=== PATIENT | male | born 1940 | race Caucasian/White ===

== ENCOUNTER → 2017-12-01 12:57 | Outpatient (CLI) | payer MEDICARE, SELFPAY ==
[2017-12-01 14:55] VITALS: PULSE 90; PULSE 95
== END ==
PROVIDERS: Family Provider Family Medicine; PCP Family Medicine; Visit Provider Internal Medicine Critical Care Medicine
DX: J44.9 Chronic obstructive pulmonary disease, unspecified (principal)
CPT/HCPCS: 94640; 94726

== ENCOUNTER 2017-12-10 09:24 | Outpatient (RCR) | payer MEDICARE, SELFPAY | END 2017-12-10 09:25 | disposition home or self-care (01) | LOC: PT 09:24 | PROVIDERS: Family Provider Family Medicine; PCP Family Medicine; Visit Provider Internal Medicine Critical Care Medicine | DX: J44.9 Chronic obstructive pulmonary disease, unspecified (principal) ==

== ENCOUNTER → 2017-12-17 14:43 | Outpatient (POV) | payer MEDICARE, SELFPAY | PROVIDERS: Visit Provider Dermatology | DX: Z00.00 Encounter for general adult medical examination without abnormal findings (principal) ==

== ENCOUNTER → 2018-01-18 06:38 | Outpatient (CLI) | payer MEDICARE, SELFPAY ==
--- NOTE | 2018-01-18 06:41 | NM_ITS ---
History and Indications: Hypertension, hyperlipidemia, family history, chest pain, shortness of breath and palpitations Procedure: Patient received a 0.4 with Lexiscan, resting heart rate was 90 bpm resting blood pressure 134/72, with Lexiscan maximum heart rate achieved was 102 bpm which is less than 85% of the maximum predicted heart rate and a blood pressure was 122/72. With Lexiscan patient complained of stomach discomfort Electrocardiogram: Resting echocardiogram showed sinus rhythm, with Lexiscan thickening premature ventricular complexes seen, less than 1.[address] segment depression noted from the baseline EKG. The EKG portion of the Lexiscan Myoview is nondiagnostic. Cardiac stress and resting SPECT images: Cardiac stress and rest SPECT images were obtained using technetium 99 Myoview 10.2 mCi at rest and 32.2 mCi at stress, gated SPECT further analysis of segmental wall motion and calculation of the ejection fraction also done. Cardiac stress and rest images show a fixed defect involving the inferior wall with reduced contractility in the gated SPECT is likely secondary to prior nontransmural myocardial scarring, computer derived ejection fraction is 43% with inferior and posterobasal wall hypokinesis, right ventricle is normal size and contractility. Conclusion: 1. The EKG portion of the Lexiscan Myoview is nondiagnostic. 2. 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 Right ventricle is normal size and contractility. 3. Abnormal Lexiscan Myoview study
--- NOTE | 2018-01-18 07:49 | HMH.ITSHM ---
LYRICA ZOLPIDEM AMLODIPINE LISINOPRIL PRAVASTATIN CHLORTHALIDONE TAMSULOSIN VENTOLIN ADVAIR SPIRIVA CENTRUM SILVER
== END ==
PROVIDERS: Family Provider Family Medicine; PCP Family Medicine; Visit Provider Internal Medicine
DX: R00.0 Tachycardia, unspecified (principal); I49.3 Ventricular premature depolarization; I27.20 Pulmonary hypertension, unspecified; E78.5 Hyperlipidemia, unspecified; I10 Essential (primary) hypertension; R07.89 Other chest pain
CPT/HCPCS: 78452; 93017; A9502; J2785

== ENCOUNTER → 2018-01-20 09:11 | Outpatient (CLI) | payer MEDICARE, SELFPAY ==
--- NOTE | 2018-01-20 09:13 | CA_ITS ---
PROCEDURE: 2-D M-mode and color Doppler study INDICATIONS FOR THE TEST: Chest pain+ COPD Heart Murmur Tobacco Smoking+ Palpitations Fatigue Syncope Edema+ Hypertension+Diabetes Mellitus Rheumatic Fever SOB+RINALDI Obesity Hyperlipidemia+ Family History HD Additional History SVT, PVC, PAC PATIENT INFORMATION HEIGHT: 71 WEIGHT:245 GENDER: Male B/P:135/84 2-D/M-MODE INTERPRETATION: 2-D MEASUREMENTS OBSERVED VALUES IN CMS Right Ventricular Dimension (RVDd) 2.9 Interventricular Septum (Thickness)(IVsd) 1.7 Left Ventricular Internal Dimensions(LVIDd) 5.5 Left Ventricular Posterior Wall (Thickness)(LVPWd) 1.0 Aortic Root 3.9 Aortic Cusp Separation 1.9 Left Atrial Dimensions (LAD) 3.2 2D 1. Left atrium is mildly enlarged, left ventricle is normal size, there is mild concentric left ventricular hypertrophy, visually estimated ejection fraction of 45%, there is marked hypokinesis involving the inferobasal and posterobasal wall. Endocardial surfaces are poorly visualized. 2. The right atrium and right ventricle are mildly enlarged with normal contractility. 3. The aortic valve is minimally thickened and fibrosed. 4. The mitral and tricuspid valve leaflets are minimally thickened. 5. The pulmonic valve is poorly visualized. 6. No significant pericardial effusion noted. DOPPLER INTERROGATION: Doppler interrogation of the aortic, mitral and tricuspid valvular presence of mild mitral and tricuspid regurgitation, tricuspid and enteric velocity insufficient for calculation of the right ventricular systolic pressure, diastolic parameters are inconclusive. CONCLUSION: 1. Mildly enlarged left atrium, normal left ventricular size, mild concentric left ventricular hypertrophy, visually estimated ejection fraction 45% with segmental wall motion abnormality described above, diastolic parameters are inconclusive. 2. Mild mitral and tricuspid regurgitation 3. No significant pericardial effusion noted.
== END ==
PROVIDERS: Family Provider Family Medicine; PCP Family Medicine; Visit Provider Internal Medicine
DX: R00.0 Tachycardia, unspecified (principal); I49.3 Ventricular premature depolarization; I27.20 Pulmonary hypertension, unspecified; E78.5 Hyperlipidemia, unspecified; I10 Essential (primary) hypertension
CPT/HCPCS: 93306

== ENCOUNTER → 2018-01-25 12:01 | Outpatient (CLI) | payer MEDICARE, SELFPAY ==
[2018-01-25 12:32] LABS: Activated Partial Thrombo Time 24.8 seconds (23.6-34.0); INR 0.98 (0.9-1.1); Prothrombin Time 10.6 seconds (9.4-11.8)
[2018-01-25 12:34] LABS: Alanine Aminotransferase 34 U/L (12-78); Albumin Level 3.9 gm/dL (3.4-5.0); Alkaline Phosphatase 90 U/L (46-116); Aspartate Amino Transferase 29 U/L (15-37); Bilirubin,Direct 0.1 mg/dL (0.0-0.2); Bilirubin,Total 0.3 mg/dL (0.2-1.0); Blood Urea Nitrogen 22 mg/dL (7-18); Carbon Dioxide 32 mmol/L (21.0-32.0); Chloride 104 mmol/L (98-107); Chol/HDL Ratio 3.1 (1-3.5); Cholesterol 189 mg/dL (140-200); Creatinine,Serum 1.34 mg/dL (0.70-1.30); Estimated Glomerular Filt Rate 52 ml/min (>60); GFR (African American) 63 ML/MIN (>60); Glucose 107 mg/dL (74-106); HDL Cholesterol 61 mg/dL (27-67); LDL Cholesterol 104 mg/dL (0-130); Sodium 142 mmol/L (136-145); Total Protein,Serum 7.2 gm/dL (6.4-8.2); Triglycerides 121 mg/dL (30-200); VLDL Cholesterol 24 mg/dL (0-40)
[2018-01-25 12:55] LABS: Basophils # 0.1 K/mm3 (0-0.2); Basophils % 0.6 % (0.1-2.0); Eosinophils # 0.1 K/mm3 (0.0-0.4); Eosinophils % 1.5 % (0.1-12.0); Hematocrit 48.6 % (42.0-52.0); Hemoglobin 15.8 g/dL (14.1-18.0); Lymphocytes # 1.5 K/mm3 (0.7-4.5); Lymphocytes % 20.9 K/mm3 (10-50); Mean Corpuscular HGB Conc 32.4 g/dL (31.8-35.4); Mean Corpuscular Hemoglobin 31.6 pg (27.0-31.2); Mean Corpuscular Volume 97.6 fl (80-94); Mean Platelet Volume 9.3 fl (7.4-10.4); Monocytes # 0.4 K/mm3 (0.1-1.0); Monocytes % 5.8 % (1.7-9.3); Neutrophils # 5.2 K/mm3 (1.8-7.8); Neutrophils % 71.2 % (37.0-80.0); Platelet Count 268 K/mm3 (142-424); Red Blood Count 4.98 M/mm3 (4.60-6.20); Red Cell Distribution Width 13.3 % (11.5-17.5); White Blood Count 7.3 K/mm3 (4.8-10.8)
== END ==
PROVIDERS: Visit Provider Internal Medicine
DX: R94.39 Abnormal result of other cardiovascular function study (principal); R00.2 Palpitations; I27.20 Pulmonary hypertension, unspecified; E78.5 Hyperlipidemia, unspecified; I10 Essential (primary) hypertension; I20.9 Angina pectoris, unspecified; R06.02 Shortness of breath
CPT/HCPCS: 36415; 80048; 80061; 80076; 85025; 85610; 85730

== ENCOUNTER → 2018-02-01 13:20 | Outpatient (POV) | payer MEDICARE, SELFPAY | PROVIDERS: Family Provider Family Medicine; PCP Family Medicine; Visit Provider Physician Assistant | DX: Z00.00 Encounter for general adult medical examination without abnormal findings (principal) ==

== ENCOUNTER → 2018-02-02 10:03 | Outpatient (POV) | payer MEDICARE, SELFPAY | PROVIDERS: Family Provider Family Medicine; PCP Family Medicine; Visit Provider Internal Medicine | DX: Z00.00 Encounter for general adult medical examination without abnormal findings (principal) ==

== ENCOUNTER → 2018-02-17 12:33 | Outpatient (CLI) | payer MEDICARE, SELFPAY ==
[2018-02-17 01:45] VITALS: PULSE 51; PULSE 58
[2018-02-17 15:16] VITALS: BP 125/82; BP 140/90; PULSE 51; PULSE 86; RESP 16; RESP 24; O2SAT 91; O2SAT 93
== END ==
PROVIDERS: Family Provider Family Medicine; PCP Family Medicine; Visit Provider Internal Medicine
DX: R06.02 Shortness of breath (principal); R09.02 Hypoxemia; J44.9 Chronic obstructive pulmonary disease, unspecified
CPT/HCPCS: 94060; 94618; 94640; 94726; 94729

== ENCOUNTER → 2018-03-02 15:47 | Outpatient (CLI) | payer MEDICARE, SELFPAY ==
[2018-03-02 16:34] LABS: Anion Gap 10.2 mEq/L (5-15); Blood Urea Nitrogen 20 mg/dL (7-18); Carbon Dioxide 31 mmol/L (21.0-32.0); Chloride 108 mmol/L (98-107); Estimated Glomerular Filt Rate 54 ml/min (>60); GFR (African American) 65 ML/MIN (>60); Glucose 102 mg/dL (74-106); Potassium 4.2 mmoL/L (3.5-5.1); Sodium 145 mmol/L (136-145)
[2018-03-02 17:12] LABS: Free Thyroxine Index 2.7 ug/dL (5.93-13.13); T4 (Thyroxine) 7.8 ug/dl (4.7-13.3); Thyroid Stimulating Hormone 2.41 uIU/ml (0.358-3.740); Triiodothryronine (T3) Uptake 34 % (31-39)
== END ==
PROVIDERS: Visit Provider Urology
DX: I25.10 Atherosclerotic heart disease of native coronary artery without angina pectoris (principal); I10 Essential (primary) hypertension; R53.83 Other fatigue
CPT/HCPCS: 36415; 80048; 84436; 84443; 84479

== ENCOUNTER → 2018-03-18 15:01 | Outpatient (CLI) | payer MEDICARE, SELFPAY | PROVIDERS: PCP Family Medicine; Visit Provider Physician Assistant | DX: R00.2 Palpitations (principal); R42 Dizziness and giddiness; I27.20 Pulmonary hypertension, unspecified; R06.09 Other forms of dyspnea; I10 Essential (primary) hypertension; I25.10 Atherosclerotic heart disease of native coronary artery without angina pectoris; R53.83 Other fatigue; E66.9 Obesity, unspecified; E78.4 Other hyperlipidemia | CPT/HCPCS: 93225 ==

== ENCOUNTER → 2018-03-26 13:10 | Outpatient (CLI) | payer MEDICARE, SELFPAY ==
[2018-03-26 14:49] LABS: Blood Urea Nitrogen 23 mg/dL (7-18); Calcium 9.2 mg/dL (8.5-10.1); Carbon Dioxide 27 mmol/L (21.0-32.0); Chloride 107 mmol/L (98-107); Creatinine,Serum 1.21 mg/dL (0.70-1.30); Estimated Glomerular Filt Rate 58 ml/min (>60); GFR (African American) 71 ML/MIN (>60); Glucose 115 mg/dL (74-106); Sodium 144 mmol/L (136-145)
== END ==
PROVIDERS: Visit Provider Internal Medicine Cardiovascular Disease
DX: E78.5 Hyperlipidemia, unspecified (principal); I10 Essential (primary) hypertension; I27.20 Pulmonary hypertension, unspecified
CPT/HCPCS: 36415; 80048

== ENCOUNTER → 2018-04-08 13:17 | Outpatient (CLI) | payer MEDICARE, SELFPAY ==
[2018-04-08 13:49] LABS: Anion Gap 11.2 mEq/L (5-15); Blood Urea Nitrogen 20 mg/dL (7-18); Calcium 8.8 mg/dL (8.5-10.1); Carbon Dioxide 27 mmol/L (21.0-32.0); Chloride 105 mmol/L (98-107); Creatinine,Serum 1.15 mg/dL (0.70-1.30); Estimated Glomerular Filt Rate 62 ml/min (>60); GFR (African American) 75 ML/MIN (>60); Glucose 99 mg/dL (74-106); Potassium 4.2 mmoL/L (3.5-5.1); Sodium 139 mmol/L (136-145)
== END ==
PROVIDERS: Urology; Family Provider Family Medicine; PCP Family Medicine; Visit Provider Internal Medicine Cardiovascular Disease
DX: I27.20 Pulmonary hypertension, unspecified (principal); R06.00 Dyspnea, unspecified; I25.10 Atherosclerotic heart disease of native coronary artery without angina pectoris; I10 Essential (primary) hypertension; R00.2 Palpitations; I70.1 Atherosclerosis of renal artery
CPT/HCPCS: 36415; 80048

== ENCOUNTER → 2018-04-22 09:46 | Outpatient (CLI) | payer MEDICARE, SELFPAY ==
[2018-04-22 10:32] LABS: Blood Urea Nitrogen 25 mg/dL (7-18); Creatinine,Serum 1.33 mg/dL (0.70-1.30); Estimated Glomerular Filt Rate 52 ml/min (>60); GFR (African American) 63 ML/MIN (>60)
== END ==
PROVIDERS: Family Provider Family Medicine; PCP Family Medicine; Visit Provider Internal Medicine Cardiovascular Disease
DX: I10 Essential (primary) hypertension (principal); R42 Dizziness and giddiness; I27.20 Pulmonary hypertension, unspecified; R00.2 Palpitations; R06.00 Dyspnea, unspecified; E78.5 Hyperlipidemia, unspecified; I25.10 Atherosclerotic heart disease of native coronary artery without angina pectoris
CPT/HCPCS: 36415; 82565; 84520

== ENCOUNTER → 2018-04-26 14:19 | Outpatient (CLI) | payer MEDICARE, SELFPAY | PROVIDERS: PCP Family Medicine; Visit Provider Internal Medicine | DX: G47.33 Obstructive sleep apnea (adult) (pediatric) (principal) | CPT/HCPCS: 95806 ==

== ENCOUNTER → 2018-05-12 12:38 | Outpatient (CLI) | payer MEDICARE, SELFPAY ==
[2018-05-12 13:40] LABS: Blood Urea Nitrogen 16 mg/dL (7-18); Calcium 8.5 mg/dL (8.5-10.1); Carbon Dioxide 27 mmol/L (21.0-32.0); Chloride 110 mmol/L (98-107); Creatinine,Serum 1.14 mg/dL (0.70-1.30); Estimated Glomerular Filt Rate 62 ml/min (>60); GFR (African American) 75 ML/MIN (>60); Glucose 84 mg/dL (74-106); Sodium 146 mmol/L (136-145)
== END ==
PROVIDERS: Visit Provider Internal Medicine Cardiovascular Disease
DX: I25.10 Atherosclerotic heart disease of native coronary artery without angina pectoris (principal); R06.00 Dyspnea, unspecified; R60.9 Edema, unspecified; I10 Essential (primary) hypertension; I42.9 Cardiomyopathy, unspecified
CPT/HCPCS: 36415; 80048

== ENCOUNTER → 2018-05-27 12:12 | Outpatient (CLI) | payer MEDICARE, SELFPAY ==
[2018-05-27 14:19] LABS: Anion Gap 7.5 mEq/L (5-15); Blood Urea Nitrogen 18 mg/dL (7-18); Calcium 9.2 mg/dL (8.5-10.1); Carbon Dioxide 32 mmol/L (21.0-32.0); Chloride 103 mmol/L (98-107); Creatinine,Serum 1.18 mg/dL (0.70-1.30); Estimated Glomerular Filt Rate 60 ml/min (>60); GFR (African American) 72 ML/MIN (>60); Glucose 104 mg/dL (74-106); Potassium 4.5 mmoL/L (3.5-5.1); Sodium 138 mmol/L (136-145)
== END ==
PROVIDERS: Visit Provider Physician Assistant
DX: R60.0 Localized edema (principal)
CPT/HCPCS: 36415; 80048

== ENCOUNTER → 2018-06-07 14:10 | Outpatient (POV) | payer MEDICARE, SELFPAY | PROVIDERS: Family Provider Family Medicine; PCP Family Medicine; Visit Provider Physician Assistant | DX: Z00.00 Encounter for general adult medical examination without abnormal findings (principal) ==

== ENCOUNTER → 2018-07-22 14:41 | Outpatient (CLI) | payer MEDICARE, SELFPAY ==
--- NOTE | 2018-07-22 14:42 | CA_ITS ---
PROCEDURE: 2-D M-mode and color Doppler study INDICATIONS FOR THE TEST: Chest pain COPDX Heart Murmur Tobacco Smoking Palpitations FatigueX Syncope Edema HypertensionXDiabetes Mellitus Rheumatic Fever SOB RINALDI ObesityXHyperlipidemiaX Family History HD Additional History CAD,CMP,HTN PATIENT INFORMATION HEIGHT: 71 WEIGHT:245 GENDER: Male B/P:167/85 2-D/M-MODE INTERPRETATION: 2-D MEASUREMENTS OBSERVED VALUES IN CMS Right Ventricular Dimension (RVDd) 2.7 Interventricular Septum (Thickness)(IVsd) 1.2 Left Ventricular Internal Dimensions(LVIDd) 5.2 Left Ventricular Posterior Wall (Thickness)(LVPWd) 1.1 Aortic Root 3.8 Aortic Cusp Separation 2.2 Left Atrial Dimensions (LAD) 2.3 2D 1. Left atrium is mildly enlarged, left ventricle is normal size, mild concentric left estimated ejection fraction approximately 50%, there is moderate hypokinesis involving the inferobasal wall. 2. The right atrium and right ventricle are normal size and contractility. 3. The aortic valve is thickened and calcified leaflet continue to display mobility. 4. The mitral and tricuspid valve is minimally thickened 5. The pulmonic valve is poorly visualized. 6. No significant pericardial effusion noted. DOPPLER INTERROGATION: Doppler interrogation of the aortic, mitral and tricuspid valvular presence of mild mitral and tricuspid regurgitation, calculated right ventricular systolic pressure is 45 mmHg consistent with moderate pulmonary hypertension, grade 1 diastolic dysfunction seen with tissue Doppler evidence of raised left atrial pressure. CONCLUSION: 1. Mildly enlarged left atrium, normal left ventricular size, mild concentric left ventricular hypertrophy, visually estimated ejection fraction 50% with segmental wall motion abnormality described above, grade 1 diastolic dysfunction seen with tissue Doppler evidence of raised left atrial pressure. 2. Mild mitral and tricuspid regurgitation, calculated right ventricular systolic pressure is 45 mmHg consistent with moderate pulmonary hypertension. 3. No significant pericardial effusion noted.
== END ==
PROVIDERS: Family Provider Family Medicine; PCP Family Medicine; Visit Provider Internal Medicine Cardiovascular Disease
DX: E66.9 Obesity, unspecified (principal); E78.4 Other hyperlipidemia; I10 Essential (primary) hypertension; I25.10 Atherosclerotic heart disease of native coronary artery without angina pectoris; I27.20 Pulmonary hypertension, unspecified; I42.8 Other cardiomyopathies; R06.09 Other forms of dyspnea; R42 Dizziness and giddiness; R53.83 Other fatigue; R60.0 Localized edema; Z87.891 Personal history of nicotine dependence
CPT/HCPCS: 93306

== ENCOUNTER → 2018-08-13 07:52 | Outpatient (CLI) | payer MEDICARE, SELFPAY ==
--- NOTE | 2018-08-13 07:54 | AS_ITS ---
Renal Arterial Duplex Indications: 782.3 Edema. 405.91 Unspecified renovascular hypertension. IMPRESSIONS 1. The right renal artery appears normal. 2. The left renal artery appears normal. Complete renal arterial duplex. Duplex scan and Doppler flow study including spectral analysis, color and garcia scale imaging. Height: Height: 180.3cm. Height: 71in. Weight: Weight: 108kg. Weight: 237.5lb. Body mass index: BMI: 33.2kg/m^2. Body surface area: BSA: 2.36m^2. Location: Vascular laboratory. Patient status: Outpatient. Tables: Arterial flow: + +--------+--------+ Location V sys V ed + +--------+--------+ Right renal - proximal 80.1cm/s 21.1cm/s + +--------+--------+ Right renal - mid 98.4cm/s 34cm/s + +--------+--------+ Right renal - distal 58.8cm/s 20.8cm/s + +--------+--------+ Left renal - proximal 120cm/s 41.2cm/s + +--------+--------+ Left renal - mid 79.4cm/s 30.6cm/s + +--------+--------+ Left renal - distal 75.4cm/s 28.6cm/s + +--------+--------+ Right renal-origin 91.7cm/s 31.9cm/s + +--------+--------+ Left renal-origin 111cm/s 32.8cm/s + +--------+--------+ Renal anatomy: + +------+------+ Left Right + +------+------+ Long axis 10.8cm 10.4cm + +------+------+ Short axis 5.7cm 6.8cm + +------+------+ Velocity ratios: + +-----+ V sys + +-----+ Right renal/aortic 1.4 + +-----+ Left renal/aortic 1.6 + +-----+ (Report amended ) Electronically signed by: Rohit Pillai [id number]
== END ==
PROVIDERS: PCP Family Medicine; Visit Provider Internal Medicine
DX: E66.9 Obesity, unspecified (principal); I10 Essential (primary) hypertension; I25.10 Atherosclerotic heart disease of native coronary artery without angina pectoris; I27.20 Pulmonary hypertension, unspecified; R00.2 Palpitations; R06.09 Other forms of dyspnea; R42 Dizziness and giddiness; R53.83 Other fatigue; Z87.891 Personal history of nicotine dependence; E78.49 Other hyperlipidemia
CPT/HCPCS: 93976

== ENCOUNTER → 2018-08-18 11:39 | Outpatient (CLI) | payer MEDICARE, SELFPAY ==
[2018-08-18 13:41] LABS: Anion Gap 11.3 mEq/L (5-15); Blood Urea Nitrogen 20 mg/dL (7-18); Calcium 8.8 mg/dL (8.5-10.1); Carbon Dioxide 31 mmol/L (21.0-32.0); Chloride 107 mmol/L (98-107); Creatinine,Serum 1.22 mg/dL (0.70-1.30); Estimated Glomerular Filt Rate 58 ml/min (>60); GFR (African American) 70 ML/MIN (>60); Glucose 94 mg/dL (74-106); Potassium 4.3 mmoL/L (3.5-5.1); Sodium 145 mmol/L (136-145)
== END ==
PROVIDERS: Visit Provider Physician Assistant
DX: I25.10 Atherosclerotic heart disease of native coronary artery without angina pectoris (principal); I27.20 Pulmonary hypertension, unspecified; R00.2 Palpitations; R42 Dizziness and giddiness; Z87.891 Personal history of nicotine dependence; R06.09 Other forms of dyspnea
CPT/HCPCS: 36415; 80048; 83880

== ENCOUNTER → 2018-08-24 07:02 | Outpatient (CLI) | payer MEDICARE, SELFPAY ==
--- NOTE | 2018-08-24 07:04 | NM_ITS ---
History and Indications: Coronary artery disease, hypertension, hyperlipidemia, tobacco use, family history, chest pain, shortness of breath and fatigue Procedure: Patient received a 0.4 mg of intravenous Lexiscan, resting heart rate was 50 beats per resting blood pressure 176/84, with Lexiscan maximum heart rate achieved was 88 bpm which is less than 85% of the maximum predicted heart rate and a blood pressure was 172/94. With Lexiscan patient complained of mild shortness of breath and stomach discomfort. Electrocardiogram: Resting electrocardiogram showed sinus bradycardia, with Lexiscan occasional premature ventricular complex seen, with Lexiscan less than 1.[address] segment depression noted from the baseline EKG. The EKG portion of the Lexiscan Myoview is nondiagnostic. Cardiac stress and resting SPECT images: Cardiac stress and rest SPECT images were obtained using technetium 99 Myoview 32.3 mCi stress and 10.0 mCi rest gated SPECT further analysis of segmental wall motion and calculation of the ejection fraction also done. Cardiac stress and resting SPECT images show decreased tracer activity in the inferior wall which improves on the resting images suggestive of reversible ischemia, computer derived ejection fraction is 46% with moderate inferior and posterobasal wall hypokinesis. Right ventricle is normal size and contractility. Conclusion: 1. The EKG portion of the Lexiscan Myoview is nondiagnostic. 2. Scintigraphic evidence of reversible ischemia involving the inferior and posterobasal wall, computer derived ejection fraction is 46% segmental wall motion abnormality described above, right ventricle is normal size and contractility. 3. Abnormal Lexiscan Myoview study.
--- NOTE | 2018-08-24 07:36 | HMH.ITSHM ---
Current Home Medications as stated by this patient Puma Weber or enrollment eligibility representative. []PRAVASTATIN AMLODIPINE CLOPIDGREL DIAZEPAM FLUTICASONE FUROSEMIDE LOSARTAN METOPROLOL MULTIVITAMIN LYRICA FLOMAX AMBIEN
== END ==
PROVIDERS: PCP Family Medicine; Visit Provider Internal Medicine
DX: I20.9 Angina pectoris, unspecified; I27.20 Pulmonary hypertension, unspecified; R06.00 Dyspnea, unspecified; E78.5 Hyperlipidemia, unspecified; E66.9 Obesity, unspecified; I42.9 Cardiomyopathy, unspecified; R42 Dizziness and giddiness; R53.83 Other fatigue; R60.9 Edema, unspecified; Z87.891 Personal history of nicotine dependence; I11.9 Hypertensive heart disease without heart failure
CPT/HCPCS: 78452; 93017; A9502; J2785

== ENCOUNTER → 2018-09-17 10:32 | Outpatient (CLI) | payer MEDICARE, SELFPAY ==
[2018-09-17 10:57] LABS: Basophils # 0.1 K/mm3 (0-0.2); Basophils % 0.8 % (0.1-2.0); Eosinophils # 0.1 K/mm3 (0.0-0.4); Eosinophils % 1.6 % (0.1-12.0); Hematocrit 45.8 % (42.0-52.0); Hemoglobin 14.9 g/dL (14.1-18.0); Lymphocytes # 1.4 K/mm3 (0.7-4.5); Lymphocytes % 22.9 % (10-50); Mean Corpuscular HGB Conc 32.5 g/dL (31.8-35.4); Mean Corpuscular Hemoglobin 31.3 pg (27.0-31.2); Mean Corpuscular Volume 96.3 fl (80-94); Mean Platelet Volume 9.1 fl (7.4-10.4); Monocytes # 0.4 K/mm3 (0.1-1.0); Monocytes % 6.4 % (1.7-9.3); Neutrophils # 4.2 K/mm3 (1.8-7.8); Neutrophils % 68.3 % (37.0-80.0); Platelet Count 281 K/mm3 (142-424); Red Blood Count 4.75 M/mm3 (4.60-6.20); Red Cell Distribution Width 14.6 % (11.5-17.5); White Blood Count 6.1 K/mm3 (4.8-10.8)
[2018-09-17 12:40] LABS: Blood Urea Nitrogen 23 mg/dL (7-18); Creatinine,Serum 1.51 mg/dL (0.70-1.30); Estimated Glomerular Filt Rate 45 ml/min (>60); GFR (African American) 54 ML/MIN (>60)
== END ==
PROVIDERS: Visit Provider Otolaryngology
DX: R22.0 Localized swelling, mass and lump, head (principal); R22.1 Localized swelling, mass and lump, neck
CPT/HCPCS: 36415; 82565; 84520; 85025

== ENCOUNTER → 2018-10-15 07:33 | Outpatient (CLI) | payer MEDICARE, SELFPAY ==
--- NOTE | 2018-10-15 07:35 | CT_ITS ---
CT soft tissue neck wo con Ordering Physician: Jawsant Carbone MD Patient Age: 78 years: Male HISTORY: ITS.REASON: swelling left neckmarked with BB TECHNIQUE: Helical CT scanning performed neck with no IV contrast utilized. Due to allergy to contrast. Axial sagittal and coronal reconstructions performed on CT workstation. All CT scans at this facility used one or more dose reduction techniques , viz: automatic exposure control, ma/Kv adjustment per patient's size, (including targeted exam where dose matched to the indication; i.e. head); or iterative reconstruction technique COMPARISON : No previous neck studies CT chest 09/29/2017 which included base of neck FINDINGS . The skin marker is placed over the left neck below the left mandible. No mass is seen here. Only generous adipose tissue within redundant lax soft tissues are seen in this region.. Fairly symmetric in appearance by CT no focal mass or asymmetry evident. The submandibular glands appear normal and symmetrical CT neck without contrast., Well superior to this region marked on scan. If concern and submandibular gland should progress consider follow-up ultrasound here but they appear normal by this CT . Floor the mouth unremarkable by CT but warrants clinical correlation as well. Only a few small scattered nodes are seen throughout the neck, for example overlying the superior submandibular glands more superiorly towards the angle of the mandible. These scattered small nodes unimpressive appear benign symmetrical.- Not of concern., Within spectrum of normal. In fact actually branches from the Slightly generous internal jugular vein contribute to some but the round densities bilaterally overlying the submandibular glands and angle of mandible.. No suspicious adenopathy or mass at the neck. Base of tongue appears satisfactory... Parapharyngeal regions satisfactory. Epiglottis vallecula and piriform sinuses regions unremarkable. [place] of the lung. Prominent linear areas of scarring and atelectasis have been seen on previous CT chest and account for the notable bilateral apical pleural density, right more evident than left... C-spine. Mild degenerative changes. Degenerative facet changes. Right facet degeneration arthropathy hypertrophy most prominent C7/T1. On the Left the C4/5 facet hypertrophy is most notable. C1-C2 relationships appear normal. Mild spondylosis. The base of skull intact. Paranasal sinuses are fairly clear with no significant air-fluid levels. Only scant mucosal thickening at junction of frontal and ethmoid air cells. Mastoid air cells well-developed and clear. Middle ear clear. IACs unremarkable. IMPRESSION 1. No significant mass nor adenopathy identified at neck. 2. Only Generous generous adipose within the redundant lax soft tissue beneath the jaw is seen at area concern with overlying skin marker.. No significant mass or adenopathy here. Submandibular glands superior to this area appears symmetrical on this CT neck without contrast as well 3.. Remainder the neck shows only some scattered benign nodes. No areas of concern ... Mild degenerative changes spine. . The Generous pleural-parenchymal scarring at lung apices, right more than left apex, again noted as previously seen on prior CT chest studies.,..
[2018-10-15 08:24] LABS: Blood Urea Nitrogen 25 mg/dL (7-18); Creatinine,Serum 1.37 mg/dL (0.70-1.30); Estimated Glomerular Filt Rate 50 ml/min (>60); GFR (African American) 61 ML/MIN (>60)
== END ==
PROVIDERS: PCP Family Medicine; Visit Provider Otolaryngology
DX: R22.0 Localized swelling, mass and lump, head (principal); R22.1 Localized swelling, mass and lump, neck
CPT/HCPCS: 36415; 70490; 82565; 84520

== ENCOUNTER → 2018-11-02 10:44 | Outpatient (POV) | payer MEDICARE, SELFPAY | PROVIDERS: Visit Provider Internal Medicine | DX: Z00.00 Encounter for general adult medical examination without abnormal findings (principal) ==

== ENCOUNTER → 2019-02-01 14:34 | Outpatient (POV) | payer MEDICARE, SELFPAY | PROVIDERS: Visit Provider Dermatology | DX: Z00.00 Encounter for general adult medical examination without abnormal findings (principal) ==

== ENCOUNTER → 2019-03-15 12:54 | Outpatient (CLI) | payer MEDICARE, SELFPAY ==
--- NOTE | 2019-03-15 12:59 | CT_ITS ---
CT lung screening EXAM: CT LUNG LOW DOSE WO CONTRAST HISTORY: 100 pack-year smoking history: Asymptomatic for lung cancer ITS.REASON: HX TOBACCO USE ORDERING PHYSICIAN: Paco Vilchis MD PATIENT AGE: 78 years COMPARISON: None TECHNIQUE: The exam was performed on a GE Light Speed [address] scanner using 2.90 mGy CTDI. A low dose helical CT CHEST was performed on a multi-detector scanner. All CT scans at the facility use one or more dose reduction, viz: automated exposure control, ma/kV adjustment per patient size (including targeted exams where dose is matched to indication, i.e. head), or iterative reconstruction technique. The LDCT was performed in a facility that meets the criteria for the screening program. Data regarding this exam was submitted to ACR which is an approved registry. The order for this exam indicates that it came as a result of a lung cancer screening counseling shard decision-making visit that included all the elements required of such a visit including smoking cessation. The radiologist interpreting this exam meets the [facility] criteria for the LDCT lung cancer screening program. The exam is reported using the Lung-RADS classification scale and reported to the ACR registry. NOTE: This study was performed for the specific purposes of lung cancer screening and is not an alternative to diagnostic chest CT. RADIATION DOSE: CTDI vol(CT dose Index-volume) = 2.90mG DLP (Dose Length Product) = 102.12 mGcm FINDINGS: Centrilobular emphysema with scarring. Biapical pleural thickening right greater than left. Old granulomatous disease. No suspicious pulmonary nodules have developed in the interval. There is extensive coronary artery calcification and coronary artery stents noted. Incidental note made of gallstones. IMPRESSION: 1. Lung RADS Category: 2, benign 2. Other findings: Centrilobular emphysema, COPD, bilateral scarring Coronary artery disease Cholelithiasis RECOMMENDATIONS: 12 month LDCT follow-up
== END ==
PROVIDERS: PCP Family Medicine; Visit Provider Internal Medicine
DX: Z12.2 Encounter for screening for malignant neoplasm of respiratory organs (principal); Z87.891 Personal history of nicotine dependence

== ENCOUNTER → 2019-05-03 13:32 | Outpatient (CLI) | payer MEDICARE, SELFPAY ==
[2019-05-03 15:22] LABS: Alanine Aminotransferase 47 U/L (12-78); Albumin Level 3.4 gm/dL (3.4-5.0); Alkaline Phosphatase 90 U/L (46-116); Aspartate Amino Transferase 47 U/L (15-37); Bilirubin,Direct 0.2 mg/dL (0.0-0.2); Bilirubin,Indirect 0.4 mg/dL (0.0-0.9); Bilirubin,Total 0.6 mg/dL (0.2-1.0); Total Protein,Serum 6.3 gm/dL (6.4-8.2)
== END ==
PROVIDERS: Internal Medicine Cardiovascular Disease; Visit Provider Internal Medicine
DX: R74.8 Abnormal levels of other serum enzymes (principal)
CPT/HCPCS: 36415; 80076

== ENCOUNTER → 2019-08-02 14:40 | Outpatient (POV) | payer MEDICARE, SELFPAY | PROVIDERS: Visit Provider Dermatology | DX: Z00.00 Encounter for general adult medical examination without abnormal findings (principal) ==

== ENCOUNTER → 2019-08-17 10:34 | Outpatient (CLI) | payer MEDICARE, SELFPAY ==
--- NOTE | 2019-08-17 10:42 | XR_ITS ---
PROCEDURE: XR CHEST 2V CLINICAL HISTORY: SOB Shortness of breath, cough, smoker COMPARISON: CXR CHEST(2 VIEWS-NOT PORTABLE) from 12/27/2015 CXR CHEST(2 VIEWS-NOT PORTABLE) from 09/07/2017 CXR CHEST(2 VIEWS-NOT PORTABLE) from 09/19/[address] [facility] [address] CHEST W/O CONTRAST from 09/29/2017 FINDINGS: The cardiomediastinal silhouette and pulmonary vascularity are within normal limits. COPD/emphysema with old granulomatous disease. Chronic right apical pleural thickening with fibrotic changes in both upper lobes similar to the previous exam. No lobar consolidation or collapse. No acute bony findings. IMPRESSION: Chronic changes with COPD and fibrotic change. No change with no acute finding Dictated by: Ellis Lazo MD 08/17/2019 13:13 Electronically signed by Ellis Lazo MD in [place] 08/17/2019 13:13
== END ==
PROVIDERS: PCP Family Medicine; Visit Provider Family Medicine
DX: R06.02 Shortness of breath (principal)
CPT/HCPCS: 71046

== ENCOUNTER → 2019-09-22 12:28 | Outpatient (CLI) | payer MEDICARE, SELFPAY | PROVIDERS: Visit Provider Family Medicine | DX: R93.89 Abnormal findings on diagnostic imaging of other specified body structures (principal) | CPT/HCPCS: 87070; 87205 ==

== ENCOUNTER → 2020-01-18 10:33 | Outpatient (RCR) | payer MEDICARE, SELFPAY | END | disposition home or self-care (01) | LOC: PT 02-19 12:56 | PROVIDERS: Family Provider Family Medicine; PCP Family Medicine; Visit Provider Internal Medicine | DX: Z95.5 Presence of coronary angioplasty implant and graft (principal) | CPT/HCPCS: 93798 ==

== ENCOUNTER → 2020-03-06 12:53 | Outpatient (POV) | payer MEDICARE, SELFPAY | PROVIDERS: PCP Physician Assistant; Visit Provider Physician Assistant | DX: Z00.00 Encounter for general adult medical examination without abnormal findings (principal) ==

== ENCOUNTER → 2020-03-15 11:58 | Outpatient (CLI) | payer MEDICARE, SELFPAY ==
--- NOTE | 2020-03-15 12:44 | XR_ITS ---
PROCEDURE: XR SHOULDER LT MIN 2V CLINICAL INDICATION: LEFT SHOULDER PAIN, UNSPECIFIED COMPARISON: XR CHEST 2V from 08/29/2019 FINDINGS: There are mild osteoarthritic changes of the acromioclavicular joint and glenohumeral joint. No fracture or dislocation. No lytic or blastic change. IMPRESSION: Mild osteoarthritic change Dictated by: Ellis Lazo MD 03/15/2020 12:57 Electronically signed by Ellis Lazo MD in [place] 03/15/2020 12:57
== END ==
PROVIDERS: PCP Nurse Practitioner Family; Visit Provider Nurse Practitioner Family
DX: M25.512 Pain in left shoulder (principal)
CPT/HCPCS: 73030

== ENCOUNTER → 2020-03-20 14:46 | Outpatient (CLI) | payer MEDICARE, SELFPAY ==
--- NOTE | 2020-03-20 14:50 | US_ITS ---
PROCEDURE: US BREAST RT COMPLETE CLINICAL INDICATION: NIPPLE PAIN palpable area near nipple COMPARISON: US BREAST LT COMPLETE from 03/20/2020 FINDINGS: There is an oval mass with homogeneous echogenicity measuring 4.1 by 4.3 x 1.2 cm with fairly well-defined interface between the lesion and the surrounding breast parenchyma in this likely represents a lipoma. There is no abnormal mass deep to the nipple. And the remainder of the targeted exam is unremarkable. 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 Satnam Hope MD 03/23/2020 09:[address] Satnam Hope MD in [place] 03/23/2020 09:51
--- NOTE | 2020-03-20 14:50 | US_ITS ---
PROCEDURE: US BREAST LT COMPLETE CLINICAL INDICATION: NIPPLE PAIN COMPARISON: Ultrasound right breast same date FINDINGS: Normal mildly heterogenic echogenicity is seen in the subareolar region. There is no abnormal cystic or solid lesions seen. There are no findings to suggest architectural distortion. IMPRESSION: Unremarkable targeted ultrasound left breast Dictated by: Dr. Satnam Hope MD 03/23/2020 09:[address] Satnam Hope MD in [place] 03/23/2020 09:44
== END ==
PROVIDERS: PCP Nurse Practitioner Family; Visit Provider Nurse Practitioner Family
DX: N64.4 Mastodynia (principal)
CPT/HCPCS: 76641

== ENCOUNTER → 2020-04-19 14:22 | Outpatient (CLI) | payer MEDICARE, SELFPAY ==
[2020-04-19 19:25] LABS: Coronavirus 19 IgG Antibody Negative (Negative); Coronavirus 19 IgM Antibody Negative (Negative)
== END ==
PROVIDERS: PCP Family Medicine; Visit Provider Nurse Practitioner Family
DX: Z03.818 Encounter for observation for suspected exposure to other biological agents ruled out (principal)
CPT/HCPCS: 86328

== ENCOUNTER → 2020-06-27 13:05 | Outpatient (CLI) | payer MEDICARE, SELFPAY | PROVIDERS: Visit Provider Family Medicine | DX: J44.9 Chronic obstructive pulmonary disease, unspecified (principal); R05 Cough | CPT/HCPCS: 87070; 87077; 87102; 87205; 87206 ==

== ENCOUNTER → 2020-07-13 10:12 | Outpatient (CLI) | payer MEDICARE, SELFPAY ==
--- NOTE | 2020-07-13 10:18 | XR_ITS ---
PROCEDURE: XR CHEST 2V CLINICAL HISTORY: SOB COMPARISON: CR CXR CHEST(2 VIEWS-NOT PORTABLE) from 09/19/[address] [facility] [address] CHEST W/O CONTRAST from 09/29/2017 CR XR CHEST 2V from 08/17/2019 CR XR CHEST 2V from 08/29/2019 FINDINGS: The cardiomediastinal silhouette and pulmonary vascularity are within normal limits. COPD. There is right apical pleural thickening with scarring in the right upper lobe. There is evidence of old granulomatous disease. There is some pleural thickening in the right upper chest laterally. No lobar consolidation or collapse. No acute bony abnormalities. IMPRESSION: COPD with chronic changes with chronic right apical pleural thickening. No change with no acute finding Dictated by: Ellis Lazo MD 07/13/2020 16:20 Ellis Lazo MD in [place] 07/13/2020 16:20
== END ==
PROVIDERS: PCP Nurse Practitioner Family; Visit Provider Nurse Practitioner Family
DX: R06.02 Shortness of breath (principal)
CPT/HCPCS: 71046

== ENCOUNTER → 2020-07-19 13:04 | Outpatient (CLI) | payer MEDICARE, SELFPAY | PROVIDERS: Visit Provider Family Medicine | DX: R06.02 Shortness of breath (principal); J44.9 Chronic obstructive pulmonary disease, unspecified | CPT/HCPCS: 87070; 87077; 87205 ==

== ENCOUNTER → 2020-08-17 12:29 | Outpatient (CLI) | payer MEDICARE, SELFPAY | PROVIDERS: Visit Provider Nurse Practitioner Family | DX: Z03.818 Encounter for observation for suspected exposure to other biological agents ruled out (principal) | CPT/HCPCS: U0003 ==

== ENCOUNTER → 2020-09-05 11:27 | Outpatient (CLI) | payer MEDICARE, SELFPAY ==
[2020-09-05 15:37] LABS: Coronavirus 19 IgG Antibody Negative (Negative); Coronavirus 19 IgM Antibody Negative (Negative)
== END ==
LOC: LAB 11:30 → COVID.OUT 11:39
PROVIDERS: PCP Family Medicine; Visit Provider Family Medicine
DX: Z03.818 Encounter for observation for suspected exposure to other biological agents ruled out (principal)
CPT/HCPCS: 36415; 86328; U0003

== ENCOUNTER 2020-10-15 11:42 | Observation (INO) | payer MEDICARE, SELFPAY ==
--- NOTE | 2020-10-15 12:13 | XR_ITS ---
PROCEDURE: XR CHEST 2V CLINICAL HISTORY: dyspnea COMPARISON: CT [facility] CT CHEST W/O CONTRAST from 09/29/2017 CR XR CHEST 2V from 08/17/2019 CR XR CHEST 2V from 08/29/2019 CR XR CHEST 2V from 07/13/2020 FINDINGS: Emphysematous changes are again noted with hyperexpansion of the lung hartmann and flattening of the hemidiaphragms. There is chronic pleural parenchymal scarring right upper lobe and right apex unchanged from the most recent chest film 07/13/2020. There is no acute infiltrate is seen. Cardiac size is normal, there is no pulmonary congestion and no pleural fluid. IMPRESSION: Stable COPD and chronic pleural parenchymal scarring right upper lobe, no definite acute chest pathology noted Dictated by: Dr. Satnam Hope MD 10/15/2020 20:57 Dr. Satnam Hope MD in [place] 10/15/2020 20:57
--- NOTE | 2020-10-15 12:15 | CA_ITS ---
APPROVED REPORT EXAM: Comprehensive 2D, Doppler, and color-flow Echocardiogram Conveyor Operator: Kya Esqueda CRT Ht: 5 ft 11 in Wt: 243lbs BSA: 2.29 BP: 151/73 mmHg Indications: COPD, Shortness of Breath, Obesity, Palpitations, Dyspnea, Fatigue, Peripheral Edema, CAD, Hyperlipidemia, Cardiomyopathy, Hypertension/HDD, stents, PHTN 2D Dimensions LVOT 2.05 cm (M/F) 1.5-2.5 M-Mode Dimensions RVDd 2.86 cm (0.9-2.6) LA Diam 3.90 cm (1.9-4.0) LVDd 7.10 cm (3.5-5.7) Ao Diam 3.99 cm (2.0-3.7) LVDs 5.09 cm (3.5-5.7) IVSd 1.21 cm (0.6-1.1) PWd 0.94 cm (0.6-1.1) EF (Teich) 53.30% FS 28.30% EDV (Teich) 263.70 mL ESV (Teich) 123.20 mL LV Diastology E Decel Time 150.00 (160-240 msec) E/A Ratio 2.58 Aortic Valve AO Peak GR. 10.70 mmHg Mitral Valve MV E Max Daryn. 104.00 (40-130 cm/s) MV A Velocity 40.00 (40-130 cm/s) E/A Ratio 2.58 MV Decel. Time 150.00 (160-240 ms) MV PHT 44.00 ms Pulmonary Valve PV Peak Velocity 84.00 (50-150 cm/s) Tricuspid Valve TR P. Velocity 224.00 cm/s RAP Estimate 10.00 mmHg RVSP 30.10 mmHg Left Ventricle Technically difficult study because of the patient fact in poor acoustic windows. Left atrium is mildly enlarged, left ventricle is normal size, mild concentric left ventricular hypertrophy, visually estimated ejection fraction 50% with no regional wall motion abnormality, diastolic parameters are inconclusive. Right Ventricle Right atrium and right ventricle are mildly enlarged with normal contractility. Aortic Valve Aortic valve is minimally thickened and fibrosed, there is no aortic stenosis or aortic insufficiency. Mitral Valve Mitral valve leaflets are minimally thickened, there is no mitral stenosis, there is mild mitral regurgitation. Tricuspid Valve Tricuspid valve grossly normal, there is mild tricuspid regurgitation tricuspid regurgitation jet velocity is inadequate for calculation of the right ventricular systolic pressure. Pulmonic Valve Pulmonic valve is poorly visualized. Great Vessels Aortic root is normal size. Pericardium Small pericardial effusion noted. Conclusion 1. Technically difficult study because of the patient factors and poor acoustic windows. 2. Mild biatrial enlargement, normal left ventricular size, mild concentric left ventricular hypertrophy, visually estimated ejection fraction 50% with no regional wall motion abnormality, diastolic parameters are inconclusive. 3. Mildly enlarged right ventricle with normal contractility. 4. Mild mitral and tricuspid regurgitation. 5. Small pericardial effusion noted. Electronically signed by : Winston Marroquin, 10/15/2020 18:09:21
[2020-10-15 12:24] VITALS: BP 151/73; PULSE 106; RESP 20; TEMP 36.8; O2SAT 92; BMI 34.0
[2020-10-15 12:30] VITALS: PULSE 106; RESP 20; O2SAT 92
[2020-10-15 12:36] LABS: Basophils % 0.6 % (0.1-2.0); Eosinophils # 0.1 K/mm3 (0.0-0.4); Eosinophils % 1.4 % (0.1-12.0); Hematocrit 41.5 % (42.0-52.0); Hemoglobin 13.5 g/dL (14.1-18.0); Lymphocytes # 0.7 K/mm3 (0.7-4.5); Mean Corpuscular HGB Conc 32.5 g/dL (31.8-35.4); Mean Corpuscular Hemoglobin 31.3 pg (27.0-31.2); Mean Corpuscular Volume 96.4 fl (80-94); Monocytes # 0.4 K/mm3 (0.1-1.0); Monocytes % 7.4 % (1.7-9.3); Neutrophils # 4.6 K/mm3 (1.8-7.8); Neutrophils % 78.6 % (37.0-80.0); Platelet Count 249 K/mm3 (142-424); Red Cell Distribution Width 15.1 % (11.5-17.5); White Blood Count 5.8 K/mm3 (4.8-10.8)
[2020-10-15 12:40] LABS: Chloride 107 mmol/L (98-107); Potassium 3.8 mmoL/L (3.5-5.1); Sodium 141 mmol/L (136-145)
[2020-10-15 12:43] LABS: Anion Gap 8.8 mEq/L (5-15); Blood Urea Nitrogen 23 mg/dl (9-20); Calcium 9.2 mg/dl (8.4-10.2); Carbon Dioxide 29 mmol/L (22.0-30.0); Creatinine Clearance Estimated 72 mL/min (50-200); Estimated Glomerular Filt Rate 53 ml/min (>60); GFR (African American) 64 ML/MIN (>60); Glucose 119 mg/dl (74-100)
--- NOTE | 2020-10-15 13:02 | ECG_ITS ---
APPROVED REPORT Exam: Resting ECG HR:91 bpm ECG Measurements Heart Rate 91 AXES AZ 168 P 53 QRSd 130 QRS 10 QT 398 T 14 QTc 489 Conclusion Sinus rhythm with sinus arrhythmia with occasional premature ventricular complexes Right bundle branch block Abnormal ECG Electronically signed by : Joel Polanco, 10/16/2020 19:57:06
[2020-10-15 13:04] LABS: NT Pro Brain Natriuretic Pep. 936 pg/mL (0-450)
[2020-10-15 13:10] LABS: Coronavirus 19 IgG Antibody Negative (Negative); Coronavirus 19 IgM Antibody Negative (Negative)
--- NOTE | 2020-10-15 13:32 | HMH.PHAVTE ---
[facility] Pharmacy VTE Monitoring - Patient Demographics Admission date: 10/15/20 Report Date: 10/15/20 Time: 13:32 Allergies/Adverse Reactions: Patient Allergies No Known Drug Allergies Allergy (Verified 10/15/20 13:02) Height: 1.8 m Weight: 110.45 kg - VTE Risk Labs: VTE Related Lab Results Hgb 13.5 g/dL (14.1-18.0) L 10/15/20 12:26 Hct 41.5 % (42.0-52.0) L 10/15/20 12:26 Plt Count 249 K/mm3 (142-424) 10/15/20 12:26 BUN 23 mg/dl (9-20) H 10/15/20 12:26 Creatinine 1.30 mg/dl (0.66-1.25) H 10/15/20 12:26 Estimated Creat Clear 72 mL/min (50-200) 10/15/20 12:26 Was VTE Risk Assessment Performed: Yes VTE Score: 4 VTE Risk Level: Low Risk - Prophylaxis VTE Prophylaxis Ordered?: Yes Types of VTE Prophylaxis: TEDS Knee High Location of Applied Device: Bilateral Lower Extremeties
--- NOTE | 2020-10-15 14:38 | HMH.PHAINT ---
MEDICATION RECONCILIATION COMPLETED ON PATIENT USING LIST FROM MD OFFICE. -LINCOLN WASHINGTON, DERICKD
[2020-10-15 15:46] VITALS: BP 136/66; PULSE 62; RESP 18; TEMP 36.6; O2SAT 95
--- NOTE | 2020-10-15 16:50 | HMH.HP ---
*Admission Date: 10/15/20 *Chief complaint: Shortness of breath *History of present illness: 80-year-old male with coronary artery disease and moderate COPD diagnosed on pulmonary function test at outside facility in July or August 2019 presented to the office with worsening shortness of breath. Patient has been seen in my office multiple times in the month of September and treated for a COPD exacerbation. Patient was treated with a prolonged course of steroids (2 weeks). He had last been seen in the office on October 05 and at that time had 4-5 more days of steroids left and had noted improvement in his dyspnea although would readily admit he was not back to what he perceives as his baseline. Review of additional records at that time showed evidence of pulmonary hypertension on prior cardiac testing. Plan at that time was to finish his steroid taper and patient was going to establish care with local pulmonology in early October. Patient returned to the office today with a rapid decline in activity tolerance and dyspnea both at rest and with exertion. He uses supplemental oxygen on an as-needed basis at home and was able to maintain O2 sats at rest in the mid 90s. Patient reported orthopnea and a cough that was productive of clear sputum. He was very forward that he thought he needed some antibiotics . He did not have any infectious symptoms. Review of office visit that time also showed a 10 pound weight gain during the month of September and a 20 pound weight gain since the beginning of June. Patient was felt to have some element of congestive heart failure, likely diastolic, and was admitted for further evaluation and treatment of his dyspnea due to presumed congestive heart failure. Pulmonology consult was also part of the treatment plan. Since admission patient has had a single dose of Lasix and reports frequent trips to the urinal with excellent urine output. His notes that he has not coughed since arrival to the hospital. Patient is sitting in the hospital bed with his nasal cannula in his mouth [facility] History I have reviewed the patient's past medical history: Yes Medical History: Reports:: Asthma, Congestive Heart Failure, Chronic Obstructive Pulmonary Disease (COPD), Coronary Artery Disease, Hyperlipidemia, Hypertension, Myocardial Infarction, Palpitations Denies:: Cancer, Diabetes Mellitus Type 1, Diabetes Mellitus Type 2, Internal Pacemaker, MRSA, Seizures *Have you ever received a pneumonia vaccine?: Yes *Have you received a flu vaccine this season?: Yes Other Medical History: Reports: Arthritis, Cataracts Other Surgeries: Yes: No Previous Surgery, Cardiac Catheterization, Colonoscopy, Coronary Stent, Other (Cataracts X2). No: Pacemaker Amputation: No Fractures: No - *Social History Last grade of school completed: High school graduate Smoking Status: Former smoker Tobacco Type: e-cigarettes #Yrs smoked (if former smoker): 45 Smoking End Date: 2009 Alcohol Intake: never Alcohol Intake Frequency:: other Substance Use Type: denies use *Occupational Status:: retired Housing: house Household Members: spouse *Travel in the last 8 weeks: None Family Hx:: Hypertension Review of Systems - Constitutional Reports lack of energy, Reports weight gain, Denies anorexia, Denies body ache(s), Denies chills, Denies fever(s), Denies night sweats - *Cardiovascular Reports shortness of breath, Reports shortness of breath with activity, Reports shortness of breath when lying down, Reports fast heart rate, Denies chest pain, Denies chest pain at rest, Denies chest pain with activity, Denies generalized swelling, Denies irregular heart rhythm, Denies leg swelling, Denies lightheadedness, Denies rapid, pounding, or irregular heartbeat, Denies foot swelling - *Respiratory Reports chest congestion, Reports cough, Reports shortness of breath, Reports shortness of breath with activity, Denies change in phlegm color, Denies excessive phlegm produ
[2020-10-15 20:25] VITALS: BP 150/71; PULSE 69; RESP 23; TEMP 36.9; O2SAT 92
[2020-10-16 04:00] VITALS: BP 153/86; PULSE 81; RESP 24; TEMP 36.8; O2SAT 95
--- NOTE | 2020-10-16 04:28 | PC.NURSE ---
A&OX4. PT. C/O SOA WITH MOVEMENT. INTERMITTENT NONPRODUCTIVE COUGH NOTED WITH EXPIRATORY FINE CRACKLES. HAS NOT C/O PAIN, N/V/D, OR DIZZINESS THIS SHIFT.
[2020-10-16 06:43] VITALS: BMI 33.4
--- NOTE | 2020-10-16 06:52 | HMH.ACPN2 ---
Internal Medicine - PN: Subj *Date: 10/16/20 *Time: 06:54 Interval history: Patient has no new complaints this morning. He complained of shortness of breath overnight with ambulating to the bathroom. When I entered the room he is not wearing oxygen and his O2 sat is 88 to 89% with a pulse rate in the 50s. Patient awakened easily this morning. He tells me he forgot to put his oxygen back on after going to the bathroom. He has not noticed any change overall in his dyspnea Exam Vital signs and Labs for Last 24 Hours: Temp Pulse Resp BP Pulse Ox 98.3 F 81 24 153/86 H 95 10/16/20 04:00 10/16/20 04:00 10/16/20 04:00 10/16/20 04:00 10/16/20 04:00 Laboratory Results - last 24 hr 10/15/20 12:26: SARS-CoV-2 IgG Ab (Rapid) Negative, SARS-CoV-2 IgM Ab (Rapid) Negative 10/15/20 12:26: WBC 5.8, RBC 4.30 L, Hgb 13.5 L, Hct 41.5 L, MCV 96.4 H, MCH 31.3 H, MCHC 32.5, RDW 15.1, Plt Count 249, MPV 9.0, Neut % (Auto) 78.6, Lymph % (Auto) 12.0, Sutton % (Auto) 7.4, Eos % (Auto) 1.4, Baso % (Auto) 0.6, Neut # (Auto) 4.6, Lymph # (Auto) 0.7, Sutton # (Auto) 0.4, Eos # (Auto) 0.1, Baso # (Auto) 0.0 10/15/20 12:26: Sodium 141, Potassium 3.8, Chloride 107, Carbon Dioxide 29, Anion Gap 8.8, BUN 23 H, Creatinine 1.30 H, Estimated Creat Clear 72, Estimated GFR 53 L, Est GFR ( Amer) 64, Glucose 119 H, Calcium 9.2, Magnesium 2.0 10/15/20 12:26: NT-Pro-B Natriuret Pep 936 H I & O for Last 24 hours: Intake & Output 12/26/20 12/27/20 12/28/20 12/29/20 11:59 11:59 11:59 11:59 Intake Total 240 / 240 Output Total 1300 / 1300 Balance -1060 / -1060 Weight 239 lb Radiology Reports for the Last 24 Hours: Chest x-ray did not show any acute findings. Echocardiogram showed EF of 50% with inconclusive diastolic parameters as well as inability to accurately assess right ventricular pressures - Constitutional no acute distress - *Routine Respiratory Exam Present: CTA bilaterally. Absent: rhonchi, wheezes, crackles - *Routine Cardiovascular Exam Present: RRR - *Routine Abdominal Exam Present: soft, normoactive bowel sounds. Absent: tenderness Assessment and Plan (1) Acute on chronic diastolic heart failure due to coronary artery disease Status: Suspected Category: Medical Code(s): I50.33 - Acute on chronic diastolic (congestive) heart failure; I25.10 - Atherosclerotic heart disease of [place] coronary artery without angina pectoris (2) COPD (chronic obstructive pulmonary disease) Status: Chronic Category: Medical Code(s): J44.9 - Chronic obstructive pulmonary disease, unspecified (3) Dyspnea on minimal exertion Status: Acute Category: Medical Code(s): R06.09 - Other forms of dyspnea (4) CAD (coronary artery disease) Status: Chronic Qualifiers: Coronary Disease-Associated Artery/Lesion type: [place] artery [place] vs. transplanted heart: [place] heart Associated angina: without angina Qualified Code(s): I25.10 - Atherosclerotic heart disease of [place] coronary artery without angina pectoris Category: Medical Code(s): I25.10 - Atherosclerotic heart disease of [place] coronary artery without angina pectoris (5) Obesity Status: Chronic Qualifiers: Obesity type: unspecified obesity type Obesity classification: unspecified obesity classification Serious obesity comorbidity presence: unspecified whether serious comorbidity present Qualified Code(s): E66.9 - Obesity, unspecified Category: Medical Code(s): E66.9 - Obesity, unspecified (6) Pulmonary HTN Status: Chronic Category: Medical Code(s): I27.20 - Pulmonary hypertension, unspecified - Assessment and plan all Dx Assessment and Plan for all problems:: 1. Patient will be diuresed with IV Lasix twice daily 2. Await pulmonology recommendations
[2020-10-16 06:55] LABS: Chloride 103 mmol/L (98-107); Potassium 4.1 mmoL/L (3.5-5.1); Sodium 142 mmol/L (136-145)
[2020-10-16 06:58] LABS: Anion Gap 8.1 mEq/L (5-15); Blood Urea Nitrogen 29 mg/dl (9-20); Carbon Dioxide 35 mmol/L (22.0-30.0); Creatinine Clearance Estimated 57 mL/min (50-200); Estimated Glomerular Filt Rate 42 ml/min (>60); GFR (African American) 51 ML/MIN (>60)
[2020-10-16 06:59] LABS: Glucose 104 mg/dl (74-100)
[2020-10-16 07:37] VITALS: BP 161/94; PULSE 58; RESP 18; TEMP 36.5; O2SAT 95
--- NOTE | 2020-10-16 13:48 | HMH.PULMCON ---
*Admission Date: 10/15/20 *History of present illness: 80-year-old male with past medical history of advanced COPD, hypertension, coronary artery disease, dyslipidemia recent episodes of recurrent bronchitis admitted to the hospital with worsening respiratory failure and pulmonary was called for further management. On further questioning patient stated he was diagnosed with with pneumonia in August 2020 symptoms symptoms are not getting any better. Patient using Trelegy inhaler with albuterol as needed, admits compliance with his inhalers. Denies any prior history of blood clots. [facility] History Medical History: Reports:: Asthma, Cardiomyopathy, Congestive Heart Failure, Chronic Obstructive Pulmonary Disease (COPD), Coronary Artery Disease, Hyperlipidemia, Hypertension, Myocardial Infarction, Palpitations Denies:: Cancer, Diabetes Mellitus Type 1, Diabetes Mellitus Type 2, Internal Pacemaker, MRSA, Seizures *Have you ever received a pneumonia vaccine?: Yes *Have you received a flu vaccine this season?: Yes Other Medical History: Reports: Arthritis, Cataracts Other Surgeries: Yes: No Previous Surgery, Cardiac Catheterization, Colonoscopy, Coronary Stent, Other (Cataracts X2). No: Pacemaker Amputation: No Fractures: No - *Social History Last grade of school completed: High school graduate Smoking Status: Former smoker Tobacco Type: e-cigarettes #Yrs smoked (if former smoker): 45 Smoking End Date: 2009 Alcohol Intake: never Alcohol Intake Frequency:: other Substance Use Type: denies use *Occupational Status:: retired Housing: house Household Members: spouse *Travel in the last 8 weeks: None Family Hx:: Hypertension ROS - Review of Systems Review of systems:: pertinent systems reviewed and negative unless documented below - Cons Denies chills, Denies fatigue, Denies fever(s), Denies poor appetite, Denies weight loss - Eyes Denies dry eyes, Denies sensitivity to light - ENT Denies dizziness, Denies facial pain, Denies pain with swallowing, Denies tongue swelling - Card Reports shortness of breath with activity, Denies leg swelling - Resp Respiratory: Yes shortness of breath, Yes chest congestion, Yes cough, Yes dyspnea, Yes dyspnea on exertion, No coughing up blood, Yes cough with sputum production, No pain with breathing, No stridor - GI Gastrointestingal: Denies: abdominal pain, dysphagia, nausea, reflux, vomiting - [place] Musculoskeletal: Denies neck pain, Denies small joint pain in the hands - Psych Denies confusion, Denies depression Meds Home Medications Medication Instructions Recorded Confirmed Type stpguvvl-wub-invjw acid 300 1 tab PO DAILY 01/12/18 10/15/20 History mcg-lycopene 600 mcg-lutein 300 mcg tablet fluticasone fur. 100 mcg-umeclid 1 puff IH DAILY each 03/02/18 10/15/20 History 62.5 mcg-vilant 25 mcg inhalat.powder pregabalin 25 mg capsule 25 mg PO QID cap 03/18/18 10/15/20 History Terazosin HCl 2 mg PO DAILY 08/29/19 10/15/20 History Albuterol Sulfate [Albuterol 2 puffs IH Q6HP PRN 10/15/20 10/15/20 History Sulfate Hfa] Clopidogrel Bisulfate [Plavix] 75 mg PO DAILY 10/15/20 10/15/20 History Furosemide [Furosemide 40MG tAB*] 40 mg PO DAILY 10/15/20 10/15/20 History Spironolactone [Spironolactone 25 mg PO DAILY 10/15/20 10/15/20 History 25mg Tablet] Tamsulosin HCl [Flomax 0.4mg 0.4 mg PO HS 10/15/20 10/15/20 History capsule] Zolpidem Tartrate [Ambien 10mg 10 mg PO HS 10/15/20 10/15/20 History tablet] diazePAM [diazePAM 5mg Tablet] 5 mg PO Q6HP PRN 10/15/20 10/15/20 History Atorvastatin Calcium [Lipitor 40mg 40 mg PO HS 10/16/20 10/16/20 History Tablet*] Roflumilast [Daliresp] 500 mcg PO HS 10/16/20 10/16/20 History Allergies Allergy/AdvReac Type Severity Reaction Status Date / Time No Known Drug Allergies Allergy Verified 10/15/20 13:02 Exam Radiology reports for Last 24 Hours: Chest x-ray did not show any acute pulmonary findings
[2020-10-16 15:30] LABS: D-Dimer 0.94 ug/mL (0.15-8.0)
[2020-10-16 15:53] VITALS: BP 147/72; PULSE 60; RESP 20; TEMP 36.8; O2SAT 92
[2020-10-16 17:51] VITALS: PULSE 65; PULSE 79
--- NOTE | 2020-10-16 19:52 | PC.NURSE ---
HE IS AOX4,ABLE TO MAKE NEEDS KNOWN TO STAFF, HAS REQUIRED 2-3 LNC T/O SHIFT, HAS AMBULATED TO RESTROOM INDEPENDENTLY, WAS UP TO CHAIR T/O SHIFT, TOLERATING DIET WELL NO N/V/D NOTED, VSS T/O SHIFT, WHEEZES NOTED BILATERALLY, ABD SOFT AND NON TENDER, NO NEEDS AT THIS TIME
[2020-10-16 20:00] VITALS: BP 124/73; PULSE 94; RESP 20; TEMP 36.5; O2SAT 95
[2020-10-17 04:00] VITALS: BP 129/69; PULSE 89; RESP 18; TEMP 36.5; O2SAT 95
--- NOTE | 2020-10-17 04:36 | PC.NURSE ---
Pt A&OX4 wheezes noted t/o lungs. pt remains on 3L NC. pt denies pain. pt has ambulated to BR independently. pt has slept in recliner for majority of shift. pt has rested quietly
[2020-10-17 05:02] VITALS: BMI 33.6
[2020-10-17 05:52] VITALS: PULSE 47; PULSE 50; O2SAT 93
--- NOTE | 2020-10-17 06:44 | CT_ITS ---
PROCEDURE: CT CHEST WO CON CLINICAL INDICATION: dyspnea, COPD, COMPARISON: CT [facility] CT CHEST W/O CONTRAST from 09/29/2017 TECHNIQUE: Axial images obtained with sagittal and coronal reformats. All CT scans at the facility use one or more dose reduction, viz: automated exposure control, ma/kV adjustment per patient size (including targeted exams where dose is matched to indication, i.e. head), or iterative reconstruction technique. FINDINGS: HEART AND MEDIASTINAL STRUCTURES: Grossly normal, there is some prominent rounding of the left ventricular contour suggesting possible early left ventricular hypertrophy. There is mild aortic tortuosity with mild diffuse arthrosclerotic calcifications in the aortic arch. There is moderate coronary artery calcification. There is no pericardial effusion. LUNGS AND PLEURAL SPACES: Stable chronic collapse is seen apical segment right upper lobe with prominent adjacent pleural scarring. Similar partial collapse less pronounced is seen in the apical posterior segment left upper lobe and these findings were seen previously and are basically stable. Moderate underlying centrilobular emphysematous changes are seen in both lungs as noted previously. There is no acute infiltrate and there is no pleural fluid. There is no abnormal superior mediastinal or hilar or subcarinal lymphadenopathy. BONY STRUCTURES: No acute bony abnormalities apparent. UPPER ABDOMEN: Contracted gallbladder with calcified gallstone near the neck. ADDITIONAL FINDINGS: No other significant abnormalities. IMPRESSION: Stable centrilobular emphysematous changes with no acute chest pathology noted. Stable bilateral upper lobe chronic scarring and partial collapse of both upper lobes as described above. Cholelithiasis as noted Dictated by: Dr. Satnam Hope MD 10/17/2020 09:35 Dr. Satnam Hope MD in [place] 10/17/2020 09:35
--- NOTE | 2020-10-17 06:56 | HMH.ACPN2 ---
Internal Medicine - PN: Subj *Date: 10/17/20 *Time: 06:56 Interval history: Patient reports feeling better and he has been ambulating to the bathroom and back with less dyspnea. At this time he feels better than when he was admitted. Exam Vital signs and Labs for Last 24 Hours: Temp Pulse Resp BP Pulse Ox 97.7 F 50 L 18 129/69 93 L 10/17/20 04:00 10/17/20 05:52 10/17/20 04:00 10/17/20 04:00 10/17/20 05:52 Laboratory Results - last 24 hr 10/16/20 06:35: Sodium 142, Potassium 4.1, Chloride 103, Carbon Dioxide 35 H D, Anion Gap 8.1, BUN 29 H D, Creatinine 1.60 H D, Estimated Creat Clear 57, Estimated GFR 42 L, Est GFR ( Amer) 51 L D, Glucose 104 H, Calcium 9.0 10/16/20 15:05: D-Dimer 0.94 I & O for Last 24 hours: Intake & Output 10/14/20 10/15/20 10/16/20 10/17/20 11:59 11:59 11:59 11:59 Intake Total 480 / 480 720 / 720 Output Total 1800 / 1800 1100 / 1100 Balance -1320 / -1320 -380 / -380 Weight 239 lb 240 lb 1.334 oz Narrative: Patient is sitting in the recliner. The nasal cannula is positioned in his mouth. Patient shows no sign of respiratory distress. Lungs are clear. Heart has a regular rate and rhythm. Lower extremities have no edema. D-dimer was within normal limits BMP is pending Assessment and Plan (1) Acute on chronic diastolic heart failure due to coronary artery disease Status: Suspected Category: Medical Code(s): I50.33 - Acute on chronic diastolic (congestive) heart failure; I25.10 - Atherosclerotic heart disease of [place] coronary artery without angina pectoris (2) COPD (chronic obstructive pulmonary disease) Status: Chronic Category: Medical Code(s): J44.9 - Chronic obstructive pulmonary disease, unspecified (3) Dyspnea on minimal exertion Status: Acute Category: Medical Code(s): R06.09 - Other forms of dyspnea (4) CAD (coronary artery disease) Status: Chronic Qualifiers: Coronary Disease-Associated Artery/Lesion type: [place] artery [place] vs. transplanted heart: [place] heart Associated angina: without angina Qualified Code(s): I25.10 - Atherosclerotic heart disease of [place] coronary artery without angina pectoris Category: Medical Code(s): I25.10 - Atherosclerotic heart disease of [place] coronary artery without angina pectoris (5) Obesity Status: Chronic Qualifiers: Obesity type: unspecified obesity type Obesity classification: unspecified obesity classification Serious obesity comorbidity presence: unspecified whether serious comorbidity present Qualified Code(s): E66.9 - Obesity, unspecified Category: Medical Code(s): E66.9 - Obesity, unspecified (6) Pulmonary HTN Status: Chronic Category: Medical Code(s): I27.20 - Pulmonary hypertension, unspecified - Assessment and plan all Dx Assessment and Plan for all problems:: 1. Appreciate pulmonology consultation and will continue Levaquin and prednisone per Dr. Raymundo's recommendations. Per Dr. Raymundo's recommendations a CT scan of the chest without contrast will be ordered for today. Plan will be to discharge patient this afternoon with close follow-up with both myself and Dr. Raymundo 2. Await patient's BMP. Due to mild rising creatinine yesterday his second dose of Lasix was held yesterday evening.
--- NOTE | 2020-10-17 07:00 | HMH.DCSUM ---
General - General Admission date:: 10/15/20 Discharge date: 10/17/20 HPI HPI: 80-year-old male with coronary artery disease and moderate COPD diagnosed on pulmonary function test at outside facility in July or August 2019 presented to the office with worsening shortness of breath. Patient has been seen in my office multiple times in the month of September and treated for a COPD exacerbation. Patient was treated with a prolonged course of steroids (2 weeks). He had last been seen in the office on October 05 and at that time had 4-5 more days of steroids left and had noted improvement in his dyspnea although would readily admit he was not back to what he perceives as his baseline. Review of additional records at that time showed evidence of pulmonary hypertension on prior cardiac testing. Plan at that time was to finish his steroid taper and patient was going to establish care with local pulmonology in early October. Patient returned to the office today with a rapid decline in activity tolerance and dyspnea both at rest and with exertion. He uses supplemental oxygen on an as-needed basis at home and was able to maintain O2 sats at rest in the mid 90s. Patient reported orthopnea and a cough that was productive of clear sputum. He was very forward that he thought he needed some antibiotics . He did not have any infectious symptoms. Review of office visit that time also showed a 10 pound weight gain during the month of September and a 20 pound weight gain since the beginning of June. Patient was felt to have some element of congestive heart failure, likely diastolic, and was admitted for further evaluation and treatment of his dyspnea due to presumed congestive heart failure. Pulmonology consult was also part of the treatment plan. Since admission patient has had a single dose of Lasix and reports frequent trips to the urinal with excellent urine output. His notes that he has not coughed since arrival to the hospital. Patient is sitting in the hospital bed with his nasal cannula in his mouth Hospital Course Hospital Course: Patient was admitted with respiratory failure believed to be due to CHF. He was given IV Lasix with excellent response. With diuresis patient noted the beginnings of improvement in his dyspnea. Echocardiogram performed on the day of admission revealed a normal ejection fraction but diastolic parameters as well as right heart measurements and parameters were inconclusive due to the quality of the study. Pulmonology service was consulted. Recommendations were made to evaluate for less common causes of dyspnea in patients with COPD. Patient was empirically started on Levaquin due to a history of abnormal sputum's growing rare bacteria. This has been a phenomenon for the patient over the last year and a half. Patient was also started on prednisone 40 mg daily to cover the possibility of COPD exacerbation. D-dimer was used to rule out pulmonary embolism. CT scan of the chest without contrast was performed to assess patient's lungs and specifically the the upper lobes where patient has evidence of prior scarring. TB QuantiFERON was ordered as well. After 48 hours of hospitalization with diuresis patient's dyspnea had improved although had not returned to what the patient perceives as his baseline from 2 to 3 months ago. Patient was discharged home and will follow up with both pulmonology and myself as an outpatient on testing that has been done while an inpatient. Patient will continue Levaquin and prednisone at discharge. Objective Vital signs: Temp Pulse Resp BP Pulse Ox 97.7 F 50 L 18 129/69 93 L 10/17/20 04:00 10/17/20 05:52 10/17/20 04:00 10/17/20 04:00 10/17/20 05:52 Results Labs on day of discharge: Labs from last 24 hours 10/16/20 10/16/20 15:05 06:35 D-Dimer 0.94 Carbon Dioxide 35 H D Anion Gap 8.1 Glucose 104 H Calcium 9.0 DS: Diagnosis
[2020-10-17 07:39] LABS: Chloride 99 mmol/L (98-107); Potassium 3.7 mmoL/L (3.5-5.1); Sodium 137 mmol/L (136-145)
[2020-10-17 07:42] LABS: Anion Gap 9.7 mEq/L (5-15); Blood Urea Nitrogen 34 mg/dl (9-20); Calcium 9.1 mg/dl (8.4-10.2); Carbon Dioxide 32 mmol/L (22.0-30.0); Creatinine Clearance Estimated 62 mL/min (50-200); Estimated Glomerular Filt Rate 45 ml/min (>60); GFR (African American) 55 ML/MIN (>60); Glucose 115 mg/dl (74-100)
[2020-10-17 07:56] VITALS: BMI 33.6
[2020-10-17 08:00] VITALS: BP 142/72; PULSE 88; RESP 18; TEMP 36.6; O2SAT 97
--- NOTE | 2020-10-17 08:03 | DIET.NUTRFU ---
Nutritional assessment, IP/consult completed. Pt education on heart healthy/low sodium diet with fluid restriction for CHF. Pt's not present at time of education, will attempt to f/u with her prior to or post dc if necessary.
--- NOTE | 2020-10-17 08:55 | PC.NURSE ---
PT TRANSPORTED TO CT VIA WHEELCHAIR.
[2020-10-17 12:09] VITALS: PULSE 106; PULSE 99; O2SAT 96
[2020-10-17 12:10] VITALS: PULSE 99; RESP 20
--- NOTE | 2020-10-17 13:38 | HMH.PULMPN ---
Internal Medicine - PN: Subj *Date: 10/17/20 *Time: 13:38 Interval history: No acute respiratory events overnight. Patient respiratory status improved from admission Exam - Constitutional Constitutional:: no acute distress, comfortable - HENMT Exam HENMT: normocephalic, atraumatic - Eye Exam Eyes:: eyelids normal, normal conjunctiva - Neck Exam Neck:: thyroid normal, no lymphadenopathy - Respiratory Exam Respiratory:: able to speak in complete sentences, lungs clear, no respiratory distress, normal respiratory effort - Cardiovascular Exam Cardiac:: S1, S2 - GI Exam GI:: soft, no hepatosplenomegaly - Skin Exam Skin: warm, no rash - Neurological Exam Neurological: alert, awake, normal cognition - Extremities Exam Extremities: no cyanosis, no clubbing, no edema Assessment and Plan (1) Acute and chronic respiratory failure Status: Acute Category: Medical Code(s): J96.20 - Acute and chronic respiratory failure, unspecified whether with hypoxia or hypercapnia (2) Acute on chronic diastolic heart failure due to coronary artery disease Status: Suspected Category: Medical Code(s): I50.33 - Acute on chronic diastolic (congestive) heart failure; I25.10 - Atherosclerotic heart disease of [place] coronary artery without angina pectoris (3) COPD (chronic obstructive pulmonary disease) Status: Chronic Category: Medical Code(s): J44.9 - Chronic obstructive pulmonary disease, unspecified (4) Dyspnea on minimal exertion Status: Acute Category: Medical Code(s): R06.09 - Other forms of dyspnea (5) CAD (coronary artery disease) Status: Chronic Qualifiers: Coronary Disease-Associated Artery/Lesion type: [place] artery [place] vs. transplanted heart: [place] heart Associated angina: without angina Qualified Code(s): I25.10 - Atherosclerotic heart disease of [place] coronary artery without angina pectoris Category: Medical Code(s): I25.10 - Atherosclerotic heart disease of [place] coronary artery without angina pectoris (6) Obesity Status: Chronic Qualifiers: Obesity type: unspecified obesity type Obesity classification: unspecified obesity classification Serious obesity comorbidity presence: unspecified whether serious comorbidity present Qualified Code(s): E66.9 - Obesity, unspecified Category: Medical Code(s): E66.9 - Obesity, unspecified (7) Pulmonary HTN Status: Chronic Category: Medical Code(s): I27.20 - Pulmonary hypertension, unspecified - Assessment and plan all Dx Assessment and Plan for all problems:: #COPD: #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 Upon chart review and notes patient was found to be gaining more than 20 pound weight. Auscultation revealed normal breath sounds without any wheezing. PFTs from March 2018 showed V1 VC ratio of 39 with V1 at 58% predicted. No significant reversibility noted. TLC at 102% predicted. DLCO at 48% predicted. Low-dose CT chest from March 2019 showed bilateral upper lobe scarring and bronchiectasis that remained relatively stable from his prior CT scan from September 2017. Patient denies any prior history of TB. Sputum culture from Jun 2020 that was positive for Ami albicans, Aspergillus [facility], right heart catheter results from August 2019: mean PA of 28 with a mean wedge of 11 with a calculated PVR of 2 Duncan based on his cardiac output of 7.76 L/min. Elevated right-sided and left-sided pressures noted. No vasodilatory testing performed. Interval update: Auscultation lungs clear with no wheezing. Patient respiratory status improved post diuresis. Repeat CT chest without contrast remained stable with no acute findings. Bilateral upper lobe scarring and bronchiectasis remained stable from prior
--- NOTE | 2020-10-17 14:08 | HMH.PHAINT ---
DISCHARGE COUNSELING COMPLETED ON PATIENT. NEW PRESCRIPTIONS INCLUDE PREDNISONE AND LEVOFLOXACIN. NEW PRESCRIPTIONS WERE SENT TO [facility] IN [place]. PATIENT IS TO CONTINUE ALL OTHER HOME MEDICATIONS. PATIENT AND PATIENT'S VERBALIZED UNDERSTANDING AND HAD NO QUESTIONS AT THIS TIME. -LINCOLN WASHINGTON, DERICKD
[2020-10-20 00:19] LABS: QuantiFERON-TB Gold Plus Negative (Negative)
[2020-10-21 09:12] LABS: M003-IgE Aspergillus fumigatus <0.10 kU/L (Class 0)
== END 2020-10-17 14:34 | disposition home or self-care (01) ==
PROVIDERS: Internal Medicine Pulmonary Disease; Admitting Provider Family Medicine; PCP Family Medicine; Visit Provider Family Medicine
DX: I11.0 Hypertensive heart disease with heart failure (principal); I50.33 Acute on chronic diastolic (congestive) heart failure; I27.23 Pulmonary hypertension due to lung diseases and hypoxia; I25.10 Atherosclerotic heart disease of native coronary artery without angina pectoris; I25.2 Old myocardial infarction; E78.5 Hyperlipidemia, unspecified; Z95.5 Presence of coronary angioplasty implant and graft; Z79.02 Long term (current) use of antithrombotics/antiplatelets; Z79.52 Long term (current) use of systemic steroids; Z87.891 Personal history of nicotine dependence; J96.20 Acute and chronic respiratory failure, unspecified whether with hypoxia or hypercapnia; Z79.899 Other long term (current) drug therapy; J45.909 Unspecified asthma, uncomplicated
CPT/HCPCS: 36415; 71046; 71250; 80048; 83735; 83880; 85025; 85378; 86003; 86328; 86480; 87070; 87205; 93005; 93306; 94640; G0378; J1956

== ENCOUNTER 2020-10-29 15:25 | Emergency (ER) | payer MEDICARE, SELFPAY ==
--- NOTE | 2020-10-29 16:34 | HMH.EDUTC ---
[facility] Disposition Clinical Impression: Bronchitis, Dyspnea on minimal exertion Disposition: Home, Self-Care Condition on Discharge: Good Instructions: DI for Acute Bronchitis, Preventing the Spread of Coronavirus Discharge Instructions Additional Instructions: Drink plenty of fluids. Take tylenol for pain or fever. Take the medications as directed. Follow up with your regular doctor. GO TO THE ER FOR ANY WORSENING SYMPTOMS Prescriptions: predniSONE [Deltasone 10mg tablet] 10 mg PO BID 4 Days #8 tab Transmission Status: Received by [facility] levoFLOXacin [Levaquin 500mg tab] 500 mg PO DAILY #7 tab Transmission Status: Received by [facility] Referrals: Joel Vee MD [Primary Care Provider] - Time of Disposition: 17:19 Medical Decision Making - Medical Records Medical records reviewed: No: I reviewed the patient's medical records. - Silvestre Inquiry Pt receiving controlled substance: No Vital Signs: 10/29/20 16:35 10/29/20 17:23 Temperature 98.7 F 98.7 F Temperature Source Oral Pulse Rate 72 Pulse Rate [Right Brachial] 72 Respiratory Rate 14 14 Blood Pressure 149/95 H Blood Pressure [Right Arm] 149/95 H Blood Pressure Mean [Right Arm] 113 Blood Pressure Source [Right Arm] Automatic Cuff Blood Pressure Position [Right Arm] Sitting 02 Sat by Pulse Oximetry 98 Oxygen Delivery Method Nasal Cannula Orders (Tests/Meds): ORDERS Category Date Time Status Covid-19 Nasal PCR ([facility]) Routine Lab 10/29/20 16:14 Received [facility] HPI - General Stated complaint: covid test Time Seen by Provider: 10/29/20 16:34 - History of Present Illness Provider Complaint: He states that he has been having worsening shortness of breath over the past 2 weeks or so. He was hosptialized here last week for testing on his heart. He states that over the past 2 days he has had chest congestion and low grade fever. He states that he has 2 negtive covid test since last week. - Related Data Home Medications Medication Instructions Recorded Confirmed amxybbfx-tzn-[id number] acid 300 1 tab PO DAILY 01/12/18 10/15/20 mcg-lycopene 600 mcg-lutein 300 mcg tablet fluticasone fur. 100 mcg-umeclid 1 puff IH DAILY each 03/02/18 10/15/20 62.5 mcg-vilant 25 mcg inhalat.powder pregabalin 25 mg capsule 25 mg PO QID cap 03/18/18 10/15/20 Terazosin HCl 2 mg PO DAILY 08/29/19 10/15/20 Albuterol Sulfate [Albuterol 2 puffs IH Q6HP PRN 10/15/20 10/15/20 Sulfate Hfa] Clopidogrel Bisulfate [Plavix] 75 mg PO DAILY 10/15/20 10/15/20 Furosemide [Furosemide 40MG tAB*] 40 mg PO DAILY 10/15/20 10/15/20 Spironolactone [Spironolactone 25 mg PO DAILY 10/15/20 10/15/20 25mg Tablet] Tamsulosin HCl [Flomax 0.4mg 0.4 mg PO HS 10/15/20 10/15/20 capsule] Zolpidem Tartrate [Ambien 10mg 10 mg PO HS 10/15/20 10/15/20 tablet] diazePAM [diazePAM 5mg Tablet] 5 mg PO Q6HP PRN 10/15/20 10/15/20 Atorvastatin Calcium [Lipitor 40mg 40 mg PO HS 10/16/20 10/16/20 Tablet*] Roflumilast [Daliresp] 500 mcg PO HS 10/16/20 10/16/20 Previous Rx's Medication Instructions Recorded levoFLOXacin [Levofloxacin 750MG 750 mg PO Q48H #4 tab 10/17/20 Tablet*] predniSONE [Deltasone 20mg 40 mg PO DAILY #8 tab 10/17/20 tablet] levoFLOXacin [Levaquin 500mg 500 mg PO DAILY #7 tab 10/29/20 tab] predniSONE [Deltasone 10mg tablet] 10 mg PO BID 4 Days #8 tab 10/29/20 Allergies Allergy/AdvReac Type Severity Reaction Status Date / Time No Known Drug Allergies Allergy Verified 10/15/20 13:02 [facility] History - Hepatitis A Screen Attestation statement:: This patient has been screened for Hepatitis A risk factors. I have reviewed the patient's past medical history: Yes Medical History: Reports:: Asthma, Cardiomyopathy, Congestive Heart Failure, Chronic Obstructive Pulmonary Disease (COPD), Coronary Artery Disease, Hyperlipidemia, Hypertension, Myocardial Infar
[2020-10-29 16:35] VITALS: BP 149/95; PULSE 72; RESP 14; TEMP 37.1; O2SAT 98; BMI 32.8
--- NOTE | 2020-10-29 16:41 | XR_ITS ---
PROCEDURE: XR CHEST 2V CLINICAL HISTORY: COUGH COMPARISON: No exams were available for comparison FINDINGS: The cardiomediastinal silhouette and pulmonary vascularity are within normal limits. COPD with chronic changes. Scarring is present in the upper lobes No acute bony abnormalities. IMPRESSION: COPD. Chronic changes. No change with no acute finding Dictated by: Ellis Lazo MD 10/29/2020 17:20 Ellis Lazo MD in [place] 10/29/2020 17:20
[2020-10-29 17:23] VITALS: BP 149/95; PULSE 72; RESP 14; TEMP 37.1; O2SAT 98
--- NOTE | 2020-10-30 10:34 | PC.NURSE ---
notified of positive COVId result
== END 2020-10-29 17:32 | disposition home or self-care (01) ==
PROVIDERS: Emergency Provider Nurse Practitioner Family; PCP Family Medicine
DX: U07.1 COVID-19 (principal); I10 Essential (primary) hypertension; I25.2 Old myocardial infarction; I25.10 Atherosclerotic heart disease of native coronary artery without angina pectoris; E78.5 Hyperlipidemia, unspecified; Z79.899 Other long term (current) drug therapy
CPT/HCPCS: G0463; 71046; 99202; U0003

== ENCOUNTER → 2020-11-26 12:52 | Outpatient (CLI) | payer MEDICARE, SELFPAY ==
[2020-11-26 14:20] VITALS: PULSE 89; PULSE 94
== END ==
PROVIDERS: PCP Family Medicine; Visit Provider Internal Medicine Pulmonary Disease
DX: R06.09 Other forms of dyspnea (principal); J44.9 Chronic obstructive pulmonary disease, unspecified; R22.1 Localized swelling, mass and lump, neck; Z87.891 Personal history of nicotine dependence
CPT/HCPCS: 94060; 94618; 94640; 94727; 94729

== ENCOUNTER → 2021-01-07 11:10 | Outpatient (CLI) | payer MEDICARE, SELFPAY ==
--- NOTE | 2021-01-07 11:15 | CA_ITS ---
APPROVED REPORT EXAM: Comprehensive 2D, Doppler, and color-flow Echocardiogram Cook Cold Meat: Sonja Daniel, RCS, RVS Ht: 5 ft 11 in Wt: 237lbs BSA: 2.27 HR: 97 bpm BP: 134/66 mmHg Rhythm: frequnt ectopy Indications: SOA, Cardiac arrythmia, COPD, S/p COVID-19 Echo Enhancing Agent Comments: Technically difficult exam due to lung impedence 2D Dimensions IVSd 1.28 cm LVEF (Visual) 43.70 % PWd 1.23 cm LA Volume 37.60 mL LVDd 6.75 cm LA Volume Index 16.60 mL/m2 (M/F) 16-34 LVDs 5.25 cm LVOT 1.92 cm (M/F) 1.5-2.5 M-Mode Dimensions LA Diam 3.23 cm (1.9-4.0) LVDd 5.79 cm (3.5-5.7) Ao Diam 3.86 cm (2.0-3.7) LVDs 4.19 cm (3.5-5.7) EF (Teich) 52.90% EPSs 1.17 cm FS 27.60% EDV (Teich) 165.90 mL TAPSE 2.00 (<1.7) ESV (Teich) 78.10 mL LV Diastology E Decel Time 293.00 (160-240 msec) E/A Ratio 0.63 MED E' 4.90 (< 7 cm/sec) MED A' 11.10 cm/s E'/MED E' Ratio 12.94 (>14) LAT E' 6.70 (<10 cm/sec) LAT A' 11.30 cm/s E/LAT E' Ratio 9.46 (>14) Aortic Valve LVOT Max 86.00 (70-110 cm/s) LVOT VTI 13.74 cm AoV Peak Daryn. 183.00 (50-130 cm/s) AO Peak GR. 13.50 mmHg AO Mean GR. 6.50 (<5 mmHg) AO VTI 31.71 (18-25 cm) KORTNEY (VTI) 1.25 (2.5-4.5 cm2) Mitral Valve MV A Velocity 101.00 (40-130 cm/s) E/A Ratio 0.63 MV Decel. Time 293.00 (160-240 ms) Pulmonary Valve PV Peak Velocity 80.00 (50-150 cm/s) Tricuspid Valve TR P. Velocity 262.00 cm/s RAP Estimate 10.00 mmHg RVSP 37.60 mmHg Left Ventricle Technically difficult study because of the patient factors and poor acoustic windows. Left atrium is mildly enlarged, left ventricle is normal size, mild concentric left ventricular hypertrophy, visually estimated ejection fraction 40%, there is abnormal septal motion, there is no regional wall motion abnormality. Grade 1 diastolic dysfunction seen without tissue Doppler evidence of raise left atrial pressure. Right Ventricle Right atrium and right ventricle are mildly enlarged with normal contractility. Aortic Valve Aortic valve is minimally thickened and fibrosed, there is no aortic stenosis or aortic insufficiency. Mitral Valve Mitral valve is grossly normal, there is trace mitral regurgitation. Tricuspid Valve Tricuspid valve grossly normal, there is mild tricuspid regurgitation, calculated right ventricular systolic pressure is 36 mmHg. Pulmonic Valve Pulmonic valve is poorly visualized. Great Vessels Aortic root is normal size. Pericardium No significant pericardial effusion noted. Conclusion 1. Biatrial enlargement, normal left ventricular size, mild concentric left ventricular hypertrophy, visually estimated ejection fraction 40%, there is abnormal septal motion, grade 1 diastolic dysfunction seen without tissue Doppler evidence of raise left atrial pressure. 2. Mildly enlarged right ventricle with normal contractility. 3. Trace mitral and mild tricuspid regurgitation, calculated right ventricular systolic pressure 36 mmHg. 4. No significant pericardial effusion noted. Electronically signed by : Winston Marroquin, 01/07/2021 18:21:28
== END ==
PROVIDERS: PCP Family Medicine; Visit Provider Internal Medicine Pulmonary Disease
DX: R06.09 Other forms of dyspnea (principal)
CPT/HCPCS: 93306

== ENCOUNTER → 2021-02-05 15:07 | Outpatient (POV) | payer MEDICARE, SELFPAY | PROVIDERS: Visit Provider Dermatology | DX: Z00.00 Encounter for general adult medical examination without abnormal findings (principal) ==

== ENCOUNTER → 2021-04-26 16:30 | Outpatient (CLI) | payer MEDICARE, SELFPAY ==
[2021-04-26 18:24] LABS: Prostate Specific Ag Screen 4.6 ng/ml (0.0-4.0)
== END ==
PROVIDERS: Visit Provider Urology
DX: Z12.5 Encounter for screening for malignant neoplasm of prostate (principal)
CPT/HCPCS: 36415; G0103

== ENCOUNTER → 2021-06-17 11:30 | Outpatient (CLI) | payer MEDICARE, SELFPAY ==
[2021-06-17 12:15] LABS: Coronavirus 19 IgG Antibody Positive (Negative); Coronavirus 19 IgM Antibody Positive (Negative)
== END ==
PROVIDERS: Visit Provider Family Medicine
DX: R76.8 Other specified abnormal immunological findings in serum (principal)
CPT/HCPCS: 36415; 86328

== ENCOUNTER → 2021-07-22 12:44 | Outpatient (CLI) | payer MEDICARE, SELFPAY | PROVIDERS: PCP Family Medicine; Visit Provider Nurse Practitioner | DX: Z20.822 Contact with and (suspected) exposure to COVID-19 (principal) | CPT/HCPCS: C9803; U0003; U0005 ==

== ENCOUNTER → 2021-08-21 13:01 | Outpatient (CLI) | payer MEDICARE, SELFPAY ==
[2021-08-21 13:30] VITALS: PULSE 95; PULSE 99
== END ==
PROVIDERS: PCP Family Medicine; Visit Provider Internal Medicine Pulmonary Disease
DX: J44.9 Chronic obstructive pulmonary disease, unspecified (principal)
CPT/HCPCS: 94060; 94640

== ENCOUNTER → 2021-10-22 08:50 | Outpatient (CLI) | payer MEDICARE, SELFPAY ==
[2021-10-22 09:28] LABS: Basophils # 0.1 K/mm3 (0-0.2); Basophils % 1.8 % (0.1-2.0); Eosinophils # 0.5 K/mm3 (0.0-0.4); Eosinophils % 6.4 % (0.1-12.0); Hematocrit 47.1 % (42.0-52.0); Hemoglobin 14.7 g/dL (14.1-18.0); Lymphocytes # 2.2 K/mm3 (0.7-4.5); Lymphocytes % 29.4 % (10-50); Mean Corpuscular HGB Conc 31.2 g/dL (31.8-35.4); Mean Corpuscular Hemoglobin 30.2 pg (27.0-31.2); Mean Corpuscular Volume 96.7 fl (80-94); Mean Platelet Volume 9.7 fl (7.4-10.4); Monocytes # 0.5 K/mm3 (0.1-1.0); Monocytes % 6.4 % (1.7-9.3); Neutrophils # 4.3 K/mm3 (1.8-7.8); Platelet Count 278 K/mm3 (142-424); Red Blood Count 4.87 M/mm3 (4.60-6.20); Red Cell Distribution Width 15.2 % (11.5-17.5); White Blood Count 7.6 K/mm3 (4.8-10.8)
[2021-10-22 10:21] LABS: Alanine Aminotransferase 22 U/L (12-78); Albumin Level 4.3 g/dl (3.5-5.0); Albumin/Globulin Ratio 1.7 (1.1-1.8); Alkaline Phosphatase 96 U/L (38-126); Anion Gap 12.8 mEq/L (5-15); Aspartate Amino Transferase 33 U/L (17-59); Bilirubin,Total 0.7 mg/dl (0.2-1.3); Blood Urea Nitrogen 31 mg/dl (9-20); Calcium 9.3 mg/dl (8.4-10.2); Carbon Dioxide 30 mmol/L (22.0-30.0); Chloride 102 mmol/L (98-107); Estimated Glomerular Filt Rate 53 ml/min (>60); GFR (African American) 64 ML/MIN (>60); Globulin 2.6 g/dL (1.3-3.2); Glucose 116 mg/dl (74-100); Potassium 4.8 mmoL/L (3.5-5.1); Sodium 140 mmol/L (136-145); Total Protein,Serum 6.9 g/dl (6.3-8.2)
[2021-10-22 10:52] LABS: Thyroid Stimulating Hormone 3.11 uIU/mL (0.465-4.68)
[2021-10-22 11:27] LABS: Vitamin B12 553 pg/mL (239-931)
[2021-10-22 13:32] LABS: Coronavirus 19 IgG Antibody Positive (Negative); Coronavirus 19 IgM Antibody Positive (Negative)
[2021-10-23 15:09] LABS: Albumin 3.8 g/dL (2.9-4.4); Alpha-1-Globulin 0.2 g/dL (0.0-0.4); Alpha-2-Globulin 0.8 g/dL (0.4-1.0); Gamma Globulin 1.1 g/dL (0.4-1.8); Protein, Total 6.8 g/dL (6.0-8.5)
== END ==
PROVIDERS: Visit Provider Specialist
DX: R25.1 Tremor, unspecified (principal); G62.9 Polyneuropathy, unspecified; R26.81 Unsteadiness on feet; Z01.84 Encounter for antibody response examination
CPT/HCPCS: 36415; 80053; 82607; 82746; 84155; 84165; 84443; 85025; 86328

== ENCOUNTER → 2021-12-04 14:33 | Outpatient (CLI) | payer MEDICARE, SELFPAY ==
--- NOTE | 2021-12-04 14:33 | CT_ITS ---
FINAL REPORT CLINICAL HISTORY: Gait ataxia FINDINGS: Axial images of the head were obtained without contrast. Coronal reformatted images were also obtained. This study was performed with techniques to keep radiation doses as low as reasonably achievable (ALARA). Individualized dose reduction techniques using automated exposure control or adjustment of mA and/or kV according to the patient's size were employed. There is generalized age-appropriate atrophy. Periventricular low-attenuation areas are seen consistent with mild chronic ischemic changes. There is no evidence of intracranial hemorrhage or mass. There is no evidence of acute infarct. There is no evidence of shift of the midline structures. No skull abnormality is seen on the bone window images. IMPRESSION: Atrophy and mild periventricular chronic ischemic changes. No acute intracranial abnormality identified. Reviewed, Interpreted and Dictated by Bro Gaines III, MD Transcribed by Edis Solis Authenticated by Bro Gaines III, MD on 12/04/2021 03:40:[address] [facility]
== END ==
PROVIDERS: PCP Family Medicine; Visit Provider Specialist
DX: R26.89 Other abnormalities of gait and mobility (principal)
CPT/HCPCS: 70450

== ENCOUNTER 2022-01-24 15:00 | Outpatient (RCR) | payer MEDICARE, SELFPAY ==
--- NOTE | 2022-01-07 11:54 | HMH.PTOPEV ---
PT Outpatient Evaluation Rehab PT Outpatient Evaluation Start: 01/07/22 09:49 Freq: Status: Active Protocol: Document 01/07/22 11:25 SOHAMARTHA (Rec: 01/07/22 11:54 YUDI [id number]) Electronically Signed By Etienne Hodge, PT 01/07/22 11:25 Outpatient Therapy Subjective History Subjective History This is the initial Physical Therapy evaluation for Puma Weber. Pt is an 81 y/o male referred to PT for c/o falls and balance issues. Pt reprots problems surfaced beginning of last year after he had COVID and COVID vaccine w/in short time frame. Pt has PMH of COPD, DM, and neuropathy in B feet. Pt reports after having infxn and vaccine in Oct/Nov 2020 he began noticing his legs were weaker, he was SOA more and his balance had decreased leading to multiple falls over the year. Chief Complaint Other Symptom Type Burning,Numbness,Tingling Symptoms Relieved By Nothing Symptoms Aggravated By Bending/Stooping,Physical Activity,Walking Prior Functional Limitations None Current Functional Limitations Housework,Recreation Activity, Walking,Stairs,Balance,Bending /Stooping Symptom Description Intermittent Balance Eval Chief Complaint vertigo No Did you feel dizzy, unsteady or faint? Yes: unsteady Hx of Falls Hx Falls Yes Number in last 6 months 2 Gait/Posture Asssessment General Gait Observation Wide Based Gait,Ataxic Gait, Shuffling Step Assistive Devices None / NA Level of Transfer Assist Independent Hip Observation in Gait Swing Decreased Flexion,Externally Rotated Hip Observation in Gait Stance Excess Flexion,Externally Rotated,Abducted Ankle/Foot Observation in Gait Swing Decreased Foot Clearance Ankle/Foot Observation in Gait Stance Decreased Heel Strike Body Alignment Posture Rigid Nystagmus Nystagmus Presence None Timed Up and Go Test 1. Is the Timed Up and Go test result > yes or = to 12 seconds? Oculomotor Gaze Oculomotor Gaze Nml: Vergence Smooth Pursuit
== END 2022-01-24 15:05 | disposition home or self-care (01) ==
LOC: PT 15:00
PROVIDERS: PCP Family Medicine; Visit Provider Specialist
DX: R26.0 Ataxic gait (principal)
CPT/HCPCS: 97110; 97112; 97163

== ENCOUNTER → 2022-01-28 13:27 | Outpatient (POV) | payer MEDICARE, SELFPAY | PROVIDERS: Visit Provider Dermatology | DX: Z00.00 Encounter for general adult medical examination without abnormal findings (principal) ==

== ENCOUNTER → 2022-03-18 14:48 | Outpatient (CLI) | payer MEDICARE, SELFPAY ==
--- NOTE | 2022-03-18 14:55 | CA_ITS ---
FINAL REPORT TECHNIQUE: Color Doppler, duplex Doppler and compression sonography of the right lower extremity venous system was performed. CLINICAL HISTORY: Pt fell last week, twisted knee trying to get up. Pt on 2 blood thinners and an Aspirin. FINDINGS: There is no evidence of deep venous thrombosis from the level of the groin to the calf. The veins are patent and compressible. The right common femoral vein is not visualized. The right calf veins and peroneal veins are difficult to image due to edema. IMPRESSION: No evidence of deep venous thrombosis right lower extremity. Reviewed, Interpreted and Dictated by Bro Gaines III, MD Transcribed by Kathe Barragan Authenticated by Bro Gaines III, MD on 03/18/2022 04:23:04 PM [facility]
== END ==
PROVIDERS: PCP Family Medicine; Visit Provider Family Medicine
DX: M25.561 Pain in right knee (principal); M79.604 Pain in right leg
CPT/HCPCS: 93971

== ENCOUNTER → 2022-04-15 08:52 | Outpatient (CLI) | payer MEDICARE, SELFPAY ==
[2022-04-15 10:10] LABS: Chloride 104 mmol/L (98-107); Potassium 4.7 mmoL/L (3.5-5.1); Sodium 142 mmol/L (136-145)
[2022-04-15 10:13] LABS: Alanine Aminotransferase 19 U/L (12-78); Albumin Level 3.9 g/dl (3.5-5.0); Albumin/Globulin Ratio 1.4 (1.1-1.8); Alkaline Phosphatase 77 U/L (38-126); Anion Gap 7.7 mEq/L (5-15); Aspartate Amino Transferase 27 U/L (17-59); Bilirubin,Total 0.6 mg/dl (0.2-1.3); Blood Urea Nitrogen 26 mg/dl (9-20); Calcium 9.2 mg/dl (8.4-10.2); Carbon Dioxide 35 mmol/L (22.0-30.0); Cholesterol 128 mg/dl (140-200); Estimated Glomerular Filt Rate 53 ml/min (>60); GFR (African American) 64 ML/MIN (>60); Globulin 2.7 g/dL (1.3-3.2); Glucose 106 mg/dl (74-100); Total Protein,Serum 6.6 g/dl (6.3-8.2); Triglycerides 91 mg/dl (30-150); VLDL Cholesterol 18 mg/dL (0-40)
[2022-04-15 10:14] LABS: Chol/HDL Ratio 2.3 (1-3.5); HDL Cholesterol 55 mg/dl (40-60)
[2022-04-15 10:24] LABS: Direct LDL Cholesterol 50.24 mg/dL (100-129)
== END ==
PROVIDERS: PCP Family Medicine; Visit Provider Nurse Practitioner Acute Care
DX: E78.2 Mixed hyperlipidemia (principal)
CPT/HCPCS: 36415; 80053; 80061

== ENCOUNTER → 2022-09-04 10:43 | Outpatient (CLI) | payer MEDICARE, SELFPAY ==
--- NOTE | 2022-09-04 11:36 | XR_ITS ---
FINAL REPORT CLINICAL HISTORY: ACUTE PAIN OF R KNEE FINDINGS: 2 views of the right knee were obtained. There is no acute fracture or dislocation. There is moderate narrowing of the medial compartment joint space. There are osteophytes along the medial joint margin. There is sharpening of the tibial spines. A large joint effusion is present. IMPRESSION: Large joint effusion with no acute bony abnormality. Reviewed, Interpreted and Dictated by Jeferson Jimenes MD Transcribed by Edis Solis Authenticated and . [facility]
== END ==
PROVIDERS: PCP Family Medicine; Visit Provider Nurse Practitioner Family
DX: M25.561 Pain in right knee (principal)
CPT/HCPCS: 73560

== ENCOUNTER 2022-12-07 12:08 | Emergency (ER) | payer MEDICARE, SELFPAY ==
--- NOTE | 2022-12-07 12:22 | PC.NURSE ---
ER AT BEDSIDE
[2022-12-07 12:23] VITALS: BP 187/91; PULSE 60; RESP 20; TEMP 36.5; O2SAT 97; BMI 29.4
--- NOTE | 2022-12-07 12:29 | XR_ITS ---
PROCEDURE INFORMATION: Exam: XR Left Hand Exam date and time: 12/07/2022 1:07 PM Age: 82 years old Clinical indication: Injury or trauma; Fall; Laceration; Hand; Left; Additional info: Fall, hand pain TECHNIQUE: Imaging protocol: Radiologic exam of the Left hand. Views: 3 or more views. COMPARISON: No relevant prior studies available. FINDINGS: Bones/joints: No acute cortical disruption. Degenerative changes, most pronounced in 1st carpometacarpal joint. Soft tissues: Normal. IMPRESSION: No acute findings.
[2022-12-07 12:30] VITALS: BP 188/161; PULSE 79; O2SAT 98
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
[2022-12-07 13:01] VITALS: BP 149/98; PULSE 74; RESP 18; O2SAT 100
--- NOTE | 2022-12-07 13:16 | PC.NURSE ---
PT HAD NO COMPLAINTS,ASST PT TO THE RESTROOM
[2022-12-07 13:30] VITALS: PULSE 69; O2SAT 97
[2022-12-07 13:39] VITALS: BP 141/79; PULSE 60; O2SAT 99
[2022-12-07 13:52] VITALS: BP 141/79; PULSE 60; RESP 18; TEMP 36.5; O2SAT 99
== END 2022-12-07 13:57 | disposition home or self-care (01) ==
PROVIDERS: Emergency Provider Emergency Medicine; PCP Family Medicine
DX: S61.402A Unspecified open wound of left hand, initial encounter (principal); V00.811A Fall from moving wheelchair (powered), initial encounter; J44.9 Chronic obstructive pulmonary disease, unspecified; I27.20 Pulmonary hypertension, unspecified; J96.21 Acute and chronic respiratory failure with hypoxia; J96.22 Acute and chronic respiratory failure with hypercapnia; Z82.49 Family history of ischemic heart disease and other diseases of the circulatory system; Z87.891 Personal history of nicotine dependence; Z86.16 Personal history of COVID-19; Z23 Encounter for immunization
CPT/HCPCS: 73130; 90471; 90715; 99283; 99284

== ENCOUNTER → 2023-03-20 08:31 | Outpatient (CLI) | payer MEDICARE, SELFPAY ==
[2023-03-20 09:31] LABS: Alanine Aminotransferase 22 U/L (12-78); Albumin Level 4.1 g/dl (3.5-5.0); Albumin/Globulin Ratio 1.8 (1.1-1.8); Alkaline Phosphatase 130 U/L (38-126); Anion Gap 14.8 mEq/L (5-15); Aspartate Amino Transferase 32 U/L (17-59); Bilirubin,Total 0.7 mg/dl (0.2-1.3); Blood Urea Nitrogen 22 mg/dl (9-20); Calcium 8.6 mg/dl (8.4-10.2); Carbon Dioxide 31 mmol/L (22.0-30.0); Chloride 101 mmol/L (98-107); Chol/HDL Ratio 2.3 (1-3.5); Cholesterol 131 mg/dl (140-200); Estimated Glomerular Filt Rate 58 ml/min (>60); GFR (African American) 70 ML/MIN (>60); Globulin 2.3 g/dL (1.3-3.2); Glucose 105 mg/dl (74-100); HDL Cholesterol 57 mg/dl (40-60); Potassium 4.8 mmoL/L (3.5-5.1); Sodium 142 mmol/L (136-145); Total Protein,Serum 6.4 g/dl (6.3-8.2); Triglycerides 139 mg/dl (30-150); VLDL Cholesterol 28 mg/dL (0-40)
[2023-03-20 09:42] LABS: Direct LDL Cholesterol 56.38 mg/dL (100-129)
== END ==
PROVIDERS: PCP Family Medicine; Visit Provider Internal Medicine Cardiovascular Disease
DX: I25.10 Atherosclerotic heart disease of native coronary artery without angina pectoris (principal)
CPT/HCPCS: 36415; 80053; 80061

== ENCOUNTER → 2023-04-20 14:08 | Outpatient (CLI) | payer MEDICARE, SELFPAY ==
--- NOTE | 2023-04-20 14:12 | XR_ITS ---
FINAL REPORT CLINICAL HISTORY: Shortness of Breath COMPARISON: 10/29/2020 FINDINGS: TWO VIEW CHEST The heart size is normal. The mediastinum is normal. The lungs are hyperinflated consistent with COPD. There is bilateral apical pleural thickening. There is right apical scarring. There is no pneumothorax. IMPRESSION: Lungs are hyperinflated consistent with COPD. Bilateral apical pleural thickening. Right apical scarring. Reviewed, Interpreted and Dictated by Bro Gaines III, MD Transcribed by Gina Zambrano Authenticated and [facility]
== END ==
PROVIDERS: PCP Family Medicine; Visit Provider Internal Medicine Pulmonary Disease
DX: R06.02 Shortness of breath (principal)
CPT/HCPCS: 71046

== ENCOUNTER → 2023-06-24 09:55 | Outpatient (CLI) | payer MEDICARE, SELFPAY | PROVIDERS: PCP Family Medicine; Visit Provider Internal Medicine Pulmonary Disease | DX: R06.02 Shortness of breath (principal) | CPT/HCPCS: 94060 ==

== ENCOUNTER → 2023-07-27 10:22 | Outpatient (CLI) | payer MEDICARE, SELFPAY | PROVIDERS: PCP Family Medicine; Visit Provider Internal Medicine Pulmonary Disease | DX: R06.02 Shortness of breath (principal); J47.9 Bronchiectasis, uncomplicated; J42 Unspecified chronic bronchitis | CPT/HCPCS: 87070; 87205 ==

== ENCOUNTER 2023-11-19 11:03 | Outpatient (CLI) | payer MEDICARE, SELFPAY ==
--- NOTE | 2023-11-19 11:08 | CT_ITS ---
FINAL REPORT CLINICAL HISTORY: f/u nodule COMPARISON: 10/17/2020 FINDINGS: CT CHEST without contrast COMPARISON: 10/17/2020. TECHNIQUE: Axial CT without IV contrast administration. FINDINGS: There are fibrotic changes with funky ectasis in the right apex, worse than noted on the prior exam of 2019. There are coarse left upper lobe linear densities, also more prominent than on the prior exam, likely scar. Changes of emphysema are once again identified. There are subpleural densities in the right lower lobe, new since the prior exam, that may represent pneumonia, dependent atelectasis, or scar. There is no evidence of diffuse interstitial disease. No pleural or pericardial effusion is seen . No adenopathy or mass lesion is present . Gallstones are present. IMPRESSION: There is progressive scar and/or fibrosis in the upper lobes, with right upper lobe bronchiectasis present. This may be seen with tuberculosis or fungal infections. New right lower lobe density, that may represent pneumonia, atelectasis, or scar. This study was performed using automated techniques to achieve radiation exposure as low as reasonably achievable Reviewed, Interpreted and Dictated by Gladys Turner MD Transcribed by Claire Keane Authenticated and [facility]
== END 2023-11-19 23:59 ==
LOC: RAD 11:04
PROVIDERS: PCP Family Medicine; Visit Provider Internal Medicine Pulmonary Disease
DX: J47.9 Bronchiectasis, uncomplicated (principal); J84.9 Interstitial pulmonary disease, unspecified; Z87.891 Personal history of nicotine dependence
CPT/HCPCS: 71250

== ENCOUNTER 2023-11-30 09:36 | Day surgery (SDC) | payer MEDICARE, SELFPAY ==
[2023-11-26 10:50] VITALS: BMI 33.9
[2023-11-30] VITALS (10 sets, daily range): BP systolic 137–182; BP diastolic 76–102; PULSE 83–99; RESP 14–18; TEMP 36.2–36.8; O2SAT 91–97
[2023-11-30] MEDS: LACTATED RINGERS 1000ML 1,000 ML 25 ML IV (09:55)
[2023-11-30 10:27] LABS: Chloride 106 mmol/L (98-107); Sodium 141 mmol/L (136-145)
[2023-11-30 10:30] LABS: Blood Urea Nitrogen 20 mg/dl (9-20); Calcium 8.6 mg/dl (8.4-10.2); Carbon Dioxide 30 mmol/L (22.0-30.0); Creatinine Clearance Estimated 55 mL/min (50-200); Estimated Glomerular Filt Rate 42 ml/min (>60); GFR (African American) 50 ML/MIN (>60); Glucose 108 mg/dl (74-100)
--- NOTE | 2023-11-30 10:49 | EXP.ANES.CKL ---
[facility] Disclaimer: The information contained in this section may have been updated after the patient was seen, as this information can be updated by other users. Medical History Abnormal computerized axial tomography of chest Acute and chronic respiratory failure Bronchiectasis Bronchiectasis without complication Chronic bronchitis Chronic respiratory failure with hypoxia and hypercapnia COPD (chronic obstructive pulmonary disease) COPD (chronic obstructive pulmonary disease) COPD exacerbation Dyspnea on exertion Dyspnea on exertion History of 2019 novel coronavirus disease (COVID-19) Pulmonary HTN Shortness of breath Surgical History No significant past surgical history Family History Other Heart attack Hypertension Social History Smoking Status: Former smoker tobacco type: cigarettes and e-cigarettes second hand exposure: No alcohol intake: never counseling provided: none substance use type: denies use current occupational status: retired Travel in the last 8 weeks: None household members: spouse housing: house current occupational exposures/hazards: No caffeine: Yes [facility] Anesthesia Checklist Patient Identification Patient Identification: Arm Band and Verbal (Name & ) Structural Data Admitted From: Home Planned Operative Procedure/s: Bronch Consent for Planned Operative Procedure(s) Verified: Yes NPO Status Verified Time NPO: 00:00 Chart Verification Results Verified: CBC and BMP Additional verifications Anesthesia Reactions: No Hx Blood Transfusions: No Blood Transfusion Reaction: No Airway Assessment Mallampati Score:: Class I C-Spine Mobility Assessed: Yes TMJ Mobility Assessed: Yes Dentition: Dentures-good fit Neurological Assessment Level of Consciousness: Awake Hx Seizures: No Numbness or tingling in extremities: No Anesthesia Plan Anesthesia Risk discussed: Yes Anesthesia Plan: Verified ASA Class: III Anesthesia Type: General
[2023-11-30] MEDS: IPRATROPIUM/ALBUTEROL 3 ML NEB IH (11:01)
--- NOTE | 2023-11-30 12:01 | XR_ITS ---
FINAL REPORT TECHNIQUE: Single view chest CLINICAL HISTORY: BRONCH IN OR FINDINGS: A single view of the chest was obtained. The heart and mediastinum are within normal limits. There are worsening right lung opacities and right apical pleural thickening. There is no pneumothorax. Osseous structures are unremarkable. IMPRESSION: Worsening right lung opacities and right apical pleural thickening. No pneumothorax. Reviewed, Interpreted and Dictated by Bro Gaines III, MD Transcribed by Vanessa Bhakta Authenticated and [facility]
--- NOTE | 2023-11-30 12:12 | P.PNANES_ITS ---
[facility] Anesthesia Record Part I Anesthesia Record I Intake, IV Amount: 200 Hydration: Adequate Estimated blood loss (mL): 10 Urine output (mL): 0 Blood Pressure: 182/102 SaO2: 97 Pulse Rate: 93 Airway Patency: Patent Respiratory Rate: 14 Temperature: 97.1 F Patient is:: Drowsy Stable to PACU at:: 12:10
--- NOTE | 2023-11-30 12:26 | XR_ITS ---
FINAL REPORT TECHNIQUE: Single view chest CLINICAL HISTORY: post bronch FINDINGS: A single view of the chest was obtained. The heart and mediastinum are within normal limits. There are worsening of right lung opacities with right apical pleural thickening. There is no pneumothorax. Osseous structures are unremarkable. IMPRESSION: Worsening right lung opacities with right apical pleural thickening. Reviewed, Interpreted and Dictated by Bro Gaines III, MD Transcribed by Vanessa Bhakta Authenticated and [facility]
--- NOTE | 2023-11-30 13:23 | EXP.BRONCH.N ---
Procedure: Date: 11/30/23 Patient Date of :: 1940 Procedure Performed:: Bronchoscopy airway examination, bronchoalveolar lavage and transbronchial lung biopsy Indications:: Bronchiectasis Nonresolving pneumonia Performing Provider:: Sheryl Raymundo MD Referring Provider:: Dr. Velasquez Sedation:: General anesthesia Procedure:: Bronchoscopy airway examination, bronchoalveolar lavage and transbronchial lung biopsy: A clean DIAGNOSTIC bronchoscopy was advanced through the ET tube and airways were examined up to subsegmental bronchi. Airways appeared grossly normal, no evidence of mucoid secretions, mucous plugging active bleeding/old blood clots noted. Bronchoalveolar lavage was performed in the RIGHT UPPER LOBE with instillation of 60 cc normal saline with return of 30 cc back. BAL fluid was sent for cell count and differential along with bacterial fungal and AFB stain and cultures. Transbronchial biopsy was performed in the RIGHT UPPER LOBE with a total of 7 biopsies performed, 5 biopsy specimens were sent in formalin for cytopathologic examination. The other 2 biopsy samples, were sent one each in two separate normal saline specimen cups for bacterial fungal and AFB stain cultures. Special request was also made for the pathologist to evaluate for AFB and fungal organisms on the cytopathologic examination. Patient tolerated the procedure with no immediate acute complications. We will follow the patient in pulmonary clinic in 7 to 10 days. Findings:: Please see the procedure note Recommendations:: Postoperative bronchoscopy instructions Follow in pulmonary clinic in 5 to 7 days to follow on the results Complications:: No acute immediate complication Estimated blood obtained (mL): 2
--- NOTE | 2023-11-30 13:46 | EXP.ANES.II ---
[facility] Anesthesia Record Part II Anesthesia Record Part II Discharge Time: 12:30 Destination: Surgical Day Care (OP Surgery) PACU nurse assessment reviewed?: Yes Patient Condition:: Good Anesthesia Complications:: None Swallowing reflex intact?: Yes Airway Patency: Patent Cyanosis?: No Blood Pressure: 154/78 SaO2: 97 Respiratory Rate: 17 Pulse Rate: 92 Temperature: 98.2 F Mental Status: Alert & Oriented Pain level:: 0 Nausea and/or vomitting:: None Intake, IV Amount: 0 Hydration: Adequate
[2023-11-30 17:36] LABS: Basophils % 0.2 % (0.1-2.0); Eosinophils # 0.2 K/mm3 (0.0-0.4); Eosinophils % 2.1 % (0.1-12.0); Hematocrit 37.4 % (42.0-52.0); Hemoglobin 12.2 g/dL (14.1-18.0); Lymphocytes # 1.3 K/mm3 (0.7-4.5); Lymphocytes % 15.7 % (10-50); Mean Corpuscular HGB Conc 32.5 g/dL (31.8-35.4); Mean Corpuscular Hemoglobin 30.8 pg (27.0-31.2); Mean Corpuscular Volume 94.9 fl (80-94); Mean Platelet Volume 10.2 fl (7.4-10.4); Monocytes # 0.6 K/mm3 (0.1-1.0); Monocytes % 6.7 % (1.7-9.3); Neutrophils # 6.4 K/mm3 (1.8-7.8); Neutrophils % 75.3 % (37.0-80.0); Platelet Count 260 K/mm3 (142-424); Red Blood Count 3.95 M/mm3 (4.60-6.20); Red Cell Distribution Width 15.6 % (11.5-17.5); White Blood Count 8.5 K/mm3 (4.8-10.8)
== END 2023-11-30 13:30 | disposition home or self-care (01) ==
PROVIDERS: PCP Family Medicine; Visit Provider Internal Medicine Pulmonary Disease
DX: R06.09 Other forms of dyspnea (principal); J44.9 Chronic obstructive pulmonary disease, unspecified; I27.20 Pulmonary hypertension, unspecified; Z79.899 Other long term (current) drug therapy; Z87.891 Personal history of nicotine dependence; J47.9 Bronchiectasis, uncomplicated; J41.8 Mixed simple and mucopurulent chronic bronchitis; Z86.16 Personal history of COVID-19; J96.12 Chronic respiratory failure with hypercapnia
CPT/HCPCS: 31624; 31628; 71045; 76000; 80048; 85025; 87070; 87102; 87116; 87186; 87205; 87206; 88112; 88305; 88312; 89051; J3490

== ENCOUNTER 2024-05-20 09:53 | Outpatient (CLI) | payer MEDICARE, SELFPAY ==
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
== END 2024-05-20 23:59 | disposition home or self-care (01) ==
LOC: RT 09:54
PROVIDERS: PCP Nurse Practitioner; Visit Provider Nurse Practitioner
DX: M79.604 Pain in right leg (principal); R60.9 Edema, unspecified; Z79.01 Long term (current) use of anticoagulants
CPT/HCPCS: 87070; 87205; 93971

== ENCOUNTER 2024-10-06 09:47 | Outpatient (CLI) | payer MEDICARE, SELFPAY ==
[2024-10-06] MEDS: ALBUTEROL 0.083% 2.5 MG/3 ML NEB IH (10:54)
--- NOTE | 2024-10-06 10:54 | PC.NURSE ---
Pre and Post Spirometry completed without incident. Albuterol 0.083% given via HHN, per written protocol, Pt tolerated tx well. 6Minute Walk Test not completed. Pt states he is extremely short of breath just sitting and is unable to walk more than 40 feet. Pt states since his last breathing medication adjustment it is not working and he has been having a very rough time breathing.
== END 2024-10-06 23:59 | disposition home or self-care (01) ==
LOC: RT 09:48
PROVIDERS: PCP Nurse Practitioner; Visit Provider Internal Medicine Pulmonary Disease
DX: J44.9 Chronic obstructive pulmonary disease, unspecified (principal); R06.09 Other forms of dyspnea
CPT/HCPCS: 94060; J7613

== ENCOUNTER 2024-11-16 20:01 | Emergency (ER) | payer MEDICARE, SELFPAY ==
--- NOTE | 2024-11-16 20:20 | PC.NURSE ---
Pt awake alert and oriented x3 Skin pink warm and dry REsp full and easy Speech clear and appropriate. Pt has dressing to left lower leg. Report given to Maci FERRARI
[2024-11-16 20:34] VITALS: BP 200/97; PULSE 94; RESP 24; TEMP 36.4; O2SAT 92; BMI 33.9
--- NOTE | 2024-11-16 20:36 | ED_ITS ---
Discharge Plan Disposition Patient Disposition: Home, Self-Care Condition: Good Prescriptions Prescriptions: No Action levalbuterol tartrate [Xopenex HFA] 45 mcg/actuation HFA aerosol inhaler 2 inh INHALATION Q6H PRN (Reason: shortness of breath or wheezing) 90 Days Qty: 15 4RF Trelegy Ellipta 200-62.5-25 mcg blister with device 1 inh inhalation DAILY 90 Days Qty: 90 3RF spironolactone 50 mg tablet 50 mg PO DAILY Pro Fe 180 mg iron capsule 180 mg PO DAILY levalbuterol HCl 0.63 mg/3 mL solution for nebulization 0.63 mg inhalation TID PRN (Reason: shortness of breath or wheezing) Qty: 90 3RF [id number] [Centrum Silver Men] 300-600-300 mcg tablet 1 tab PO DAILY pregabalin [Lyrica] 25 mg capsule 25 mg PO QID PRN (Reason: NEUROPATHY) bumetanide 1 mg tablet 1 mg PO DAILY propafenone 150 mg tablet 150 mg PO BID Rx Instructions: space evenly during waking hours aspirin [Adult Low Dose Aspirin] 81 mg tablet,delayed release (DR/EC) 81 mg PO DAILY Hyper-Tan 3.5 % solution for nebulization 4 ml IH DAILY 90 Days Qty: 270 3RF Rx Instructions: 4 mL of 3% hypertonic saline nebulization every 12 hours every day to use with chest percussion therapy. This nebulization should be preceded by albuterol nebulization to avoid any bronchospasm. clopidogrel 75 mg tablet 75 mg PO DAILY Qty: 30 3RF levalbuterol HCl 0.63 mg/3 mL solution for nebulization 0.63 mg INHALATION Q6H PRN (Reason: shortness of breath or wheezing) Qty: 180 3RF terazosin 2 MG capsule 2 mg PO DAILY tamsulosin 0.4 MG capsule 0.4 mg PO HS zolpidem 10 MG tablet 10 mg PO HS atorvastatin 40 MG tablet 40 mg PO HS diazepam 5 mg tablet 2.5 mg PO HS Referrals Follow up/Referrals: Rhea Langston APRN [Primary Care Provider] - See instructions Activity Restrictions/Add. Instructions Additional Instructions/Restrictions: Please follow-up with your PCP within 48 hours to recheck your wound. Please continue doing what you have been doing which is to keep the wound covered with a nonocclusive dressing along with bacitracin. If you have increasing redness pain swelling or drainage return to the emergency department. Clinical Impressions Clinical Impression: Laceration Cellulitis Qualifiers: Site of cellulitis: extremity Site of cellulitis of extremity: lower extremity Laterality: left Qualified Code(s): L03.116 - Cellulitis of left lower limb Print Language Print Language: Salvadorean Discharge ED Provider: Mo Chang General Adult HPI <ROXANNA Mendoza - Last Filed: 11/16/24 20:59> General Chief complaint: Wound/Laceration Stated complaint: lac to lLT leg, red swollen Time Seen by Provider: 11/16/24 20:36 History of Present Illness HPI narrative: Patient presents for evaluation of a left lower extremity laceration. Patient states that he cut his lateral anterior left lower leg on a car door last week. He has been taking care of it with bacitracin soap and water and wound care. However he noticed it was turning more red and tender today so he came to the ER for evaluation. Patient denies fever chills hemoptysis hematochezia melena nausea vomiting diarrhea. He denies any painful calf tenderness. Denies loss of motor or sensory. Related Data Home Medications ?Medication ?Instructions ?Recorded ?Confirmed [id number] 300 mcg-K 60 1 tab PO DAILY Supplement 01/12/18 10/06/24 mcg-lycop 600 mcg-lutein 300 mcg tablet (Centrum Silver Men) terazosin 2 mg capsule 2 mg PO DAILY prostate 08/29/19 10/06/24 tamsulosin 0.4 mg capsule 0.4 mg PO HS PROSTATE 10/15/20 10/06/24 zolpidem 10 mg tablet 10 mg PO HS SLEEP 10/15/20 10/06/24 atorvastatin 40 mg tablet 40 mg PO HS Cholesterol 10/16/20 10/06/24 bumetanide 1 mg tablet 1 mg PO DAILY 10/21/21 10/06/24 diazepam 5 mg tablet 2.5 mg PO HS Anxiety 10/21/21 10/06/24 propafenone 150 mg tablet 150 mg PO BID 10/21/21 10/06/24 pregabalin 25 mg capsule (Lyrica) 25 mg PO QID PRN NEUROPATHY 12/30/21 10/06/24 aspirin 81 mg tablet,delayed 81 mg PO DAILY 09/04/22 10/06/24 release (Adult Low Dose Aspirin) polysaccharide iron complex 180 mg 180 mg PO DAILY 10/06/24 10/06/24 iron capsule (Pro Fe) spironolactone 50 mg tablet 50 mg PO DAILY 10/06/24 10/06/24 Previous Rx's ?Medication ?Instructions ?Recorded clopidogrel 75 mg tablet 75 mg PO DAILY PLATELET INHIBITOR 12/28/20 #30 tabs sodium chloride 3.5 % for 4 ml inhalation DAILY 90 days #270 09/04/22 nebulization (Hyper-Tan) mL levalbuterol HCl 0.63 mg/3 mL 0.63 mg (3 mL) inhalation Q6H PRN 11/04/23 solution for nebulization shortness of breath or wheezing #180 mL fluticasone fur. 200 mcg-umeclid 1 inh inhalation DAILY 90 days #90 12/08/23 62.5 mcg-vilant 25 mcg ea inhalat.powder (Trelegy Ellipta) levalbuterol tartrate 45 2 inh inhalation Q6H PRN shortness 12/08/23 mcg/actuation aerosol inhaler of breath or wheezing 90 days #15 (Xopenex HFA) grams levalbuterol HCl 0.63 mg/3 mL 0.63 mg (3 mL) inhalation TID PRN 10/06/24 solution for nebulization shortness of breath or wheezing #90 mL Allergies Allergy/AdvReac Type Severity Reaction Status Date / Time No Known Drug Allergies Allergy Verified 10/06/24 11:11 [facility] <ROXANNA Mendoza - Last Filed: 11/16/24 20:59> [facility] Disclaimer: The information contained in this section may have been updated after the patient was seen, as this information can be updated by other users. Medical History COPD exacerbation Bronchiectasis Dyspnea on exertion Chronic respiratory failure with hypoxia and hypercapnia COPD (chronic obstructive pulmonary disease) Bronchiectasis without complication Chronic bronchitis Abnormal computerized axial tomography of chest Dyspnea on exertion History of 2019 novel coronavirus disease (COVID-19) Shortness of breath Acute and chronic respiratory failure COPD (chronic obstructive pulmonary disease) Pulmonary HTN Surgical History No significant past surgical history Family History Other Heart attack Hypertension Social History Smoking Status: Former smoker tobacco type: cigarettes and e-cigarettes second hand exposure: No alcohol intake: never counseling provided: none substance use type: denies use current occupational status: retired Travel in the last 8 weeks: None household members: spouse housing: house current occupational exposures/hazards: No caffeine: Yes Have you lived/traveled outside [place] in past 30 days?: No Contact w/someone who lives/traveled outside [place] past 30 days?: No Exposure to someone with infectious disease in past 14 days?: No Do you have a fever (greater than 100.4 F or 38 C)?: No Have you tested positive for COVID-19: No Exposed to someone with COVID-19 in past 14 days?: No Do you have a sore throat?: No Do you have a cough?: No Do you have any weakness?: No Do you have any diarrhea?: No Are you experiencing any unusual bleeding?: No Do you have any muscle aches/pain?: No Do you have any abdominal pain?: No Are you experiencing loss of taste or smell?: No Other Medical History Have you received the Flu Vaccine for this season: No Have you received the Pneumonia Vaccine: Yes <ROXANNA Mendoza - Last Filed: 11/16/24 20:59> ROS Obtained: Yes Systems reviewed as appropriate & no additional complaints except as documented Physical Exam <ROXANNA Mendoza - Last Filed: 11/16/24 20:59> General General appearance: alert and in no apparent distress Respiratory Respiratory exam: Present normal lung sounds bilaterally Cardiovascular Cardiovascular exam: Present regular rate Neurological Exam Neurological exam: Present alert and oriented X3 <Mo Chang MD - Last Filed: 11/17/24 02:31> Expanded Lower Extremity Exam Left: Comment: Healing, crescent shaped laceration measuring approximately 5cm over the lateral left abernathy with some mild swelling and erythema noted surrounding the area. No fluctuance. No induration Medical Decision Making <ROXANNA Mendoza - Last Filed: 11/16/24 20:59> Medical Records Medical records reviewed: Yes I reviewed the patient's medical records. Screening: Per USPSTF and CDC recommendations, given the prevalence of disease in our region, it is our hospital?s policy to screen for HIV and viral Hepatitis for all patients aged 18 and over and those with ongoing risk factors. Silvestre Inquiry Pt receiving controlled substance: No Vital Signs: 11/16/24 20:34 11/16/24 23:17 Temperature 97.6 F 98.3 F Temperature Source Oral Pulse Rate 73 Pulse Rate [Right Brachial] 94 H Respiratory Rate 24 20 Blood Pressure 130/78 Blood Pressure [Right Arm] 200/97 H Blood Pressure Mean [Right Arm] 131 Blood Pressure Source [Right Arm] Automatic Cuff Blood Pressure Position [Right Arm] Sitting 02 Sat by Pulse Oximetry 92 L Oxygen Delivery Method Room Air Room Air Lab Data Lab results reviewed: Yes I reviewed the patient's lab results. Lab Results 11/16/24 21:12: Sodium 144, Potassium 5.2 H, Chloride 108 H, Carbon Dioxide 29, Anion Gap 12.2, BUN 35 H, Creatinine 1.60 H, Estimated Creat Clear 56, Estimated GFR 41 L, Est GFR ( Amer) 50 L, Glucose 102 H, Calcium 8.2 L, HCV Ab AMINTA w/Rflx PCR Qn Negative, HIV Ag/Ab Combo Qual Negative 11/16/24 21:12 Orders (Tests/Meds): ED MEDICATIONS Discontinued Medications Generic Name Dose Route Start Last Admin Trade Name Freq PRN Reason Stop Dose Admin Dalbavancin 1,500 mg/ Dextrose 250 mls @ 500 mls/hr 11/16/24 22:30 11/16/24 22:43 IV 11/16/24 22:31 500 mls/hr ONCE ONE Administration ORDERS Category Date Time Status BMP [Basic Metabolic Panel] Stat Lab 11/16/24 21:12 Completed HIV Combo Routine Lab 11/16/24 21:12 Completed Hepatitis C Ab Qual. W/ RFX Routine Lab 11/16/24 21:12 Completed Medical Decision Narrative: In summary patient is a 84-year-old male who presents to the emergency department for evaluation of a 1 week old laceration to his left anterior lower extremity. Patient is initially hypertensive at 200/97 with a pulse of 94 and normal sinus rhythm on bedside monitor breathing 24 times a minute satting at 92% on room air upon arrival, with temperature 97.6. Physical exam shows a 5 cm linear laceration from distal to caudad of the lateral aspect of his left lower extremity. There is erythema without induration or ecchymosis fluctuance surrounding it. It is slightly tender to palpation. There is no posterior calf tenderness no palpable cords patient has full range of motion is neurovascularly intact distally with good sensation motor and pulses.. Differential diagnosis includes cellulitis versus potentially developing abscess. Initial workup will be conducted with hematologic labs. Initial interventions were considered but will be deferred until we have his kidney function as review of his records shows that he may have impaired renal function. Initial workup is ordered and pending and based on his renal function we will renally dose Dalvance. Patient tolerated infusion well. Patient given wound care instructions and instructions to follow-up with his PCP within 48 hours for wound recheck or returning to the ER for any worsening signs or symptoms including increasing redness drainage pain swelling etc. <Mo Chang MD - Last Filed: 11/17/24 02:31> Vital Signs: 11/16/24 20:34 11/16/24 23:17 Temperature 97.6 F 98.3 F Temperature Source Oral Pulse Rate 73 Pulse Rate [Right Brachial] 94 H Respiratory Rate 24 20 Blood Pressure 130/78 Blood Pressure [Right Arm] 200/97 H Blood Pressure Mean [Right Arm] 131 Blood Pressure Source [Right Arm] Automatic Cuff Blood Pressure Position [Right Arm] Sitting 02 Sat by Pulse Oximetry 92 L Oxygen Delivery Method Room Air Room Air Lab Data Lab Results 11/16/24 21:12: Sodium 144, Potassium 5.2 H, Chloride 108 H, Carbon Dioxide 29, Anion Gap 12.2, BUN 35 H, Creatinine 1.60 H, Estimated Creat Clear 56, Estimated GFR 41 L, Est GFR ( Amer) 50 L, Glucose 102 H, Calcium 8.2 L, HCV Ab AMINTA w/Rflx PCR Qn Negative, HIV Ag/Ab Combo Qual Negative Orders (Tests/Meds): ED MEDICATIONS Discontinued Medications Generic Name Dose Route Start Last Admin Trade Name Freq PRN Reason Stop Dose Admin Dalbavancin 1,500 mg/ Dextrose 250 mls @ 500 mls/hr 11/16/24 22:30 11/16/24 22:43 IV 11/16/24 22:31 500 mls/hr ONCE ONE Administration ORDERS Category Date Time Status BMP [Basic Metabolic Panel] Stat Lab 11/16/24 21:12 Completed HIV Combo Routine Lab 11/16/24 21:12 Completed Hepatitis C Ab Qual. W/ RFX Routine Lab 11/16/24 21:12 Completed Medical Decision Narrative: In summary patient is a 84-year-old male who presents to the emergency department for evaluation of a 1 week old laceration to his left anterior lower extremity. Patient is initially hypertensive at 200/97 with a pulse of 94 and normal sinus rhythm on bedside monitor breathing 24 times a minute satting at 92% on room air upon arrival, with temperature 97.6. Physical exam shows a 5 cm linear laceration from distal to caudad of the lateral aspect of his left lower extremity. There is erythema without induration or ecchymosis fluctuance surrounding it. It is slightly tender to palpation. There is no posterior calf tenderness no palpable cords patient has full range of motion is neurovascularly intact distally with good sensation motor and pulses.. Differential diagnosis includes cellulitis versus potentially developing abscess. Initial workup will be conducted with hematologic labs. Initial interventions were considered but will be deferred until we have his kidney function as review of his records shows that he may have impaired renal function. Initial workup is ordered and pending and based on his renal function we will renally dose Dalvance. Patient tolerated infusion well. Patient given wound care instructions and instructions to follow-up with his PCP within 48 hours for wound recheck or returning to the ER for any worsening signs or symptoms including increasing redness drainage pain swelling etc. I was consulted by the ZACKARY, and we discussed the complexity of the problems being addressed. I approve the treatment and management plan for this patient's care in the emergency department, thus performing a substantive portion of the medical decision making. Mo Chang MD Critical Care <ROXANNA Mendoza - Last Filed: 11/16/24 20:59> Critical Care Time Critical Care Time: No
[2024-11-16 21:30] LABS: Chloride 108 mmol/L (98-107); Potassium 5.2 mmoL/L (3.5-5.1); Sodium 144 mmol/L (136-145)
[2024-11-16 21:33] LABS: Anion Gap 12.2 mEq/L (5-15); Blood Urea Nitrogen 35 mg/dl (9-20); Calcium 8.2 mg/dl (8.4-10.2); Carbon Dioxide 29 mmol/L (22.0-30.0); Creatinine Clearance Estimated 56 mL/min (50-200); Estimated Glomerular Filt Rate 41 ml/min (>60); GFR (African American) 50 ML/MIN (>60); Glucose 102 mg/dl (74-100)
[2024-11-16 22:15] LABS: HIV Combo NEGATIVE (Negative)
[2024-11-16 22:22] LABS: Hepatitis C Ab Qual. W/ RFX NEGATIVE (Negative)
[2024-11-16] MEDS: DALBAVANCIN HCL 1,500 MG in DEXTROSE 5 % IN WATER 250 ML 500 MG IV (22:43)
[2024-11-16 23:17] VITALS: BP 130/78; PULSE 73; RESP 20; TEMP 36.8; O2SAT 97
== END 2024-11-16 23:19 | disposition home or self-care (01) ==
PROVIDERS: Physician Assistant; Emergency Provider Student in an Organized Health Care Education/Training Program; PCP Nurse Practitioner
DX: L03.116 Cellulitis of left lower limb (principal); S81.812A Laceration without foreign body, left lower leg, initial encounter; M79.605 Pain in left leg; W26.8XXA Contact with other sharp object(s), not elsewhere classified, initial encounter; Y93.89 Activity, other specified; Y92.89 Other specified places as the place of occurrence of the external cause
CPT/HCPCS: 80048; 86803; 87389; 96374; 99283; J0875; J7060

== ENCOUNTER 2025-06-09 18:09 | Emergency (ER) | payer MEDICARE, SELFPAY ==
--- OUTSIDE RECORDS SUMMARY | 2020-08-20 13:38 | XMS_ITS | Encounter Summary ---
[facility] [address] [place] [address] Care Team Providers Care Rounder And Backer Name Role Phone Stephen Velasquez MD Primary Care Provider [phone] Encounter Details Date Type Department Care Team (Late st Contact Info) Description 08/20/2020 12:38 PM EST Hospital Encounter [facility] PULMONARY & CRITICAL CARE MEDICINE [address] [place] [phone] Social History Tobacco Use Types Packs/Day Years [...] Care Team (Late st Contact Info) Description 08/15/2025 1:00 PM EDT Office Visit [facility] SLEEP MEDICINE [address] [facility] [address] [place] [phone] Joseph Espitia, DIRECTOR OF PROGRAMMING [address] [place] [address] 05/30/2026 2:00 PM EDT Office Visit [facility] CARDIOLOGY [address] [place] [address] Janiya Reyna MD [address] [place] [address] Scheduled Procedures Name Priority Associated Diagnoses Date/Ti me RIGHT AND LEFT HEART CATH Coronary artery disease involving [place] coronary artery of [place] heart without angina pectoris documented as of [...] by Dr. Jocelyn Yeung MD. Leela Farr APRN IMG DIAGNOSTIC IMAGING ORD ERABLES Final Result documented in this encounter Visit Diagnoses Not on filedocumented in this encounter Additional Health Concerns Infection Onset Date Last Indicated Resolved Time COVID (rule out) 08/14/2020 08/14/2020 08/21/2020 9:10 PM EST documented as of this encounter Care Teams Rounder And Backer Relationship Specialty Start Date End Date Stephen Velasquez MD [address] [place] [address] PCP - General Family Medicine 09/16/18 documented as of this encounter
--- OUTSIDE RECORDS SUMMARY | 2025-06-01 08:26 | XMS_ITS | Continuity of Care Document ---
Author Name [facility] Organization [facility] Care Team Providers Care Power Superintendent Name Role Phone [facility] Unavailable Unavailable Problems Combined list of problems from Department of Defense and [facility] Affairs facilities. It does not include entries that were removed or entered in error. Problem Status Onset Date Problem Type Date of Resolution Comments Source Benign prostatic hyperplasia Active Condition [facility] Chronic obstructive lung disease Active Condition [facility]IATRIC Chronic obstructive lung disease (SNOMED CT 96983969) Active Condition [facility]IATRIC Coronary artery disease Active Condition PSY[facility]IATRIC Gastroesophageal reflux disease Active Condition PSYCHIATRIC HTN * Active Condition PSYCHIATRIC Hyperlipidemia Active Condition [facility] Hyperlipidemia (SNOMED CT 32730121) Active Condition [facility] Hypertension Active Condition PSYCHIATRIC Injury of great toe Active Condition [place] [facility] Neuropathy Active Condition [facility]IATRIC Obesity Active Condition [facility] Overweight Active Condition [facility] Overweight (SNOMED CT 262536566) Active Condition [facility]ATRIC Tobacco use Active Condition [facility]IATRIC Tobacco user (SNOMED CT 046325949) Active Condition PSYCHIATRIC Diagnosis: ICD-10-CM Z46.1 Encounter for fitting and adjustment of hearing aid Active Diagnosis [facility] Diagnosis: ICD-10-CM J44.9 Chronic obstructive pulmonary disease, unspecified Active Diagnosis [facility] Diagnosis: ICD-10-CM R06.02 Shortness of breath Active Diagnosis [facility] Diagnosis: ICD-10-CM R26.9 Unspecified abnormalities of gait and mobility Active Diagnosis [facility] Diagnosis: ICD-10-CM I25.10 Athscl heart disease of [place] coronary artery w/o ang pctrs Active Diagnosis [facility] Medications Combined list of outpatient medications from Department of Defense and Veterans Affairs facilities.Medications provided include 1) outpatient medications from the last 15 months, and 2) patient-reported medications. Medication Details Route Status Patient Instructions Prescription Expires Prescription Number Last Dispense Date Ordering Provider Order Date Order Qty Source ASPIRIN 81MG TAB,EC TAKE ONE TABLET BY MOUTH DAILY ORAL ACTIVE WHITAKER,PRABHU EK R 2013 [place] [facility] ATORVASTATI N CA 40MG TAB TAKE ONE TABLET BY MOUTH DAILY ORAL ACTIVE WHITAKER,PRABHU EK R 2019 [place] [facility] BUMETANIDE TAB TAKE BY MOUTH DAILY ORAL ACTIVE WHITAKER,PRABHU EK R 2023 [place] [facility] CLOPIDOGREL BISULFATE 75MG TAB TAKE ONE TABLET BY MOUTH DAILY ORAL ACTIVE WHITAKER,PRABHU EK R 2017 [place] [facility] DIAZEPAM 5MG TAB TAKE ONE TABLET BY MOUTH ORAL ACTIVE WHITAKER,PRABHU EK R 2023 [place] [facility] ENSIFENTRIN E SUSP,INHL NEBULIZE R TWICE A DAY RESPIR ATORY (INHAL ATION) ACTIVE WHITAKER,PRABHU EK R 2023 [place] [facility] FLUTICASONE /UMECLIDINI UM/VILANTER OL INHL,ORAL INHALE BY MOUTH DAILY ORAL ACTIVE WHITAKER,PRABHU EK R 2017 [place] [facility] FLUTICASONE /UMECLIDINI UM/VILANTER OL INHL,ORAL INHALE BY MOUTH DAILY RESPIR ATORY (INHAL ATION) ACTIVE WHITAKER,PRABHU EK R 2019 [place] [facility] PREGABALIN 25MG CAP,ORAL TAKE 1 CAPSULE BY MOUTH FOUR TIMES A DAY ORAL ACTIVE WHITAKER,PRABHU EK R 2017 [place] [facility] SPIRONOLACT ONE 25MG TAB TAKE ONE TABLET BY MOUTH DAILY ORAL ACTIVE WHITAKER,PRABHU EK R 2019 [place] [facility] TAMSULOSIN HCL 0.4MG CAP TAKE 1 CAPSULE BY MOUTH EVERY EVENING ORAL ACTIVE WHITAKER,PRABHU EK R 2016 [place] [facility] ZOLPIDEM TARTRATE 10MG TAB TAKE ONE TABLET BY MOUTH AT BEDTIME ORAL ACTIVE PRABHU WHITAKER R 2017 [place] [facility] Immunizations Combined list of available immunizations from the Department of Defense and Veterans Affairs facilities. Immunization Series Date Given Administered By Site Reaction Lot Number CVX Code Drug Straight Cutter Machine Status Comments Source INFLUENZA, UNSPECIFIED FORMULATION 2023 88 complet ed Completed Series, HISTORICA L INFORMATI ON - FROM PATIENT'S RECALL, [place] [facility] TDAP 2 2022 115 complet ed HISTORICA L INFORMATI ON - FROM OTHER REGISTRY, [place] [facility] COVID-19 (MODERNA), MRNA, LNP-S, PF, 100 MCG/0.5ML DOSE OR 50 MCG/0.25ML DOSE 1 2020 207 complet ed HISTORICA L INFORMATI ON - FROM OTHER REGISTRY, [place] [facility] INFLUENZA, ADJUVANTED, TRIVALENT, PF 3 2019 168 complet ed HISTORICA L INFORMATI ON - FROM OTHER REGISTRY, [place] [facility] INFLUENZA, SEASONAL, INJECTABLE 2018 141 complet ed [place] [facility] RECOMBIN[facility] 2 2018 187 complet ed [place] [facility] INFLUENZA, UNSPECIFIED FORMULATION 2 2018 88 complet ed HISTORICA L INFORMATI ON - FROM OTHER REGISTRY, [place] [facility] ZOSTER RECOMBINANT 1 2018 187 complet ed [place] [facility] INFLUENZA, SEASONAL, INJECTABLE 2017 141 complet ed [place] [facility] INFLUENZA A & B (HISTORICAL) 2016 88 complet ed [place] [facility] INFLUENZA, HIGH-DOSE, TRIVALENT, PF 1 2015 135 complet ed HISTORICA L INFORMATI ON - FROM OTHER REGISTRY, [place] [facility] FLU,3 YRS (HISTORICAL) 2014 88 complet ed [place] [facility] PNEUMOCOCCAL CONJUGATE PCV [address] [place] [facility] TDAP 2013 115 complet ed [place] [facility] DTP 2013 01 complet ed [place] [facility] TDAP (HISTORICAL) 2013 115 complet ed [place] [facility] INFLUENZA A & B (HISTORICAL) 2012 88 complet ed [place] [facility] PNEUMOCOCCAL, UNSPECIFIED FORMULATION 2010 109 complet ed [place] [facility] TD (ADULT), 2 LF TETANUS TOXOID, PRESERVATIVE FREE, ADSORBED 1 1996 09 complet ed HISTORICA L INFORMATI ON - FROM OTHER REGISTRY, [place] [facility] Vital Signs Combined list of inpatient and outpatient Vital Signs from Department of Defense and Veterans Affairs, ranging from 12 months to all on record, depending upon the facility. Vital Sign Value Date Comments Source PULSE OXIMETRY 93 11/15/2024 13:44:58 [place] [facility] PULSE 94 11/15/2024 13:44:58 [place] [facility] SYSTOLIC BLOOD PRESSURE 133 09/22/2024 14:17:48 [place] [facility] DIASTOLIC BLOOD PRESSURE 87 09/22/2024 14:17:48 [place] [facility] PULSE OXIMETRY 92 09/22/2024 14:17:48 [place] [facility] WEIGHT 226 09/22/2024 14:17:48 [place] [facility] BMI 32 kg/m2 09/22/2024 14:17:48 [place] [facility] PAIN 1 09/22/2024 14:17:48 [place] [facility] HEIGHT 71 09/22/2024 14:17:48 [place] [facility] TEMPERATURE 97.2 09/22/2024 14:17:48 [facility] PULSE 86 09/22/2024 14:17:48 [place] [facility] Encounters Combined list of: 1) Encounters from Department of Veterans Affairs facilities going backup to the last 18 months, not all VA inpatient encounters are included; 2) Encounters from the Department of Defense facilities going backup to 280 months. Location Location Details Encounter Type Encounter Number Reason For Visit Attending Provider ADM Date DC Date Status Disposition Source [facility] REPAIR/MOD IFYING [id number] Diagnos is: ICD-10- CM Z46.1 Encount er for fitting and adjustm ent of hearing aid AYANNA SCHULTZ 07/21 [place] Outpatient Encounter [id number] 08/06 [place] [facility] Outpatient Encounter [id number] 08/26 [place] Outpatient Encounter [id number] 09/22 [place] [facility] OFFICE O/P NEW MOD 45 MIN [id number] Diagnos is: ICD-10- CM I25.10 Athscl heart disease of [place] coronar y artery w/o ang pctrs ENEIDA WHITAKER 09/22 [place] [facility] Outpatient Encounter [id number] 10/31 [place] SYNCH AUDIO-ONLY EST SF 10 [id number] Diagnos is: ICD-10- CM R26.9 Unspeci fied abnorma lities of gait and mobilit y ENEIDA WHITAKER 11/03 [place] [facility] Outpatient Encounter [id number] 11/03 [place] OFF/OP EST MAY X REQ PHY/QHP [id number] Diagnos is: ICD-10- CM R06.02 Shortne ss of breath JUAN BLAIR 11/15 [place] [facility] Outpatient Encounter [id number] 11/16 [place] PT EDUCATION NOC INDIVID [id number] Diagnos is: ICD-10- CM J44.9 Chronic obstruc tive pulmona ry disease , unspeci fied ME PATEL DAVIS L 11/23 [place] HEARING AID REPAIR/MOD IFYING [id number] Diagnos is: ICD-10- CM Z46.1 Encount er for fitting and adjustm ent of hearing aid AYANNA SCHULTZ 05/01 [place] Social History Combined list of available smoking, tobacco, and other social history from Department of Defense and Veterans Affairs facilities. Social History Type Response Date Comment Sourc e Tobacco smoking status NHIS NM-TOBACCO USE FORMER CIGARETTES 09/22/2024 [facility] 09/22/2024 [facility]/01/2020 [facility] OFFIC[facility] CC/CM NO 04/18/2019 PSYCHIATRIC History of tobacco use V9 TOBACCO OFFERED 04/06/2018 PSYCHIATRIC History of tobacco use V9 TOBACCO OFFERED 03/03/2017 PSYCHIATRIC History of tobacco use V9 QUIT TOBACCO >7 YEARS AGO 08/21/2015 PSYCHIATRIC History of tobacco use V9 CURRENT TOBACCO USER 05/26/2014 [facility]
[2025-06-09] VITALS (8 sets, daily range): BP systolic 119–134; BP diastolic 66–103; PULSE 83–104; RESP 17–20; TEMP 36.6–36.9; O2SAT 92–98; BMI 36.2
--- OUTSIDE RECORDS SUMMARY | 2025-06-09 18:13 | XMS_ITS | Clinical Summary ---
Author Organization [facility] Address [address] [place] [id number] Care Team Providers Care Cytogenetic Technologist Name Role Phone Stephen Velasquez MD Primary Care Provider [phone] Allergies Active Allergy Reactions Criticality Noted Date Comments Amlodipine Other (See Comments) 07/27/2019 BLE edema Bisoprolol Other (See Comments) 07/27/2019 Bradycardia Contrast Dye (Echo Or Unknown Ct/Mr) Swelling,GI Intolerance 10/05/2018 Medications albuterol sulfate HFA 108 (90 Base) MCG/ACT inhaler Inhale 2 puffs Every 4 (Four) Hours As Needed for Wheezing. Active tamsulosin (FLOMAX) 0.4 MG capsule 24 hr capsule Take 1 capsule by mouth Every Night. Active pregabalin (LYRICA) 25 MG capsule Take 1 capsule by mouth 3 (Three) Times a Day. Active zolpidem (AMBIEN) 10 MG tablet Take 1 tablet by mouth At Night As Needed for Sleep. Active diazePAM (VALIUM) 2 MG tablet Take 1 tablet by mouth 2 (Two) Times a Day As Needed for Anxiety. Active Multiple Vitamins-Minera ls (CENTRUM ADULTS PO) Take by mouth Daily. Active aspirin 81 MG EC tablet Take 1 tablet by mouth Daily. Active potassium chloride (K-DUR,KLOR-CON ) 20 MEQ CR tablet TAKE 1 TO 2 TABLETS BY MOUTH ONCE A DAY DIRECTED 60 tablet 0 Active Additional Information Patient not taking.Reported on 03/29/2025 O2 (OXYGEN) Inhale 3 L/min As Needed. Active naproxen (NAPROSYN) 500 MG tablet Take 1 tablet by mouth 2 (Two) Times a Day. 2 Active azithromycin (ZITHROMAX) 250 MG tablet 1 (One) Time Per Week. M, W, F 3 Active albuterol (PROVENTIL) (2.5 MG/3ML) 0.083% nebulizer solution 4 Active levalbuterol (XOPENEX) 0.63 MG/3ML nebulizer solution 1 ampule. 4 Active Trelegy Ellipta 200-62.5-25 MCG/ACT inhaler 4 Active spironolactone (ALDACTONE) 50 MG tablet 4 Active atorvastatin (LIPITOR) 40 MG tablet Take 1 tablet by mouth Daily. 90 tablet 3 4 Active terazosin (HYTRIN) 2 MG capsule TAKE ONE CAPSULE BY MOUTH EVERY NIGHT 90 capsule 3 4 Active bumetanide (BUMEX) 1 MG tablet TAKE ONE TABLET BY MOUTH ONCE A DAY 90 tablet 5 Active clopidogrel (PLAVIX) 75 MG tablet Take 1 tablet by mouth Daily. 90 tablet 5 Active propafenone (RYTHMOL) 150 MG tablet Take 1 tablet by mouth Every 12 (Twelve) Hours. 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) 10/14/2019 Coronary artery disease invo [place] coronary artery of [place] heart without angina pectoris 09/02/2019 Overview (09/02/2019): Added automatically from request for surgery [id number] [facility] 09/02/2019 Overview (09/02/2019): Added automatically from request for surgery [id number] PVC's (premature ventricular contractions) 09/01 Former smoker 08/18/2019 Chronic diastolic heart failure 08/18/2019 Dyspnea on exertion 10/06/2018 Essential hypertension 10/06/2018 Mixed hyperlipidemia 10/06/2018 Palpitations 10/06/2018 Coronary artery disease invo lving [place] heart without angina pectoris 10/05/2018 Encounters Date Type Department Care Team Description 05/23/2025 Telephone [facility] [address] [place] [phone] Janiya Reyna MD 05/04/2025 Refill [facility] [address] [facility] [address] [place] [address] Janiya Reyna MD Med Refill 04/17/2025 Telephone [facility] [address] [place] [address] Janiya Reyna MD 2025 Telephone [facility] [address] [facility] [address] [place] [address]-CALL BACK 04/03/2025 Refill [facility] [address] [facility] [address] [place] [address] Janiya Reyna MD Med Refill 04/02/2025 Refill [facility] [address] [facility] [address] [place] [address] Janiya Reyna MD Med Refill 03/29/2025 2:00 PM EDT Office Visit [facility] [address] [facility] [address] [place] [address] Janiya Reyna MD Coronary artery disease involving [place] coronary artery of [place] heart without angina pectoris (Primary Dx); Essential hypertension; Mixed hyperlipidemia 03/29/2025 Travel from Last 3 Months Immunizations Immunization Administration Dates Next Due FLUAD TRI 65YR+ 07/02/2020 Fluzone High-Dose 65+YRS 07/02/2016 Influenza, Unspecified 07/11/2019 Td (TDVAX) 12/22/1996 Family History Medical History Relation Name Comments No Known Problems Father Heart disease Mother Relation Name Status Comments Father Mother Social History Tobacco Use Types Packs/Day Years Used Date Smoking Tobacco: Former Cigarettes 2 40 1 - 08/02/2011 Electronic Cigarette Quit : 2013 Smokeless Tobacco: Never Alcohol Use Standard Drinks/Week [...] on file Sexual Orientation Not on file Last Filed Vital Signs Vital Sign Reading Time Taken Comments Blood Pressure 132/76 03/29/2025 1:27 PM EDT Pulse 93 03/29/2025 1:27 PM EDT Temperature 36.4 C (97.5 F) 08/20/2020 1:30 PM EST Respiratory Rate 18 11/15/2019 1:08 PM EST Oxygen Saturation 94% 03/29/2025 1:27 PM EDT Inhaled Oxygen Concentration - - Weight 111 kg (244 lb) 03/29/2025 1:27 PM EDT Height 180.3 cm (5' 11 ) 03/29/2025 1:27 PM EDT Body Mass Index 34.03 03/29/2025 1:27 PM EDT Plan of Treatment Upcoming Encounters Date Type Department Care Team (Late st Contact Info) Description 08/15/2025 1:00 PM EDT Office Visit [facility] [address] [facility] [address] [place] [phone] Joseph Espitia W, ASSOCIATE MEDIA DIRECTOR [address] [place] [address] 05/30/2026 2:00 PM EDT Office Visit [facility] [address] [facility] [address] [place] [phone] Janiya Reyna MD [address] [facility] [address] [facility] [address] [place] [address] Scheduled Procedures Name Priority Associated Diagnoses Date/Ti me RIGHT AND LEFT HEART CATH Coronary artery disease involving [place] coronary artery of [place] heart without angina pectoris Health Maintenance Due Date Last Done Comments Pneumococcal Vaccine 50+ (1 of 2 - PCV) 1960 RSV Vaccine - Adults (1 - 1- dose 75+ series) 2016 ANNUAL WELLNESS VISIT 10/04/2018 LIPID PANEL 09/13/2020 09/13/2019, 10/21, 11/18/2018 COVID-19 Vaccine (2 - season) 06/19/202412/2020 INFLUENZA VACCINE 07/19/2025 07/02/2020, , 07/02/2016 TDAP/TD VACCINES (4 - Td or Tdap) 12/07/2032 12/07/2022, 05/26/2014, 12/22/1996 ZOSTER VACCINE Completed 07/19/2019, 04/18/2019 Procedures Procedure Name Priority Date/Time Associated Diagnosis Comments ECG 12-LEAD Routine 03/29/2025 Coronary artery disease involving [place] coronary artery of [place] heart without angina pectoris LIPID PANEL STAT 09/13/2019 7:36 AM EST from Last 3 Months or Most Recently Relevant to Health Maintenance Results * ECG 12-LEAD (03/29/2025) Narrative 03/29/2025 Janiya Reyna MD 03/29/2025 2:17 PM ECG 12 Lead Date/Time: 03/29/2025 1:55 PM Performed by: Janiya Reyna MD Authorized by: Janiya Reyna MD Comparison: compared with previous ECG from 03/23/2024 Similar to previous ECG Rhythm: sinus rhythm and sinus arrhythmia BPM: 93 Conduction: right bundle branch block Clinical impression: abnormal EKG Procedure Note Janiya Reyna MD - 03/29/2025 2:00 PM EDT [facility] Cardiology Patient ID: Puma Weber is a 84 y.o. male. : 1940 Contact: Encounter date: 03/29/2025 PCP: Stephen Velasquez MD Chief complaint: Chief Complaint Patient presents with Coronary artery disease involving [place] coronary artery of Pt says that he feels SOA because of COPD Problem List: Coronary artery disease: [facility], 01/18/2018, Magali: Prior nontransmural TX of inferior andpostero- basal wall with segmental wall motion abnormality. [facility], 02/09/2018, Octavio: 70% Prox-mid LAD (3 x 22 resolute [place] HEBER),70-80% prox circ (3.5 x 22 resolute [place] HEBER), and 80% prox eccentric PDA(2.5 x 26 resolute [place] HEBER). Preserved LV function. May be mild inferiorhypokinesis but pigtail catheter was not used and opacification of the LVis suboptimal. [facility], 08/24/2018: Persistent reduction in flow inferiorly. Mild SOAand stomach discomfort with exercise, but no CP. Occasional isolatedPVC's. Nonspecific ST changes. [facility] and [facility], 09/13/2019, for dyspnea: Patent LAD and circumflex stents.Noncritical right coronary disease. Mildly elevated left heart pressures.Mildly elevated right heart pressures (PA pressures at 36 mmHg systolicwith a systemic pressure of 170 mmHg systolic) PCWP 14 mmHg. Echocardiogram 10/15/2020: LVEF 50% with mild MR, mild TR, diastolicfunction parameters were indeterminate. Cardiolite stress test, 07/11/2021: EF 50%. Normal without evidence ofinducible ischemia. Premature ventricular contractions Echo, 01/20/2018: Mild LAE, EF 45%, mild LVH. Mild MR/TR. Holter monitor, 03/18/2018: SR, average HR 66; < 1% PVCs; no blocks orpauses. Pt was on a beta jackie at this time. Echo, 07/22/2018: Mild LAE, mild concentric LVH, EF 50% with segmentalwall motion abnormality. Grade I diastolic dysfunction. Mild MR/TR withRVSP 45 mmHg Holter monitor, 11/18/2018: SR, average HR 86. 13.5% PVC's, occasionalcouplets, one triplet. Much more frequent since 03/18/2018. Off betablockers at this time. Pt monitored for 8 hours. [facility] 06/24/2019: SR/ST frequent PVC's and rare PAC's. Brief NSVT. 48-hour holter monitor, 03/07/2021: SB/SR. 14.5% PVCs. Avg HR 57 bpm. SOBcorrelates with SR and SR with PVCs. Started on propafenone 03/2021. Evaluated by Dr. Bender 05/27/21. No indication for an ablation. 24 hour Holter, 05/06/2022; SR/SB/ST. Frequent PVCs and PACs. Stroke-like symptoms Carotid Duplex, 06/02/2019: 0-49% bilateral ICA stenosis Echo 06/02/2019 EF 55%. Trace-mild TR. No source for embolus is seen,however, no saline contrast injection was performed. Echo 06/15/2019: No evidence of intracardiac or intrapulmonary shunting bysaline contrast injection. Hypertension: Renal duplex, 07/2018: Normal renal arteries. Hyperlipidemia. RBBB Chronic kidney disease Pulmonary fibrosis COPD/emphysema CT Chest, 10/15/2020: Moderate emphysematous changes. Nocturnal hypoxia On nocturnal O2 NC 10. Tobacco abuse. 11. Neuropathy. Allergies Allergen Reactions Amlodipine Other (See Comments) BLE edema Bisoprolol Other (See Comments) Bradycardia Contrast Dye (Echo Or Unknown Ct/Mr) Swelling and GI Intolerance Current Medications: Current Outpatient Medications: albuterol (PROVENTIL) (2.5 MG/3ML) 0.083% nebulizer solution, , Disp: ,Rfl: albuterol sulfate HFA 108 (90 Base) MCG/ACT inhaler, Inhale 2 puffsEvery 4 (Four) Hours As Needed for Wheezing., Disp: , Rfl: aspirin 81 MG EC tablet, Take 1 tablet by mouth Daily., Disp: , Rfl: atorvastatin (LIPITOR) 40 MG tablet, Take 1 tablet by mouth Daily.,Disp: 90 tablet, Rfl: 3 azithromycin (ZITHROMAX) 250 MG tablet, 1 (One) Time Per Week. M, W, F,Disp: , Rfl: bumetanide (BUMEX) 1 MG tablet, TAKE ONE TABLET BY MOUTH ONCE A DAY,Disp: 90 tablet, Rfl: 1 clopidogrel (PLAVIX) 75 MG tablet, Take 1 tablet by mouth Daily., Disp:90 tablet, Rfl: 3 diazePAM (VALIUM) 2 MG tablet, Take 1 tablet by mouth 2 (Two) Times aDay As Needed for Anxiety., Disp: , Rfl: levalbuterol (XOPENEX) 0.63 MG/3ML nebulizer solution, 1 ampule., Disp:, Rfl: Multiple Vitamins-Minerals (CENTRUM ADULTS PO), Take by mouth Daily.,Disp: , Rfl: naproxen (NAPROSYN) 500 MG tablet, Take 1 tablet by mouth 2 (Two) Timesa Day., Disp: , Rfl: O2 (OXYGEN), Inhale 3 L/min As Needed., Disp: , Rfl: pregabalin (LYRICA) 25 MG capsule, Take 1 capsule by mouth 3 (Three)Times a Day., Disp: , Rfl: propafenone (RYTHMOL) 150 MG tablet, Take 1 tablet by mouth Every 12(Twelve) Hours., Disp: 180 tablet, Rfl: 3 spironolactone (ALDACTONE) 50 MG tablet, , Disp: , Rfl: tamsulosin (FLOMAX) 0.4 MG capsule 24 hr capsule, Take 1 capsule bymouth Every Night., Disp: , Rfl: terazosin (HYTRIN) 2 MG capsule, TAKE ONE CAPSULE BY MOUTH EVERY NIGHT,Disp: 90 capsule, Rfl: 3 Trelegy Ellipta 200-62.5-25 MCG/ACT inhaler, , Disp: , Rfl: zolpidem (AMBIEN) 10 MG tablet, Take 1 tablet by mouth At Night AsNeeded for Sleep., Disp: , Rfl: potassium chloride (K-DUR,KLOR-CON) 20 MEQ CR tablet, TAKE 1 TO 2TABLETS BY MOUTH ONCE A DAY DIRECTED (Patient not taking: Reported on03/29/2025), Disp: 60 tablet, Rfl: 0 HPI Puma Weber is a 84 y.o. male who presents today for a 1 year followup of CAD and cardiac risk factors. Since last visit, the patient has beendoing well overall from a cardiovascular standpoint. He states that hewill occasionally have chest pain after eating but he found that if hebelches that it subsides. He notes that he does not have a regularexercise routine due to being tired. He does sleep with oxygen at nightbut not CPAP. He has gained 30 pounds. He notes that he isn't too tiredwhen he wakes up but gets tired throughout the day. He does sleep in arecliner/power lift chair. He does fall asleep during the day if he is notdoing anything. Patient states the most strenuous activity that he does isfixing up a car. He notes that he did not have symptoms before his stentswere placed. He believes his decreased activity level is due to weightgain. He did have lab work completed in October 2024. Patient denies chestpain, shortness of breath, orthopnea, palpitations, edema, dizziness, andsyncope. The following portions of the patient's history were reviewed and updatedas appropriate: allergies, current medications and problem list. Pertinent positives as listed in the HPI. All other systems reviewed arenegative. Vitals: 03/29/25 1327 BP: 132/76 BP Location: Left arm Patient Position: Sitting Cuff Size: Adult Pulse: 93 SpO2: 94% Weight: 111 kg (244 lb) Height: 180.3 cm (71 ) Physical Exam: General: Alert and oriented. Obese. Neck: Jugular venous pressure is within normal limits. Carotids havenormal upstrokes without bruits. Cardiovascular: Heart has a nondisplaced focal PMI. Regular rate andrhythm. No murmur, gallop or rub. Lungs: Clear, no rales or wheezes. Equal expansion is noted. Extremities: Trace-1+ bilateral lower extremity edema. Skin: Warm and dry. Neurologic: Nonfocal. Diagnostic Data (reviewed with patient): Laboratory 2024: Dr. Velasquez's office Sodium 144 potassium 5.2 chloride 108 CO2 is 29 BUN 35 creatinine 1.6glucose 102 AST 32 ALT 23 WBC 8 hemoglobin 12 hematocrit 37 platelet count 260,000 Advance Care Planning ACP discussion was held with the patient during this visit. Patient has anadvance directive in EMR which is still valid. ECG 12 Lead Date/Time: 03/29/2025 1:55 PM Performed by: Janiya Reyna MD Authorized by: Janiya Reyna MD Comparison: compared withprevious ECG from 03/23/2024 Similar to previous ECG Rhythm: sinus rhythm and sinus arrhythmia BPM: 93 Conduction: right bundle branch block Clinical impression: abnormal EKG Assessment: ICD-10-CM ICD-9-CM 1. Coronary artery disease involving [place] coronary artery of [place] without angina pectoris I25.10 414.01 2. Essential hypertension I10 401.9 3. Mixed hyperlipidemia E78.2 272.2 Plan: Nocturnal oximeter to be ordered and mailed to patient to evaluatepatient's oxygen level at night. Unable to further increase diuretics due to creatinine of 1.6. Begin routine aerobic exercise for at least 30 minutes at least 3 days perweek. Continue aspirin 81 mg and Plavix 75 mg daily for DAPT. Continue on atorvastatin 40 mg daily for hyperlipidemia. Continue on Bumex 1 mg daily for fluid retention. Continue on propafenone 150 mg q12h for atrial fibrillation. Continue on spironolactone 50 mg daily for fluid retention andhypertension. Continue on terazosin 2 mg daily for hypertension. Continue all other current medications. F/up in 12 months, sooner if needed. Scribed for Janiya Reyna MD by Natasha Rico. 03/29/2025 13:48EDT I Janiya Reyna MD personally performed the services described inthis documentation as scribed by the above individual in my presence, andit is both accurate and complete. Janiya Reyna MD, FACC us Janiya Reyna MD ECG ORDERABLES Final R esult * Lipid Panel (09/13/2019 7:36 AM EST) Total Cholesterol 122 0 - 200 mg/dL 09/13/2019 8:21 AM EST [facility] Triglycerides 114 0 - 150 mg/dL 09/13/2019 8:21 AM EST [facility] HDL Cholesterol 54 40 - 60 mg/dL 09/13/2019 8:21 AM EST [facility] LDL Cholesterol 45 0 - 100 mg/dL 09/13/2019 8:21 AM [facility] VLDL Cholesterol 22.8 mg/dL 09/13/20 19 8:21 AM EST [facility] LDL/HDL Ratio 0.84 09/13/2019 8:21 AM EST [facility] Blood Line / Unknown 09/13/2019 7: 36 AM EST 09/13/2019 7:58 AM EST [facility] - 09/13/2019 8:21 AM EST Cholesterol Reference Ranges (U.S. Department of Health and Human Services ATP III Classifications) Desirable <200 mg/dL Borderline High 200-239 mg/dL High Risk >240 mg/dL Triglyceride Reference Ranges (U.S. Department of Health and Human Services ATP III Classifications) Normal <150 mg/dL Borderline High 150-199 mg/dL High 200-499 mg/dL Very High >500 mg/dL HDL Reference Ranges (U.S. Department of Health and Human Services ATP III Classifcations) Low <40 mg/dl (major risk factor for CHD) High >60 mg/dl ('negative' risk factor for CHD) LDL Reference Ranges (U.S. Department of Health and Human Services ATP III Classifcations) Optimal <100 mg/dL Near Optimal 100-129 mg/dL Borderline High 130-159 mg/dL High 160-189 mg/dL Very High >189 mg/dL [facility] BLOOD ORDERABLES Final Result [facility]
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
--- OUTSIDE RECORDS SUMMARY | 2025-06-09 18:13 | XMS_ITS | Encounter Summary ---
Author Organization [facility] Address [address] [place] [address] Care Team Providers Care Production Coordinator Name Role Phone Stephen Velasquez MD Primary Care Provider [phone] Encounter Details Date Type Department Care Team (Late st Contact Info) Description 05/23/2025 Telephone [facility] [address] [facility] [address] [place] [phone] Janiya Reyna MD [address] [facility] [address] [place] [address] Social History Tobacco Use Types Packs/Day Years [...] on file documented as of this encounter Miscellaneous Notes * Telephone Encounter - Skyler Kebede RN - 05/23/2025 3:58 PM EDT Patients returned voice mail message. She requests a return call. Spoke with patient and . They think he has an appointment on 8/12. Patient does not have an appointment on 05/30/25, it is on 05/30/26. She verbalizes understanding. * Telephone Encounter - Skyler Kebede RN - 05/23/2025 9:37 AM EDT Patients left voice mail message requesting a return call. She states she has some questions. LM for to return call. documented in this encounter Plan of Treatment Upcoming Encounters Date Type Department Care Team (Late st Contact Info) Description 08/15/2025 1:00 PM EDT Office Visit [facility] SLEEP MEDICINE [address] [facility] [address] [place] [phone] Joseph Espitia, SIDER MECHANIC [address] [place] [address] 05/30/2026 2:00 PM EDT Office Visit [facility] [address] [facility] [address] [place] [phone] Janiya Reyna MD [address] [facility] [address] [address] [address] Scheduled Procedures Name Priority Associated Diagnoses Date/Ti me RIGHT AND LEFT HEART CATH Coronary artery disease involving [place] coronary artery of [place] heart without angina pectoris documented as of this encounter Visit Diagnoses Not on filedocumented in this encounter Care Teams Production Coordinator Relationship Specialty Start Date End Date Stephen Velasquez MD [address] [place] [address] PCP - General Family Medicine 09/16/18 documented as of this encounter
--- OUTSIDE RECORDS SUMMARY | 2025-06-09 18:13 | XMS_ITS | Encounter Summary ---
Author Organization [facility] Address [address] [place] [phone] Care Team Providers Care Accelerator Systems Director Name Role Phone Stephen Velasquez MD Primary Care Provider [phone] Reason for Referral * Consultation (Routine) - Authorized Specialty Diagnoses / Procedures Referred By Contac t Referred To Contact Sleep Medicine Diagnoses Dyspnea on exertion Palpitations Chronic diastolic heart failure Hypoxemia Moderate COPD (chronic obstructive pulmonary disease) Procedures MO OFFICE/OUTPATIENT NEW MODERATE MDM 45 MINUTES Janiya Reyna MD [address] [facility] [address] [place] [address] Phone: tel: fax: [facility] [address] [place] [address] Phone: tel: fax: Referral ID Status Reason Start Date Expiration Date V isits Requested Visits Authorized [id number] Authorized 04/17/2025 07/17/2026 1 1 Encounter Details Date Type Department Care Team (Late st Contact Info) Description 04/17/2025 Telephone [facility] [address] [facility] [address] [place] [address] Janiya Reyna MD [address] [facility] [address] [place] [address] Social History Tobacco Use Types Packs/Day Years [...] Telephone Encounter - Skyler Kebede RN - 04/17/2025 3:48 PM EDT [facility] has reviewed overnight pulse ox. He will need pulmonary/sleep evaluation. Spoke with patient and . They are instructed as above. All questions answered. They are instructed sleep medicine will call them to schedule appointment. They both verbalize understanding. documented in this encounter Plan of Treatment Upcoming Encounters Date Type Department Care Team (Late st Contact Info) Description 08/15/2025 1:00 PM EDT Office Visit [facility] SLEEP MED[facility] [address] [facility] [address] [place] [address] Joseph Espitia, SKILLED NURSING FACILITIES PROFESSIONAL [address] [place] [address] 05/30/2026 2:00 PM EDT Office Visit [facility] [address] [facility] [address] [place] [phone] Janiya Reyna MD [address] [facility] [address] [facility] [address] [place] [address] Scheduled Procedures Name Priority Associated Diagnoses Date/Ti me RIGHT AND LEFT HEART CATH Coronary artery disease involving [place] coronary artery of [place] heart without angina pectoris Scheduled Referrals Name Type Priority Associated Diagnoses Orde r Schedule Ambulatory Referral to Sleep Medicine Outpatient Referral Routine Dyspnea on exertion Palpitations Chronic diastolic heart failure Hypoxemia Moderate COPD (chronic obstructive pulmonary disease) Ordered: 04/17/2025 documented as of this encounter Visit Diagnoses Diagnosis Dyspnea on exertion- Primary Other dyspnea and respiratory abnormality Palpitations Chronic diastolic heart failure Hypoxemia Moderate COPD (chronic obstructive pulmonary disease) documented in this encounter Care Teams Accelerator Systems Director Relationship Specialty Start Date End Date Stephen Velasquez MD [address] [place] [address] PCP - General Family Medicine 09/16/18 documented as of this encounter
--- OUTSIDE RECORDS SUMMARY | 2025-06-09 18:13 | XMS_ITS | Encounter Summary ---
[facility] Address [address] [place] [address] Care Team Providers Care Digital Strategy Director Name Role Phone Stephen Velasquez MD Primary Care Provider Reason for Visit * Reason Onset Date Comments Med Refill 05/04/2025 Encounter Details Date Type Department Care Team (Late st Contact Info) Description 05/04/2025 Refill [facility] [address] [facility] [address] [place] [address] Janiya Reyna MD [address] [facility] [address] [place] [address] Med Refill Social History Tobacco Use Types Packs/Day Years [...] Telephone Encounter - Skyler Kebede RN - 05/04/2025 2:18 PM EDT Last EKG 03/29/25 documented in this encounter Plan of Treatment Upcoming Encounters Date Type Department Care Team (Late st Contact Info) Description 08/15/2025 1:00 PM EDT Office Visit [facility] [address] [facility] [address] [place] [id number] Joseph Espitia, [employer] [address] [place] [address] 05/30/2026 2:00 PM EDT Office Visit [facility] [address] [facility] [address] [place] [address] Janiya Reyna MD [address] [facility] [address] [place], [place] [id number] Scheduled Procedures Name Priority Associated Diagnoses Date/Ti me RIGHT AND LEFT HEART CATH Coronary artery disease involving ewiiaapaayp coronary artery of ewiiaapaayp heart without angina pectoris documented as of this encounter Visit Diagnoses Not on filedocumented in this encounter Care Teams Digital Strategy Director Relationship Specialty Start Date End Date Stephen Velasquez MD [address] [place], [place] [id number] PCP - General Family Medicine 09/16/18 documented as of this encounter
--- NOTE | 2025-06-09 18:16 | CT_ITS ---
PROCEDURE INFORMATION: Exam: CT Head Without Contrast Exam date and time: 06/09/2025 7:14 PM Age: 85 years old Clinical indication: Injury or trauma; Fall; Blunt trauma (contusions or hematomas); Additional info: Fall, head trauma TECHNIQUE: Imaging protocol: Computed tomography of the head without contrast. Radiation optimization: All CT scans at this facility use at least one of these dose optimization techniques: automated exposure control; mA and/or kV adjustment per patient size (includes targeted exams where dose is matched to clinical indication); or iterative reconstruction. COMPARISON: CT HEAD/BRAIN WO CON 12/04/2021 2:35 PM FINDINGS: Brain: Mild chronic brain volume loss and moderate chronic small vessel ischemic changes. Cerebral ventricles: No ventriculomegaly. Paranasal sinuses: Visualized sinuses are unremarkable. No fluid levels. Mastoid air cells: Visualized mastoid air cells are well aerated. Orbital cavities: Status post bilateral cataract surgery. Bones: Unremarkable. No acute fracture. Soft tissues: Unremarkable. IMPRESSION: No acute intracranial findings.
--- NOTE | 2025-06-09 18:16 | CT_ITS ---
PROCEDURE INFORMATION: Exam: CT Cervical Spine Without Contrast Exam date and time: 06/09/2025 7:16 PM Age: 85 years old Clinical indication: Injury or trauma; Fall; Blunt trauma; Additional info: Fall head trauma TECHNIQUE: Imaging protocol: Computed tomography of the cervical spine without contrast. Radiation optimization: All CT scans at this facility use at least one of these dose optimization techniques: automated exposure control; mA and/or kV adjustment per patient size (includes targeted exams where dose is matched to clinical indication); or iterative reconstruction. COMPARISON: CT - NECKWO CT soft tissue neck wo con 10/15/2018 8:16 AM FINDINGS: Bones: Moderate left neural foraminal stenosis from C2 to C6. Mild right neural foraminal stenosis at C3-C4 and C5-C6. Multilevel degenerative changes of the cervical spine producing multiple levels of mild and moderate spinal canal stenosis. Lungs: Lung apices are normal. Soft tissues: Unremarkable. IMPRESSION: No acute fracture or malalignment of the cervical spine.
--- NOTE | 2025-06-09 18:17 | XR_ITS ---
PROCEDURE INFORMATION: Exam: XR Left Humerus Exam date and time: 06/09/2025 7:19 PM Age: 85 years old Clinical indication: Injury or trauma; Fall; Blunt trauma (contusions or hematomas); Arm, upper; Left; Additional info: Fall left arm pain TECHNIQUE: Imaging protocol: Radiologic exam of the left humerus. Views: 2 or more views. COMPARISON: CR XR SHOULDER LT MIN 2V 03/15/2020 12:48 PM FINDINGS: Bones/joints: No acute fracture or dislocation. Soft tissues: Normal. IMPRESSION: No acute fracture or dislocation.
--- NOTE | 2025-06-09 18:17 | XR_ITS ---
PROCEDURE INFORMATION: Exam: XR Left Forearm Exam date and time: 06/09/2025 7:19 PM Age: 85 years old Clinical indication: Injury or trauma; Fall; Blunt trauma (contusions or hematomas); Arm, lower; Left; Additional info: Fall left arm pain TECHNIQUE: Imaging protocol: Radiologic exam of the left forearm. Views: 2 views. COMPARISON: CR XR HAND LT MIN 3V 12/07/2022 1:07 PM FINDINGS: Bones/joints: No acute fracture or dislocation. Soft tissues: Normal. IMPRESSION: No acute fracture or dislocation.
--- NOTE | 2025-06-09 18:18 | ED_ITS ---
<Statement entered by Hima Lucero DO - 06/10/25 01:49> I was consulted by the ZACKARY, and we discussed the complexity of problems being addressed. I approved the treatment and management plan for this patient's care in the emergency department, thus performing a substantive portion of the medical decision making. I independently evaluated this patient as well. Patient reportedly had a fall down a couple of steps of the front of his home. He fell directly onto his left side and suffered some skin tears of the left arm. He also suffered a contusion over the left chest wall. Had no abdominal tenderness on exam. He did hit his head but did not lose conscious. We proceeded with a CT scan of the head and cervical spine as well as a CT Noncon of the chest, primarily due to the fact that the patient had an underlying kidney injury that is acute with hyperkalemia, so I do not want to give contrast. Also, I did not feel that the mechanism was high enough to cause arterial injury. CT scan did result showing a minor anterior pneumothorax. Patient did have a transient period of desaturation of the room. We placed him on some mental oxygen via nasal cannula. He has chronic nasal issues and is unable to receive oxygen well through his nose, so we placed him in the trauma bay and began administering oxygen through nonrebreather. Following this his oxygen saturations improved to 100%. We also administered 0.25 mg of Dilaudid and his pain improved significantly. He remained hemodynamically stable and maintain saturations without any increased work of breathing throughout the duration of his stay in the emergency department. I did not feel that it was safe to place a small bore chest tube and the patient given how anterior and how small this pneumothorax was. We did contact the [facility] for transfer as this patient will necessitate ICU level of care due to a rib injury grade score greater than 10. They accepted for transfer and patient was transferred in stable condition. Hima Lucero DO Discharge Plan Disposition Patient Disposition: Xfer Other Condition: Fair Prescriptions Prescriptions: No Action spironolactone 50 mg tablet 50 mg PO DAILY Pro Fe 180 mg iron capsule 180 mg PO DAILY Trelegy Ellipta 200-62.5-25 mcg blister with device 1 inh inhalation DAILY 90 Days Qty: 90 3RF ammonium lactate 12 % cream 1 applic topical BID 30 Days Qty: 385 2RF [id number] [Centrum Silver Men] 300-600-300 mcg tablet 1 tab PO DAILY pregabalin [Lyrica] 25 mg capsule 25 mg PO QID PRN (Reason: NEUROPATHY) bumetanide 1 mg tablet 1 mg PO DAILY propafenone 150 mg tablet 150 mg PO BID Rx Instructions: space evenly during waking hours aspirin [Adult Low Dose Aspirin] 81 mg tablet,delayed release (DR/EC) 81 mg PO DAILY Hyper-Tan 3.5 % solution for nebulization 4 ml IH DAILY 90 Days Qty: 270 3RF Rx Instructions: 4 mL of 3% hypertonic saline nebulization every 12 hours every day to use with chest percussion therapy. This nebulization should be preceded by albuterol nebulization to avoid any bronchospasm. azithromycin 250 mg tablet 250 mg PO QMWF clopidogrel 75 mg tablet 75 mg PO DAILY Qty: 30 3RF levalbuterol HCl 0.63 mg/3 mL solution for nebulization See Rx Instructions .ROUTE .COMPLEX Qty: 810 0RF Dose Instruction: INHALE CONTENTS OF 1 VIAL (3 ML) VIA NEBULIZER 3 TIMES A DAY NEEDED FOR SHORTNESS OF BREATH OR WHEEZING Rx Instructions: INHALE CONTENTS OF 1 VIAL (3 ML) VIA NEBULIZER 3 TIMES A DAY NEEDED FOR SHORTNESS OF BREATH OR WHEEZING levalbuterol tartrate [Xopenex HFA] 45 mcg/actuation HFA aerosol inhaler 2 inh INHALATION Q6H PRN (Reason: shortness of breath or wheezing) 90 Days Qty: 15 4RF terazosin 2 MG capsule 2 mg PO DAILY tamsulosin 0.4 MG capsule 0.4 mg PO HS zolpidem 10 MG tablet 10 mg PO HS atorvastatin 40 MG tablet 40 mg PO HS diazepam 5 mg tablet 2.5 mg PO HS Referrals Follow up/Referrals: Melisa Velasquez MD [Primary Care Provider, Medical] - See instructions Clinical Impressions Clinical Impression: Multiple fractures of ribs, Pneumothorax on left Stand Alone Forms Stand Alone Forms: Transfer Record - ED Print Language Print Language: Yakut Discharge ED Provider: Hima Lucero Adult HPI <ROXANNA Che - Last Filed: 06/09/25 20:31> General Chief complaint: Fall Stated complaint: fall Time Seen by Provider: 06/09/25 18:14 Mode of Arrival: EMS Source of Information: Patient and EMS Description of Symptoms (Recalled from ER Triage Doc. by RN): Patient presents to ED via EMS from home after falling 3 feet off his porch. Patient states he landed on his left side in the grass, states he did hit his head, denies LOC. Patient c/o left flank pain and left arm pain, skin tears to left arm noted. Patient reports daily ASA intake. 3L NC in use, patient reports he wears 3L at baseline. History of Present Illness HPI narrative: 85-year-old male presents the emergency department via EMS after falling at home today, falling of his 2 to 3 foot porch, patient states that he has bad balance at baseline, and has frequent falls, and is with a cane at baseline, patient states he laid on the left side of his body, complains of left-sided rib pain, describes striking the head, denies any LOC, describes skin tears over the left arm, with some left arm pain, patient denies any neck pain, denies any fever or chills, denies any overt chest pain, no shortness of breath, does have pain with deep inspiration, no true abdominal pain, no nausea no vomiting no constipation no diarrhea no urinary type symptomatology, patient is on 3 L nasal cannula at baseline, denies any neck pain, midthoracic back pain, no lower lumbar spine pain, no urinary bladder or bowel dysfunction, no saddle anesthesia no radicular type symptomatology, no other upper or lower extremity injury. Initial triage vitals are unremarkable. Other past medical history is consistent with ERIC, COPD, osteoarthritis, bronchiectasis, CAD, hypertension, obesity, hyperlipidemia, patient is on dual antiplatelet therapy of Plavix and aspirin, no anticoagulants patient is a former smoker denies any alcohol or drug use. Onset (ago): hour(s) Related Data Home Medications ?Medication ?Instructions ?Recorded ?Confirmed [id number] 300 mcg-K 60 1 tab PO DAILY Suppleme nt 01/12/18 06/01/25 mcg-lycop 600 mcg-lutein 300 mcg tablet (Centrum Silver Men) terazosin 2 mg capsule 2 mg PO DAILY prostate 08/2906/01/25 tamsulosin 0.4 mg capsule 0.4 mg PO HS PROSTATE 06/01/25 zolpidem 10 mg tablet 10 mg PO HS SLEEP 10/15/20 0 06/01/25 atorvastatin 40 mg tablet 40 mg PO HS Cholesterol 09/1906/01/25 bumetanide 1 mg tablet 1 mg PO DAILY 10/21/2106/01 diazepam 5 mg tablet 2.5 mg PO HS Anxiety 2 06/01/25 propafenone 150 mg tablet 150 mg PO BID 10/21/2106/01 pregabalin 25 mg capsule (Lyrica) 25 mg PO QID PRN ANGEL ROPATHY 12/30/21 06/01/25 aspirin 81 mg tablet,delayed 81 mg PO DAILY 09/04/22 0 06/01/25 release (Adult Low Dose Aspirin) polysaccharide iron complex 180 mg 180 mg PO DAILY 06/01/25 iron capsule (Pro Fe) spironolactone 50 mg tablet 50 mg PO DAILY 10/06/24 azithromycin 250 mg tablet 250 mg PO QMWF 06/01/25 Previous Rx's ?Medication ?Instructions ?Recorded clopidogrel 75 mg tablet 75 mg PO DAILY PLATELET INHI BITOR 12/28/20 #30 tabs sodium chloride 3.5 % for 4 ml inhalation DAILY 90 day s #270 09/04/22 nebulization (Hyper-Tan) mL fluticasone fur. 200 mcg-umeclid 1 inh inhalation SAQIB Y 90 days #90 01/04/25 62.5 mcg-vilant 25 mcg ea inhalat.powder (Trelegy Ellipta) ammonium lactate 12 % topical cream 1 applic topical B ID dry skin, 03/01/25 callus care 30 days #385 grams levalbuterol HCl 0.63 mg/3 mL See Rx Instructions .Rou te 03/16/25 solution for nebulization .COMPLEX #810 mL levalbuterol tartrate 45 2 inh inhalation Q6H PRN kelly rtness 04/04/25 mcg/actuation aerosol inhaler of breath or wheezing 90 days #15 (Xopenex HFA) grams Allergies Allergy/AdvReac Type Severity Reaction Status Date / Time No Known Drug Allergies Allergy Verified 06/01/25 13:29 PFS <ROXANAN Che - Last Filed: 06/09/25 20:31> PFS Disclaimer: The information contained in this section may have been updated after the patient was seen, as this information can be updated by other users. Medical History Abnormal cardiovascular stress test Acute on chronic respiratory failure Angina, class IV Arteriosclerotic cardiovascular disease Cardiomyopathy Chronic obstructive pulmonary disease Coronary artery disease Diastolic dysfunction Dizziness Dyspnea Dyspnea on minimal exertion Edema Fatigue Former smoker Hyperlipidemia Hypertension Obesity Palpitations Pulmonary hypertension COPD exacerbation Bronchiectasis Dyspnea on exertion Chronic respiratory failure with hypoxia and hypercapnia COPD (chronic obstructive pulmonary disease) Bronchiectasis without complication Chronic bronchitis Abnormal computerized axial tomography of chest Dyspnea on exertion History of 2019 novel coronavirus disease (COVID-19) Shortness of breath Acute and chronic respiratory failure COPD (chronic obstructive pulmonary disease) Pulmonary HTN Surgical History No significant past surgical history Family History Other Heart attack Hypertension Social History Smoking Status: Former smoker tobacco type: cigarettes and e-cigarettes second hand exposure: No alcohol intake: never counseling provided: none substance use type: denies use current occupational status: retired Travel in the last 8 weeks?: None household members: spouse housing: house current occupational exposures/hazards: No caffeine: Yes Have you lived/traveled outside [place] in past 30 days?: No Contact w/someone who lives/traveled outside US past 30 days?: No Exposure to someone with infectious disease in past 14 days?: No Do you have a fever (greater than 100.4 F or 38 C)?: No Have you tested positive for COVID-19?: No Exposed to someone with COVID-19 in past 14 days?: No Do you have a sore throat?: No Do you have a cough?: No Do you have any weakness?: No Do you have any diarrhea?: No Are you experiencing any unusual bleeding?: No Do you have any muscle aches/pain?: No Do you have any abdominal pain?: No Are you experiencing loss of taste or smell?: No Other Medical History Have you received the Flu Vaccine for this season: No Have you received the Pneumonia Vaccine: Yes <ROXANNA Che - Last Filed: 06/09/25 20:31> ROS Obtained: Yes All systems reviewed & no additional complaints except as documented Physical Exam <ROXANNA Che - Last Filed: 06/09/25 20:31> General General appearance: alert and in no apparent distress Head Head exam: atraumatic and normocephalic Eye Eye exam: Present PERRL and EOMI ENT ENT exam: Present mucous membranes moist Neck Neck exam: Present normal inspection Chest Chest inspection: Present normal inspection, symmetric chest wall rise, tenderness and other (Tenderness over the left chest wall, no ecchymoses or traumatic injury noted) Respiratory Respiratory exam: Present wheezes; Absent normal lung sounds bilaterally or respiratory distress Cardiovascular Cardiovascular exam: Present regular rate and normal rhythm Abdominal Exam Abdominal exam: Present soft; Absent tenderness Extremities Exam Extremities exam: Present normal inspection and other (Pelvis is stable to AP lateral compression, mild pain palpation over the left forearm and left humerus region, there is skin tears noted about that area, all less than 3 cm, bleeding is controlled at this time, otherwise neurovascular intact moves extremities command) Back Exam Back exam: Present normal inspection and full ROM; Absent tenderness, paraspinal tenderness or vertebral tenderness Comment: There is no paraspinal tenderness palpation no vertebral spine or tenderness palpation of the C-spine T-spine and L-spine Neurological Exam Neurological exam: Present alert and oriented X3 Psychiatric Psychiatric exam: Present normal affect Skin Skin exam: Present warm and dry Medical Decision Making <ROXANNA Che - Last Filed: 06/09/25 20:31> Medical Records Medical records reviewed: Yes I reviewed the patient's medical records. Screening: Per USPSTF and CDC recommendations, given the prevalence of disease in our region, it is our hospital?s policy to screen for HIV and viral Hepatitis for all patients aged 18 and over and those with ongoing risk factors. Silvestre Inquiry Pt receiving controlled substance: No Silvestre was queried for this patient: No Vital Signs: 06/09/25 18:01 06/09/25 18:01 06/09/25 18:08 Temperature 98 F Temperature Source Oral Pulse Rate 97 H Pulse Rate [Left] 88 Respiratory Rate 20 Blood Pressure Blood Pressure [Right Arm] 119/96 H Blood Pressure Mean [Right Arm] 103 Blood Pressure Source [Right Arm] Automatic Cuff Blood Pressure Position [Right Arm] Sitting 02 Sat by Pulse Oximetry 95 95 95 Oxygen Delivery Method Nasal Cannula Nasal Cannula Nasal Cannula Oxygen Flow Rate (LPM) 3 3 3 06/09/25 18:15 06/09/25 18:37 06/09/25 19:16 Temperature Temperature Source Pulse Rate 97 H 102 H 83 Pulse Rate [Left] Respiratory Rate Blood Pressure 130/103 H 134/83 Blood Pressure [Right Arm] Blood Pressure Mean [Right Arm] Blood Pressure Source [Right Arm] Blood Pressure Position [Right Arm] 02 Sat by Pulse Oximetry 92 L 95 95 Oxygen Delivery Method Nasal Cannula Nasal Cannula Oxygen Flow Rate (LPM) 3 3 06/09/25 19:59 06/09/25 21:00 06/09/25 21:50 Temperature 98.4 F Temperature Source Pulse Rate 104 H 104 H Pulse Rate [Left] Respiratory Rate 18 17 Blood Pressure 126/78 133/66 Blood Pressure [Right Arm] Blood Pressure Mean [Right Arm] Blood Pressure Source [Right Arm] Blood Pressure Position [Right Arm] 02 Sat by Pulse Oximetry 98 95 Oxygen Delivery Method Non-Rebreather Non-Rebreather Oxygen Flow Rate (LPM) 10 10 Lab Data Lab results reviewed: Yes I reviewed the patient's lab results. Lab Results 06/09/25 18:24: WBC 7.6, RBC 3.98 L, Hgb 12.5 L, Hct 38.4 L, MCV 96.5 H, MCH 31.4 H, MCHC 32.6, RDW 14.9, Plt Count 241, MPV 11.2 H, Neut % (Auto) 67.9, Lymph % (Auto) 20.7, [place] % (Auto) 7.1, Eos % (Auto) 2.4, Baso % (Auto) 1.1, Neut # (Auto) 5.2, Lymph # (Auto) 1.6, [place] # (Auto) 0.5, Eos # (Auto) 0.2, Baso # (Auto) 0.1, Sodium 139, Potassium 5.2 H, Chloride 102, Carbon Dioxide 26, A nion Gap 16.2 H, BUN 36 H, Creatinine 2.70 H, Estimated Creat Clear 34, E stimated GFR 23 L, Est GFR ( Amer) 27 L, Glucose 113 H, Calcium 8.8, Total Bilirubin 0.4, AST 42, ALT 25, Alkaline Phosphatase 88, Troponin I 0.02, NT-Pro-B Natriuret Pep 376, Total Protein 7.4, Albumin 4.5, Globulin 2.9, Albumin/Globulin Ratio 1.6 06/09/25 18:24 06/09/25 18:24 Orders (Tests/Meds): ED MEDICATIONS Discontinued Medications Generic Name Dose Route Start Last Admin Trade Name Vicky PRN Reason Stop Dose Admin Hydromorphone HCl 0.25 mg 06/09/25 19:49 06/09/25 19:56 Hydromorphone 2mg/Ml Syringe IV 06/09/25 19:50 0.25 mg ONCE ONE Administration Hydromorphone HCl 0.5 mg 06/09/25 21:07 06/09/25 21:22 Hydromorphone 2mg/Ml Syringe IV 06/09/25 21:08 0.5 mg ONCE ONE Administration Lactated Ringer's 1,000 mls @ 999 mls/hr 06/09/25 18:46 06/09/25 19:55 Lactated Ringer's 1000 Ml Bag IV 06/09/25 19:46 Infused .Q1H1M ONE Infusion ORDERS Category Date Time Status CT cervical spine wo con Stat Cat Scan 06/09/25 18:[address] chest wo con Stat Cat Scan 06/09/25 19:[address] head/brain wo con Stat Cat Scan 06/09/25 18:16 Completed XR chest portable Stat Exams 06/09/25 19:42 Completed XR forearm LT 2V Stat Exams 06/09/25 18:17 Completed XR humerus LT Stat Exams 06/09/25 18:17 Completed Complete Blood Count Auto Diff Stat Lab 06/09/25 18:24 Completed Comprehensive Metabolic Panel Stat Lab 06/09/25 18:24 Completed NT Pro Brain Natriuretic Pep. Stat Lab 06/09/25 18:24 Completed Troponin I Stat Lab 06/09/25 18:24 Completed Medical Decision Narrative: 85-year-old male presents to the emergency department after a fall, complaining of left arm pain with skin tears, left-sided rib pain, differential diagnose include but not limited to, rib fractures, pulmonary contusion, cardiac arrhythmia, electrolyte disturbance, ACS, left arm fracture, skin tears, soft tissue injury, acute SDH, traumatic SAH, postconcussive syndrome, post head injury among others. I discussed this patient's case with the attending physician Dr. Lucero he saw and examined the patient as well Will obtain basic laboratory studies, EKG, CT cervical without contrast, CT chest with contrast, CT head without contrast, x-ray of the forearm on the left, left humerus x-ray, will obtain proBNP and troponin. CMP is notable for BUN elevation at 36, creatinine elevation of 2.7, GFR 23, this appears to be elevated outside the patient's baseline, minimal hyperkalemia 5.2, will give 1 L LR IV for this. Will cancel CT chest with contrast and changed to CT without due to patient's acute kidney injury. CBC unremarkable Troponin is 0.02, proBNP within normal limits. I was contacted by the radiologist Dr. Diaz at approximately 7:41pm he sees multiple nonsegmental rib fractures on the left side as well as a small left- sided pneumothorax. Will place the patient on a nonrebreather as he is now requiring 5 L nasal cannula, to keep his oxygen saturation up, will also give 0.25 IV Dilaudid for patient's pain management. 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 I reviewed the patient's forearm x-ray, humerus x-ray along with corresponding radiologic reports, no acute fracture or dislocation. I reviewed the patient's CT cervical spine without contrast along the corresponding radiologic report, no acute fracture malalignment cervical spine. Attending physician discussed this patient's case with [facility] at approximately 8:04 PM patient will be transferred to [facility] for trauma, multiple rib fractures and pneumothorax. Attending physician spoke with transfer physician . I discussed need for transfer with the patient and family bedside patient and family are in agreement with the current treatment plan/transfer plan. I reviewed the patient's CT head without contrast along with corresponding radiologic report, no acute intracranial findings. Risk score is above 10. <Hima Lucero DO - Last Filed: 06/10/25 01:34> Vital Signs: 06/09/25 18:01 06/09/25 18:01 06/09/25 18:08 Temperature 98 F Temperature Source Oral Pulse Rate 97 H Pulse Rate [Left] 88 Respiratory Rate 20 Blood Pressure Blood Pressure [Right Arm] 119/96 H Blood Pressure Mean [Right Arm] 103 Blood Pressure Source [Right Arm] Automatic Cuff Blood Pressure Position [Right Arm] Sitting 02 Sat by Pulse Oximetry 95 95 95 Oxygen Delivery Method Nasal Cannula Nasal Cannula Nasal Cannula Oxygen Flow Rate (LPM) 3 3 3 06/09/25 18:15 06/09/25 18:37 06/09/25 19:16 Temperature Temperature Source Pulse Rate 97 H 102 H 83 Pulse Rate [Left] Respiratory Rate Blood Pressure 130/103 H 134/83 Blood Pressure [Right Arm] Blood Pressure Mean [Right Arm] Blood Pressure Source [Right Arm] Blood Pressure Position [Right Arm] 02 Sat by Pulse Oximetry 92 L 95 95 Oxygen Delivery Method Nasal Cannula Nasal Cannula Oxygen Flow Rate (LPM) 3 3 06/09/25 19:59 06/09/25 21:00 06/09/25 21:50 Temperature 98.4 F Temperature Source Pulse Rate 104 H 104 H Pulse Rate [Left] Respiratory Rate 18 17 Blood Pressure 126/78 133/66 Blood Pressure [Right Arm] Blood Pressure Mean [Right Arm] Blood Pressure Source [Right Arm] Blood Pressure Position [Right Arm] 02 Sat by Pulse Oximetry 98 95 Oxygen Delivery Method Non-Rebreather Non-Rebreather Oxygen Flow Rate (LPM) 10 10 Lab Data Lab Results 06/09/25 18:24: WBC 7.6, RBC 3.98 L, Hgb 12.5 L, Hct 38.4 L, MCV 96.5 H, MCH 31.4 H, MCHC 32.6, RDW 14.9, Plt Count 241, MPV 11.2 H, Neut % (Auto) 67.9, Lymph % (Auto) 20.7, [place] % (Auto) 7.1, Eos % (Auto) 2.4, Baso % (Auto) 1.1, Neut # (Auto) 5.2, Lymph # (Auto) 1.6, [place] # (Auto) 0.5, Eos # (Auto) 0.2, Baso # (Auto) 0.1, Sodium 139, Potassium 5.2 H, Chloride 102, Carbon Dioxide 26, A nion Gap 16.2 H, BUN 36 H, Creatinine 2.70 H, Estimated Creat Clear 34, E stimated GFR 23 L, Est GFR ( Amer) 27 L, Glucose 113 H, Calcium 8.8, Total Bilirubin 0.4, AST 42, ALT 25, Alkaline Phosphatase 88, Troponin I 0.02, NT-Pro-B Natriuret Pep 376, Total Protein 7.4, Albumin 4.5, Globulin 2.9, Albumin/Globulin Ratio 1.6 Orders (Tests/Meds): ED MEDICATIONS Discontinued Medications Generic Name Dose Route Start Last Admin Trade Name Freq PRN Reason Stop Dose Admin Hydromorphone HCl 0.25 mg 06/09/25 19:49 06/09/25 19:56 Hydromorphone 2mg/Ml Syringe IV 06/09/25 19:50 0.25 mg ONCE ONE Administration Hydromorphone HCl 0.5 mg 06/09/25 21:07 06/09/25 21:22 Hydromorphone 2mg/Ml Syringe IV 06/09/25 21:08 0.5 mg ONCE ONE Administration Lactated Ringer's 1,000 mls @ 999 mls/hr 06/09/25 18:46 06/09/25 19:55 Lactated Ringer's 1000 Ml Bag IV 06/09/25 19:46 Infused .Q1H1M ONE Infusion ORDERS Category Date Time Status CT cervical spine wo con Stat Cat Scan 06/09/25 18:[address] chest wo con Stat Cat Scan 06/09/25 19:[address] head/brain wo con Stat Cat Scan 06/09/25 18:16 Completed XR chest portable Stat Exams 06/09/25 19:42 Completed XR forearm LT 2V Stat Exams 06/09/25 18:17 Completed XR humerus LT Stat Exams 06/09/25 18:17 Completed Complete Blood Count Auto Diff Stat Lab 06/09/25 18:24 Completed Comprehensive Metabolic Panel Stat Lab 06/09/25 18:24 Completed NT Pro Brain Natriuretic Pep. Stat Lab 06/09/25 18:24 Completed Troponin I Stat Lab 06/09/25 18:24 Completed ECG Data Tracing #1: I reviewed this ECG and interpreted as documented below: EKG personally interpreted by me demonstrates normal sinus rhythm with a rate of 96 bpm, normal axis, NH prolongation consistent with first-degree AV block, wide QRS with right bundle branch block morphology, no QTc prolongation. No ST elevation or depression. No overt signs of ischemia Critical Care <ROXANNA Che - Last Filed: 06/09/25 20:31> Critical Care Time Critical Care Time: No
--- NOTE | 2025-06-09 18:29 | ECG_ITS ---
APPROVED REPORT Exam: Resting ECG HR:96 bpm ECG Measurements Heart Rate 96 AXES VT 224 P 73 QRSd 162 QRS -38 QT 379 T 40 QTc 432 Conclusion Normal sinus 1 AVB RBBB NO STEMI Electronically signed by : Hima Lucero, 06/10/2025 01:39:58
[2025-06-09 18:41] LABS: Alanine Aminotransferase 25 U/L (12-78); Albumin Level 4.5 g/dl (3.5-5.0); Albumin/Globulin Ratio 1.6 (1.1-1.8); Alkaline Phosphatase 88 U/L (38-126); Anion Gap 16.2 mEq/L (5-15); Aspartate Amino Transferase 42 U/L (17-59); Bilirubin,Total 0.4 mg/dl (0.2-1.3); Blood Urea Nitrogen 36 mg/dl (9-20); Calcium 8.8 mg/dl (8.4-10.2); Carbon Dioxide 26 mmol/L (22.0-30.0); Chloride 102 mmol/L (98-107); Creatinine Clearance Estimated 34 mL/min (50-200); Creatinine,Serum 2.70 mg/dl (0.66-1.25); Estimated Glomerular Filt Rate 23 ml/min (>60); GFR (African American) 27 ML/MIN (>60); Globulin 2.9 g/dL (1.3-3.2); Glucose 113 mg/dl (74-100); Potassium 5.2 mmoL/L (3.5-5.1); Sodium 139 mmol/L (136-145); Total Protein,Serum 7.4 g/dl (6.3-8.2)
[2025-06-09 18:50] LABS: Hematocrit 38.4 % (42.0-52.0); Hemoglobin 12.5 g/dL (14.1-18.0); Immature Granulocytes % 0.8 %; Mean Corpuscular HGB Conc 32.6 g/dL (31.8-35.4); Mean Corpuscular Hemoglobin 31.4 pg (27.0-31.2); Mean Corpuscular Volume 96.5 fl (80-94); Nucleated Red Blood Cells % 0 %; Platelet Count 241 K/mm3 (142-424); Red Blood Count 3.98 M/mm3 (4.60-6.20); Red Cell Distribution Width-SD 53.4 fL; White Blood Count 7.6 K/mm3 (4.8-10.8)
[2025-06-09 18:54] LABS: NT Pro Brain Natriuretic Pep. 376 pg/mL (0-450); Troponin I 0.02 ng/ml (0.00-0.034)
[2025-06-09] MEDS: LACTATED RINGERS 1000ML 1,000 ML 999 ML IV (18:54)
--- NOTE | 2025-06-09 19:03 | CT_ITS ---
PROCEDURE INFORMATION: Exam: CT Chest Without Contrast; Diagnostic Exam date and time: 06/09/2025 7:18 PM Age: 85 years old Clinical indication: Injury or trauma; Fall; Blunt trauma (contusions or hematomas); Additional info: Left-sided rib pain, worse with inspiration, fall TECHNIQUE: Imaging protocol: Diagnostic computed tomography of the chest without contrast. Radiation optimization: All CT scans at this facility use at least one of these dose optimization techniques: automated exposure control; mA and/or kV adjustment per patient size (includes targeted exams where dose is matched to clinical indication); or iterative reconstruction. COMPARISON: CT HIGH RESOLUTION CHEST 11/19/2023 11:09 AM FINDINGS: Lungs: Bilateral apical scarring. Right upper lobe fibrotic changes with significant volume loss. Mild to moderate centrilobular and paraseptal emphysema. There is an 8 mm left upper lobe nodule on image 33 series 3. There is a 4 mm left lower lobe nodule image 62 series 3. Pleural spaces: There is a small left pneumothorax. Heart: Unremarkable. No cardiomegaly. No pericardial effusion. Lymph nodes: Unremarkable. No enlarged lymph nodes. Vasculature: Unremarkable. No aortic aneurysm. Liver: Possible morphologic changes of cirrhosis. Gallbladder and biliary ducts: Cholelithiasis. Pancreas: Chronic pancreatitis. Kidneys: Low attenuation renal lesions measuring up to 9 mm in diameter are incompletely characterized, but are likely cysts. No followup imaging is warranted. Bones/joints: Acute, mildly displaced anterolateral left 3rd through 8th rib fractures. Soft tissues: Unremarkable. Other findings: Stigmata of old granulomatous disease. IMPRESSION: 1. There is a small left pneumothorax. 2. Acute, mildly displaced anterolateral left 3rd through 8th rib fractures. These are not segmental. 3. Cholelithiasis. 4. Possible morphologic changes of cirrhosis. 5. There is an 8 mm left upper lobe nodule on image 33 series 3. There is a 4 mm left lower lobe nodule image 62 series 3. For patients at low risk (minimal or absent history of smoking and of other known risk factors), recommend CT Chest at 6-12 months, then consider CT Chest at 18-24 months. For patients at high risk (history of smoking or of other known risk factors), recommend CT Chest at 6-12 months, then [address] Chest at 18-24 months. (Reference: Marcos) 6. THIS REPORT CONTAINS FINDINGS THAT MAY BE CRITICAL TO PATIENT CARE. The findings were verbally communicated via telephone conference with Franky Logan at 7:41 PM EDT on 06/09/2025. The findings were acknowledged and understood. COMMENTS: Consistent with the [employer]'s Incidental Findings Committee white paper (J Am Steve Radiol 2018): Any incidental renal lesion less than 1 cm or classified as too small to characterize, or any incidental cystic renal lesion characterized as simple-appearing, is likely benign. No follow-up imaging is recommended for these lesions per consensus recommendations based on imaging criteria. REFERENCES: Marcos Wall, et al. Guidelines for Management of Incidental Pulmonary Nodules Detected on CT Images: From the [employer] Society 2017. Radiology. 2017;284(1):228-243.
--- NOTE | 2025-06-09 19:16 | PC.NURSE ---
Resumed care from VONDA Titus
--- NOTE | 2025-06-09 19:42 | XR_ITS ---
PROCEDURE INFORMATION: Exam: XR Chest Exam date and time: 06/09/2025 8:07 PM Age: 85 years old Clinical indication: Shortness of breath; Additional info: SOA, fall rib pain TECHNIQUE: Imaging protocol: Radiologic exam of the chest. Views: 1 view. COMPARISON: CT CHEST WO CON 06/09/2025 7:18 PM FINDINGS: Lungs: Right apical fibrotic changes. Left apical scarring. Pleural spaces: The known left apical pneumothorax is subtle on this radiograph, but likely unchanged. Heart/Mediastinum: Unremarkable. No cardiomegaly. Vasculature: Vascular calcifications. Bones/joints: Unchanged left-sided rib fractures. IMPRESSION: The known left apical pneumothorax is subtle on this radiograph, but likely unchanged.
[2025-06-09] MEDS: HYDROMORPHONE 2MG/ML SYRINGE 0.25 MG IV (19:56)
--- NOTE | 2025-06-09 20:02 | PC.NURSE ---
Called for transfer per provider
--- NOTE | 2025-06-09 20:29 | PC.NURSE ---
Report given to Ginna FERRARI at [facility]
[2025-06-09] MEDS: HYDROMORPHONE 2MG/ML SYRINGE 0.5 MG IV (21:22)
== END 2025-06-09 21:52 | disposition other institution (70) ==
PROVIDERS: Physician Assistant; Emergency Provider Student in an Organized Health Care Education/Training Program; PCP Family Medicine
DX: J93.9 Pneumothorax, unspecified (principal); S22.42XA Multiple fractures of ribs, left side, initial encounter for closed fracture; S41.102A Unspecified open wound of left upper arm, initial encounter; S51.802A Unspecified open wound of left forearm, initial encounter; I44.0 Atrioventricular block, first degree; I45.10 Unspecified right bundle-branch block; M79.602 Pain in left arm; W10.8XXA Fall (on) (from) other stairs and steps, initial encounter
CPT/HCPCS: 70450; 71045; 71250; 72125; 73060; 73090; 80053; 83880; 84484; 85025; 93005; 96361; 96374; 96376; 99285; 99291; J1171; J7120

== ENCOUNTER 2025-06-24 02:04 | Emergency (ER) | payer MEDICARE, SELFPAY ==
--- OUTSIDE RECORDS SUMMARY | 2020-08-20 13:38 | XMS_ITS | Encounter Summary ---
[facility] Organization [facility] Address [address] [place] [address] Care Team Providers Care Ski Patroller Name Role Phone Stephen Velasquez MD Primary Care Provider [phone] Encounter Details Date Type Department Care Team (Late st Contact Info) Description 08/20/2020 12:38 PM EST Hospital Encounter [facility] PULMONARY & CRITICAL CARE MEDICINE [address] [place] [phone] Social History Tobacco Use Types Packs/Day Years [...] Description 08/15/2025 1:00 PM EDT Office Visit [facility] SLEEP MEDICINE [address] [facility] [address] [place] [phone] Joseph Esptiia, LOADER OPERATOR/GROUND LEADER [address] [place] [address] 05/30/2026 2:00 PM EDT Office Visit [facility] CARDIOLOGY [address] [place] [address] Janiya Reyna MD [address] [place] [address] Scheduled Procedures Name Priority Associated Diagnoses Date/Ti me RIGHT AND LEFT HEART CATH Coronary artery disease involving [place] coronary artery of [place] heart without angina pectoris documented as of [...] documented as of this encounter Care Teams Ski Patroller Relationship Specialty Start Date End Date Stephen Velasquez MD [address] [place] [address] PCP - General Family Medicine 09/16/18 documented as of this encounter
--- OUTSIDE RECORDS SUMMARY | 2025-06-09 22:47 | XMS_ITS | Encounter Summary ---
Author Organization Healthcare Address [address] [place] [address] Care Team Providers Care Digital Forensics Investigator Name Role Phone Stephen Velasquez MD Primary Care Provider [phone] Reason for Referral * Consultation (Routine) - Authorized Specialty Diagnoses / Procedures Referred By Amarjit longo Referred To Contact Hepatology Diagnoses Cirrhosis of liver with ascites, unspecified hepatic cirrhosis type (CMS/HCC) Saadia Morales PA [address] [address] Phone: tel: fax: Referral ID Status Reason Start Date Expiration Date Visits Requested Visits Authorized [id number] Authorized Specialty Services Required 06/13/2025 12/13/2026 1 1 Scheduling Instructions New cirrhosis Reason for Visit * Reason Comments Trauma Alert * Auth/Cert (Routine) Specialty Diagnoses / Procedures Referred By Amarjit t Referred To Contact Diagnoses Closed fracture of multiple ribs of left side, initial encounter Fall from height of less than 3 feet fall, pnuemothorax, multiple rib fractures Emiliano Graham DO [address] [address] Phone: tel: fax: PAV A Inpatient [address] [place] [address] Phone: tel: Referral ID Status Reason Start Date Expiration Date Visits Re quested Visits Authorized [id number] 1 1 Encounter Details Date Type Department Care Team (Latest Contact Info) Description 06/09/2025 10:47 PM EDT - 06/13/2025 6:31 PM EDT Hospital Encounter [facility] 9 T2 UNI [address] [place] [address] Azael Edmond MD [address] [place] [address] Conner Womack, DO [address] [place] [address] Emiliano Graham, DO [id number] [place] [address] Criss Cruz MD [address] [address] Closed fracture of multiple ribs of left side, initial encounter (Primary Dx); Cirrhosis of liver with ascites, unspecified hepatic cirrhosis type (CMS/HCC) [facility]charge Disposition[facility] Social History Tobacco Use Types Packs/Day Years Used Date Smoking Tobacco: Former Alcohol Use Standard Drinks/Week Comments Not Currently 0 (1 standard drink = 0.6 oz pur e alcohol) Humiliation, Afraid, Rape, and Kick questionnair e Answer Date Recorded Within the last year, have y ou been afraid of your partner or ex-partner? No 06/12/2025 Within the last year, have y ou been humiliated or emotionally abused in other ways by your partner or ex-partner? No Within the last year, have y ou been kicked, hit, slapped, or otherwise physically hurt by your partner or ex-partner? No 06/12/2025 Within the last year, have y ou been raped or forced to have any kind of sexual activity by your partner or ex-partner? No 06/12/2025 Social Connection and Isolation Panel Answer Date Recorded Frequency of Communication with Friends and Fami ly Not on file 06/12/2025 Frequency of Social Gatherings with Friends and Family Not on file 06/12/2025 Attends Quaker Services Not on file 06/12 Active Member of Clubs or Organizations Not on f ile 06/12/2025 Attends Club or Organization Meetings Not on harry e 06/12/2025 Are you , , di vorced, , never , or living with a partner? 06/12/2025 AUDIT-C Answer Date Recorded Q1: How often do you have a drink containing alcohol? Never 06/12/2025 Q2: How many drinks containi ng alcohol do you have on a typical day when you are drinking? Patient does not drink Q3: How often do you have si x or more drinks on one occasion? Never 06/12/2025 Hunger Vital Sign Answer Date Recorded Within the past 12 months, y ou worried that your food would run out before you got the money to buy more. Never true 06/12/20 Within the past 12 months, t he food you bought just didn't last and you didn't have money to get more. Never true 06/12/2025 PRAPARE - Transportation Answer Date Re corded In the past 12 months, has l ack of transportation kept you from medical appointments or from getting medications? No 05/20 In the past 12 months, has l ack of transportation kept you from meetings, work, or from getting things needed for daily living? No 06/12/2025 Housing Stability Vital Sign Answer Buck e Recorded In the last 12 months, was t here a time when you were not able to pay the mortgage or rent on time? No 06/12/2025 Number of Times Moved in the Last Year Not on fi le 06/12/2025 At any time in the past 12 m [facility], were you homeless or living in a penitentiary (including now)? No 06/12/2025 Utilities Answer Date Recorded In the past 12 months has th e electric, gas, oil, or water company threatened to shut off services in your home? No 06/12/2025 Sex and Gender Information Value Date Recorded Sex Assigned at Not on file Legal Sex Male 6:06 PM EDT Gender Identity Not on file Sexual Orientation Not on file documented as of this encounter Last Filed Vital Signs Vital Sign Reading Time Taken Comments Blood Pressure 134/87 06/13/2025 11:11 AM EDT Pulse 102 06/13/2025 2:05 PM EDT Temperature 36.9 C (98.5 F) 06/13/2025 11:11 AM EDT Respiratory Rate 16 06/13/2025 2:05 PM EDT Oxygen Saturation 94% 06/13/2025 2:05 PM EDT Inhaled Oxygen Concentration - - Weight 123 kg (272 lb) 06/13/2025 6:00 AM EDT Height 177.8 cm (5' 10 ) 06/09/2025 11:06 PM EDT Body Mass Index 39.03 06/09/2025 11:06 PM EDT documented in this encounter Functional Status * AUDIT-C Score Answer Date of Assessment Author 0 06/12/2025 1:54 PM EDT Qian Mccormick RN * Question Answer Date of Assessment Author Q1: How often do you have a drink containing alcohol? Never 06/12/2025 1:54 PM EDT Qian Mccormick RN Q2: How many drinks containing alcohol do you have on a typical day when you are drinking? Patient does not drink 06/12/2025 1:54 PM EDT Qian Mccormick RN Q3: How often do you have six or more drinks on one occasion? Never 06/12/2025 1:54 PM EDT Qian Mccormick RN * Calculated C-SSRS Risk Score (Lifetime/Recent) Answer Date of Assessment Author No Risk Indicated 06/12/2025 8:00 PM EDT Giovanni Brice RN * Question Answer Date of Assessment Author 1. Wish to be (Past 1 Month) No 025 8:00 PM EDT Giovanni Brice RN 2. Non-Specific Active Suici tray Thoughts (Past 1 Month) No 06/12/2025 8:00 PM EDT Jorge Brice RN 6. Suicidal Behavior (Lifetime) No 8:00 PM EDT Giovanni Brice RN documented as of this encounter Medications at Time of Discharge acetaminophen (Tylenol) 500 MG tablet Take 2 tablets by mouth every 6 hours. 06/13/2025 aspirin 81 MG chewable tablet Chew 1 tablet daily. 06/14/2025 atorvastatin (Lipitor) 40 MG tablet Take 1 tablet by mouth nightly. 06/13/2025 azithromycin (Zithromax) 250 MG tablet Take 1 tablet by mouth daily. TAKE ONE TABLET BY MOUTH EVERY THURSDAY, THURSDAY AND THURSDAY bumetanide (Bumex) 1 MG tablet Take 1 tablet by mouth daily. clopidogrel (Plavix) 75 MG tablet Take 1 tablet by mouth daily. diazePAM (Valium) 5 MG tablet Take 1 tablet by mouth every 6 hours as needed for anxiety. levalbuterol (Xopenex) 45 MCG/ACT inhaler Inhale 2 puffs every 6 hours as needed for wheezing or shortness of breath. lidocaine (Lidoderm) 5 % patch Apply 2 patches topically daily over 12 hours. Remove & discard patch within 12 hours or as directed by MD. 06/14/2025 melatonin tablet Take 2 tablets by mouth nightly. 06/13/2025 methocarbamol (Robaxin) 500 MG tablet Take 2 tablets by mouth every 6 hours. 06/13/2025 Multiple Vitamins-Minerals (CENTRUM SILVER PO) Take by mouth. ondansetron ODT (Zofran-ODT) 4 MG disintegrating tablet Dissolve 1 tablet on the tongue every 6 hours as needed for nausea or vomiting. 06/13/2025 polyethylene glycol (Miralax) 17 g packet Take 17 g by mouth daily. 06/14/2025 Polysaccharide Iron Complex (ProFe) 391.3 (180 Fe) MG capsule Take 180 mg by mouth 3 times a week. pregabalin (Lyrica) 25 MG capsule Take 1 capsule by mouth every 6 hours for 3 days. 12 capsule 06/13/2025 propafenone (Rythmol) 150 MG tablet Take 1 tablet by mouth 2 times a day. 06/13/2025 senna-docusate (Patience-Colace) 8.6-50 MG tablet Take 1 tablet by mouth nightly. 06/13/2025 tamsulosin (Flomax) 0.4 MG 24 hr capsule Take 1 capsule by mouth nightly. 06/13/2025 terazosin (Hytrin) 2 MG capsule Take 1 capsule by mouth nightly. zolpidem (Ambien) 10 MG tablet Take 1 tablet by mouth nightly. naloxone (Narcan) 4 mg/0.1 mL nasal spray 1. Give 1 spray in nostril for no/slow breathing or cannot wake after opioid use 2. Call 911 3. Repeat in other nostril if symptoms continue 1 each 06/13/2025 sodium zirconium cyclosilicate (Lokelma) 5 g packet Take 1 packet by mouth 1 time for 1 dose. 06/13/2025 oxyCODONE (Roxicodone) 5 MG immediate release tablet Take 1 tablet by mouth every 4 hours as needed for severe pain for up to 3 days. 18 tablet 06/13/2025 documented as of this encounter Miscellaneous Notes * Care Plan - Diana Jaimes - 06/13/2025 6:09 PM EDT Problem: Infection Goal: Absence of Infection Signs and Symptoms Outcome: Adequate for Care Transition Problem: Adult Inpatient Plan of Care Goal: Plan of Care Review Outcome: Adequate for Care Transition Flowsheets (Taken 06/13/2025 1808) Progress: improving Plan of Care Reviewed With: patient caregiver Goal: Patient-Specific Goal (Individualized) Outcome: Adequate for Care Transition Flowsheets (Taken 06/12/20251999 by Giovanni Brice, RN) Patient/Family-Specific Goals (Include Timeframe): Pt will report ease of breathing, decreased pain, and be free from injury this shift Individualized Care Needs: Pain, ventilation, safety Anxieties, Fears or Concerns: Pain,adequate ventilation, and safety Goal: Absence of Hospital-Acquired Illness or Injury Outcome: Adequate for Care Transition Intervention: Prevent Skin Injury Flowsheets (Taken 06/13/2025 1700) Body Position: Harpreet chair Goal: Optimal Comfort and Wellbeing Outcome: Adequate for Care Transition Intervention: Monitor Pain and Promote Comfort Flowsheets (Taken 06/13/2025 1808) Pain Management Interventions: position adjusted Problem: Fall Injury Risk Goal: Absence of Fall and Fall-Related Injury Outcome: Adequate for Care Transition Intervention: Identify and Manage Contributors Flowsheets (Taken 06/11/20251956 by Giovanni Brice, RN) Medication Review/Management: medications reviewed Problem: Functional Deficit Goal: Improved Balance and Postural Control Outcome: Adequate for Care Transition Intervention: Optimize Balance and Safe Activity Flowsheets (Taken 06/13/2025 1700) Activity Management: activity adjusted per tolerance Goal: Optimal Cognitive Function Outcome: Adequate for Care Transition Goal: Optimal Coordination Outcome: Adequate for Care Transition Goal: Improved Muscle Strength Outcome: Adequate for Care Transition Goal: Improved Muscle Tone Outcome: Adequate for Care Transition Goal: Optimal Range of Motion Outcome: Adequate for Care Transition Goal: Compensation for Sensory Deficit Outcome: Adequate for Care Transition Problem: Self-Care Deficit Goal: Improved Ability to Complete Activities of Daily Living Outcome: Adequate for Care Transition Intervention: Promote Activity and Functional [place] Flowsheets Taken 06/13/2025 1808 by Diana Jaimes Activity Assistance Provided: assistance, 2 people Taken 06/11/20251956 by Giovanni Brice RN Self-Care Promotion: independence encouraged * Progress Notes - Grace Goetz - 06/13/2025 4:20 PM EDT Case Management Discharge Note Puma Weber 85 y.o. male CSN: [id number] Admission: 06/09/2025 10:47 PM Primary Problem: Fall from height of less than 3 feet Primary Hand Sewer Shoes: Primary Caregiver: Self Assistance Available at Discharge: Current Outpatient/Agency/Support Group: DME Availability of Care Givers (#Hours): 24 hours Family/Hand Sewer Shoes(s) Willingness Assessed to care for patient at home: Yes Family/Hand Sewer Shoes(s) Readiness Assessed to care for patient at home: Yes Housing Circumstances-Z Codes: Housing Circumstances (select all that apply): Low Income (101-300% Federal Poverty Guidlines) - Z596 Discharge Facility/Level of Care Needs: Discharge Facility/Level of Care Needs: 3-[facility] Patient's Choice of Community Agency(s): Patient's Choice of Community Agency(s): [facility] Patient/Family Anticipated Services at Transition: Patient/Family Anticipated Services at Transition: rehabilitation services DME/Equipment Needed after Discharge: Equipment Currently Used at Home: oxygen Equipment Needed After Discharge: none Readmission Within the Last 30 Days: Readmission Within the Last 30 Days: no previous admission in last 30 days Follow-up: Hima Lucero, DO [address] [facility] [address] [address] Go on 06/13/2025 Discharge Transportation: Transportation Anticipated: family or friend will provide Transportation Home at Discharge: Family/Friend will Provide Has discharge transport been arranged?: No Follow Up Transport: Transportation Needed to Follow up Appoinments: Family/Friend will Provide Additional Comments: Evening SW spoke with MDs this date who indicate the pt is medically stable for DC this date and does not require further [facility] based care. Pt had BM this afternoon, and is able to transition to [facility] at [facility]. SW requested to assist with DC. PATRICIA contacted [facility] liaison [place] this date, who confirmed the pt is eligible for admit this evening, and gave number to fax the DC summary at [phone]. Previous CM documentation indicates the family can transport at DC. PATRICIA has contacted [facility] for O2 tank to be delivered to the hospital for transport. No further SW concerns identified atthis time. PATRICIA will continue to remain available and will follow up with DC planning and needs as appropriate. Grace Goetz * Discharge Summary - Saadia Morales PA - 06/13/2025 4:12 PM EDT Hospitalization Admit Date/Time: 06/09/2025 10:47 PM Admitting Attending: Emiliano Graham Discharge Date: 06/13/2025 Discharge Attending Physician: Criss Cruz MD PCP name and Address: Stephen Velasquez MD [address] [place], [place] [address] [address] [place] [address] Referring provider name and address: Hima Lucero DO [address] [place] [address] Chief Concern, Brief History of Present Illness, and Hospital Course 85M PMH COPD on 3L O2, CAD on DAPT, pulm HTN, ERIC, CKD, obesity who presents after fall from porch.Injuries include: L 3-8 rib fx with small PTX Past 24h: Patient sitting up in chair, confused. VSS. NAD. Intermittently compliant with venti mask, states he does not wear 3L at all times at home. Tolerating PO diet, no N/V, abd pain. Distended. 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 In/out cath x2 overnight. Mobilizing as able with assistance. Pain well controlled. Per CM, patient has been accepted to rehab. However, needs to have aBM. Discussed plan of care with patient, who is in understanding. No further concerns per patient or nursing. Physical therapy and occupational therapy evaluated the patient during hospitalization and recommend subacute rehab. At the time of discharge the patient was hemodynamically stable, tolerating PO, voiding spontaneously, normal bowel function, mobilizing appropriately, with their pain controlled with PO medication. At this time, the patient has obtained the maximum benefit from the present hospital stay, and so will be discharged to [facility]. DVT prophylaxis: None on discharge Mobility Restrictions: No lifting > 10 lbs or lifting overhead x 4 weeks to allow ribs to heal Incidental Findings: Cirrhosis Cholelithiasis Follow up: PCP: Follow up in 1-2 weeks post hospitalization for incidental findings and management of chronic conditions/medications Hepatology: Follow-up for new cirrhosis. You will be called with a date and time of your appointment. SGT: [facility] 2 weeks s/p rib fractures with ptx on 07/07; [address] [place], [place] [facility] First Floor, Wing D Room [address] [place] [address], #[phone]. Questions or Concerns and Appointments If there are questions or concerns after discharge from the hospital, please call [phone] and ask for [facility] Nurse. Working hours are Thursday - Thursday 8:00 AM to 4:00 PM. After hours, weekends and holidays please call [phone] and ask for the resident school lunch monitor for [facility]. For appointments please call [phone]. Medication requests should be made between the hours of 9:00 AM to 3:00 PM Thursday thru Thursday. Please note that based upon recent changes to [place] law related to prescribing opioid pain medications, our providers will not provide refills on controlled medications after your hospital discharge following a major surgery or trauma. [place] 218[place], [place] 218[place].205 [place] 201 KAR9:260. Surgeries and Procedures Medication List .. acetaminophen 500 MG tablet Commonly known as: Tylenol Take 2 tablets by mouth every 6 hours. aspirin 81 MG chewable tablet Chew 1 tablet daily. Start taking on: June 14, 2025 atorvastatin 40 MG tablet Commonly known as: Lipitor Take 1 tablet by mouth nightly. azithromycin 250 MG tablet Commonly known as: Zithromax Take 1 tablet by mouth daily. TAKE ONE TABLET BY MOUTH EVERY THURSDAY, THURSDAY AND THURSDAY bumetanide 1 MG tablet Commonly known as: Bumex Take 1 tablet by mouth daily. CENTRUM SILVER PO Take by mouth. clopidogrel 75 MG tablet Commonly known as: Plavix Take 1 tablet by mouth daily. diazePAM 5 MG tablet Commonly known as: Valium Take 1 tablet by mouth every 6 hours as needed for anxiety. levalbuterol 45 MCG/ACT inhaler Commonly known as: Xopenex Inhale 2 puffs every 6 hours as needed for wheezing or shortness of breath. lidocaine 5 % patch Commonly known as: Lidoderm Apply 2 patches topically daily over 12 hours. Remove & discard patch within 12 hours or as directed by MD. Start taking on: June 14, 2025 melatonin tablet Take 2 tablets by mouth nightly. methocarbamol 500 MG tablet Commonly known as: Robaxin Take 2 tablets by mouth every 6 hours. ondansetron ODT 4 MG disintegrating tablet Commonly known as: Zofran-ODT Dissolve 1 tablet on the tongue every 6 hours as needed for nausea or vomiting. oxyCODONE 10 MG immediate release tablet Commonly known as: Roxicodone Take 1 tablet by mouth every 4 hours as needed for moderate pain or severe pain for up to 3 days. polyethylene glycol 17 g packet Commonly known as: Miralax Take 17 g by mouth daily. Start taking on: June 14, 2025 pregabalin 25 MG capsule Commonly known as: Lyrica Take 1 capsule by mouth every 6 hours for 3 days. ProFe 391.3 (180 Fe) MG capsule Generic drug: Polysaccharide Iron Complex Take 180 mg by mouth 3 times a week. propafenone 150 MG tablet Commonly known as: Rythmol Take 1 tablet by mouth 2 times a day. senna-docusate 8.6-50 MG tablet Commonly known as: Patience-Colace Take 1 tablet by mouth nightly. sodium zirconium cyclosilicate 5 g packet Commonly known as: Lokelma Take 1 packet by mouth 1 time for 1 dose. tamsulosin 0.4 MG 24 hr capsule Commonly known as: Flomax Take 1 capsule by mouth nightly. terazosin 2 MG capsule Commonly known as: Hytrin Take 1 capsule by mouth nightly. zolpidem 10 MG tablet Commonly known as: Ambien Take 1 tablet by mouth nightly. Where to Get Your Medications These medications [place] - [address] [address] [address] [address], [facility] [address] oxyCODONE 10 MG immediate release tablet pregabalin 25 MG capsule Information about where to get these medications is not yet available Ask your nurse or doctor about these medications acetaminophen 500 MG tablet aspirin 81 MG chewable tablet atorvastatin 40 MG tablet lidocaine 5 % patch melatonin tablet methocarbamol 500 MG tablet ondansetron ODT 4 MG disintegrating tablet polyethylene glycol 17 g packet propafenone 150 MG tablet senna-docusate 8.6-50 MG tablet sodium zirconium cyclosilicate 5 g packet tamsulosin 0.4 MG 24 hr capsule Discharge Diagnosis Medical Problems Active and Resolved Hospital Problems Hospital Obesity * (Principal) Fall from height of less than 3 feet Multiple closed fractures of ribs of left side Overview Addendum 06/11/2025 3:46 PM by Chelsea Augustin APRN L 3-8 rib fx with small PTX MMPC IS/Pulm toilet - Duonebs Supplemental O2 PRN COPD (chronic obstructive pulmonary disease) (CMS/HCC) Overview Signed 06/10/2025 5:29 AM by Moses Machado PA Known Hx Wears 3L O2 baseline Sat goal >88% CAD (coronary artery disease) Overview Signed 06/10/2025 5:30 AM by Moses Machado PA DAPT Will resume when able Urinary retention Orcik-lr-bmkuzox kidney injury (CMS/HCC) Lung nodule Pneumothorax Cholelithiasis Cirrhosis of liver with ascites (CMS/HCC) ABLA (acute blood loss anemia) Hyperglycemia Hyperlipidemia Electrolyte abnormality Chronic pain Delirium RESOLVED: Obesity (BMI 35.0-39.9 without comorbidity) RESOLVED: UTI (urinary tract infection) Overview Signed 06/10/2025 5:30 AM by Moses Machado PA Abx started Outpatient Follow-Up No future appointments. Pertinent Physical Exam At Time of Discharge Physical Exam Vitals reviewed. Constitutional: General: He is not in acute distress. Appearance: He is obese. HENT: Head: Normocephalic. Right Ear: Decreased hearing noted. Left Ear: Decreased hearing noted. Nose: Nose normal. Mouth/Throat: Mouth: Mucous membranes are moist. Eyes: Extraocular Movements: Extraocular movements intact. Pupils: Pupils are equal, round, and reactive to light. Cardiovascular: Rate and Rhythm: Normal rate. Pulses: Normal pulses. Pulmonary: Effort: Pulmonary effort is normal. No respiratory distress. Breath sounds: Wheezing present. Comments: Venti mask Chest: Chest wall: Tenderness present. Abdominal: General: There is no distension. Palpations: Abdomen is soft. Tenderness: There is no abdominal tenderness. Musculoskeletal: General: No tenderness or signs of injury. Normal range of motion. Cervical back: Normal range of motion. Skin: General: Skin is warm. Capillary Refill: Capillary refill takes 2 to 3 seconds. Findings: Bruising (diffuse) present. Neurological: General: No focal deficit present. Mental Status: He is alert and oriented to person, place, and time. Mental status is at baseline. Sensory: No sensory deficit. Motor: Weakness present. Psychiatric: Mood and Affect: Mood normal. Behavior: Behavior normal. Discharge Disposition/Condition Disposition: Nursing facility ([facility] Condition: Stable (s/sx potential problems absent or manageable) I spent >30 minutes of patient care and instruction time in preparation for this discharge. Cosigned by Criss Cruz MD at 06/17/2025 3:10 PM EDT * Progress Notes - Theresa Licona RN - 06/13/2025 4:08 PM EDT Wound Care Consult Visit Date: 06/13/2025 Patient Name: Puma Weber Date of : 1940 Admit Date: 06/09/2025 Reason for Consult: IP Wound Orders (From admission, onward) Start Ordered 06/12/25 173 Wound ostomy eval and treat 3 Wounds Associated Once Comments: Skin lacerations from fall. Wanting to know how to dress them 06/12/25 1740 Reviewed photos in manager intermediate of skin tears to arms and leg. Recommend skin tear protocol; communicated with consulting RN and placed orders for vaseline gauze or polymem and kerlix wrap daily. Does not require wound care follow up at this time, please re-consult wound care with new concerns. Theresa Licona RN 06/13/2025 4:08 PM * Progress Notes - Qian Mccormick RN - 06/13/2025 1:42 PM EDT Case Management Adult Progress Note Puma Weber 85 y.o. male CSN: [id number] Admission: 06/09/2025 10:47 PM Primary Problem: Fall from height of less than 3 feet Anticipated Discharge Date: 06/14/25 Pt has been accepted to [facility] for [facility]. Auth approved. Pt needs to have a BM before he can admit. Bowel reg increased. Pt and family updated on plan. Qian Mccormick RN * Lindsay Paul - 06/13/2025 11:20 AM EDT Images from the original note were not included. [address] [place]: Rescue Guide for Opioid Overdose Step 1 Check for signs of overdose. Think someone had opioid overdose? Shout their name and ask Are you OK? Try shaking them by the shoulders or rubbing the middle of the chest. Signs of overdose are: ? No response or does not wake up. ? Breathing is slow, odd, or has stopped. ? Center of the eye (pupil) is very small. If you see any of these signs, go to Step 2. Step 2 Give the medicine. 1. Lay the person flat on the back. 2. Get the Narcan nasal spray. Peel back the tab to remove the bottle. 3. Hold the bottle as shown. 4. Put your free hand behind the person?s neck. Gently lift to tilt the head back. 5. Place the nozzle inside one nostril until your fingers touch the nose. 6. Press the plunger with your thumb to spray. Then remove from the nostril. Step 3 Call 911 for help and watch the person. ? Call 911 for emergency help. ? Have the person lay on their side as shown. ? Look for a response. The person may wake up, breathe normally, or respond to touch or voice. ? If there is no response for 2-3 minutes after giving the spray, give another - if you have extra spray bottles. In that case, repeat Step 2 then move them back on to their side. ? You can repeat this every 2-3 minutes until help arrives or the person responds. ? Use this medicine only if you know or suspect the person has opioid overdose. ? Do not open the Narcan package until you need to use it. ? Only for use in the nose. * Ling Schneider - Lindsay Mcclure - 06/13/2025 11:20 AM EDT Images from the original note were not included. 450 Safe Use of Controlled Substances Taking a medicine may be an important part of your treatment. Your body should heal faster if you take medicine safely. Some medicines are called Controlled Substances. This means their use is controlled by law. Some of these can harm you if you do not take them safely. What can I do to make sure I take my medicine safely? ? Follow the instructions we give you for how to take your medicine. ? We will give you an instruction sheet for each of your medicines. Ask your doctor or nurse if youdo not get these instructions. ? Some medicines make you sleepy or cloud your thinking. Do not drive, use heavy machines or do dangerous activities while taking these medicines. ? Read the label on the bottle each time you take your medicine. ? Do not take your medicine with alcohol or other sedatives. ? Do not take medicine after the expiration date. ? It is against the law to sell your medicine or share it with others. ? Do not drive while using your medicine. How should I store my medicine? Store it in a safe place. This will keep others from taking your medicine and help you keep track of it. ? Store controlled substances in a cabinet or container that you can lock. ? Keep it in a place that is cool, dry and out of direct sunlight. ? Do not leave it in the car. ? Do not store in a refrigerator or freezer, unless your doctor tells you to. ? Call your doctor right away if your medicine is lost or stolen. How should I dispose of medicine that is or no longer needed? You may have medicine left over that you do not need or should not take. You must dispose of it theright way to protect yourself and others. You can ask your local pharmacist how to dispose of them.You can also visit these Web sites to learn more about disposal of controlled substances: ? Drug Enforcement Agency (JAQUAN): http://www.deadiversion.SonoMedicaoStreem.gov/drug_disposal/takeback/index.htm ? National Association of Drug Diversion Investigators (NADDI): http://rxdrugdropbox.org/ ? [place] Office of Drug Control Policy: http://odcp.co.gov/Prescription+Drug+Drop+Box+Sites.htm Are there concerns about or ? ? Before you take a medicine, tell your doctor if you are or plan to get . This could harm your baby. ? Tell your doctor if you breastfeed. Medicine in breast milk may be bad for your child. What if I have low or impaired vision? If you have vision problems, take extra care with your medicine. ? Wear your glasses when you take your medicine. ? Do not take medicine in the dark. What are the signs of overdose? Some controlled substances may cause breathing problems if you take more than your doctor recommends. This may lead to serious health problems or even . You and your caregivers should watch for the following signs of overdose. ? Slurred speech, confusion or stumbling ? Feeling dizzy or faint ? Acting drowsy or groggy ? Unusual snoring, gasping or snorting during sleep ? Hard to wake up or keep awake What should I or my caregiver do if I overdose? You or your caregiver should call 911 if you have any of these problems: ? Cannot wake up ? Cannot talk after waking up ? Shortness of breath, slow or light breathing, or breathing has stopped ? Heartbeat is slow or stopped ? Gurgling noise comes from the mouth or throat ? Body is limp or seems lifeless ? Face is pale or clammy ? Fingernails or lips look blue or purple What is a FRANKIE report? GoodRx is a system that tracks prescriptions of controlled substances in [place]. The FRANKIE report tells your doctor if you have been prescribed controlled substances in the past. Doctors must get a FRANKIE report before prescribing controlled substances. What can I do if the information in my FRANKIE report is wrong? You or your doctor may contact the dispenser who reported the information to FRANKIE. If the dispenser agrees that the information should be changed, he or she can fix the FRANKIE report. However, the dispenser may certify that the report is correct. If that is the case, you or your doctor may then call the [place] Drug Enforcement and Professional Practices Branch at .This will start an investigation of the error. * Lindsay Paul - 06/13/2025 11:20 AM EDT Images from the original note were not included. Infection Prevention: Incentive Spirometry - Video Watch this video to learn about how using an Incentive Spirometer exercises your lungs after surgery, helps to prevent infections and improves lung function. To view the video go to this web address: https://bit.Sanaexpert/3WwVKvW Or, scan this QR code with your smart phone ?? [employer] * Lindsay Paul - 06/13/2025 11:20 AM EDT Images from the original note were not included. 13670 Preventing Common Respiratory Infections Respiratory infections such as colds and influenza (?the flu?) are common in winter. These infections are often caused by viruses. They may share some symptoms, but not all respiratory infections arethe same. Some make you more sick than others. You can take steps to prevent common respiratory infections. And if you get sick, you can take care of yourself to keep the infection from getting worse. What is a cold? ? Symptoms include runny nose, coughing and sneezing, and sore throat. Cold symptoms tend to be milder than flu symptoms. ? Symptoms tend to come on slowly. They last for a few days to about a week. ? With a cold, you can still do most of the things you usually do. What is the flu? ? Symptoms include fever, headache, fatigue, cough, sore throat, runny nose, and muscle aches. Children may have upset stomach and vomiting, but adults usually don?t. ? Symptoms tend to come on quickly. Some, such as fatigue and cough, can last a few weeks. ? With the flu, you may feel worn out and not able to do normal activities. ? It?s most likely NOT the flu if an adult has vomiting or diarrhea for a day or two. This so-called ?stomach flu? is probably a GI (gastrointestinal) infection. When the infection gets worse Without proper care, a respiratory infection can get worse. It can lead to serious complications and . If you aren?t getting better, call your healthcare provider. Complications can include: ? Bronchitis (infection of the airways that leads to shortness of breath and coughing up thick yellow or green mucus) ? Pneumonia (infection of the lungs in which fluid and mucus settle in the lungs, making breathing difficult) ? Worsening of chronic conditions such as heart failure, chronic lung disease, asthma, or diabetes ? Severe dehydration (loss of fluids) ? Sinus problems ? Ear infections Get a flu vaccine A flu vaccine protects you from influenza (but not other colds or infections). Get a vaccine each fall, before flu season starts. This can be done at a clinic, healthcare provider?s office, drugstore, senior center, or through your workplace. Get pneumococcal vaccines Pneumonia can be a complication of influenza. There are 2 pneumococcal pneumonia vaccines that protect against many types of pneumonia. Talk with your healthcare provider about these important vaccines. Keep germs from spreading No one likes getting sick. To protect yourself and others from cold and flu germs: ? Wash your hands often. Use alcohol-based hand kindergarten tutor when you don?t have access to soap and water. ? Don?t touch your eyes, nose, and mouth. This may help you keep germs out of your body. ? Try to avoid people with respiratory infections. You may want to stay out of crowds during flu season (winter). ? Ask your healthcare provider if you should get a pneumonia vaccination. How to wash your hands ? Use warm water and plenty of soap. Work up a good lather. ? Clean your whole hand, under your nails, between your fingers, and up your wrists. Wash for at least 15 to 20 seconds. Don?t just wipe--rub well. ? Rinse. Let the water run down your fingertips, not up your wrists. ? In a public restroom, use a paper towel to turn off the faucet and open the door. Last Reviewed Date: 2016 00:00:00 ?? [id number] [employer]. All rights reserved. This information is not intended as a substitute for professional medical care. Always follow your healthcare professional's instructions. This information has been modified by your health care provider with permission from the publisher. * Ling RuedaYUMI - Lindsay Mcclure - 06/13/2025 11:19 AM EDT Images from the original note were not included. 61103 Rib Fracture (Broken Rib) Your ribs are curved bones in your chest. They help protect your lungs and expand and contract whenyou breathe. Children's ribs bend easily and can often withstand a blow or fall. But adult ribs aremore likely to break (fracture) under stress. Even coughing or a hard sneeze can fracture a rib. When to go to the emergency room (ER) Although they can be painful, most rib fractures aren't serious. But they often make it hard to cough or breathe deeply. Get to the ER or call 911 right away if you have: ? Trouble breathing ? Nausea, vomiting, or stomach pain with a sore or bruised rib ? Pain that gets worse over time ? An injury to the chest or stomach What to expect in the ER Here's what will happen in the ER: ? A healthcare provider will ask about your injury and examine you carefully. ? An X-ray of your chest will likely be taken to show any major damage to ribs and lungs. But ribs can have small breaks that don't show up on X-rays, even though they still hurt. In some cases, a CTscan may be done. ? You may be given medicine to ease your discomfort. ? In rare cases, rib fractures can cause a lung to collapse or lead to bleeding in the chest. In these cases, a tube will be inserted into the chest to reinflate the lung or drain the blood. Follow-up You are likely to heal in 6 to 8 weeks. Most rib fractures heal on their own with no lasting effects. Call your healthcare provider right away if you notice any of these symptoms: ? Increased chest pain ? Shortness of breath ? Fever of 100.4??F (38??C) or above, or as advised by your provider ? Chills ? Coughing up blood Last Reviewed Date: 2024 00:00:00 ?? [id number] [employer]. All rights reserved. This information is not intended as a substitute for professional medical care. Always follow your healthcare professional's instructions. * Ling RuedaFORMERLY [facility], [facility] - Lindsay Mcclure - 06/13/2025 11:19 AM EDT Images from the original note were not included. 14965 Preventing Falls: Staying Active Staying active is one of the best things you can do to prevent falls. Keep in mind that doing too little can be as risky as doing too much. That's because not being active can make you weaker and more likely to fall. But how much can you do safely? Start easy. Slowly work up to doing more. Talk with your health care provider about safe ways for you to stay active. Stay active, stay connected Staying in contact with other people can help lower your risk of falls. It also helps to keep you from feeling isolated and depressed. Find a social activity you enjoy. Make it part of your weekly ordaily routine: ? Join a club or visit a senior center. ? Go to buddhist services. ? Plan a potluck or game of cards. ? Garden with your neighbor. ? Have a friend join you to go walking outdoors or in the mall. How exercise helps The list of benefits from exercise just keeps getting longer. And, as you age, you can keep gettingthose rewards. Balance, flexibility, strength, and endurance all come from exercise. They all play a role to prevent falls. It's never too late to start exercising. Try organized activities. You can find these at senior centers, health clubs, or even at a place of jehovah's witness. This may work best if you' ve never exercised in the past or if you need company to get motivated. But you can exercise on your own if you prefer. Try an exercise video or walk in the park. Last Reviewed Date: 2025 00:00:00 ?? [id number] [employer]. All rights reserved. This information is not intended as a substitute for professional medical care. Always follow your healthcare professional's instructions. * Marniestephanie OnIR - Lindsay Mcclure - 06/13/2025 11:19 AM EDT Images from the original note were not included. [id number] After a Fall You have had a fall today. That means that you slipped, tripped, or lost your balance. If your fallwas because of fainting or a seizure, you might need other tests. It is normal to feel sore and tight in your muscles and back the next day, and not just the musclesyou injured. Remember, all the parts of your body are connected, so while one area hurts now, the next day another may hurt. Also, when you injure yourself, it causes inflammation. This then causes the muscles to tighten up and hurt more. After the initial worsening symptoms, they should slowly improve over the next few days. Tell your healthcare provider if you have more severe pain. Even without a definite head injury, you can still get a concussion from your head suddenly jerkingforward, backward, or sideways when you fall. This is especially true if you have had concussions in the past. Concussions and even bleeding can still happen, especially if you had a recent injury ortake blood thinner medicine. It is not unusual to have a mild headache and feel tired and even nauseous or dizzy. Home care ? Rest today and return to your normal activities when you are feeling back to normal. ? If you were injured during the fall, follow the advice from your healthcare provider about how tocare for your injury. ? At first, don't try to stretch out the sore spots. If there is a strain, stretching may make it worse. Massage may help relax the muscles without stretching them. ? Use an ice pack or cold compress on and off at the sore spots for 10 to 20 minutes at a time, as often as you feel comfortable. This may help reduce the inflammation, swelling, and pain. ? Know that if you have any scrapes (abrasions), they often heal within 10 days. Keep the scrapes clean while they start to heal. But an infection may happen even with correct care. So watch for early signs of infection (such as warmth, redness, or swelling). Medicines ? Talk with your healthcare provider before taking new medicines, especially if you have other health problems or are taking other medicines. ? If you need anything for pain, use acetaminophen or ibuprofen, unless you were given a different pain medicine to use. Talk with your healthcare provider before using these medicines if you: o Have chronic liver or kidney disease o Ever had a stomach ulcer or gastrointestinal bleeding o Are taking blood-thinner medicines ? Be careful if you are given prescription pain medicines, narcotics, or medicine for muscle spasms. They can make you sleepy and dizzy. And they can affect your coordination, reflexes, and judgment.Don't drive or do work where you can hurt yourself when taking them. Fall prevention ? Fix, remove, or replace anything that caused your fall. ? Make your home safe by keeping walkways clear of objects you could trip over. ? Use nonslip pads under rugs. Don't use small area rugs or throw rugs. ? Don't walk in poorly lit areas. ? Don't stand on chairs or wobbly ladders. ? Be careful when reaching overhead or looking upward. This position can cause a loss of balance. ? Be sure your shoes fit correctly, have nonslip bottoms, and are in good condition. ? Be careful when going up and down curbs, and walking on uneven sidewalks. ? If your balance is poor, think about using a cane or walker. ? Stay as active as you can. Balance, flexibility, strength, and endurance all come from exercise. They all play a role in preventing falls. ? If you have pets, know where they are before you stand up or walk so you don't trip over them. ? Limit alcohol intake. Alcohol can cause balance problems and increase the risk for falls. ? Use night-lights. ? Have your eyes tested to be sure you are seeing well, even if you already wear glasses. Follow-up Follow up with your healthcare provider, or as advised. If X-rays or CT scans were done, you will be told if there is a change in the reading, especially if it affects treatment. Call 911 Call 911 if any of these happen: ? Trouble breathing ? Confusion ? Trouble waking up ? Fainting or loss of consciousness ? Fast or very slow heart rate ? Seizure ? Trouble with speech or vision, weakness of an arm or leg ? Trouble walking or talking, loss of balance, numbness or weakness on one side of your body, or facial droop When to get medical advice Call your healthcare provider right away if any of these happen: ? Repeated falls, including falls that seem to happen for no reason ? Dizziness ? Severe headache ? Blood in vomit or stools (look black or red in color) Last Reviewed Date: 2022 00:00:00 ?? [id number] [employer]. All rights reserved. This information is not intended as a substitute for professional medical care. Always follow your healthcare professional's instructions. * Care Plan - Giovanni Brice RN - 06/12/2025 9:14 PM EDT Problem: Infection Goal: Absence of Infection Signs and Symptoms Outcome: Ongoing, Progressing Intervention: Prevent or Manage Infection Flowsheets Taken 06/12/20251999 Isolation Precautions: protective precautions maintained Taken 06/11/20251956 Infection Management: aseptic technique maintained Fever Reduction/Comfort Measures: lightweight bedding lightweight clothing Problem: Adult Inpatient Plan of Care Goal: Plan of Care Review Outcome: Ongoing, Progressing Flowsheets (Taken 06/11/20251956) Progress: improving Plan of Care Reviewed With: patient Goal: Patient-Specific Goal (Individualized) Outcome: Ongoing, Progressing Flowsheets (Taken 06/12/20251999) Patient/Family-Specific Goals (Include Timeframe): Pt will report ease of breathing, decreased pain, and be free from injury this shift Individualized Care Needs: Pain, ventilation, safety Anxieties, Fears or Concerns: Pain,adequate ventilation, and safety Goal: Absence of Hospital-Acquired Illness or Injury Outcome: Ongoing, Progressing Intervention: Identify and Manage Fall Risk Flowsheets (Taken 06/12/20251999) Safety Promotion/Fall Prevention: activity supervised assistive device/personal items within reach clutter-free environment maintained fall prevention program maintained lighting adjusted mobility aid in reach nonskid shoes/slippers when out of bed room organization consistent safety round/check completed toileting scheduled Intervention: Prevent Skin Injury Flowsheets (Taken 06/12/20251999) Body Position: Soper chair weight shifting heels elevated legs elevated Goal: Optimal Comfort and Wellbeing Outcome: Ongoing, Progressing Intervention: Monitor Pain and Promote Comfort Flowsheets (Taken 06/12/20252108) Pain Management Interventions: pillow support provided position adjusted medication (see MAR) Intervention: Provide Person-Centered Care Flowsheets (Taken 06/12/20252108) Trust Relationship/Rapport: care explained choices provided emotional support provided questions answered reassurance provided questions encouraged Problem: Fall Injury Risk Goal: Absence of Fall and Fall-Related Injury Outcome: Ongoing, Progressing Problem: Functional Deficit Goal: Improved Balance and Postural Control Outcome: Ongoing, Progressing Intervention: Optimize Balance and Safe Activity Flowsheets Taken 06/12/20251999 Activity Management: activity adjusted per tolerance Safety Promotion/Fall Prevention: activity supervised assistive device/personal items within reach clutter-free environment maintained fall prevention program maintained lighting adjusted mobility aid in reach nonskid shoes/slippers when out of bed room organization consistent safety round/check completed toileting scheduled Taken 06/11/20251956 Self-Care Promotion: independence encouraged Goal: Optimal Cognitive Function Outcome: Ongoing, Progressing Intervention: Optimize Cognitive Function Flowsheets (Taken 06/11/20251956) Sensory Stimulation Regulation: quiet environment promoted Self-Care Promotion: independence encouraged Goal: Optimal Coordination Outcome: Ongoing, Progressing Intervention: Optimize Motor Coordination and Function Flowsheets (Taken 06/11/20251956) Self-Care Promotion: independence encouraged Goal: Improved Muscle Strength Outcome: Ongoing, Progressing Goal: Improved Muscle Tone Outcome: Ongoing, Progressing Goal: Optimal Range of Motion Outcome: Ongoing, Progressing Intervention: Maintain Functional Joint Range Position Flowsheets Taken 06/12/20251999 Range of Motion: ROM (range of motion) performed Taken 06/11/20251956 Positioning/Transfer Devices: pillows Goal: Compensation for Sensory Deficit Outcome: Ongoing, Progressing Intervention: Optimize Sensory Function Flowsheets (Taken 06/11/20251956) Pressure Reduction Techniques: frequent weight shift encouraged heels elevated off bed pressure points protected weight shift assistance provided sit time limited to 2 hours rest period provided between sit times Problem: Self-Care Deficit Goal: Improved Ability to Complete Activities of Daily Living Outcome: Ongoing, Progressing Intervention: Promote Activity and Functional [place] Flowsheets (Taken 06/12/20252108) Activity Assistance Provided: assistance, 1 person * Progress Notes - Qian Mccormick RN - 06/12/2025 1:55 PM EDT Case Management Adult Initial Progress Note Puma Weber 85 y.o. male CSN: [id number] Admission: 06/09/2025 10:47 PM Primary Problem: Fall from height of less than 3 feet Product Consultant reviewed chart and spoke with patient and to complete this Initial Case Management Assessment. PCP: Stephen Velasquez MD Emergency Contact: Extended Emergency Contact Information Primary Emergency Contact: martha Weber Mobile Relation: Spouse Ssrs Developer needed? No Insurance: Primary Visit Coverage Payer Plan Sponsor Code Group Number Group Name HU[employer]NA MEDICARE HU[employer]NA MEDICARE [id number] Primary Visit Coverage Subscriber Subscriber ID Subscriber Name Subscriber SSN Subscriber Address [id number] Ricardo Weber [id number] [place], [place] [id number] Patient information: Primary Caregiver: Self Support System: Immediate family, Friends Daily Living Activities: Functional Status: Minimum assistance Living Arrangements: Spouse/Significant other Type of Residence: Private residence, Single Level [address] [place] [id number] Smoker in the Home?: No Current DME: Equipment Currently Used at Home: oxygen Current DME Provider: [facility] provides home O2 3LNC Income Information: Income Source: Retired Income/Expense Information: Expenses exceed income Current Resources Utilized: None Housing Circumstances-Z Codes: Housing Circumstances (select all that apply): Low Income (101-300% Federal Poverty Guidlines) - [id number] Patient Referred to: [facility] Anticipated Discharge Date:06/15/25 Patient's Discharge Goal: Patient/Family Anticipates Transition to: inpatient rehabilitation facility Assistance Available at Discharge: Current Outpatient/Agency/Support Group: DME Availability of Care Givers (#Hours): 24 hours Discharge Transport: Transportation Anticipated: family or friend will provide Follow Up Transport: Transportation Needed to Follow up Appoinments: Family/Friend will Provide Home Health / Home Infusion / Outpatient Dialysis Services: Current DME Provider: [facility] provides home O2 3LNC Living Will/Advance Directive/Power of Fur Tinter /Guardian: Have you reviewed your Advance Directive and is it valid for this stay?: Not applicable Advance Directive: Patient does not have advance directive Information Provided on Healthcare Directives: No Pre-existing DNR/DNI Order: No Patient Requests Assistance: No Additional Comments: Per primary provider, pt is not medically ready. Pt has an LES and is on ventimask. Recs were changed to BEN and pt was referred to the [place] area. Pt and would prefer [place]. Pt's and friends are able to provide assistance post rehab. Pt's nephew can provide transportation to rehab and to follow up appointments. Pt wears 3L NC at baseline and was using his 's rollator at home. Qian Mccormick RN * Query Clarification Note - Saadia Garcia APRN, DNP - 06/12/2025 1:36 PM EDT Physician Clarification Please review the following and provide your response below. Based on the above information and the recognized standard criteria, please clarify which of the following accurately represents the patient's respiratory status: -[] Acute on Chronic respiratory failure (specify type if able) -[x] Chronic respiratory failure (specify type if able) -[] Other condition (please specify) This documentation will become part of the patient's medical record. * Assessment & Plan Note - Saadia Garcia APRN, DNP - 06/12/2025 10:31 AM EDT Associated Problem(s): Obesity Could complicate hospitalization and mobility * Assessment & Plan Note - Saadia Garcia APRN, DNP - 06/12/2025 10:31 AM EDT Associated Problem(s): Fall from height of less than 3 feet Admit SGT ICU [x] Tertiary and Audit-C 06/11 * Assessment & Plan Note - Saadia Garcia APRN, DNP - 06/12/2025 10:31 AM EDT Associated Problem(s): Multiple closed fractures of ribs of left side L 3-8 rib fx RIG 10 on admission Pulmonary hygiene/IS * Assessment & Plan Note - Saadia Garcia APRN, DNP - 06/12/2025 10:31 AM EDT Associated Problem(s): Urinary retention History of BPH, continue flomax Self straight caths at homet -Remove rae 06/11 In/out cath PRN * Assessment & Plan Note - Saadia Garcia APRN, DNP - 06/12/2025 10:31 AM EDT Associated Problem(s): [id number] kidney injury (CMS/HCC) Cr ~1.67 08/2019 2.47 on arrival, now 2.57 FeNa prerenal, encourage PO hydration Improving * Assessment & Plan Note - Saadia Garcia APRN, DNP - 06/12/2025 10:31 AM EDT Associated Problem(s): COPD (chronic obstructive pulmonary disease) (CMS/HCC) 3L NC baseline, on Venti mask here due to mouth breathing Restart home medications * Assessment & Plan Note - Saadia Garcia APRN, DNP - 06/12/2025 10:31 AM EDT Associated Problem(s): CAD (coronary artery disease) Restart home medications * Assessment & Plan Note - Saadia Garcia APRN, DNP - 06/12/2025 10:31 AM EDT Associated Problem(s): Lung nodule Incidental finding on outside imaging, 8mm nodule CORY, 4mm nodule LLL Recommend outpatient follow up with multidisciplinary thoracic oncology clinic for surveillance * Assessment & Plan Note - Saadia Garcia APRN, DNP - 06/12/2025 10:31 AM EDT Associated Problem(s): Pneumothorax Small L pnx, no chest tube warranted at this time * Assessment & Plan Note - Saadia Garcia APRN, DNP - 06/12/2025 10:31 AM EDT Associated Problem(s): Cholelithiasis Incidental finding on outside imaging, tbili normal, NTD * Assessment & Plan Note - Saadia Garcia APRN, DNP - 06/12/2025 10:31 AM EDT Associated Problem(s): Cirrhosis of liver with ascites (CMS/HCC) Cirrhotic morphology of liver * Assessment & Plan Note - Saadia Garcia APRN, DNP - 06/12/2025 10:31 AM EDT Associated Problem(s): ABLA (acute blood loss anemia) Recheck hemogram and transfuse as necessary * Assessment & Plan Note - Saadia Garcia APRN, DNP - 06/12/2025 10:31 AM EDT Associated Problem(s): Hyperglycemia Likely reactive to trauma, recheck and treat as necessary * Assessment & Plan Note - Saadia Garcia APRN, DNP - 06/12/2025 10:31 AM EDT Associated Problem(s): Hyperlipidemia Resume home meds as appropriate * Assessment & Plan Note - Saadia Garcia APRN, DNP - 06/12/2025 10:31 AM EDT Associated Problem(s): Electrolyte abnormality Hyperkalemia (POA) Replace/treat and recheck as necessary * Assessment & Plan Note - Saadia Garcia APRN, DNP - 06/12/2025 10:31 AM EDT Associated Problem(s): Chronic pain Resume home meds as appropriate * Assessment & Plan Note - Saadia Garcia APRN, DNP - 06/12/2025 10:31 AM EDT Associated Problem(s): Delirium Reorientation Early recurrent mobilization Minimize psychoactive medications Promote normal sleep-wake cycles (lights on during the day, blinds up, T.V on. Lights/T.V off at night) Providing easy access to adaptive equipment for sensory impairment (glasses/hearing aids) Encourage oral hydration Ensuring functional clocks and/or calendars are easily visualized 06/12: Added nightly melatonin * Progress Notes - Tegan Ellsworth - 06/12/2025 10:29 AM EDT Occupational Therapy Evaluation Patient Name: Puma Weber Today's Date: 06/12/2025 OT Discharge Recommendations: Subacute rehab Equipment Recommended: Defer to facility History Puma Weber is 85 y.o. male admitted 06/09/2025 for work-up of Fall from height of less than 3 feet. Problem List Active Hospital Problems Diagnosis Date Noted Delirium 06/12/2025 Urinary retention 06/11/2025 Pvndr-kr-[id number] kidney injury (CMS/HCC) 06/11/2025 Lung nodule 06/11/2025 Pneumothorax 06/11/2025 Cholelithiasis 06/11/2025 Cirrhosis of liver with ascites (CMS/HCC) 06/11/2025 ABLA (acute blood loss anemia) 06/11/2025 Hyperglycemia 06/11/2025 Hyperlipidemia 06/11/2025 Electrolyte abnormality 06/11/2025 Chronic pain 06/11/2025 Fall from height of less than 3 feet 06/10/2025 Multiple closed fractures of ribs of left side 06/10/2025 COPD (chronic obstructive pulmonary disease) (CMS/HCC) 06/10/2025 CAD (coronary artery disease) 06/10/2025 Obesity 06/09/2025 Past Medical History Patient has a past medical history of Personal history of other diseases of the circulatory system,Personal history of other diseases of the respiratory system, Personal history of other diseases ofthe respiratory system, and Personal history of other endocrine, nutritional and metabolic disease. Past Surgical History Patient has no past surgical history on file. Precautions Medical Precautions: Fall precautions Subjective Pt ok'ed eval/tx and agreeable to discharge recommendation. Participants in Care Family/Caregiver Present: No Ssrs Developer: Not Applicable PRESENTATION Oxygen Supplemental oxygen Venturi mask 4 L/min Telemetry yes Lines and Tubes Peripheral IV 06/09/25 Right Antecubital (Active) Peripheral IV 06/09/25 Anterior;Left Forearm (Active) Pre-Session Lines intact. Pt received, seated on toilet, tele monitor sounding, O2 and tele lines doffed. Pt reports walking to restroom by himself. RN cleared patient for OT session. Post-Session Sitting in chair, Call light in reach, RN notified, Lines intact, Chair alarm. All needs met. Home Living/Set-up Lives With: Spouse Home Type: House Home Adaptive Equipment: Cane, Scooter, Rolling walker, Rollator, Other (Comment), shower chair (sleeps in lift chair) Home Layout: One level, Stairs to enter without rails Number of Stairs: 1 Bathroom: Tub/Shower: Walk-in shower, Built-in shower seat Bathroom: Toilet: Tall Home Living Comments: Pt reports has had shoulder surgery and is unable to provide physical assistance. He has a neighbor and a cousin nearby that can provide some assistance as needed. Prior Level of Function Receives Help From: No assist required prior to admission Level of Mobility: Ambulatory- community (uses scooter for MD appointments only; can ambulate around grocery store per Pt report) Mobility [place]: Independent gait with device (3 point cane) History of Falls: Yes (x2 in the last week, a few in the last 6 months) ADL Performance: Independent Patient/Family Goals Statement Pt agreeable to OT evaluation, POC, and discharge recommendation. Objective Pain Pt reported 7 to 8/10 pain in left side, flank, and shoulder. Patient positioned for comfort at endof session. Delirium Screening RASS: Alert and calm Confusion Assessment Method-ICU (CAM-ICU/PCAM-ICU) Feature 3: Altered Level of Consciousness: Negative Cognition Overall Cognitive Status: Within Functional Limits Arousal/Alertness: Appropriate responses to stimuli Mood/Behavior: Alert Orientation Level: Oriented X4 Single Step Commands: Consistently, With repetition Multi-Step Commands: Consistently, With repetition Method of Communication: Verbal Cognition Interventions: Pt [facility] and uses hearing aids. Pt states, I'm stubborn, and my memory isn't that great. Vision - Basic Assessment Baseline Vision: Glasses distance Patient Visual Report: reports macular degeneration MOTOR EXAMINATION RANGE OF MOTION Right Upper Within Functional Limits Left Upper (shoulder AAROM 0-120 deg limited by pain, distally WFL) Right Lower Within Functional Limits Left Lower Within Functional Limits MANUAL MUSCLE TESTING Right Upper Within functional limits Left Upper (shoulder 3-/5 limited by pain, distally at least 3+/5) Right Lower Within functional limits Left Lower Within functional limits MUSCLE TONE Right Upper WFL Left Upper WFL Right Lower WFL Left Lower WFL SENSORY EXAMINATION Light Touch Sensation Right Upper Intact Left Upper Intact Right Lower Mild impairment (baseline neuropathy) Left Lower Mild impairment (baseline neuropathy) SELF-CARE Treatment Minutes 15 Comments Pt tolerated ADL activity with focus on lower body dressing, toilet transfers, toileting routine, cognition (w/emphasis on judgment & safety awareness), and preparatory functional mobility to promote participation in more complex out-of-bed self-care routine. Pt led in energy conservation, work simplification, PLB, and compensatory strategies in order to optimize independence, safety, comfort, pain management, overall activity tolerance, and fall prevention. Extra time required during session due to slow pacing as well as rest breaks secondary to fatigue, shortness of air, pain, need for encouragement, and pre- emptive instruction for mental preparedness for tasks. During session OT provided the following skilled services: Monitoring of vitals to ensure activity tolerance during ADLs Provision of increased time frames to support optimal level of patient participation Environmental set-up to ensure safety and accessibility to all needed areas of treatment space Patient engaged in sequential task training emphasizing functional transitions and movement for increased participation in higher level ADL and functional transfer tasks including bathing, toileting,and household/community mobility as detailed below Consistent verbal cues to facilitate modified body mechanics during functional tasks Task/activity modification with grading as needed to achieve safety while also providing appropriate functional challenge Management of lines during functional mobility Level of [place] Interventions Lower Body Dressing Pants Level of Assistance: Setup, Moderate assistance, Minimal verbal cues While seated on toilet, pt required assistance with threading LLE. Upon standing, pt required some assistance with management due to rapid fatigue and mild unsteadiness. Cues provided for sequencing and safety awareness. Toileting Minimum assistance, Minimal verbal cues Toilet Upon arrival, pt seated on toilet with venturi mask doffed, tele lines disconnected, and tele monitor sounding (i.e. not on standby). Pt presenting with SOA and asked pt if he needed his O2, and pt affirmed. OT setup venturi mask in restroom. When asked if he walked to the restroom without staff, pt also affirmed. When OT reminded him of need to call out for staff assist, pt stated, I'm stubborn, and my memory isn't great. Pt stated he was not able to have BM and assisted back to standing. Pt requried Min A with management of underwear. Cues provided for safe hand placement on grab bar during standing portion of toileting routine. Preparatory Functional Mobility Pt tolerated conventional (small) [id number] household distance mobility with mild unsteadiness, rapid fatigue, and moderate SOA. Pt received cues for energy conservation and purse-lipped breathing technique. Once seated in chair, pt's SpO2 80% with reliable reading; however, pt rapidly recovered to low 90s with rest and PLB. Health Management Pt participated in conversation regarding concerns with discharge home, given hisspouse is undergoing surgeries and unable to assist him. Pt eager to discharge home; however, pt expressed understanding and awareness that it is not the safest option, given his current limitations and deficits. Pt received skilled verbal instruction on what inpatient rehab would entail, and pt agreeable to recommendation change to BEN this date. TRANSFERS Level of [place] Physical/Non- physical Assist Adaptive Equipment Sit to Stand Contact guard Verbal Cues, Nonverbal cues (demo/gestures), Moderate cues, Set-up required Walker, rolling Stand to sit Contact guard Verbal Cues, Nonverbal cues (demo/gestures), Minimal cues Walker, rolling Toilet Transfer Minimum assist (75% patient's effort) (sit > stand toilet transfer) Verbal Cues,Nonverbal cues (demo/gestures), Moderate cues Walker, rolling, Grab bar Interventions Pt required cues for work simplification strategies to optimize comfort, safety, and activity tolerance during functional ADL transfers. FUNCTIONAL MOBILITY Level of [place] Distance Adaptive Equipment Utilized Ambulation Minimum assistance, Moderate verbal cues, Minimal tactile cues < short household distance Rolling walker Comments See Preparatory Functional Mobility section above for details. BALANCE Postural Appearance Posture: Rounded shoulders Level of [place] Balance Support Static Sit Standby assist Feet supported, Right upper extremity support, Left upper extremity support Dynamic Sit Standby assisst Right upper extremity support, Left upper extremity support, Feet supported Static Stand Contact guard Right upper extremity support, Left upper extremity support (rolling walker) Dynamic Stand Minimum assistance Right upper extremity support, Left upper extremity support (rolling walker) THERAPEUTIC EXERCISE Treatment Minutes 10 Interventions Pt received instruction on the following BUE exercises in order to improve functionalendurance, activity tolerance, ROM, and strength: - Seated Scapular Retraction - Seated Shoulder Flexion Full Range - Seated Shoulder Horizontal Abduction - Thumbs Up - Seated Boxing Jaalessandro Access Code: [email or web address] URL: [email or web address] Pt received demonstration and verbal instruction for form, technique, coordinated breathing, pacing, and modifications for increased comfort. Extra time required for slow/controlled pacing and rest breaks. Standardized Assessments [facility] 6-Click Daily Activities Help from Other: Don/Doff Regular Lower Body Clothings: A lot Help From Other: Bathing: A lot Help From Other: Toileting: A lot Help From Other: Don/Doff Upper Body Clothings: Little Help From Other: Grooming: Little Help From Other: Eating Meals: None [facility] 6 Click - Daily Activities Score: 16 Score Interpretation: 16-19: May require further evaluation, and may indicate a need for post-acutecare Assessment Pt cooperative and receptive to instruction during session. Pt limited by weakness, impaired balance, poor endurance, rapid fatigue, shortness of air, poor safety awareness, pain, impaired coordination, and O2 desaturation with light activity. Pt would benefit from skilled OT services for improved f unctional performance and return to I/ADL routine. Subacute rehab services indicated upon dischargefrom current setting, as pt is a high fall risk and is requiring significant assistance with basic ADL routine. Patient would benefit from inpatient subacute rehab to improve functional performance, increase overall safety, decrease fall risk, and decrease risk of hospital readmission. Patient???s needs would not be met at a lower level of rehab due to need for readily accessible skilled staff assist and inadequate level of assistance at home. Prior to current hospital admission, patient was independent tomodified independent with all functional tasks; however, patient is now requiring significant assistance - including moderate assistance with lower body dressing. If patient discharged home, without inpatient rehab stay, patient would face risks/barriers - including significant risk of fall(s), bailey tional acquisition of traumatic injuries, and hospital readmission. OT Findings: Impaired ADL performance, Impaired IADL performance, Decreased upper extremity strength, Impaired judgment during ADL, Decreased endurance/ventilation/gas exchange, Impaired functional mobility, Impaired fine motor control/coordination, Decreased gross motor control/coordination, Impaired postural/trunk control, Impaired balance Evaluation/Treatment Tolerance: Patient limited by fatigue, Patient limited by pain, Other (Comment) (SOA) Rehab Potential: Good, to achieve stated therapy goals Barriers to Discharge: Lack of extended family/friend support, Comorbidities Eval Complexity Occupational Profile: Expanded review of medical/therapy records and additional review of physical,cognitive, or psychosocial history Performance Deficits: Activities of daily living (ADLs), Instrumental activities of daily living (IADLs), Body functions, Body structures, Motor skills, Process skills, Habits, Routines, Roles, Physical, Personal Clinical Decision Making: Moderate Overall Eval complexity: Moderate OT Recommendations Discharge Destination: Subacute rehab Discharge Equipment: Defer to facility Plan Planned OT Interventions ADL retraining, Balance training, Bed mobility Training, Fine motor coordination training, ROM, Strengthening, Stretching, Transfer training, Functional mobility, Cognitive retraining, Caregiver education OT Frequency 2 - 5 times per week OT Duration 2 weeks Goals OT GOAL DETAILS Time Frame OT Goal 1: Pt will complete toileting routine (including commode transfers, clothing management, and pericare) with SBA, AD prn, and cues. 2 weeks OT Goal 2: Pt will complete x3 sequential UB grooming/hygiene tasks with supervision, AD prn, and x0 rest breaks while standing at sink. 2 weeks OT Goal 3: Pt will complete LB dressing with CGA, AD prn, and cues. 2 weeks OT Goal 4: Pt will be IND with BUE HEP for improved functional AROM, endurance, and activity tolerance. 2 weeks Written by Tegan Ellsworth on 06/12/25 at 12:54 PM. * Progress Notes - Gisela Armstrong Cecy - 06/12/2025 10:28 AM EDT Physical Therapy Treatment Patient Name: Puma Weber Today's Date: 06/12/2025 PT Discharge Recommendations: Subacute rehab Equipment Recommended: Defer to facility Subjective Pt agreeable to PT. States he did not sleep well last night. Participants in Care Family/Caregiver Present: No Presentation Oxygen Therapy: Supplemental oxygen O2 Delivery Method: Venturi mask O2 Flow Rate (L/min): 4 L/min Lines and Tubes: Intravenous access, Telemetry Pre-Session: Lines intact (sitting on toilet) Pre-Session Comments: RN agreeable to therapy session. Post-Session: Sitting in chair, Call light in reach, RN notified, Lines intact, Chair alarm Post-Session Comments: Positioned Pt for comfort. Precautions Medical Precautions: Fall precautions Objective Pain Pain: Yes Pain Rating (0-10): 7-8 Pain Location: left ribs Pain Type: Acute pain Response/Interventions: increased ambulation or activity and pillow support provided Delirium Screening RASS: Alert and calm Confusion Assessment Method-ICU (CAM-ICU/PCAM-ICU) Feature 3: Altered Level of Consciousness: Negative Transfers Transfer Interventions: Pt sitting on toilet on room air visibly short of breath upon entry to room. Pt reports he removed his O2 and ambulated to bathroom by himself. Placed Pt back on 4L O2 venturimask as documented in EMR as his current O2 requirements. Pt performed x1 sit<>stands from commode and x2 sit<>stands from recliner chair. He required verbal and tactile cues for initiation, appropriate hand placement, and bilateral hip and knee extension. Transfer Exam: Sit to stand Level of [place]: Contact guard Physical/Nonphysical Assist: Verbal Cues, Nonverbal cues (demo/gestures) Assistive Device: Walker, rolling Transfer Exam: Stand to Sit Level of [place]: Contact guard Physical/Nonphysical Assist: Verbal Cues, Nonverbal cues (demo/gestures) Assistive Device: Walker, rolling Toilet Transfer Level of [place]: Minimum assist (75% patient's effort) Physical/Nonphysical Assist: Verbal Cues, Nonverbal cues (demo/gestures), Additional assist utilized for safety Type of Transfer: Ambulation, To toilet Assistive Device: Walker, rolling, Grab bar Ambulation Device: Rolling walker Assistance: Minimum assistance Distance : 15ft Ambulation Comments: Pt demonstrates decreased step length, decreased miah, rolling walker too far forward outside base of support, forward flexed posture, increased work of breathing. Required verbal + tactile cues to keep walker close to base of support and for upright posture. Balance Static Standing Balance Static Standing-Balance Support: Right upper extremity support, Left upper extremity support (rolling walker) Static Standing-Level of Assistance: Contact guard Static Standing - Interventions: Pt performed static standing 1 minute in front of toilet, + 30 seconds + 45 seconds in front of recliner with seated rest break in between due to fatigue. Required verbal cues for upright posture and pursed lip breathing. Therapeutic Activity (28 minutes) See balance, transfers, and ambulation for details. Increased time spent educating Pt on change in discharge recommendations, and notifying first call provider and case management of change. Therapeutic Exercise (10 minutes) Pt instructed in and prescribed the following HEP while seated in recliner: Access Code: [email or web address] URL: [email or web address] Date: 06/12/2025 Prepared by: Gisela Exercises - Supine Hip Abduction - 1 x daily - 7 x weekly - 3 sets - 10 reps - Supine Quad Set - 1 x daily - 7 x weekly - 3 sets - 10 reps - Supine Heel Slide - 1 x daily - 7 x weekly - 3 sets - 10 reps - Supine Ankle Pumps - 1 x daily - 7 x weekly - 3 sets - 10 reps - Seated Long Arc Quad - 1 x daily- 3 sets - 10 reps. PT provided demonstration of exercises, and Pt required verbal + tactile cues for proper technique of quad sets. Pt provided written handout of exercises. Assessment Pt with decreased ambulation distance this session compared to evaluation, limited by impaired endurance and increased pain. He requires increased assistance to stand from lower surfaces such as toilet. Demonstrating decreased safety awareness during ambulation as well as prior to session with Pt reporting he removed his supplemental oxygen prior to ambulating to bathroom without assistance. Pt'sSPO2 decreasing as low as 80 during mobility requiring ~30 seconds to 1 minute to recover. Due to Pt requiring increased assistance, ambulation distance remaining less than a safe household distance,and overall decreased safety awareness with increased risk of falls, Pt's discharge recommendationschanged to Subacute rehab facility. In order to further improve safety and independence with mobility prior to returning home, and to decrease caregiver burden. PT Recommendations Discharge Destination: Subacute rehab Discharge Equipment: Defer to facility Plan Continue to progress functional mobility as tolerated. PT Goals PT GOAL DETAILS Goal Established Date Time Frame Goal Status PT Goal 1: Pt will transfer sit<>stand and bed<>chair SBA with LRAD as appropriate 06/11/25 2 weeks PT Goal 2: Pt will ambulate x100ft SBA with LRAD as appropriate 06/11/25 2 weeks PT Goal 3: Pt will ascend/descend x1 step SBA using LRAD as appropriate 06/11/25 2 weeks PT Goal 4: Pt/Pt's family will be IND with HEP, safety recommendations, and discharge recommendations. 06/11/25 2 weeks Written by Gisela Armstrong on 06/12/25 at 10:46 AM. * Progress Notes - Saadia Garcia, PROP DRAWER, DNP - 06/12/2025 10:26 AM EDT 06/12/25 Puma Weber HPI 85M PMH COPD on 3L O2, CAD on DAPT, pulm HTN, ERIC, CKD, obesity who presents after fall from porch. Injuries include: L 3-8 rib fx with small PTX Interval: Patient sitting up in chair A&O. Per chart, patient had episodes of confusion overnight. Will add nightly melatonin to encourage sleep/wake cycle. Hard of hearing. VSS. NAD. On 6L, 24% venti mask, mouth breather. Wheezy. Tolerating PO diet, no N/V, abd pain. Last BM 06/09, required in/out cath this morning. Worked with PT/OT who are now recommending subacute rehab. Referred per CM. Having pain in L chest. Reviewed AM labs, sCr improving, mild hyperK. Encourage PO hydration. Discussed plan of care with patient, who is in understanding. No further concerns per patient or nursing. Edited by: Saadia Garcia, KARYNA, DNP at 06/12/2025 1026 Relevant review of systems was obtained as able and is negative unless stated above in HPI. Vital signs: Vitals: 06/12/25 0904 BP: Pulse: 82 Resp: 17 Temp: SpO2: 94% Physical Exam Vitals reviewed. Constitutional: General: He is not in acute distress. Appearance: He is obese. HENT: Head: Normocephalic. Right Ear: Decreased hearing noted. Left Ear: Decreased hearing noted. Nose: Nose normal. Mouth/Throat: Mouth: Mucous membranes are moist. Eyes: Extraocular Movements: Extraocular movements intact. Pupils: Pupils are equal, round, and reactive to light. Cardiovascular: Rate and Rhythm: Normal rate. Pulses: Normal pulses. Pulmonary: Effort: Pulmonary effort is normal. No respiratory distress. Breath sounds: Wheezing present. Comments: Venti mask Chest: Chest wall: Tenderness present. Abdominal: General: There is no distension. Palpations: Abdomen is soft. Tenderness: There is no abdominal tenderness. Musculoskeletal: General: No tenderness or signs of injury. Normal range of motion. Cervical back: Normal range of motion. Skin: General: Skin is warm. Capillary Refill: Capillary refill takes 2 to 3 seconds. Findings: Bruising (diffuse) present. Neurological: General: No focal deficit present. Mental Status: He is alert and oriented to person, place, and time. Mental status is at baseline. Sensory: No sensory deficit. Motor: Weakness present. Psychiatric: Mood and Affect: Mood normal. Behavior: Behavior normal. Intake/Output Summary (Last 24 hours) at 06/12/2025 1026 Last data filed at 06/12/2025 0800 Gross per 24 hour Intake 240 ml Output 1825 ml Net -1585 ml Lines/Drains/Tubes: Patient Lines/Drains/Airways Status Active Airway None Output by Drain (mL) 06/10/25 0700 - 06/10/25 1859 06/10/25 1900 - 06/11/25 0659 06/11/25 0700 - 06/11/25 1859 06/11/25 1900 - 06/12/25 0659 06/12/25 0700 - 06/12/25 1026 Patient has no LDAs of requested type attached. Labs in last 18 hours: CBC WBC ?? Hb ?? Plt ?? Hct ?? ANC ?? INR ??, PTT ??, Anti-Xa ?? MCV ?? BMP Na 140 Cl 105 BUN 36 (H) Glu 124 (H) K 5.2 (H) Co2 23 Cr 2.24 (H) Ca 8.6 (L) iCa ?? Mg 2.3, Phos 3.0 Lactate ?? LFT AST ?? AlkPhos ?? T Prot ?? ALK ?? Bili ?? Alb ?? D.Bili ?? Lab Trends: H/H Results from last 7 days Lab Units 06/11/25 0116 06/09/25 2313 HEMOGLOBIN g/dL 11.3* 12.5* HEMATOCRIT % 34.9* 38.7* INR Results from last 7 days Lab Units 06/09/25 2313 INR 1.1 Cr Results from last 7 days Lab Units 06/12/25 0245 06/11/25 0116 06/09/25 2313 CREATININE mg/dL 2.24* 2.57* 2.47* Medications reviewed. Vital signs reviewed. Labs reviewed. Radiography reviewed. Assessment and Plan: Assessment & Plan Fall from height of less than 3 feet Present on Admission: Yes Admit SGT ICU [x] Tertiary and Audit-C 06/11 Multiple fractures of ribs, left side, initial encounter for closed fracture Present on Admission: Yes L 3-8 rib fx RIG 10 on admission Pulmonary hygiene/IS COPD (chronic obstructive pulmonary disease) (CMS/HCC) Present on Admission: Yes 3L NC baseline, on Venti mask here due to mouth breathing Restart home medications CAD (coronary artery disease) Present on Admission: Yes Restart home medications Urinary retention Present on Admission: Yes History of BPH, continue flomax Self straight caths at homet -Remove rae 06/11 In/out cath PRN Oiopf-of-krdnuku kidney injury (CMS/HCC) Present on Admission: Yes Cr ~1.67 08/2019 2.47 on arrival, now 2.57 FeNa prerenal, encourage PO hydration Improving Lung nodule Present on Admission: Yes Incidental finding on outside imaging, 8mm nodule CORY, 4mm nodule LLL Recommend outpatient follow up with multidisciplinary thoracic oncology clinic for surveillance Pneumothorax Present on Admission: Yes Small L pnx, no chest tube warranted at this time Cholelithiasis Present on Admission: Yes Incidental finding on outside imaging, tbili normal, NTD Cirrhosis of liver with ascites (CMS/HCC) Present on Admission: Yes Cirrhotic morphology of liver ABLA (acute blood loss anemia) Present on Admission: Yes Recheck hemogram and transfuse as necessary Hyperglycemia Present on Admission: Yes Likely reactive to trauma, recheck and treat as necessary Hyperlipidemia Present on Admission: Yes Resume home meds as appropriate Electrolyte abnormality Present on Admission: Yes Hyperkalemia (POA) Replace/treat and recheck as necessary Chronic pain Present on Admission: Yes Resume home meds as appropriate Obesity Present on Admission: Yes Could complicate hospitalization and mobility Delirium Present on Admission: No Reorientation Early recurrent mobilization Minimize psychoactive medications Promote normal sleep-wake cycles (lights on during the day, blinds up, T.V on. Lights/T.V off at night) Providing easy access to adaptive equipment for sensory impairment (glasses/hearing aids) Encourage oral hydration Ensuring functional clocks and/or calendars are easily visualized 06/12: Added nightly melatonin Plan: -Pulmonary hygiene/IS, duonebs. Sat goals >88% -MMPC -DVT ppx, heparin due to renal function -In/out cath PRN, chronic. Continue flomax -LES: FeNa prerenal, encourage PO hydration -Delirium precautions, encourage sleep/wake cycle. Add nightly melatonin -Bowel regimen -AM BMP -PT/OT Discharge Dispo: Subacute rehab Edited by: Saadia Garcia APRN, DNP at 06/12/2025 1026 Saadia Garcia APRN, DNP * Nursing Note - Giovanni Brice RN - 06/12/2025 6:02 AM EDT Throughout the shift pt awoke confused to place and attempted to get out of the chair unassisted. Previous education reminders, frequent nursing rounds, and call light within patients reach. * Care Plan - Giovanni Brice RN - 06/11/2025 8:01 PM EDT Problem: Infection Goal: Absence of Infection Signs and Symptoms Outcome: Ongoing, Progressing Intervention: Prevent or Manage Infection Flowsheets Taken 06/11/20251956 Infection Management: aseptic technique maintained Fever Reduction/Comfort Measures: lightweight bedding lightweight clothing Taken 06/11/20251947 Isolation Precautions: protective precautions maintained Problem: Adult Inpatient Plan of Care Goal: Plan of Care Review Outcome: Ongoing, Progressing Flowsheets (Taken 06/11/20251956) Progress: improving Plan of Care Reviewed With: patient Goal: Patient-Specific Goal (Individualized) Outcome: Ongoing, Progressing Flowsheets (Taken 06/11/20251947) Patient/Family-Specific Goals (Include Timeframe): Pt will report ease of breathing, decreased pain, and be free from injury this shift Individualized Care Needs: Pain, ventilation, safety Anxieties, Fears or Concerns: Pain,adequate ventilation, and safety Goal: Absence of Hospital-Acquired Illness or Injury Outcome: Ongoing, Progressing Intervention: Identify and Manage Fall Risk Flowsheets (Taken 06/11/20251947) Safety Promotion/Fall Prevention: activity supervised assistive device/personal items within reach clutter-free environment maintained fall prevention program maintained lighting adjusted mobility aid in reach nonskid shoes/slippers when out of bed room organization consistent safety round/check completed toileting scheduled Goal: Optimal Comfort and Wellbeing Outcome: Ongoing, Progressing Intervention: Monitor Pain and Promote Comfort Flowsheets (Taken 06/11/20251932) Pain Management Interventions: care clustered heat applied pillow support provided position adjusted Problem: Fall Injury Risk Goal: Absence of Fall and Fall-Related Injury Outcome: Ongoing, Progressing Intervention: Identify and Manage Contributors Flowsheets (Taken 06/11/20251956) Medication Review/Management: medications reviewed Self-Care Promotion: independence encouraged Problem: Functional Deficit Goal: Improved Balance and Postural Control Outcome: Ongoing, Progressing Intervention: Optimize Balance and Safe Activity Flowsheets Taken 06/11/20251956 Self-Care Promotion: independence encouraged Taken 06/11/20251947 Activity Management: activity adjusted per tolerance Goal: Optimal Cognitive Function Outcome: Ongoing, Progressing Intervention: Optimize Cognitive Function Flowsheets (Taken 06/11/20251956) Sensory Stimulation Regulation: quiet environment promoted Self-Care Promotion: independence encouraged Goal: Optimal Coordination Outcome: Ongoing, Progressing Intervention: Optimize Motor Coordination and Function Flowsheets (Taken 06/11/20251956) Self-Care Promotion: independence encouraged Goal: Improved Muscle Strength Outcome: Ongoing, Progressing Intervention: Optimize Muscle Strength Flowsheets (Taken 06/11/20251956) Activity Assistance Provided: assistance, 1 person Self-Care Promotion: independence encouraged Goal: Improved Muscle Tone Outcome: Ongoing, Progressing Goal: Optimal Range of Motion Outcome: Ongoing, Progressing Intervention: Maintain Functional Joint Range Position Flowsheets (Taken 06/11/20251956) Range of Motion: active ROM (range of motion) encouraged Positioning/Transfer Devices: pillows Goal: Compensation for Sensory Deficit Outcome: Ongoing, Progressing Intervention: Optimize Sensory Function Flowsheets (Taken 06/11/20251956) Pressure Reduction Techniques: frequent weight shift encouraged heels elevated off bed pressure points protected weight shift assistance provided sit time limited to 2 hours rest period provided between sit times Skin Protection: incontinence pads utilized * Care Plan - Diana Jaimes - 06/11/2025 6:04 PM EDT Problem: Infection Goal: Absence of Infection Signs and Symptoms Outcome: Ongoing, Progressing Problem: Adult Inpatient Plan of Care Goal: Plan of Care Review Outcome: Ongoing, Progressing Flowsheets Taken 06/10/2025 0759 by Gladis Powers RN Progress: improving Taken 06/10/2025 0620 by Addie Hair RN Plan of Care Reviewed With: patient Goal: Patient-Specific Goal (Individualized) Outcome: Ongoing, Progressing Flowsheets (Taken 06/11/2025 0800 by Gila Garcia, RN) Patient/Family-Specific Goals (Include Timeframe): IS education will be given to pt and pt will be encouraged to use IS every 1-2 hours Individualized Care Needs: gucci dewitt Anxieties, Fears or Concerns: denies Goal: Absence of Hospital-Acquired Illness or Injury Outcome: Ongoing, Progressing Goal: Optimal Comfort and Wellbeing Outcome: Ongoing, Progressing Problem: Fall Injury Risk Goal: Absence of Fall and Fall-Related Injury Outcome: Ongoing, Progressing Intervention: Identify and Manage Contributors Flowsheets (Taken 06/10/2025 0759 by Gladis Powers RN) Medication Review/Management: medications reviewed Self-Care Promotion: independence encouraged Problem: Functional Deficit Goal: Improved Balance and Postural Control Outcome: Ongoing, Progressing Intervention: Optimize Balance and Safe Activity Flowsheets Taken 06/11/2025 1700 by Diana Jaimes Activity Management: ambulated to bathroom Taken 06/11/2025 0800 by Gila Garcia RN Safety Promotion/Fall Prevention: activity supervised Taken 06/10/2025 075 by Gladis Powers RN Self-Care Promotion: independence encouraged Goal: Optimal Cognitive Function Outcome: Ongoing, Progressing Goal: Optimal Coordination Outcome: Ongoing, Progressing Goal: Improved Muscle Strength Outcome: Ongoing, Progressing Goal: Improved Muscle Tone Outcome: Ongoing, Progressing Goal: Optimal Range of Motion Outcome: Ongoing, Progressing Goal: Compensation for Sensory Deficit Outcome: Ongoing, Progressing * Hospital Course - Saadia Morales PA - 06/11/2025 3:50 PM EDT 85M PMH COPD on 3L O2, CAD on DAPT, pulm HTN, ERIC, CKD, obesity who presents after fall from porch.Injuries include: L 3-8 rib fx with small PTX Past 24h: Patient sitting up in chair, confused. VSS. NAD. Intermittently compliant with venti mask, states he does not wear 3L at all times at home. Tolerating PO diet, no N/V, abd pain. Distended. 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 In/out cath x2 overnight. Mobilizing as able with assistance. Pain well controlled. Per CM, patient has been accepted to rehab. However, needs to have aBM. Discussed plan of care with patient, who is in understanding. No further concerns per patient or nursing. Physical therapy and occupational therapy evaluated the patient during hospitalization and recommend subacute rehab. At the time of discharge the patient was hemodynamically stable, tolerating PO, voiding spontaneously, normal bowel function, mobilizing appropriately, with their pain controlled with PO medication. At this time, the patient has obtained the maximum benefit from the present hospital stay, and so will be discharged to [place]. DVT prophylaxis: None on discharge Mobility Restrictions: No lifting > 10 lbs or lifting overhead x 4 weeks to allow ribs to heal Incidental Findings: Cirrhosis Cholelithiasis Follow up: PCP: Follow up in 1-2 weeks post hospitalization for incidental findings and management of chronic conditions/medications Hepatology: Follow-up for new cirrhosis. You will be called with a date and time of your appointment. SGT: [facility] 2 weeks s/p rib fractures with ptx on 07/07; [address], [place] [facility] First Floor, Wing [address] [address], #[phone]. Questions or Concerns and Appointments If there are questions or concerns after discharge from the hospital, please call [phone] and ask for [facility] Nurse. Working hours are Thursday - Thursday 8:00 AM to 4:00 PM. After hours, weekends and holidays please call [phone] and ask for the resident school lunch monitor for [facility]. For appointments please call [phone]. Medication requests should be made between the hours of 9:00 AM to 3:00 PM Thursday thru Thursday. Please note that based upon recent changes to [place] law related to prescribing opioid pain medications, our providers will not provide refills on controlled medications after your hospital discharge following a major surgery or trauma. [place] 201 K[place]9:260. * Progress Notes - Gisela Armstrong - 06/11/2025 3:48 PM EDT Physical Therapy Evaluation Patient Name: Puma Weber Today's Date: 06/11/2025 PT Discharge Recommendations: Home with assistance, Pending progress (pending further gait and endurance training) Equipment Recommended: Patient owns appropriate equipment History Puma Weber is 85 y.o. male admitted 06/09/2025 for work-up of Fall from height of less than 3 feet. Problem List Active Hospital Problems Diagnosis Date Noted Urinary retention 06/11/2025 Awedj-nt-ftjfneb kidney injury ([facility]/HCC) 06/11/2025 Lung nodule 06/11/2025 Pneumothorax 06/11/2025 Cholelithiasis 06/11/2025 Cirrhosis of liver with ascites ([facility]/HCC) 06/11/2025 ABLA (acute blood loss anemia) 06/11/2025 Hyperglycemia 06/11/2025 Hyperlipidemia 06/11/2025 Electrolyte abnormality 06/11/2025 Chronic pain 06/11/2025 Fall from height of less than 3 feet 06/10/2025 Multiple fractures of ribs, left side, initial encounter for closed fracture 06/10/2025 COPD (chronic obstructive pulmonary disease) ([facility]) 06/10/2025 CAD (coronary artery disease) 06/10/2025 Severe obesity (BMI 35.0-39.9) with comorbidity ([facility]) 06/09/2025 Procedures Past Medical History Patient has a past medical history of Personal history of other diseases of the circulatory system,Personal history of other diseases of the respiratory system, Personal history of other diseases ofthe respiratory system, and Personal history of other endocrine, nutritional and metabolic disease. Past Surgical History Patient has no past surgical history on file. Precautions Medical Precautions: Fall precautions Subjective Pt agreeable to PT. States I'm going home tomorrow . Participants in Care Family/Caregiver Present: No Presentation Oxygen Therapy: Supplemental oxygen O2 Delivery Method: Venturi mask O2 Flow Rate (L/min): 1 L/min (required increase to 3L for ambulation, wears 3L with ambulation at baseline) Lines and Tubes: Intravenous access, Telemetry, Urinary catheter Pre-Session: Lines intact, Sitting in chair Pre-Session Comments: RN agreeable to therapy session. Post-Session: Sitting in chair, Call light in reach, RN notified, Lines intact Post-Session Comments: No chair alarm pad present in Pt's chair (RN reports Pt transferred from ICUin chair) - notified RN. Pt positioned for comfort. Home Living/Set-up Lives With: Spouse Home Type: House Home Adaptive Equipment: Cane, Scooter, shower chair, Rolling walker, Rollator, Other (Comment) (sleeps in lift chair) Home Layout: One level, Stairs to enter without rails Number of Stairs: 1 Bathroom: Tub/Shower: Walk-in shower Bathroom: Toilet: Tall Home Living Comments: Pt reports has had shoulder surgery and is unable to provide physical assistance. He has a neighbor and a cousin nearby that can provide some assistance as needed. Prior Level of Function Receives Help From: No assist required prior to admission Level of Mobility: Ambulatory- community (uses scooter for MD appointments only; can ambulate around grocery store per Pt report) Mobility [place]: Independent gait with device (3 point cane) History of Falls: Yes (x2 in the last week, a few in the last 6 months) ADL Performance: Independent Patient/Family Goals Return home Objective Pain Pain: Yes Pain Rating (0-10): did not give rating Pain Location: left ribs Pain Type: Acute pain Response/Interventions: increased ambulation or activity, pillow support provided, and RN notified Delirium Screening RASS: Alert and calm Confusion Assessment Method-ICU (CAM-ICU/PCAM-ICU) Feature 3: Altered Level of Consciousness: Negative Cognition Overall Cognitive Status: Within Functional Limits Arousal/Alertness: Appropriate responses to stimuli Mood/Behavior: Alert Orientation Level: Oriented X4 Single Step Commands: Consistently Multi-Step Commands: Consistently Method of Communication: Verbal (hard of hearing - wears hearing aids) Vision - Basic Assessment Baseline Vision: Glasses distance Patient Visual Report: reports macular degeneration Right Upper Extremity Examination RUE Assessment: Within Functional Limits Manual Muscle Testing - RUE: Within functional limits Sensation Light Touch: Right Upper Extremity: Intact Left Upper Extremity Examination LUE ROM Assessment LUE Assessment: (shoulder 0-120 deg limited by pain, distally WFL) Manual Muscle Testing - LUE Manual Muscle Testing - LUE: (shoulder 3-/5 limited by pain, distally at least 3+/5) Sensation Light Touch: Left Upper Extremity: Intact Right Lower Extremity Examination RLE ROM Assessment RLE Assessment: Within Functional Limits Manual Muscle Testing - RLE Manual Muscle Testing - RLE: Within functional limits Sensation Light Touch: Right Lower Extremity: Mild impairment (tingling due to neuropathy at baseline) Left Lower Extremity Examination LLE Assessment: Within Functional Limits Manual Muscle Testing: Within functional limits Sensation Light Touch: Left Lower Extremity: Mild impairment (tingling due to neuropathy at baseline) Transfers Transfer Interventions: Pt performed x1 sit<>stands from recliner. He required verbal and tactile cues for initiation, appropriate hand placement, and bilateral hip and knee extension Transfer Exam: Sit to stand Level of [place]: Contact guard Physical/Nonphysical Assist: Verbal Cues, Nonverbal cues (demo/gestures) Assistive Device: Walker, rolling Transfer Exam: Stand to Sit Level of [place]: Contact guard Physical/Nonphysical Assist: Verbal Cues, Nonverbal cues (demo/gestures) Assistive Device: Walker, rolling Balance Static Sitting Balance Static Sitting-Balance Support: Feet supported, Right upper extremity support, Left upper extremitysupport Static Sitting-Level of Assistance: Standby assist Stating Sitting - Interventions: Pt sat edge of recliner with trunk unsupported 8 minutes for improvement of upright tolerance, core and trunk strength, and sitting balance. He required verbal + tactile cues for upright posture and pursed lip breathing. Required ~2 minutes in this position post gait for recovery in order to increase SPO2 to >88%. Dynamic Sitting Balance Dynamic Sitting-Balance Support: Right upper extremity support, Left upper extremity support, Feet supported Dynamic Sitting-Balance: Lateral weight shifts, Anterior/Posterior weight shifts Level of Assistance: Standby assisst Dynamic Sitting - Interventions: Pt performed x2 weight shifts from supported to unsupported sitting in recliner, requiring verbal cues for hand placement to pull on arm rests, increased time to perform secondary to pain. Static Standing Balance Static Standing-Balance Support: Right upper extremity support, Left upper extremity support (rolling walker) Static Standing-Level of Assistance: Contact guard Static Standing - Interventions: Pt stood ~2 minutes prior to gait requiring verbal cues for upright posture and pursed lip breathing. Mild tremors noted in hands, Pt reports this is baseline for himdue to anxiety. Dynamic Standing Balance Dynamic Standing-Balance Support: Right upper extremity support, Left upper extremity support (rolling walker) Dynamic Standing Level of Assistance: Contact guard Therapeutic Activity (23 minutes) See balance and transfers for details. Educated Pt on PT plan of care, goals, and discharge recommendations. Gait Training (15 minutes) Device: Rolling walker Assistance: Contact guard assist Distance: 25ft Gait Analysis: Pt demonstrates decreased step length, decreased miah, increased work of breathing, decreased biateral foot clearance, rolling walker too far forward outside base of support, mildlyforward flexed posture. Gait Training Interventions: Rolling walker adjusted for Pt's height. Pt required verbal + tactile cues to keep walker close to base of support, verbal cues for upright posture, and for pacing and pursed lip breathing. Pt's SPO2 decreased to mid 80's requiring increase from 1 to 3L on venturi mask,~2 minutes to recover once seated. Recommended that Pt use rolling walker instead of cane upon initially returning home for improved safety and decreased fall risk. Standardized Assessments Standardized Assessments Standardized Assessments: [facility] 6-Clicks Mobility Assessment [facility] 6-Clicks Mobility Assessment Difficulty patient has turning over in bed (including adjusting bedclothes, sheets, and blankets)?:A little Difficulty patient has sitting down on and standing up from a chair with arms (wheelchair, bedside commode, etc.)?: A little Difficulty patient has moving from lying on back to sitting on the side of the bed?: A little How much help does the patient need moving to and from a bed to a chair (including a wheelchair)?: A little How much help does the patient need to walk in hospital room?: A little How much help does the patient need climbing 3-5 steps with a railing?: Unable [facility] 6-Clicks Mobility Assessment Total : 16 No data recorded Assessment Pt's overall mobility limited 2/2 below impairments. Gait distance limited to less than household distance today due to pain and fatigue with SPO2 decreasing to 85% following gait; Pt requiring increased supplemental O2 to 3L on venturi mask briefly to improve SPO2. Anticipate that PT will progresstoward safe discharge home with assistance pending further progress with PT to allow for further gait training, to improve endurance, and to improve overall safety. Impairments: Decreased endurance, ventilation, and/or gas exchange, Impaired locomotion, Impaired gait dynamics/performance, Impaired functional mobility/transfers, Impaired balance, Decreased strength, Pain, Decreased range of motion, Impaired sensation/sensory processing, Impaired hearing/auditory processing Activity Limitations: Inability to ambulate household distances, Inability to transfer independently, Inability to complete ADLs independently, Inability to ambulate independently, Inability to ambulate community distances Participation Restrictions: Self-care, Home management, Community leisure Activity Tolerance: Tolerates 10-20 minutes of activity without rest Evaluation/Treatment Tolerance: Patient limited by fatigue, Patient limited by pain Diagnosis: impaired functional mobility secondary to medical diagnosis Rehab Potential: Good, to achieve stated therapy goals Eval Complexity History Profile: 1 - 2 personal factors and/or comorbidities Clinical Presentation: Evolving clinical presentation with changing characteristics Clinical Decision Making: Moderate complexity PT Recommendations Discharge Destination: Home with assistance, Pending progress (pending further gait and endurance training) Discharge Equipment: Patient owns appropriate equipment Plan Planned PT Interventions Balance training, Bed mobility training, Gait training, Neuromuscular re- education, Transfer training, ROM, Strengthening, Stretching, Functional Mobility, Caregiver training PT Frequency 5 - 7 times per week PT Duration 2 weeks Goals PT GOAL DETAILS Time Frame PT Goal 1: Pt will transfer sit<>stand and bed<>chair SBA with LRAD as appropriate 2 weeks PT Goal 2: Pt will ambulate x100ft SBA with LRAD as appropriate 2 weeks PT Goal 3: Pt will ascend/descend x1 step SBA using LRAD as appropriate 2 weeks PT Goal 4: Pt/Pt's family will be IND with HEP, safety recommendations, and discharge recommendations. 2 weeks Written by Gisela Armstrong on 06/11/25 at 4:18 PM. * Significant Event - Ana Lilia Matthews MD - 06/11/2025 2:19 PM EDT [facility] Transfer Note Patient is being transferred from T ICU to T 5 on 06/11/25 Reason for transfer: Downgrade Level of Care Requested: Progressive Telemetry: No Pulse oximetry: Yes Hospital course: 85M PMH COPD on 3L O2, CAD on DAPT, pulm HTN, ERIC, CKD, obesity who presents afterfall from porch. Injuries include: L 3-8 rib fx with small PTX Patient Active Problem List Diagnosis Date Noted Urinary retention 06/11/2025 [id number] kidney injury (CMS/HCC) 06/11/2025 Lung nodule 06/11/2025 Pneumothorax 06/11/2025 Cholelithiasis 06/11/2025 Cirrhosis of liver with ascites (CMS/HCC) 06/11/2025 ABLA (acute blood loss anemia) 06/11/2025 Hyperglycemia 06/11/2025 Hyperlipidemia 06/11/2025 Electrolyte abnormality 06/11/2025 Chronic pain 06/11/2025 Fall from height of less than 3 feet 06/10/2025 Multiple fractures of ribs, left side, initial encounter for closed fracture 06/10/2025 COPD (chronic obstructive pulmonary disease) ([facility]) 06/10/2025 CAD (coronary artery disease) 06/10/2025 Severe obesity (BMI 35.0-39.9) with comorbidity ([facility]) 06/09/2025 Antibiotics: azithromycin sulfamethoxazole-trimethoprim Indication and duration: n/a Tubes / Lines / Drains: Urethral Catheter (Active) Peripheral IV 06/09/25 Right Antecubital (Active) Peripheral IV 06/09/25 Anterior;Left Forearm (Active) Tertiary survey date: 06/11 The Audit-C was: Completed ITSS: Deferred for prior to DC. Will need completion. I have reviewed and updated the patients Problem List to reflect current plan of care with recommendations of the most recent progress notes of consultants: I have communicated handoff with the primary receiving provider: Shameka Wen PA-C I have reviewed appropriateness for transfer at time of bed allocation: Yes Predictive Model Details 33 (Medium) Factor Value Calculated 06/11/2025 14:15 40% Age [age] years old Deterioration Index Model 34% Supplemental oxygen Supplemental oxygen 12% Potassium 4.7 mmol/L 3% Systolic 105 3% Hematocrit abnormal (34.9 %) 3% BUN abnormal (38 mg/dL) 2% Respiratory rate 17 2% WBC count 8.17 10*3/uL 1% Pulse 62 0% Pulse oximetry 98 % 0% Temperature 36.3 ??C (97.3 ??F) 0% Blood pH 7.32 0% Sodium 141 mmol/L Ana Lilia Matthews MD * Assessment & Plan Note - Ana Lilia Matthews MD - 06/11/2025 2:19 PM EDTAssociated Problem(s): Lung nodule Incidental finding on outside imaging, 8mm nodule CORY, 4mm nodule LLL Recommend outpatient follow up with multidisciplinary thoracic oncology clinic for surveillance * Assessment & Plan Note - Ana Lilia Matthews MD - 06/11/2025 2:19 PM EDTAssociated Problem(s): Pneumothorax Small L pnx, no chest tube warranted at this time * Assessment & Plan Note - Ana Lilia Matthews MD - 06/11/2025 2:19 PM EDTAssociated Problem(s): Cholelithiasis Incidental finding on outside imaging, tbili normal, NTD * Assessment & Plan Note - Ana Lilia Matthews MD - 06/11/2025 2:19 PM EDTAssociated Problem(s): Cirrhosis of liver with ascites (CMS/HCC) Cirrhotic morphology of liver * Assessment & Plan Note - Ana Lilia Matthews MD - 06/11/2025 2:19 PM EDTAssociated Problem(s): ABLA (acute blood loss anemia) Recheck hemogram and transfuse as necessary * Assessment & Plan Note - Ana Lilia Matthews MD - 06/11/2025 2:19 PM EDTAssociated Problem(s): Hyperglycemia Likely reactive to trauma, recheck and treat as necessary * Assessment & Plan Note - Ana Lilia Matthews MD - 06/11/2025 2:19 PM EDTAssociated Problem(s): Hyperlipidemia Resume home meds as appropriate * Assessment & Plan Note - Ana Lilia Matthews MD - 06/11/2025 2:19 PM EDTAssociated Problem(s): Electrolyte abnormality Hyperkalemia (POA) Replace/treat and recheck as necessary * Assessment & Plan Note - Ana Lilia Matthews MD - 06/11/2025 2:19 PM EDTAssociated Problem(s): Chronic pain Resume home meds as appropriate * Assessment & Plan Note - Ana Lilia Matthews MD - 06/11/2025 1:24 PM EDTAssociated Problem(s): Urinary retention History of BPH Self straight caths at home Rae insert overnight * Assessment & Plan Note - Ana Lilia Matthews MD - 06/11/2025 1:24 PM EDTAssociated Problem(s): [id number] kidney injury (CMS/HCC) Cr ~1.67 08/2019 2.47 on arrival, now 2.57 Urine lytes pending to work up etiology * Assessment & Plan Note - Ana Lilia Matthews MD - 06/11/2025 1:24 PM EDTAssociated Problem(s): Fall from height of less than 3 feet Admit to SGT * Assessment & Plan Note - Ana Lilia Matthews MD - 06/11/2025 1:24 PM EDTAssociated Problem(s): Multiple closed fractures of ribs of left side L 3-8 [facility] RIG 10 on admission * Assessment & Plan Note - Ana Lilia Matthews MD - 06/11/2025 1:24 PM EDTAssociated Problem(s): COPD (chronic obstructive pulmonary disease) (CMS/HCC) 3L NC baseline Restart home medications * Assessment & Plan Note - Ana Lilia Matthews MD - 06/11/2025 1:24 PM EDTAssociated Problem(s): CAD (coronary artery disease) Restart home medications * Progress Notes - Ana Lilia Matthews MD - 06/11/2025 1:21 PM EDT Trauma ICU Daily Progress Note 06/11/25 Puma Weber HPI 85M PMH COPD on 3L O2, CAD on DAPT, pulm HTN, ERIC, CKD, obesity who presents after fall from porch. Injuries include: L 3-8 rib fx with small PTX Interval: GCS 15. Pain well controlled with PO regimen. Hemodynamically appropriate. On venturi mask, minimal settings, pulls 1.5L on IS. 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 Has LES on CKD. Afebrile. Edited by: Ana Lilia Matthews MD at 06/11/2025 1322 Relevant review of systems was obtained as able and is negative unless stated above in HPI. TRAUMA SURGERY TERTIARY SURVEY I performed a complete tertiary exam, reviewed patient history, lab studies and all available imaging. All traumatic or incidental findings have been documented as below: Past Medical History: Active Ambulatory Problems Diagnosis Date Noted No Active Ambulatory Problems Resolved Ambulatory Problems Diagnosis Date Noted No Resolved Ambulatory Problems Past Medical History: Diagnosis Date Personal history of other diseases of the circulatory system Personal history of other diseases of the respiratory system Personal history of other diseases of the respiratory system Personal history of other endocrine, nutritional and metabolic disease Past Surgical History: Surgical History[1] Home Medications: Prior to Admission medications Medication Sig Start Date End Date Taking? Authorizing Provider aspirin 81 MG EC tablet Take 1 tablet by mouth daily. Yes Provider, Historical atorvastatin (Lipitor) 40 MG tablet Take 1 tablet by mouth daily. Yes Provider, Historical azithromycin (Zithromax) 250 MG tablet Take 1 tablet by mouth daily. TAKE ONE TABLET BY MOUTH EVERYTHURSDAY, THURSDAY AND THURSDAY Yes Provider, Historical bumetanide (Bumex) 1 MG tablet Take 1 tablet by mouth daily. Yes Provider, Historical clopidogrel (Plavix) 75 MG tablet Take 1 tablet by mouth daily. Yes Provider, Historical Multiple Vitamins-Minerals (CENTRUM SILVER PO) Take by mouth. Yes Provider, Historical pregabalin (Lyrica) 25 MG capsule Take 1 capsule by mouth 4 times a day. Yes Provider, Historical propafenone (Rythmol) 150 MG tablet Take 1 tablet by mouth every 12 hours. Yes Provider, Historical tamsulosin (Flomax) 0.4 MG 24 hr capsule Take 1 capsule by mouth 2 times a day. Yes Provider, Historical terazosin (Hytrin) 2 MG capsule Take 1 capsule by mouth nightly. Yes Provider, Historical zolpidem (Ambien) 10 MG tablet Take 1 tablet by mouth nightly. Yes Provider, Historical levalbuterol (Xopenex) 45 MCG/ACT inhaler Inhale 1-2 puffs every 6 hours as needed for wheezing or shortness of breath. Provider, Historical sulfamethoxazole-trimethoprim (Bactrim DS) 800-160 MG tablet Take 1 tablet by mouth 2 times a day. Provider, Historical Social History: Pt has reports that he has quit smoking. He does not have any smokeless tobacco history on file. Hereports current alcohol use. He reports current drug use. (details as available below) Social History Substance and Sexual Activity Alcohol Use Yes Social History Substance and Sexual Activity Drug Use Yes Comment: Drug use: Drug use Tobacco Use History[2] Audit-C for Alcohol Misuse Screening Lab Results Component Value Date ETOH <10 06/09/2025 Q1: How often did you have a drink containing alcohol in the past year? Never = 0 Q2: How many drinks did you have on a typical day when you were drinking in the past year? None = 0 Q3: How often did you have six or more drinks on one occasion in the past year? Never = 0 The AUDIT-C is scored on a scale of 0-12 (scores of 0 reflect no alcohol use). In men, a score of 4or more is considered positive; in women, a score of 3 or more is considered positive. Generally, the higher the AUDIT-C score, the more likely it is that the patient's drinking is affecting his/her health and safety. If screening positive (men = 4 women = 3), proceed with referral for alcohol misuse. TOTAL SCORE: 0 Brief Intervention Performed: Not indicated Referral to Treatment Made: Not indicated ITSS deferred due to patient acuity, inability to complete screening, or anticipated length of stay. ITSS to be completed when appropriate, added to 'To Do' for delayed provider screening. Tertiary exam as documented above. Radiology: reviewed no new injury note or incidental findings updated on problem list New diagnoses, need for imaging or specialty consultation identified as present on admission via tertiary survey: None Are there limits on this patient's care or advanced wishes/documents available? No Vital signs: Visit Vitals BP 105/70 Pulse 62 Temp 36.3 ??C (97.3 ??F) Resp 17 Ht 1.778 m (5' 10 ) Wt 125 kg (275 lb 9.2 oz) SpO2 98% BMI 39.54 kg/m?? Smoking Status Former BSA 2.48 m?? Intake/Output Summary (Last 24 hours) at 06/11/2025 1417 Last data filed at 06/11/2025 1200 Gross per 24 hour Intake 100 ml Output 1665 ml Net -1565 ml Physical Exam: Physical Exam Constitutional: Appearance: Normal appearance. HENT: Head: Normocephalic. Nose: Nose normal. Comments: On breathing mask Eyes: Extraocular Movements: Extraocular movements intact. Cardiovascular: Rate and Rhythm: Normal rate. Chest: Chest wall: Tenderness present. Musculoskeletal: General: Normal range of motion. Cervical back: Normal range of motion. Skin: General: Skin is warm. Capillary Refill: Capillary refill takes 2 to 3 seconds. Neurological: Mental Status: He is alert. Lines/Drains/Tubes: Patient Lines/Drains/Airways Status Active Airway None O2 Delivery Method: Venturi mask FiO2 (%): 28 % Output by Drain (mL) 06/09/25 0700 - 06/09/25 1859 06/09/25 1900 - 06/10/25 0659 06/10/25 0700 - 06/10/25 1859 06/10/25 1900 - 06/11/25 0659 06/11/25 0700 - 06/11/25 1417 Requested LDAs do not have output data documented. Labs in last 18 hours: CBC WBC 8.17 Hb 11.3 (L) Plt 230 Hct 34.9 (L) ANC ?? INR ??, PTT ??, Anti-Xa ?? BMP Na 141 Cl 104 BUN 38 (H) Glu 125 (H) K 4.7 Co2 26 Cr 2.57 (H) Ca 8.5 (L) iCa ?? Mg 2.3, Phos 3.9 Lactate ?? LFT AST ?? AlkPhos ?? T Prot ?? ALK ?? Bili ?? Alb ?? D.Bili ?? Lab Trends: H/H Results from last 7 days Lab Units 06/11/25 0116 06/09/25 2313 HEMOGLOBIN g/dL 11.3* 12.5* HEMATOCRIT % 34.9* 38.7* INR Results from last 7 days Lab Units 06/09/25 2313 INR 1.1 Cr Results from last 7 days Lab Units 06/11/25 0116 06/09/25 2313 CREATININE mg/dL 2.57* 2.47* Radiology: I have personally reviewed and interpreted the most recent CXR Medications reviewed. Vital signs reviewed. Labs reviewed. Radiography reviewed. Assessment and Plan: Assessment & Plan Fall from height of less than 3 feet Present on Admission: Yes Admit to T Multiple fractures of ribs, left side, initial encounter for closed fracture Present on Admission: Yes L 3-8 MMPC RIG 10 on admission COPD (chronic obstructive pulmonary disease) (CMS/HCC) Present on Admission: Yes 3L NC baseline Restart home medications CAD (coronary artery disease) Present on Admission: Yes Restart home medications Urinary retention Present on Admission: Yes History of BPH Self straight caths at home Rae insert overnight [id number]-nm-dohuvnq kidney injury (CMS/HCC) Present on Admission: Yes Cr ~1.67 08/2019 2.47 on arrival, now 2.57 Urine lytes pending to work up etiology Lung nodule Present on Admission: Yes Incidental finding on outside imaging, 8mm nodule CORY, 4mm nodule LLL Recommend outpatient follow up with multidisciplinary thoracic oncology clinic for surveillance Pneumothorax Present on Admission: Yes Small L pnx, no chest tube warranted at this time Cholelithiasis Present on Admission: Yes Incidental finding on outside imaging, tbili normal, NTD Cirrhosis of liver with ascites (CMS/HCC) Present on Admission: Yes Cirrhotic morphology of liver ABLA (acute blood loss anemia) Present on Admission: Yes Recheck hemogram and transfuse as necessary Hyperglycemia Present on Admission: Yes Likely reactive to trauma, recheck and treat as necessary Hyperlipidemia Present on Admission: Yes Resume home meds as appropriate Electrolyte abnormality Present on Admission: Yes Hyperkalemia (POA) Replace/treat and recheck as necessary Chronic pain Present on Admission: Yes Resume home meds as appropriate To Do: Intermittently straight caths at home O2 goals 88% IS/Pulm toilet - Duonebs [facility] Morning BMP to monitor kidney function Edited by: Ana Lilia Matthews MD at 06/11/2025 1321 Ana Lilia Matthews MD Procedures [1] No past surgical history on file. [2] Social History Tobacco Use Smoking Status Former Smokeless Tobacco Not on file Cosigned by Criss Cruz MD at 06/18/2025 3:51 PM EDT Associated attestation - Criss Cruz MD - 06/18/2025 3:51 PM EDT I saw and evaluated the patient with the resident/fellow. I discussed the case with the resident/fellow and agree with the findings and plan as documented. * Care Plan - Addie Hair RN - 06/11/2025 4:12 AM EDT Problem: Infection Goal: Absence of Infection Signs and Symptoms Outcome: Ongoing, Progressing Problem: Adult Inpatient Plan of Care Goal: Plan of Care Review Outcome: Ongoing, Progressing Flowsheets Taken 06/10/2025 0759 by Gladis Powers RN Progress: improving Taken 06/10/2025 0620 by Addie Hair RN Plan of Care Reviewed With: patient Goal: Patient-Specific Goal (Individualized) Outcome: Ongoing, Progressing Goal: Absence of Hospital-Acquired Illness or Injury Outcome: Ongoing, Progressing Intervention: Identify and Manage Fall Risk Flowsheets (Taken 06/10/2025 0800 by Gladis Powers, VONDA) Safety Promotion/Fall Prevention: clutter-free environment maintained fall prevention program maintained Intervention: Prevent Skin Injury Flowsheets (Taken 06/11/2025 0000) Body Position: turned weight shifting Intervention: Prevent and Manage VTE (Venous Thromboembolism) Risk Flowsheets (Taken 06/11/2025 0000) VTE Prevention/Management: bilateral SCDs (sequential compression devices) on Intervention: Prevent Infection Flowsheets (Taken 06/10/2025 0620) Infection Prevention: cohorting utilized Goal: Optimal Comfort and Wellbeing Outcome: Ongoing, Progressing Intervention: Monitor Pain and Promote Comfort Flowsheets (Taken 06/11/2025 0116) Pain Management Interventions: medication (see MAR) Intervention: Provide Person-Centered Care Flowsheets (Taken 06/10/2025 0620) Trust Relationship/Rapport: care explained Problem: Fall Injury Risk Goal: Absence of Fall and Fall-Related Injury Outcome: Ongoing, Progressing Intervention: Identify and Manage Contributors Flowsheets (Taken 06/10/2025 0759 by Gladis Powers, RN) Medication Review/Management: medications reviewed Self-Care Promotion: independence encouraged Intervention: Promote Injury-Free Environment Flowsheets (Taken 06/10/2025 0800 by Gladis Powers, RN) Safety Promotion/Fall Prevention: clutter-free environment maintained fall prevention program maintained * Assessment & Plan Note - Genia Vee PA - 06/10/2025 5:28 PM EDTAssociated Problem(s): Fall from height of less than 3 feet Admit to T * Assessment & Plan Note - Genia Vee PA - 06/10/2025 5:28 PM EDTAssociated Problem(s): Multiple closed fractures [facility] ribs of left side [facility] 3[facility] * Assessment & Plan Note - Genia Vee PA - 06/10/2025 5:28 PM EDTAssociated Problem(s): COPD (chronic obstructive pulmonary disease) ([facility]) 3L NC baseline Restart home medications * Assessment & Plan Note - Genia Vee PA - 06/10/2025 5:28 PM EDTAssociated Problem(s): CAD (coronary artery disease) Restart home medications * Assessment & Plan Note - Genia Vee PA - 06/10/2025 5:28 PM EDTAssociated Problem(s): UTI (urinary tract infection) (Resolved 06/11/2025) Concern on admission with keflex started, dc'd, no sx and patient I&O caths at home * Progress Notes - Genia Vee PA - 06/10/2025 5:26 PM EDT Trauma ICU Daily Progress Note 06/10/25 Puma Weber HPI Puma Weber is a 85 y/o with PMH significant for COPD on 3L O2, CAD on DAPT, pulm HTN, ERIC, CKD, obesity who presents after fall from porch. Injuries include: L 3-8 rib fx with small PTX Interval: GCS 15. Pain well controlled with PO regimen. Hemodynamically appropriate. On venturi mask, minimal settings, pulls 1.5L on IS. 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 Has LES on CKD, slightly hyperkalemic. Appropriate UOP, has urinary retention at baseline. Afebrile, on keflex for concern for UTI on admission. Edited by: Genia Vee PA at 06/10/2025 1233 Relevant review of systems was obtained as able and is negative unless stated above in HPI. Vital signs: Visit Vitals BP 114/83 (BP Location: Right arm, Patient Position: Lying) Pulse 77 Temp 37.4 ??C (99.3 ??F) (Axillary) Resp 16 Ht 1.778 m (5' 10 ) Wt 125 kg (275 lb 9.2 oz) SpO2 92% BMI 39.54 kg/m?? Smoking Status Former BSA 2.48 m?? Intake/Output Summary (Last 24 hours) at 06/10/2025 1728 Last data filed at 06/10/2025 1600 Gross per 24 hour Intake -- Output 1325 ml Net -1325 ml Physical Exam: Physical Exam Vitals and nursing note reviewed. Constitutional: General: He is not in acute distress. HENT: Mouth/Throat: Mouth: Mucous membranes are moist. Eyes: Extraocular Movements: Extraocular movements intact. Pupils: Pupils are equal, round, and reactive to light. Cardiovascular: Pulses: Normal pulses. Heart sounds: Normal heart sounds. No murmur heard. Pulmonary: Effort: Pulmonary effort is normal. No respiratory distress. Breath sounds: Normal breath sounds. No wheezing, rhonchi or rales. Comments: Venti mask Chest: Chest wall: Tenderness present. Abdominal: General: Abdomen is flat. There is no distension. Palpations: Abdomen is soft. Tenderness: There is no abdominal tenderness. Skin: General: Skin is warm and dry. Neurological: General: No focal deficit present. Mental Status: He is alert and oriented to person, place, and time. Mental status is at baseline. Psychiatric: Mood and Affect: Mood normal. Behavior: Behavior normal. Lines/Drains/Tubes: Patient Lines/Drains/Airways Status Active Airway None O2 Delivery Method: Venturi mask FiO2 (%): 28 % Output by Drain (mL) 06/08/25 0700 - 06/08/25 1859 06/08/25 1900 - 06/09/25 0659 06/09/25 0700 - 06/09/25 1859 06/09/25 1900 - 06/10/25 0659 06/10/25 0700 - 06/10/25 1728 Patient has no LDAs of requested type attached. Labs in last 18 hours: CBC WBC ?? Hb ?? Plt ?? Hct ?? ANC ?? INR ??, PTT ??, Anti-Xa ?? BMP Na ?? Cl ?? BUN ?? Glu ?? K ?? Co2 ?? Cr ?? Ca ?? iCa 4.6 Mg ??, Phos ?? Lactate ?? LFT AST ?? AlkPhos ?? T Prot ?? ALK ?? Bili ?? Alb ?? D.Bili ?? Lab Trends: H/H Results from last 7 days Lab Units 06/09/25 2313 HEMOGLOBIN g/dL 12.5* HEMATOCRIT % 38.7* INR Results from last 7 days Lab Units 06/09/25 2313 INR 1.1 Cr Results from last 7 days Lab Units 06/09/25 2313 CREATININE mg/dL 2.47* Radiology: I have personally reviewed and interpreted the most recent CXR and my interpretation is that it shows no evidence of pneumothorax. Medications reviewed. Vital signs reviewed. Labs reviewed. Radiography reviewed. Assessment and Plan: Assessment & Plan Fall from height of less than 3 feet Present on Admission: Yes Admit to T Multiple fractures of ribs, left side, initial encounter for closed fracture Present on Admission: Yes L 3-8 [facility] RIG 10 on admission COPD (chronic obstructive pulmonary disease) ([facility]) Present on Admission: Yes 3L NC baseline Restart home medications CAD (coronary artery disease) Present on Admission: Yes Restart home medications UTI (urinary tract infection) Present on Admission: Yes Concern on admission with keflex started, dc'd, no sx and patient I&O caths at home To Do: Abx started for UTI, no symptoms, discontinued Intermittently straight caths at home O2 goals 88% IS/Pulm toilet - Duonebs AM labs, CXR Regular diet, dc'd fluids [facility] Edited by: Genia Vee PA at 06/10/2025 1728 ROXANNA Donohue Procedures Cosigned by Criss Cruz MD at 06/18/2025 3:51 PM EDT Associated attestation - Criss Cruz MD - 06/18/2025 3:51 PM EDT I attest to being involved in more than half the total time in patient care. * Care Plan - Priya, Gladis A, RN - 06/10/2025 8:00 AM EDT Problem: Infection Goal: Absence of Infection Signs and Symptoms Outcome: Ongoing, Progressing Problem: Adult Inpatient Plan of Care Goal: Plan of Care Review Outcome: Ongoing, Progressing Flowsheets Taken 06/10/2025 075 by Gladis Powers RN Progress: improving Taken 06/10/2025619 by Addie Hair RN Plan of Care Reviewed With: patient Goal: Patient-Specific Goal (Individualized) Outcome: Ongoing, Progressing Flowsheets (Taken 06/10/2025 0758) Patient/Family-Specific Goals (Include Timeframe): pt. will complete IS q1 hour while awake for thenext 12 hours Individualized Care Needs: pulmonary toiler Anxieties, Fears or Concerns: hurts to cough Goal: Absence of Hospital-Acquired Illness or Injury Outcome: Ongoing, Progressing Intervention: Identify and Manage Fall Risk Flowsheets (Taken 06/10/2025619 by Addie Hair RN) Safety Promotion/Fall Prevention: activity supervised assistive device/personal items within reach Intervention: Prevent Infection Flowsheets (Taken 06/10/2025619 by Addie Hair RN) Infection Prevention: cohorting utilized Goal: Optimal Comfort and Wellbeing Outcome: Ongoing, Progressing Intervention: Monitor Pain and Promote Comfort Flowsheets (Taken 06/10/2025 06 by Addie Hair RN) Pain Management Interventions: medication (see MAR) Intervention: Provide Person-Centered Care Flowsheets (Taken 06/10/2025619 by Addie Hair RN) Trust Relationship/Rapport: care explained Problem: Fall Injury Risk Goal: Absence of Fall and Fall-Related Injury Outcome: Ongoing, Progressing Intervention: Identify and Manage Contributors Flowsheets (Taken 06/10/2025 0759) Medication Review/Management: medications reviewed Self-Care Promotion: independence encouraged Intervention: Promote Injury-Free Environment Flowsheets (Taken 06/10/2025619 by Addie Hair RN) Safety Promotion/Fall Prevention: activity supervised assistive device/personal items within reach * Assessment & Plan Note - Mark Dugan MD - 06/10/2025 7:33 AM EDT Associated Problem(s): Fall from height of less than 3 feet Admit to SGT * Assessment & Plan Note - Mark Dugan MD - 06/10/2025 7:33 AM EDT Associated Problem(s): Multiple closed fractures of ribs of left side L 3-8 MMPC RIG 10 on admission * Assessment & Plan Note - Mark Dugan MD - 06/10/2025 7:33 AM EDT Associated Problem(s): COPD (chronic obstructive pulmonary disease) ([facility]) 3L NC baseline Restart home medications * Assessment & Plan Note - Mark Dugan MD - 06/10/2025 7:33 AM EDT Associated Problem(s): CAD (coronary artery disease) Restart home medications * Assessment & Plan Note - Mark Dugan MD - 06/10/2025 7:33 AM EDT Associated Problem(s): UTI (urinary tract infection) (Resolved 06/11/2025) Start Keflex * Care Plan - Addie Hair RN - 06/10/2025 6:21 AM EDT Problem: Infection Goal: Absence of Infection Signs and Symptoms Outcome: Ongoing, Progressing Problem: Adult Inpatient Plan of Care Goal: Plan of Care Review Outcome: Ongoing, Progressing Flowsheets (Taken 06/10/2025619) Plan of Care Reviewed With: patient Goal: Patient-Specific Goal (Individualized) Outcome: Ongoing, Progressing Flowsheets (Taken 06/10/2025599) Patient/Family-Specific Goals (Include Timeframe): pts pain will be controlled throughout shift Individualized Care Needs: pain control Anxieties, Fears or Concerns: pain Goal: Absence of Hospital-Acquired Illness or Injury Outcome: Ongoing, Progressing Intervention: Identify and Manage Fall Risk Flowsheets (Taken 06/10/2025619) Safety Promotion/Fall Prevention: activity supervised assistive device/personal items within reach Intervention: Prevent Skin Injury Flowsheets (Taken 06/10/2025599) Body Position: turned right Intervention: Prevent and Manage VTE (Venous Thromboembolism) Risk Flowsheets (Taken 06/10/2025599) VTE Prevention/Management: bilateral SCDs (sequential compression devices) on Intervention: Prevent Infection Flowsheets (Taken 06/10/2025619) Infection Prevention: cohorting utilized Goal: Optimal Comfort and Wellbeing Outcome: Ongoing, Progressing Intervention: Monitor Pain and Promote Comfort Flowsheets (Taken 06/10/2025604) Pain Management Interventions: medication (see MAR) Intervention: Provide Person-Centered Care Flowsheets (Taken 06/10/2025619) Trust Relationship/Rapport: care explained * H&P - Mark Dugan MD - 06/10/2025 4:22 AM EDTAssociated Order(s): Consult to Trauma Surgery Trauma Alert? No Consult to Trauma Surgery Consult performed by: Mark Dugan MD Consult ordered by: Conner Womack DO Time of Consultation: 2:50 AM Time of Trauma Evaluation: 3:45 AM Arrival Date: 06/09/25 Arrival Time: 10:47 PM Referring Hospital: [facility] Injury Date: 06/09/25 Injury Time: 5:30 PM Transport Mode: Mode of Arrival: Ambulance Mechanism of Injury Fall Distance from standing on 30 inch patio Farm Related Injury: no Work Related Injury: no History Of Present Illness Puma Weber is a 85 y.o. male presenting with PMH of CHF, COPD on 3 L oxygen at home presents to ED for fall from standing height on 30 inch patio. Patient was walking through his yard when hebegan to lose balance and fell from his porch. He fell on his left side and hit his head on left side. Patient did not have loss of consciousness, vision, or memory around the event. He felt dazed after the fall for a few seconds but this resolved quickly. Patient was helped up and taken to home ED. He has not had headache since the fall. Patient has been feeling off-balance more frequently lately including a fall within the last week in which he was not injured and did not hit his head. Old Chart Reviewed: yes Total fluids given prior to arrival 0 ml. Loss of Consciousness: no Past Medical History He has a past medical history of Personal history of other diseases of the circulatory system, Personal history of other diseases of the respiratory system, Personal history of other diseases of the respiratory system, and Personal history of other endocrine, nutritional and metabolic disease. Pertinent for COPD, CHF, macular degeneration, neuropathy Surgical History He has no past surgical history on file. Pertinent for cataract correction Family History Family History[1] Pertinent for CHF Social History He reports that he has quit smoking. He does not have any smokeless tobacco history on file. He reports current alcohol use. He reports current drug use. Pertinent for 60 pack year history, quit 13 years ago Allergies Patient has no known allergies. Reviewed as documented above Medications Current Medications[2] Pertinent for baby Aspirin, clopidogrel, spironolactone, atorvastatin, Trelegy, albuterol, azithromycin 3x weekly, tamsulosin, bumetanide Occupational History Occupational history[3] Employer: No address on file. Pertinent for not working Immunizations reviewed VACCINE / DOSE Flu Tetanus Pneumovax Shingles Review of Systems Constitutional: Negative for appetite change, fever and unexpected weight change. HENT: Negative for trouble swallowing. Eyes: Negative for visual disturbance. Cardiovascular: Negative for chest pain and palpitations. Gastrointestinal: Positive for constipation (Occasional). Negative for blood in stool and diarrhea. Genitourinary: Positive for difficulty urinating (BPH). Negative for hematuria. Neurological: Negative for dizziness, syncope and headaches. Increasing frequency of loss of balance Physical Exam HENT: Head: Normocephalic and atraumatic. Right Ear: External ear normal. Left Ear: External ear normal. Mouth/Throat: Mouth: Mucous membranes are moist. Pharynx: Oropharynx is clear. Eyes: Extraocular Movements: Extraocular movements intact. Pupils: Pupils are equal, round, and reactive to light. Cardiovascular: Rate and Rhythm: Normal rate and regular rhythm. Pulses: Normal pulses. Pulmonary: Breath sounds: No rhonchi. Comments: Slightly diminished breath sounds on left side. Pleuritic pain limited resp exam Chest: Chest wall: Tenderness: Severe pain on lateral left ribs to light palpation and movement. Negative for external bruising of ribs. Musculoskeletal: Right lower leg: Edema (3+ pretibial edema bilaterally) present. Left lower leg: Edema present. Skin: Findings: Bruising: Senile purpura present on bilateral forearms. Neurological: General: No focal deficit present. Mental Status: He is alert. Cranial Nerves: No cranial nerve deficit. Motor: No weakness (Left side exam limited by pain in ribs). Psychiatric: Mood and Affect: Mood normal. Thought Content: Thought content normal. Rectal exam was deferred. Last Recorded Vitals Blood pressure (!) 147/85, pulse 93, temperature 36.8 ??C (98.2 ??F), temperature source Axillary, resp. rate 17, height 1.778 m (5' 10 ), weight 125 kg (275 lb 9.2 oz), SpO2 96%. [place] Coma Scale Best Eye Response: Spontaneous Best Verbal Response: Oriented Best Motor Response: Follows commands [place] Coma Scale Score: 15 Intubated No Recent Results Labs in last 18 hours CBC WBC 13.97 (H) Hb 12.5 (L) Plt 230 Hct 38.7 (L) ANC ?? INR 1.1, PTT 23 (L), Anti-Xa ?? BMP Na 138 Cl 106 BUN 35 (H) Glu 131 (H) K 5.2 (H) Co2 21 (L) Cr 2.47 (H) Ca 8.1 (L) iCa 4.6 Mg ??, Phos ?? Lactate ?? LFT AST 30 AlkPhos 72 T Prot 6.5 ALK 19 Bili 0.4 Alb ?? D.Bili ?? Radiology FAST performed by Emergency Medicine Images personally reviewed and consistent with the following: Plain Films: left humerus, left forearm, pelvis, chest showing no acute fractures CT Scans: chest showing minor left anterior pneumothorax, cervical spine WNL Assessment & Plan Fall from height of less than 3 feet Present on Admission: Yes Admit to SGT Multiple fractures of ribs, left side, initial encounter for closed fracture Present on Admission: Yes L 3-8 MMPC RIG 10 on admission COPD (chronic obstructive pulmonary disease) ([facility]) Present on Admission: Yes 3L NC baseline Restart home medications CAD (coronary artery disease) Present on Admission: Yes Restart home medications UTI (urinary tract infection) Present on Admission: Yes Start Keflex Puma Weber is a 85 y.o. male presenting with PMH of CHF, COPD on 3 L oxygen at home presents to ED for fall from standing height on 30 inch patio with imaging showing broken left ribs and minor left pneumothorax. Patient is currently stable with severe left sided pain in his ribs with movement and deep breathing. He is also receiving 6 L of oxygen via simple face mask. Due to age >60, more than 5 rib fractures, COPD, pneumothorax, and pain >6/10, his RIG score is greater than 10 necessitating ICU admission. Patient will receive pain control and incentive spirometry to decrease pneumonia risk. Urinalysis positive for nitrites is suggestive of UTI and will be treated. Disposition: Admit to ICU Toño Gagnon, MS3 Mark Dugan MD [1] Family History Problem Relation Name Age of Onset Diabetes Mother Diabetes Father [2] Current Facility-Administered Medications Medication Dose Route Frequency Provider Last Rate Last Admin acetaminophen (Tylenol) tablet 1,000 mg 1,000 mg Oral q6h [facility] Moses Machado PA 1,000 mg at 06/10/25 0605 cephalexin (Keflex) capsule 250 mg 250 mg Oral q8h Mark Dugan MD 250 mg at 06/10/25 0645 dextrose 5 % and lactated Ringer's infusion 75 mL/hr Intravenous Continuous Moses Machado PA 75 mL/hr at 06/10/25 0541 75 mL/hr at 06/10/25 0541 heparin (porcine) injection 5,000 Units 5,000 Units Subcutaneous q8h Mark Thompson MD 5,000 Units at 06/10/25 0605 ipratropium-albuterol (Duo-Neb) 0.5-2.5 mg/3 mL nebulizer solution 3 mL 3 mL Nebulization q6h RT SantosEmiliano dominguez DO lidocaine (Lidoderm) 5 % patch 2 patch 2 patch Apply externally Daily Mark Dugan MD 2 patch at 06/10/25 06 methocarbamol (Robaxin) tablet 500 mg 500 mg Oral q8h Mark Dugan MD 500 mg at 06/10/25 0606 mupirocin (Bactroban) 2 % ointment 1 Application 1 Application Each Nostril BID Mark Dugan MD ondansetron ODT (Zofran-ODT) disintegrating tablet 4 mg 4 mg Oral q6h PRN Mark Dugan MD Or ondansetron (Zofran) injection 4 mg 4 mg Intravenous q6h PRN Mark Dugan MD oxyCODONE (Roxicodone) immediate release tablet 5 mg 5 mg Oral q4h PRN Mark Dugan MD 5 mg at 06/10/25 0605 sodium chloride 0.9 % flush 10 mL 10 mL Intravenous q12h Mark Dugan MD 10 mL at 06/10/25 0606 And sodium chloride 0.9 % flush 10 mL 10 mL Intravenous PRN Mark Dugan MD [3] Cosigned by Emiliano Graham DO at 06/18/2025 7:00 PM EDT Associated attestation - Emiliano Graham DO - 06/18/2025 7:00 PM EDT 0500 I saw and evaluated the patient with the resident/fellow. I discussed the case with the resident/fellow and agree with the findings and plan as documented. * Significant Event - Ez Fuller DO - 06/09/2025 10:56 PM EDT I was present at the trauma activation. I have spoken with the EM physician who is performing the evaluation. ATLS resuscitation is in process and I have assessed the need for immediate surgery, intervention and/or imaging. Ongoing workup and stabilization per EM physician. Trauma/Surgical Critical Care will be available as needed. Ez Fuller DO PGY-4 General Surgery Pager# [phone] * Consults - Silvestre Jean Baptiste - 06/09/2025 10:50 PM EDT Pastoral Care Note Ribbon Cutter responded to trauma alert. Medical team tended to patient. No family present at this time. Pastoral Care Provided For: Patient Patient Profile: Consult Reasons: Trauma alert Unable to Assess: No family present at this time, Unavailable Spiritual Assessment: Interventions: Interventions Provided: Other (Comment) (medical team with patient. no family present.) Pastoral Care Outcomes: * ED Provider Notes - Torsten Green MD - 06/09/2025 10:47 PM EDT - HPI Chief Complaint Patient presents with Trauma Alert HPI Puma Weber is a 85 y.o. male with a PMH of COPD who presents to the emergency department asa transfer from OSH for evaluation and traumatic injuries. Patient states that he was home on his porch when he fell backwards off of his porch. Patient complains of left-sided chest pain. Patient khai 2 L nasal cannula at baseline. Upon time of initial transfer patient was placed on a non-rebreather. Patient was able to rapidly de-escalated to 6 L nasal cannula in the trauma [place]. E fast was significant for a lung point in the left lung and positive lung sliding on the right. Abdominal fast was indeterminate. There was no pericardial free fluid. Patient denies any acute complaints at this time other than left-sided rib pain. Patient History Past Medical History[1] Surgical History[2] Family History[3] Social History[4] Allergies: Allergies[5] Physical Exam ED Triage Vitals Temp Heart Rate Resp BP 06/09/25 2251 06/09/25 2250 06/09/25 2250 06/09/25 2249 36.9 ??C (98.4 ??F) 103 24 (!) 149/91 SpO2 Temp src Heart Rate Source Patient Position 06/09/25 7077 -- -- -- (!) 78 % BP Location FiO2 (%) -- -- Physical Exam Vitals reviewed. Constitutional: General: He is awake. He is not in acute distress. Appearance: Normal appearance. He is not ill-appearing or toxic-appearing. HENT: Head: Normocephalic and atraumatic. Mouth/Throat: Mouth: Mucous membranes are moist. Dentition: Normal dentition. Pharynx: Oropharynx is clear. No oropharyngeal exudate or posterior oropharyngeal erythema. Eyes: Extraocular Movements: Extraocular movements intact. Pupils: Pupils are equal, round, and reactive to light. Cardiovascular: Rate and Rhythm: Normal rate and regular rhythm. Pulses: Radial pulses are 2+ on the right side and 2+ on the left side. Dorsalis pedis pulses are 2+ on the right side and 2+ on the left side. Heart sounds: No murmur heard. No friction rub. No gallop. Pulmonary: Effort: Pulmonary effort is normal. No respiratory distress. Breath sounds: Normal breath sounds. Abdominal: General: Bowel sounds are normal. There is no distension. Palpations: Abdomen is soft. Tenderness: There is no abdominal tenderness. Musculoskeletal: Right lower leg: No edema. Left lower leg: No edema. Comments: Left-sided chest wall tenderness to palpation Lymphadenopathy: Cervical: No cervical adenopathy. Skin: General: Skin is warm and dry. Coloration: Skin is not pale. Neurological: Mental Status: He is alert and oriented to person, place, and time. Motor: Motor function is intact. No weakness. Gait: Gait is intact. EASI ?? Total Score: 0 [place] Coma Scale Score: 15 Mini Nutritional Screening Score : 14 TRST Assessment Total: 1 ED Course & MDM - Assessment: 85 y.o. male presents to ED with complaint of left-sided rib fractures and trace left apical pneumothorax. It should be noted that the chronic conditions includes COPD, which currently is not at goaltherapy. This complicates the clinical picture because it Comorbidities: may be exacerbating symptoms, increases the amount and complexity of data to be reviewed, and complicates the clinical workup Diagnosis: Left 6th through 8th rib fractures, left-sided pneumothorax In order to fully explore the differential diagnosis the following treatments and tests were ordered: All Other Orders Ordered Status Ordering Provider 06/10/25 0129 Straight cath if unable to void Once Acknowledged GREEN, TORSTEN S 06/09/25 2307 Vital Signs Every 1 hour Acknowledged GREEN, TORSTEN S 06/09/25 2307 Neuro checks Every 1 hour Acknowledged GREEN, TORSTEN S 06/09/25 2345 Blood gas, venous STAT Final result GREEN, TORSTEN S 06/09/25 2307 2 Large Bore IV's Continuous Comments: 2 Large Bore IV's Acknowledged GREEN, TORSTEN S 06/09/25 2307 Dealership General Manager Until discontinued Acknowledged GREEN, TORSTEN S 06/09/25 230 Continuous Pulse Oximetry Until discontinued Acknowledged GREEN, TORSTEN S 06/09/25 230 Oxygen Therapy - Device: Nasal Cannula Continuous Order ID Start Status Ordering Provider [id number] 06/09/25 230 Acknowledged GREEN, TORSTEN S [id number] 06/10/25 0800 Acknowledged GREEN, TORSTEN S [id number] 06/10/251999 Acknowledged GREEN, TORSTEN S 06/11/25 0800 Scheduled GREEN, TORSTEN S 06/11/251999 Scheduled GREEN, TORSTEN S 06/12/25 0800 Scheduled GREEN, TORSTEN S 06/12/251999 Scheduled GREEN, TORSTEN S 06/13/25 0800 Scheduled GREEN, TORSTEN S 06/13/251999 Scheduled GREEN, TORSTEN S 06/14/25 0800 Scheduled GREEN, TORSTEN S 06/14/251999 Scheduled GREEN, TORSTEN S 06/15/25 0800 Scheduled GREEN, TORSTEN S 06/15/251999 Scheduled GREEN, TORSTEN S 06/16/25 0800 Scheduled GREEN, TORSTEN S 06/16/251999 Scheduled GREEN, TORSTEN S 06/17/25 0800 Scheduled GREEN, TORSTEN S 06/17/251999 Scheduled GREEN, TORSTEN S Acknowledged GREEN, TORSTEN S 06/09/25 2307 Trauma shock panel blood gas STAT Comments: Trauma Alert Final result GREEN, TORSTEN S 06/09/25 2307 CMP STAT Comments: Trauma Alert Final result GREEN, TORSTEN S 06/09/252306 CBC w/o diff STAT Comments: Trauma Alert Final result TORSTEN GREEN 06/09/252306 PT-INR STAT Comments: Trauma Alert Final result TORSTEN GREEN 06/09/252306 APTT (PTT) STAT Comments: Trauma Alert Final result TORSTEN GREEN 06/09/252306 Ethyl Alcohol Plasma STAT Comments: Trauma Alert Final result TORSTEN GREEN 06/09/252306 Drug Abuse Screen, Urine STAT Comments: Trauma Alert Acknowledged TORSTEN GREEN 06/09/252306 Urinalysis with reflex microscopic (Culture NOT Included) STAT Comments: Trauma Alert Acknowledged TORSTEN GREEN 06/09/252306 Type and Screen Start now Comments: Trauma Alert Final result TORSTEN GREEN 06/09/252306 XR Chest 1 View One time imaging Comments: Trauma Alert, bedside exam Final result TORSTEN GREEN 06/09/252306 XR Pelvis 1 or 2 Views Once Final result TORSTEN GREEN 06/09/252306 Prepare/Release Uncrossmatched Blood Once Comments: I have ordered the release and transfusion of the blood products including the red cells,plasma, platelets and cryo during the medical emergency circumstance. IN THE EVENT uncrossmatched blood is transfused, I am certifying that the clinical situation was sufficiently urgent to require the release/transfusion of blood before completion of compatibility testing. I understand that the possibility of a hemolytic reaction or other untoward event exists with incomplete transfusion workup. Acknowledged TORSTEN GREEN 06/09/252306 Trauma Alert Notification Once Completed TORSTEN GREEN ED Course: Upon initial evaluation, patient is in no acute distress, hemodynamically stable, non tachycardic, satting 98% on a non-rebreather, with no focal neurologic deficits. Cardiopulmonary exam is benign. Patient was rapidly deescalated to 6 L nasal cannula. Patient's baseline is 2 L nasal cannula. There was no abdominal tenderness to palpation. Patient has a notable skin tear in his left upper extremity and left lower extremity. Review of OSH imaging was significant for left 6th through 8th rib fractures on CT chest, no intracranial hemorrhage on CT head without, and no cervical spinal fractures on CT C-spine. Patient does have a trace left apical pneumothorax. Given patient's age, greater than 5 rib fractures, history of COPD, and presence of a trace pneumothorax, patient has a RIG score of 10 and will require ICU admission to the trauma surgery service. Patient's initial trauma shock panelwas significant for and gas of 7.22. Repeat VBG after deescalating oxygen therapy showed some improvement with a pH of 7.29 and a pCO2 of 60. Repeat VBG is pending at this time. Patient has been titrated down to his home FiO2 of 28% on a Ventimask which is equivalent to 2 L nasal cannula. I discussed the patient's case with the trauma surgery service and they agreed to evaluate and admit the patient to their ICU. Rest of care with the trauma surgery service. Clinical Impressions as of 06/10/25 0200 Closed fracture of multiple ribs of left side, initial encounter Social Determinates of Health Risks (including Economic Stability, Education and level of understanding, Healthcare access and quality and concerning social factors): None identified on this visit Ultimately, this patient was Was admitted (Admission) The encounter diagnosis was Closed fracture of multiple ribs of left side, initial encounter.. Patient believed to require admission for the listed diagnoses. The Trauma Surgery service was consulted for admission and was agreeable to admit to ICU. ED Prescriptions None - [1] Past Medical History: Diagnosis Date Personal history of other diseases of the circulatory system History of hypertension Personal history of other diseases of the respiratory system History of chronic obstructive lung disease Personal history of other diseases of the respiratory system History of pulmonary emphysema Personal history of other endocrine, nutritional and metabolic disease History of hyperlipidemia [2] No past surgical history on file. [3] Family History Problem Relation Name Age of Onset Diabetes Mother Diabetes Father [4] Tobacco Use Smoking status: Former Substance Use Topics Alcohol use: Yes Drug use: Yes Comment: Drug use: Drug use [5] No Known Allergies Torsten Green MD Resident 06/10/25 0350 Cosigned by Azael Edmond MD at 06/10/2025 3:42 PM EDT Associated attestation - Azael Edmond MD - 06/10/2025 3:42 PM EDT I saw and evaluated the patient with the resident/fellow. I discussed the case with the resident/fellow and agree with the findings and plan as documented. * ED Triage Notes - Hima Yun RN - 06/09/2025 10:47 PM EDT Transfer from OSH. Fall from 2-3ft from porch. Unsteady gait. Denies head injury. +BT. Left-side pain. Left 3rd-8th rib fx w/tiny pneumo. NRB 15L at OSH to maintain sats >88% documented in this encounter Plan of Treatment Scheduled Referrals Name Type Priority Associated Diagnoses Orde r Schedule Discharge Ambulatory referral to Hepatology Outpatient Referral Routine Cirrhosis of liver with ascites, unspecified hepatic cirrhosis type (CMS/HCC) Expected: 06/13/2025 (Approximate), Expires: 12/15/2026 documented as of this encounter Procedures Procedure Name Priority Date/Time Associated Diagnosis Comments BASIC METABOLIC PANEL, PLASMA Routine 06/13/2025 1:39 AM EDT WOUND OSTOMY EVAL AND TREAT Routine 06/12/2025 5:40 PM EDT ECG ADULT Routine 06/12/2025 11:57 AM EDT OXYGEN THERAPY STAT 06/12/2025 8:00 AM EDT PHOSPHORUS, PLASMA Routine 06/12/2025 2: 45 AM EDT MAGNESIUM, PLASMA Routine 06/12/2025 2:4 5 AM EDT BASIC METABOLIC PANEL, PLASMA Routine 06/12/2025 2:45 AM EDT OXYGEN THERAPY STAT 06/11/2025 8:00 PM EDT SODIUM, URINE, RANDOM Routine 06/11/2025 12:33 PM EDT CREATININE, RANDOM URINE Routine 06/11/2025 12:33 PM EDT OXYGEN THERAPY STAT 06/11/2025 8:00 AM EDT XR CHEST 1 VIEW Routine 06/11/2025 4:57 AM EDT CBC W/O DIFFERENTIAL Routine 06/11/2025 1:16 AM EDT PHOSPHORUS, PLASMA Routine 06/11/2025 1 :16 AM EDT MAGNESIUM, PLASMA Routine 06/11/2025 1:1 6 AM EDT BASIC METABOLIC PANEL, PLASMA Routine 06/11/2025 1:16 AM EDT OXYGEN THERAPY STAT 06/10/2025 8:00 PM EDT OXYGEN THERAPY STAT 06/10/2025 5:28 PM EDT OXYGEN THERAPY STAT 06/10/2025 5:28 PM EDT PEP THERAPY Routine 06/10/2025 8:32 AM EDT WILD AURIS SURVEILLANCE BY PCR Routine 06/10/2025 6:02 AM EDT MULTI DRUG RESISTANCE TEST Routine 06/10/2025 6:02 AM EDT BLOOD GAS PANEL, VENOUS STAT 06/10/2025 3:55 AM EDT URINALYSIS MICROSCOPIC FOR UA REFLEX STAT 06/10/2025 1:48 AM EDT DRUG ABUSE SCREEN, URINE STAT 06/10/2025 1:48 AM EDT BENZODIAZEPINE, URINE, QUANTITATIVE STAT 06/10/2025 1:48 AM EDT URINALYSIS WITH REFLEX MICROSCOPIC STAT 06/10/2025 1:48 AM EDT BLOOD GAS PANEL, VENOUS STAT 06/10/2025 12:03 AM EDT TRAUMA SHOCK PANEL BLOOD GAS STAT 06/09/2025 11:13 PM EDT ETHYL ALCOHOL PLASMA STAT 06/09/2025 11:13 PM EDT APTT STAT 06/09/2025 11:13 PM EDT PROTHROMBIN TIME(PT) / INR STAT 06/09/2025 11:13 PM EDT CBC W/O DIFFERENTIAL STAT 06/09/2025 11:13 PM EDT TYPE AND SCREEN STAT 06/09/2025 11:13 PM EDT COMPREHENSIVE METABOLIC PANEL, PLASMA STAT 06/09/2025 11:13 PM EDT OXYGEN THERAPY STAT 06/09/2025 11:07 PM EDT XR PELVIS 1 OR 2 VIEWS STAT 10:45 PM EDT XR CHEST 1 VIEW STAT 06/09/2025 10:45 PM EDT documented in this encounter Results * (ABNORMAL) Basic metabolic panel (06/13/2025 1:39 AM EDT) Glucose, Plasma 114(H) 74 - 99 mg/dL 06/13/2025 2:30 AM EDT [facility] BUN, Plasma 36(H) 8 - 23 mg/dL 06/13/2025 2:30 AM EDT [facility] Creatinine, Plasma 2.22(H) 0.70 - 1.20 mg/dL 06/13/2025 2:30 AM EDT [facility] BUN/Creatinine Ratio 16 06/13/2025 2:30 AM EDT [facility] Sodium, Plasma 140 136 - 145 mmol/L 06/13/2025 2:30 AM EDT [facility] Potassium, Plasma 5.4(H) 3.6 - 4.9 mmol/L 06/13/2025 2:30 AM EDT [facility] Chloride, Plasma 105 97 - 107 mmol/L 06/13/2025 2:30 AM EDT [facility] CO2, Plasma 23 22 - 29 mmol/L 06/13/2025 2:30 AM EDT [facility] Anion Gap 12 6 - 16 mmol/L 06/13/2025 2:30 AM EDT [facility] Total Calcium, Plasma 8.8(L) 8.9 - 10.2 mg/dL 06/13/2025 2:30 AM EDT [facility] eGFRcr 28.5 mL/min/1.7 3m*2 06/13/2025 2:30 AM EDT [facility] Comment:Reported eGFRcr in m L/min/1.73m2 is based the CKD-EPI 2020 equation that does not use a race coefficient. Blood Venous blood specimen / Unknown Venipuncture / Unknown 06/13/2025 1:39 AM EDT 06/13/2025 1:45 AM EDT us Saadia Garcia APRN, DNP LAB BLOOD ORDERABLES Fin al Result [facility] [address] [place] [address] * ECG Adult (06/12/2025 11:57 AM EDT) EKG DIAGNOSIS CLASS Abnormal MUSE ECG Ventricular Rate 83 BPM MUSE ECG Atrial Rate 83 BPM MUSE ECG SD Interval 196 ms MUSE ECG QRSD Interval 154 ms MUSE ECG QT Interval 400 ms MUSE ECG QTC Interval 470 ms MUSE ECG P [place] 56 degrees MUSE ECG R [place] -14 degrees MUSE ECG T Wave [place] 2 degrees MUSE ECG Diagnosis Normal sinus rhythm MUSE ECG Diagnosis Right bundle branch block MUSE ECG Diagnosis Abnormal ECG MUSE ECG Diagnosis MUSE ECG Diagnosis Confirmed by Matt Sequeira ([id number]) on 06/12/2025 3:58:45 PM MUSE ECG 06/12/2025 11:5 7 AM EDT 06/12/2025 3:58 PM EDT Saadia Garcia PROP DRAWER, DNP ECG ORDERABLES Final Re sult MUSE ECG * Magnesium (06/12/2025 2:45 AM EDT) Pathologist [facility] Magnesium, Plasma 2.3 1.9 - 2.4 mg/dL 06/12/2025 3:23 AM EDT [facility] Blood Venous blood specimen / Unknown Venipuncture / Unknown 06/12/2025 2:45 AM EDT 06/12/2025 2:54 AM EDT Criss Cruz MD LAB BLOOD ORDERABLES Lyn l Result Performing Organization Address City/[facility]/ZIP Co de Phone Number [facility] [address] [place] [address] * Phosphorus (06/12/2025 2:45 AM EDT) [facility] Phosphorus, Plasma 3.0 2.5 - 4.5 mg/dL 06/12/2025 3:23 AM EDT [facility] Blood Venous blood specimen / Unknown Venipuncture / Unknown 06/12/2025 2:45 AM EDT 06/12/2025 2:54 AM EDT Criss Cruz MD LAB BLOOD ORDERABLES Lyn l Result Performing Organization Address City/[facility]/ZIP Co de Phone Number [facility] [address] [place] [address] * (ABNORMAL) Basic metabolic panel (06/12/2025 2:45 AM EDT) Glucose, Plasma 124(H) 74 - 99 mg/dL 06/12/2025 3:23 AM EDT [facility] BUN, Plasma 36(H) 8 - 23 mg/dL 06/12/2025 3:23 AM EDT [facility] Creatinine, Plasma 2.24(H) 0.70 - 1.20 mg/dL 06/12/2025 3:23 AM EDT [facility] BUN/Creatinine Ratio 16 06/12/2025 3:23 AM EDT [facility] Sodium, Plasma 140 136 - 145 mmol/L 06/12/2025 3:23 AM EDT [facility] Potassium, Plasma 5.2(H) 3.6 - 4.9 mmol/L 06/12/2025 3:23 AM EDT [facility] Chloride, Plasma 105 97 - 107 mmol/L 06/12/2025 3:23 AM EDT [facility] CO2, Plasma 23 22 - 29 mmol/L 06/12/2025 3:23 AM EDT [facility] Anion Gap 12 6 - 16 mmol/L 06/12/2025 3:23 AM EDT [facility] Total Calcium, Plasma 8.6(L) 8.9 - 10.2 mg/dL 06/12/2025 3:23 AM EDT [facility] eGFRcr 28.2 mL/min/1.7 3m*2 06/12/2025 3:23 AM EDT [facility] Comment:Reported eGFRcr in m L/min/1.73m2 is based the CKD-EPI 2020 equation that does not use a race coefficient. Blood Venous blood specimen / Unknown Venipuncture / Unknown 06/12/2025 2:45 AM EDT 06/12/2025 2:54 AM EDT us Criss Cruz MD LAB BLOOD ORDERABLES Lyn l Result [facility] [address] [place] [address] * Creatinine, urine, random (06/11/2025 12:33 PM EDT) Creatinine, Urine 81 mg/dL 06/11/2025 1:26 PM EDT [facility] Urine Urine specimen obtained by clean catch procedure / Unknown Non-blood Collection / Unknown 06/11/2025 12:33 PM EDT 06/11/2025 12:49 PM EDT us Criss Cruz MD LAB URINE ORDERABLES Lyn l Result [facility] [address] [place] [address] * Sodium, urine, random (06/11/2025 12:33 PM EDT) Sodium, Urine 22 mmol/L 06/11/2025 1:33 PM EDT [facility] Urine Urine specimen obtained by clean catch procedure / Unknown Non-blood Collection / Unknown 06/11/2025 12:33 PM EDT 06/11/2025 12:49 PM EDT us Criss Cruz MD LAB URINE ORDERABLES Lyn l Result Performing Organization Address [facility]/ZIP Co de Phone Number [facility] [address] [place] [address] * XR Chest 1 View (06/11/2025 4:57 AM EDT) Anatomical Region Laterality Modality Chest Digital Radiogra phy Impressions 06/11/2025 9:01 PM EDT No significant interval change. CRITICAL RESULT: No. COMMUNICATION: Per this written report. Drafted by Ajay Mora MD on 06/11/2025 8:59 PM Final report signed by Ajay Mora MD on 06/11/2025 9:01 PM Narrative 06/11/2025 9:01 PM EDT CLINICAL INDICATION: eval pnx TECHNIQUE: XR CHEST 1 VIEW COMPARISON: June 09, 2025. FINDINGS: Biapical pleural parenchymal scarring, background of emphysema. Mild diffuse interstitial markings bilaterally is unchanged. Cardiomediastinal silhouette is enlarged. Procedure Note Ajay Mora MD - 06/11/2025 CLINICAL INDICATION: eval pnx TECHNIQUE: XR CHEST 1 VIEW COMPARISON: June 09, 2025. FINDINGS: Biapical pleural parenchymal scarring, background of emphysema. Milddiffuse interstitial markings bilaterally is unchanged. Cardiomediastinalsilhouette is enlarged. IMPRESSION: No significant interval change. CRITICAL RESULT: No. COMMUNICATION: Per this written report. Drafted by Ajay Mora MD on 06/11/2025 8:59 PM Final report signed by Ajay Mora MD on 06/11/2025 9:01 PM us Genia MCKNIGHT IMG XR PROCEDURES Final Result * Phosphorus, Plasma (06/11/2025 1:16 AM EDT) Phosphorus, Plasma 3.9 2.5 - 4.5 mg/dL 06/11/2025 2:04 AM EDT [facility] Blood Venous blood specimen / Unknown Venipuncture / Unknown 06/11/2025 1:16 AM EDT 06/11/2025 1:30 AM EDT us Genia MCKNIGHT LAB BLOOD ORDERABLES Final Resu lt Performing Organization Address [facility]/ZIP Co de Phone Number [facility] [address] [place] [address] * Magnesium, Plasma (06/11/2025 1:16 AM EDT) Magnesium, Plasma 2.3 1.9 - 2.4 mg/dL 06/11/2025 2:04 AM EDT [facility] Blood Venous blood specimen / Unknown Venipuncture / Unknown 06/11/2025 1:16 AM EDT 06/11/2025 1:30 AM EDT us Genia MCKNIGHT LAB BLOOD ORDERABLES Final Resu lt Performing Organization Address City/[facility]/ZIP Co de Phone Number [facility] [address] [place] [address] * (ABNORMAL) Basic Metabolic Panel, Plasma (06/11/2025 1:16 AM EDT) Glucose, Plasma 125(H) 74 - 99 mg/dL 06/11/2025 2:04 AM EDT [facility] BUN, Plasma 38(H) 8 - 23 mg/dL 06/11/2025 2:04 AM EDT [facility] Creatinine, Plasma 2.57(H) 0.70 - 1.20 mg/dL 06/11/2025 2:04 AM EDT [facility] BUN/Creatinine Ratio 15 06/11/2025 2:04 AM EDT [facility] Sodium, Plasma 141 136 - 145 mmol/L 06/11/2025 2:04 AM EDT [facility] Potassium, Plasma 4.7 3.6 - 4.9 mmol/L 06/11/2025 2:04 AM EDT [facility] Chloride, Plasma 104 97 - 107 mmol/L 06/11/2025 2:04 AM EDT [facility] CO2, Plasma 26 22 - 29 mmol/L 06/11/2025 2:04 AM EDT [facility] Anion Gap 11 6 - 16 mmol/L 06/11/2025 2:04 AM EDT [facility] Total Calcium, Plasma 8.5(L) 8.9 - 10.2 mg/dL 06/11/2025 2:04 AM EDT [facility] eGFRcr 23.9 mL/min/1.7 3m*2 06/11/2025 2:04 AM EDT [facility] Comment:Reported eGFRcr in m L/min/1.73m2 is based the CKD-EPI 2020 equation that does not use a race coefficient. Blood Venous blood specimen / Unknown Venipuncture / Unknown 06/11/2025 1:16 AM EDT 06/11/2025 1:30 AM EDT us Genia MCKNIGHT LAB BLOOD ORDERABLES Final Resu lt [facility] [address] [place] [address] * (ABNORMAL) CBC W/O Differential (06/11/2025 1:16 AM EDT) WBC Count 8.17 3.70 - 10.30 10*3/uL LAB HEMATOLOGY METHOD 06/11/2025 1:37 AM EDT [facility] RBC Count 3.56(L) 4.60 - 6.10 10*6/uL LAB HEMATOLOGY METHOD 06/11/2025 1:37 AM EDT [facility] HGB 11.3(L) 13.7 - 17.5 g/dL LAB HEMATOLOGY METHOD 06/11/2025 1:37 AM EDT [facility] HCT 34.9(L) 40.0 - 51.0 % LAB HEMATOLOGY METHOD 06/11/2025 1:37 AM EDT [facility] Platelet Count 230 155 - 369 10*3/uL LAB HEMATOLOGY METHOD 06/11/2025 1:37 AM EDT [facility] MCV 98 79 - 98 fL LAB HEMATOLOGY METHOD 06/11/2025 1:37 AM EDT [facility] MCH 31.7 26.0 - 32.0 pg LAB HEMATOLOGY METHOD 06/11/2025 1:37 AM EDT [facility] MCHC 32.4 30.7 - 35.5 g/dL LAB HEMATOLOGY METHOD 06/11/2025 1:37 AM EDT [facility] RDW 15.2(H) 11.5 - 14.5 % LAB HEMATOLOGY METHOD 06/11/2025 1:37 AM EDT [facility] MPV 11.3 8.8 - 12.5 fL LAB HEMATOLOGY METHOD 06/11/2025 1:37 AM EDT [facility] nRBC 0.0 <=0.0 per 100 WBCs LAB HEMATOLOGY METHOD 06/11/2025 1:37 AM EDT [facility] Blood Venous blood specimen / Unknown Venipuncture / Unknown 06/11/2025 1:16 AM EDT 06/11/2025 1:30 AM EDT us Genia MCKNIGHT LAB BLOOD ORDERABLES Final Resu lt Performing Organization Address City/State/[facility] Co de Phone Number [facility] [address] [place] [address] * Wild auris Surveillance by PCR (06/10/2025 6:02 AM EDT) Wild auris PCR Result Not Detected Not Detected 06/12/2025 5:22 AM EDT [facility] Swab (Axilla and Groin) Non-blood Collection / Unknown 06/10/2025 6:02 AM EDT 06/10/2025 6:35 AM EDT Narrative [facility] - 06/12/2025 5:22 AM EDT This PCR assay was developed and its performance characteristics determined by [facility] as appropriate for clinical purposes. This assay has not been cleared or approved by the FDA, but is performed in a CLIA regulated laboratory that is qualified to perform high-complexity testing. [facility] MICROBIOLOGY - GENERAL ORD ERABLES Final Result Performing Organization Address [facility] de Phone Number [facility] [address] [place] [address] * Multi Drug Resistance Test (06/10/2025 6:02 AM EDT) Culture No growth at day 1 06/11/2025 7:10 AM EDT [facility] Swab (Nares and Patience Rectal) Non-blood Collection / Unknown 06/10/2025 6:02 AM EDT 06/10/2025 6:35 AM EDT Narrative [facility] - 06/11/2025 7:10 AM EDT This test was developed and its performance characteristics determined by the [facility]. Although the media is FDA-approved, it is not FDA-approved for all specimen types submitted. The FDA has determined that such clearance or approval is not necessary. This test is used for surveillance purposes. It should not be regarded as investigational or for research. The [facility] is certified under the Clinical Laboratory Improvement Amendments of 1988 (CLIA-88) as qualified to perform high complexity clinical laboratory testing. Emilianosylvie De [facility]ckB[facility] MICROBIOLOGY - GENERAL ORD ERABLES Final Result Performing Organization Address [facility] de Phone Number [facility] [address] [place] [address] * (ABNORMAL) Blood gas, venous (06/10/2025 3:55 AM EDT) pH, Venous 7.32 7.32 - 7.43 LAB HEMATOLOGY METHOD 06/10/2025 4:02 AM EDT [facility] pCO2, Venous 55 40 - 55 mmHg LAB HEMATOLOGY METHOD 06/10/2025 4:02 AM EDT [facility] pO2, Venous 30 25 - 40 mmHg LAB HEMATOLOGY METHOD 06/10/2025 4:02 AM EDT [facility] SO2, Measured, Venous 53(L) 65 - 80 % LAB HEMATOLOGY METHOD 06/10/2025 4:02 AM EDT [facility] Base Excess, Venous 1.7 -2.0 - 3.0 mmol/L LAB HEMATOLOGY METHOD 06/10/2025 4:02 AM EDT [facility] Bicarbonate, Calculated, Venous 29(H) 22 - 26 mmol/L LAB HEMATOLOGY METHOD 06/10/2025 4:02 AM EDT [facility] Hematocrit, Whole Blood 34.7(L) 40.0 - 51.0 % LAB HEMATOLOGY METHOD 06/10/2025 4:02 AM EDT [facility] Sodium, Whole Blood 139 136 - 145 mmol/L LAB HEMATOLOGY METHOD 06/10/2025 4:02 AM EDT [facility] Potassium, Whole Blood 5.2(H) 3.6 - 4.9 mmol/L LAB HEMATOLOGY METHOD 06/10/2025 4:02 AM EDT [facility] Chloride, Whole Blood 104 97 - 107 mmol/L LAB HEMATOLOGY METHOD 06/10/2025 4:02 AM EDT [facility] Glucose, Whole Blood 147(H) 74 - 99 mg/dL LAB HEMATOLOGY METHOD 06/10/2025 4:02 AM EDT [facility] Lactate, Venous, Whole Blood 0.7 0.5 - 2.2 mmol/L LAB HEMATOLOGY METHOD 06/10/2025 4:02 AM EDT [facility] Ionized Calcium, Whole Blood 4.6 4.6 - 5.1 mg/dL LAB HEMATOLOGY METHOD 06/10/2025 4:02 AM EDT [facility] Blood Venous blood specimen / Unknown Venipuncture / Unknown 06/10/2025 3:55 AM EDT 06/10/2025 4:01 AM EDT Conner Womack DO LAB BLOOD ORDERABLES Final R esult [facility] [address] [place] [address] * (ABNORMAL) Benzodiazepine Confirm Urine (06/10/2025 1:48 AM EDT) Alpha [place] Alprazolam <20 <20 ng/mL 06/13 1:31 AM EDT [facility] Alpha [place] Midazolam <20 <20 ng/mL 2024 1:31 AM EDT [facility] Alpha [place] Triazolam <20 <20 ng/mL 2024 1:31 AM EDT [facility] Alprazolam <10 <10 ng/mL 06/13/2025 1:31 AM EDT [facility] Aminoclonazepam <20 <20 ng/mL 1:31 AM EDT [facility] Clonazepam <10 <10 ng/mL 06/13/2025 1:31 AM EDT [facility] Diazepam <10 <10 ng/mL 06/13/2025 1:31 AM EDT [facility] Lorazepam <20 <20 ng/mL 06/13/2025 1:31 AM EDT [facility] Lorazepam Glucuronide <50 <50 ng/mL 06/13/2025 1:31 AM EDT [facility] Midazolam 06/13/2025 1:31 AM EDT [facility] Nordiazepam <20 <20 ng/mL 06/13/2025 1:31 AM EDT [facility] Oxazepam <20 <20 ng/mL 06/13/2025 1:31 AM EDT [facility] Oxazepam Glucuronide 640(H) <50 ng/mL 06/13/2025 1:31 AM EDT [facility] Temazepam <20 <20 ng/mL 06/13/2025 1:31 AM EDT [facility] Temazepam Glucuronide 699(H) <50 ng/mL 06/13/2025 1:31 AM EDT [facility] Triazolam 06/13/2025 1:31 AM EDT [facility] Urine Urine specimen obtained by clean catch procedure / Unknown Non-blood Collection / Unknown 06/10/2025 1:48 AM EDT 06/10/2025 1:52 AM EDT Narrative [facility] - 06/13/2025 1:31 AM EDT Drug analysis is confirmed by LC-MS/MS (LC Tandem Mass Spectrometry) on Urine specimens. This test was developed and its performance characteristics determined by [facility]. It has not been cleared or approved by the FDA. The laboratory is regulated under CLIA as qualified to perform high-complexity testing. This test is used for clinical purposes. Testing is performed at the [facility]. Azael Edmond MD LAB URINE ORDERABLES Fin al Result Performing Organization Address [facility] de Phone Number [facility] [address] [place] [id number] * Urinalysis Microscopic Examination (06/10/2025 1:48 AM EDT) Urine Urine specimen obtained by clean catch procedure / Unknown Non-blood Collection / Unknown 06/10/2025 1:48 AM EDT 06/10/2025 1:52 AM EDT Azael Edmond MD LAB URINE ORDERABLES Fin al Result Performing Organization Address [facility] de Phone Number [facility] [address] [place] [address] * (ABNORMAL) Urinalysis with reflex microscopic (Culture NOT Included) (06/10/2025 1:48 AM EDT) Color, Urine Yellow LAB URINALYSIS - AUTOMATED METHOD 06/10/2025 2:31 AM EDT [facility] Clarity, Urine Clear LAB URINALYSIS - AUTOMATED METHOD 06/10/2025 2:31 AM EDT [facility] Spec Beat[place], Urine 1.017 1.005 - 1.030 LAB URINALYSIS - AUTOMATED METHOD 06/10/2025 2:31 AM EDT [facility] pH, Urine 5.5 5.0 - 8.0 LAB URINALYSIS - AUTOMATED METHOD 06/10/2025 2:31 AM EDT [facility] Protein, Urine Negative Negative mg/dL LAB URINALYSIS - AUTOMATED METHOD 06/10/2025 2:31 AM EDT [facility] Glucose, Urine Negative Negative mg/dL LAB URINALYSIS - AUTOMATED METHOD 06/10/2025 2:31 AM EDT [facility] Ketones, Urine Negative Negative mg/dL LAB URINALYSIS - AUTOMATED METHOD 06/10/2025 2:31 AM EDT [facility] Blood, Urine Small(A) Negative LAB URINALYSIS - AUTOMATED METHOD 06/10/2025 2:31 AM EDT [facility] Bilirubin, Urine Negative Negative LAB URINALYSIS - AUTOMATED METHOD 06/10/2025 2:31 AM EDT [facility] Urobilinogen, Urine 0.2 0.2 to 1.0 mg/dL LAB URINALYSIS - AUTOMATED METHOD 06/10/2025 2:31 AM EDT [facility] Leukocytes, Urine Small(A) Negative LAB URINALYSIS - AUTOMATED METHOD 06/10/2025 2:31 AM EDT [facility] Nitrite, Urine Positive(A) Negative LAB URINALYSIS - AUTOMATED METHOD 06/10/2025 2:31 AM EDT [facility] RBC, Urine <1 0 to 3 /HPF LAB URINALYSIS - AUTOMATED METHOD 06/10/2025 2:31 AM EDT [facility] Comment:This result was prev iously suppressed from the chart. WBC, Urine 0 - 5 0 to 5 /HPF LAB URINALYSIS - AUTOMATED METHOD 06/10/2025 2:31 AM EDT [facility] Comment:This result was prev iously suppressed from the chart. Squamous Epithelial Cells 0 - 2 0 to 5 /HPF LAB URINALYSIS - AUTOMATED METHOD 06/10/2025 2:31 AM EDT [facility] Comment:This result was prev iously suppressed from the chart. Hyaline Casts 3 - 5 0 to 5 /LPF LAB URINALYSIS - AUTOMATED METHOD 06/10/2025 2:31 AM EDT [facility] Comment:This result was prev iously suppressed from the chart. Bacteria, Urine Present Negative LAB URINALYSIS - AUTOMATED METHOD 06/10/2025 2:31 AM EDT [facility] Comment:This result was prev iously suppressed from the chart. Urine Urine specimen obtained by clean catch procedure / Unknown Non-blood Collection / Unknown 06/10/2025 1:48 AM EDT 06/10/2025 1:52 AM EDT us Azael Edmond MD LAB URINE ORDERABLES Fin al Result Performing Organization Address City/[facility]/ZIP Co de Phone Number [facility] [address] [place] [address] * Drug Abuse Screen, Urine (06/10/2025 1:48 AM EDT) Amphetamine Screen Urine Negative Cutoff: 500 ng/mL 06/10/2025 2:18 AM EDT [facility] Benzodiazepines Screen Urine Presumptive positive. Confirmation by LC-MS/MS to follow. Cutoff: 200 ng/mL 06/10/2025 2:18 AM EDT [facility] Cannabinoid Screen Urine Negative Cutoff: 50 ng/mL 06/10/2025 2:18 AM EDT [facility] Cocaine Screen Urine Negative Cutoff: 300 ng/mL 06/10/2025 2:18 AM EDT [facility] Barbiturate Screen Urine Negative Cutoff: 200 ng/mL 06/10/2025 2:18 AM EDT [facility] Opiate Screen Urine Negative Cutoff: 300 ng/mL 06/10/2025 2:18 AM EDT [facility] Methadone Screen Urine Negative Cutoff: 300 ng/mL 06/10/2025 2:18 AM EDT [facility] Buprenorphine Screen Urine Negative Cutoff: 10 ng/mL 06/10/2025 2:18 AM EDT [facility] Fentanyl Screen Urine Negative Cutoff: 1 ng/mL 06/10/2025 2:18 AM EDT [facility] Oxycodone Screen Urine Negative Cutoff: 100 ng/mL 06/10/2025 2:18 AM EDT [facility] Urine Urine specimen obtained by clean catch procedure / Unknown Non-blood Collection / Unknown 06/10/2025 1:48 AM EDT 06/10/2025 1:52 AM EDT us Azael Edmond MD LAB URINE ORDERABLES Fin al Result [facility] [address] [place] [address] * (ABNORMAL) Blood gas, venous (06/10/2025 12:03 AM EDT) pH, Venous 7.29(L) 7.32 - 7.43 LAB HEMATOLOGY METHOD 06/10/2025 12:19 AM EDT [facility] pCO2, Venous 60(HH) 40 - 55 mmHg LAB HEMATOLOGY METHOD 06/10/2025 12:19 AM EDT [facility] pO2, Venous 20(L) 25 - 40 mmHg LAB HEMATOLOGY METHOD 06/10/2025 12:19 AM EDT [facility] SO2, Measured, Venous 28(L) 65 - 80 % LAB HEMATOLOGY METHOD 06/10/2025 12:19 AM EDT [facility] Base Excess, Venous 0.8 -2.0 - 3.0 mmol/L LAB HEMATOLOGY METHOD 06/10/2025 12:19 AM EDT [facility] Bicarbonate, Calculated, Venous 29(H) 22 - 26 mmol/L LAB HEMATOLOGY METHOD 06/10/2025 12:19 AM EDT [facility] Hematocrit, Whole Blood 37.8(L) 40.0 - 51.0 % LAB HEMATOLOGY METHOD 06/10/2025 12:19 AM EDT [facility] Sodium, Whole Blood 140 136 - 145 mmol/L LAB HEMATOLOGY METHOD 06/10/2025 12:19 AM EDT [facility] Potassium, Whole Blood 5.5(H) 3.6 - 4.9 mmol/L LAB HEMATOLOGY METHOD 06/10/2025 12:19 AM EDT [facility] Chloride, Whole Blood 105 97 - 107 mmol/L LAB HEMATOLOGY METHOD 06/10/2025 12:19 AM EDT [facility] Glucose, Whole Blood 139(H) 74 - 99 mg/dL LAB HEMATOLOGY METHOD 06/10/2025 12:19 AM EDT [facility] Lactate, Venous, Whole Blood 0.8 0.5 - 2.2 mmol/L LAB HEMATOLOGY METHOD 06/10/2025 12:19 AM EDT [facility] Ionized Calcium, Whole Blood 4.5(L) 4.6 - 5.1 mg/dL LAB HEMATOLOGY METHOD 06/10/2025 12:19 AM EDT [facility] Blood Venous blood specimen / Unknown Venipuncture / Unknown 06/10/2025 12:03 AM EDT 06/10/2025 12:06 AM EDT Conner Womack DO LAB BLOOD ORDERABLES Final R esult Performing Organization Address City/[facility]/ZIP Co de Phone Number [facility] [address] [place] [address] * Type and Screen (06/09/2025 11:13 PM EDT) ABO/Rh A Positive 06/09/2025 11:08 PM EDT BLOOD BANK Antibody Screen Negative 06/09/2025 11:08 PM EDT BLOOD BANK Specimen Expiration 06/12/2025 23:59 06/09/2025 11:08 PM EDT BLOOD BANK Blood Venous blood specimen / Unknown Venipuncture / Unknown 06/09/2025 11:13 PM EDT 06/09/2025 11:17 PM EDT Azael Edmond MD LAB BLOOD BANK TEST ORDE RABDAVID Final Result Performing Organization Address [facility] de Phone Number BLOOD BANK [address] [place] [address] * Ethyl Alcohol Plasma (06/09/2025 11:13 PM EDT) Ethanol Plasma <10 <10 mg/dL 06/09/2025 11:40 PM EDT [facility] Blood Venous blood specimen / Unknown Venipuncture / Unknown 06/09/2025 11:13 PM EDT 06/09/2025 11:16 PM EDT Narrative [facility] - 06/09/2025 11:40 PM EDT Enzymatic Assay: Performed on Vladimir Mauro. Azael Edmond MD LAB BLOOD ORDERABLES Fin al Result Performing Organization Address City/[facility] Co de Phone Number [facility] [address] [place] [address] * (ABNORMAL) APTT (PTT) (06/09/2025 11:13 PM EDT) aPTT 23(L) 25 - 35 sec 06/09/2025 11:32 PM EDT [facility] Blood Venous blood specimen / Unknown Venipuncture / Unknown 06/09/2025 11:13 PM EDT 06/09/2025 11:16 PM EDT Azael Edmond MD LAB BLOOD ORDERABLES Fin al Result Performing Organization Address [facility] de Phone Number [facility] [address] [place] [address] * PT-INR (06/09/2025 11:13 PM EDT) Prothrombin Time 13.9 12.0 - 14.3 sec 06/09/2025 11:31 PM EDT [facility] INR 1.1 0.9 - 1.1 06/09/2025 11:31 PM EDT [facility] Blood Venous blood specimen / Unknown Venipuncture / Unknown 06/09/2025 11:13 PM EDT 06/09/2025 11:16 PM EDT Narrative [facility] - 06/09/2025 11:31 PM EDT OPTIMAL INR RANGES FOR PATIENT ON ORAL ANTICOAGULANT THERAPY Prevention of venous thromboembolism INR 2.0 to 3.0 In patients with heart disease: Atrial fibrillation INR 2.0 to 3.0 Valvular heart disease INR 2.0 to 3.0 Tissue heart valves INR 2.0 to 3.0 Mechanical prosthetic valves INR 2.5 to 3.5 Prevention of recurrent NV INR 2.5 to 3.5 Azael Edmond MD LAB BLOOD ORDERABLES Fin al Result Performing Organization Address [facility] de Phone Number [facility] [address] [place] [address] * (ABNORMAL) CBC w/o diff (06/09/2025 11:13 PM EDT) WBC Count 13.97(H) 3.70 - 10.30 10*3/uL LAB HEMATOLOGY METHOD 06/09/2025 11:20 PM EDT [facility] RBC Count 4.00(L) 4.60 - 6.10 10*6/uL LAB HEMATOLOGY METHOD 06/09/2025 11:20 PM EDT [facility] HGB 12.5(L) 13.7 - 17.5 g/dL LAB HEMATOLOGY METHOD 06/09/2025 11:20 PM EDT [facility] HCT 38.7(L) 40.0 - 51.0 % LAB HEMATOLOGY METHOD 06/09/2025 11:20 PM EDT [facility] Platelet Count 230 155 - 369 10*3/uL LAB HEMATOLOGY METHOD 06/09/2025 11:20 PM EDT [facility] MCV 97 79 - 98 fL LAB HEMATOLOGY METHOD 06/09/2025 11:20 PM EDT [facility] MCH 31.3 26.0 - 32.0 pg LAB HEMATOLOGY METHOD 06/09/2025 11:20 PM EDT [facility] MCHC 32.3 30.7 - 35.5 g/dL LAB HEMATOLOGY METHOD 06/09/2025 11:20 PM EDT [facility] RDW 14.9(H) 11.5 - 14.5 % LAB HEMATOLOGY METHOD 06/09/2025 11:20 PM EDT [facility] MPV 11.5 8.8 - 12.5 fL LAB HEMATOLOGY METHOD 06/09/2025 11:20 PM EDT [facility] nRBC 0.0 <=0.0 per 100 WBCs LAB HEMATOLOGY METHOD 06/09/2025 11:20 PM EDT [facility] Blood Venous blood specimen / Unknown Venipuncture / Unknown 06/09/2025 11:13 PM EDT 06/09/2025 11:16 PM EDT us Azael Edmond MD LAB BLOOD ORDERABLES Fin al Result [facility] [address] [place] [address] * (ABNORMAL) CMP (06/09/2025 11:13 PM EDT) Glucose, Plasma 131(H) 74 - 99 mg/dL 06/09/2025 11:41 PM EDT [facility] BUN, Plasma 35(H) 8 - 23 mg/dL 06/09/2025 11:41 PM EDT [facility] Creatinine, Plasma 2.47(H) 0.70 - 1.20 mg/dL 06/09/2025 11:41 PM EDT [facility] BUN/Creatinine Ratio 14 06/09/2025 11:41 PM EDT [facility] Sodium, Plasma 138 136 - 145 mmol/L 06/09/2025 11:41 PM EDT [facility] Potassium, Plasma 5.2(H) 3.6 - 4.9 mmol/L 06/09/2025 11:41 PM EDT [facility] Chloride, Plasma 106 97 - 107 mmol/L 06/09/2025 11:41 PM EDT [facility] CO2, Plasma 21(L) 22 - 29 mmol/L 06/09/2025 11:41 PM EDT [facility] Anion Gap 11 6 - 16 mmol/L 06/09/2025 11:41 PM EDT [facility] Total Calcium, Plasma 8.1(L) 8.9 - 10.2 mg/dL 06/09/2025 11:41 PM EDT [facility] Total Protein 6.5 6.3 - 7.9 g/dL 06/09/2025 11:41 PM EDT [facility] Albumin, Plasma 3.8 3.5 - 5.2 g/dL 06/09/2025 11:41 PM EDT [facility] AST, Plasma 30 10 - 50 U/L 06/09/2025 11:41 PM EDT [facility] ALT, Plasma 19 10 - 50 U/L 06/09/2025 11:41 PM EDT [facility] Alkaline Phosphatase, Plasma 72 40 - 115 U/L 06/09/2025 11:41 PM EDT [facility] Total Bilirubin, Plasma 0.4 0.2 - 1.1 mg/dL 06/09/2025 11:41 PM EDT [facility] eGFRcr 25.1 mL/min/1.7 3m*2 06/09/2025 11:41 PM EDT [facility] Comment:Reported eGFRcr in m L/min/1.73m2 is based the CKD-EPI 2020 equation that does not use a race coefficient. Blood Venous blood specimen / Unknown Venipuncture / Unknown 06/09/2025 11:13 PM EDT 06/09/2025 11:16 PM EDT Azael Edmond MD LAB BLOOD ORDERABLES Fin al Result Performing Organization Address [facility] Co de Phone Number [facility] [address] [place] [address] * (ABNORMAL) Trauma shock panel blood gas (06/09/2025 11:13 PM EDT) pH, Venous 7.22(LL) 7.32 - 7.43 LAB HEMATOLOGY METHOD 06/09/2025 11:39 PM EDT [facility] Bicarbonate, Calculated, Venous 26 22 - 26 mmol/L LAB HEMATOLOGY METHOD 06/09/2025 11:39 PM EDT [facility] Base Excess, Venous -3.0(L) -2.0 - 3.0 mmol/L LAB HEMATOLOGY METHOD 06/09/2025 11:39 PM EDT [facility] Lactate, Venous, Whole Blood 1.2 0.5 - 2.2 mmol/L LAB HEMATOLOGY METHOD 06/09/2025 11:39 PM EDT [facility] Blood Venous blood specimen / Unknown Venipuncture / Unknown 06/09/2025 11:13 PM EDT 06/09/2025 11:26 PM EDT Azael Edmond MD LAB BLOOD ORDERABLES Fin al Result Performing Organization Address [facility] Co de Phone Number [facility] [address] [place] [address] * XR Pelvis 1 or 2 Views (06/09/2025 10:45 PM EDT) Anatomical Region Laterality Modality Body, Pelvis Digital Radiogra phy Impressions 06/09/2025 11:16 PM EDT No evidence of acute injury within the imaged chest or pelvis. CRITICAL RESULT: No. COMMUNICATION: Per this written report. Drafted by Ellis Lazo MD on 06/09/2025 11:15 PM Final report signed by Ellis Lazo MD on 06/09/2025 11:16 PM Narrative 06/09/2025 11:16 PM EDT CLINICAL INDICATION: Trauma Alert TECHNIQUE: Single AP view of the chest. Single view of the pelvis. COMPARISON: None. FINDINGS: Biapical pleural thickening. No acute airspace opacity.. Heart and mediastinal contours are within normal limits. No pneumothorax. No pleural effusion. Bony structures are unremarkable within the imaged chest. No pelvic fracture. Procedure Note Ellis Lazo MD - 06/09/2025 CLINICAL INDICATION: Trauma Alert TECHNIQUE: Single AP view of the chest. Single view of the pelvis. COMPARISON: None. FINDINGS: Biapical pleural thickening. No acute airspace opacity.. Heart andmediastinal contours are within normal limits. No pneumothorax. No pleuraleffusion. Bony structures are unremarkable within the imaged chest. No pelvic fracture. IMPRESSION: No evidence of acute injury within the imaged chest or pelvis. CRITICAL RESULT: No. COMMUNICATION: Per this written report. Drafted by Ellis Lazo MD on 06/09/2025 11:15 PM Final report signed by Ellis Lazo MD on 06/09/2025 11:16 PM Azael Edmond MD IMG XR PROCEDURES Final Result * XR Chest 1 View (06/09/2025 10:45 PM EDT) Anatomical Region Laterality Modality Chest Digital Radiogra phy Impressions 06/09/2025 11:16 PM EDT No evidence of acute injury within the imaged chest or pelvis. CRITICAL RESULT: No. COMMUNICATION: Per this written report. Drafted by Ellis Lazo MD on 06/09/2025 11:15 PM Final report signed by Ellis Lazo MD on 06/09/2025 11:16 PM Narrative 06/09/2025 11:16 PM EDT CLINICAL INDICATION: Trauma Alert TECHNIQUE: Single AP view of the chest. Single view of the pelvis. COMPARISON: None. FINDINGS: Biapical pleural thickening. No acute airspace opacity.. Heart and mediastinal contours are within normal limits. No pneumothorax. No pleural effusion. Bony structures are unremarkable within the imaged chest. No pelvic fracture. Procedure Note Ellis Lazo MD - 06/09/2025 CLINICAL INDICATION: Trauma Alert TECHNIQUE: Single AP view of the chest. Single view of the pelvis. COMPARISON: None. FINDINGS: Biapical pleural thickening. No acute airspace opacity.. Heart andmediastinal contours are within normal limits. No pneumothorax. No pleuraleffusion. Bony structures are unremarkable within the imaged chest. No pelvic fracture. IMPRESSION: No evidence of acute injury within the imaged chest or pelvis. CRITICAL RESULT: No. COMMUNICATION: Per this written report. Drafted by Ellis Lazo MD on 06/09/2025 11:15 PM Final report signed by Ellis Lazo MD on 06/09/2025 11:16 PM Azael Edmond MD IMG XR PROCEDURES Final Result documented in this encounter Visit Diagnoses Diagnosis Fall from height of less than 3 feet- Primary Closed fracture of multiple ribs of left side, initial encounter Cirrhosis of liver with ascites, unspecified hepatic cirrhosis type (CMS/HCC) Obesity (BMI 35.0-39.9 without comorbidity) Obesity Obesity, unspecified Multiple closed fractures of ribs of left side COPD (chronic obstructive pulmonary disease) (CMS/HCC) Chronic airway obstruction, not elsewhere classified CAD (coronary artery disease) Coronary atherosclerosis of unspecified type of vessel, [place] or graft UTI (urinary tract infection) Urinary tract infection, site not specified Urinary retention Unspecified retention of urine [id number] kidney injury (CMS/HCC) Lung nodule Other diseases of lung, not elsewhere classified Pneumothorax Cholelithiasis Calculus of gallbladder without mention of cholecystitis or obstruction Cirrhosis of liver with ascites (CMS/HCC) ABLA (acute blood loss anemia) Hyperglycemia Other abnormal glucose Hyperlipidemia Other and unspecified hyperlipidemia Electrolyte abnormality Electrolyte and fluid disorders not elsewhere classified Chronic pain Other chronic pain Delirium Other alteration of consciousness documented in this encounter Admitting Diagnoses Diagnosis Fall from height of less than 3 feet Multiple closed fractures of ribs of left side documented in this encounter Administered Medications Inactive Administered Medications - up to 3 most recent administrations Medication Order MAR Action Action Date Dose Rate Site acetaminophen (Tylenol) tablet 1,000 mg 1,000 mg, Oral, Every 6 hours scheduled, First dose (after last modification) on 06/10/25 at 0600, Until Discontinued, Routine Given 06/13/2025 6:00 PM EDT 1,000 mg Given 06/13/2025 11:00 AM EDT 1,000 mg Given 06/13/2025 6:04 AM EDT 1,000 mg aspirin chewable tablet 81 mg 81 mg, Oral, Daily, First dose on Thu06/12/25 at 1230, Until Discontinued, Routine Given 06/13/2025 8:18 AM EDT 81 mg Given 06/12/2025 11:51 AM EDT 81 mg atorvastatin (Lipitor) tablet 40 mg 40 mg, Oral, Nightly, First dose on Thu06/10/25 at 2100, Until Discontinued, Routine Given 06/12/2025 9:34 PM EDT 40 mg Given 06/11/2025 8:19 PM EDT 40 mg Given 06/10/2025 8:21 PM EDT 40 mg bisacodyl (Dulcolax) suppository 10 mg 10 mg, Rectal, Once, 1 dose, On Thu06/13/25 at 1445, Routine Given 06/13/2025 2:14 PM EDT 10 mg cephalexin (Keflex) capsule 250 mg 250 mg, Oral, Every 8 hours, 21 doses, First dose on Thu06/10/25 at 0500, Last dose on Thu06/16/25 at 2100, Routine Given 06/10/2025 6:45 AM EDT 250 mg clopidogrel (Plavix) tablet 75 mg 75 mg, Oral, Daily, First dose on Thu06/12/25 at 1230, Until Discontinued, Routine Given 06/13/2025 8:18 AM EDT 75 mg Given 06/12/2025 11:51 AM EDT 75 mg dextrose 5 % and lactated Ringer's infusion 75 mL/hr, Intravenous, Continuous, Starting on 06/10/25 at 0530, Until 06/10/25 at 0832, Routine New Bag 06/10/2025 5:41 AM EDT 75 mL/ hr 75 mL/hr docusate sodium (Colace) capsule 100 mg 100 mg, Oral, 2 times daily, First dose on 06/10/25 at 1130, Until Discontinued, Routine Given 06/12/2025 8:05 AM EDT 100 mg Given 06/11/2025 8:19 PM EDT 100 mg Given 06/11/2025 8:29 AM EDT 100 mg heparin (porcine) injection 5,000 Units 5,000 Units, Subcutaneous, Every 8 hours scheduled, First dose on Thu06/10/25 at 0600, Until Discontinued, Routine Given 06/11/2025 5:18 AM EDT 5,000 Units Left Lower Abdomen Given 06/10/2025 9:38 PM EDT 5,000 Units L eft Lower Abdomen Given 06/10/2025 2:55 PM EDT 5,000 Units R ight Lower Abdomen heparin (porcine) injection 7,500 Units 7,500 Units, Subcutaneous, Every 8 hours scheduled, First dose (after last modification) on 06/11/25 at 1400, Until Discontinued, Routine Given 06/13/2025 4:12 PM EDT 7,500 Units Left Lower Abdomen Given 06/13/2025 6:04 AM EDT 7,500 Units L eft Lower Abdomen Given 06/12/2025 9:32 PM EDT 7,500 Units L eft Lower Abdomen HYDROmorphone (Dilaudid) injection 0.5 mg 0.5 mg, Intravenous, Every 2 hour PRN, Starting on 06/11/25 at 0506, Until 06/11/25 at 1036, Routine, severe pain Given 06/11/2025 5:17 AM EDT 0.5 mg HYDROmorphone (Dilaudid) injection 0.5 mg 0.5 mg, Intravenous, Once, 1 dose, On 06/12/25 at 0330, Routine Given 06/12/2025 2:48 AM EDT 0.5 mg ipratropium-albuterol (Duo-Neb) 0.5-2.5 mg/3 mL nebulizer solution 3 mL 3 mL, Nebulization, Every 6 hours RT, First dose (after last modification) on 06/10/25 at 0900, Until Discontinued, Routine Given 06/13/2025 2:05 PM EDT 3 mL Given 06/13/2025 8:17 AM EDT 3 mL Given 06/13/2025 4:10 AM EDT 3 mL lidocaine (Lidoderm) 5 % patch 2 patch 2 patch, Apply externally, Daily, First dose on 06/10/25 at 0435, Until Discontinued, Administer over 12 Hours Medication Applied 06/13/2025 8:17 AM EDT 2 patches Back Medication Applied 06/12/2025 8:06 AM EDT 2 patches Back Medication Applied 06/11/2025 8:29 AM EDT 2 patches Chest magnesium hydroxide (Milk of Magnesia) 400 MG/5ML suspension 30 mL 30 mL, Oral, Once, 1 dose, On Thu06/13/25 at 1015, Routine Given 06/13/2025 10:58 AM EDT 30 mL melatonin tablet 6 mg 6 mg, Oral, Nightly, First dose on Thu06/12/25 at 2100, Until Discontinued, Routine Given 06/12/2025 9:32 PM EDT 6 mg methocarbamol (Robaxin) tablet 1,000 mg 1,000 mg, Oral, Every 8 hours, First dose (after last modification) on Thu06/11/25 at 1230, Until Discontinued, Routine Given 06/12/2025 5:00 AM EDT 1,000 m g Given 06/11/2025 8:19 PM EDT 1,000 mg Given 06/11/2025 12:29 PM EDT 1,000 mg methocarbamol (Robaxin) tablet 1,000 mg 1,000 mg, Oral, Every 6 hours scheduled, First dose (after last modification) on Thu06/12/25 at 1230, Until Discontinued, Routine Given 06/13/2025 6:00 PM EDT 1,000 mg Given 06/13/2025 11:00 AM EDT 1,000 mg Given 06/13/2025 6:03 AM EDT 1,000 mg methocarbamol (Robaxin) tablet 500 mg 500 mg, Oral, Every 8 hours, First dose on Thu06/10/25 at 0430, Until Discontinued, Routine Given 06/11/2025 4:27 AM EDT 500 mg Given 06/10/2025 8:20 PM EDT 500 mg Given 06/10/2025 11:59 AM EDT 500 mg mupirocin (Bactroban) 2 % ointment 1 Application Each Nostril, 2 times daily, 10 doses, First dose on Thu06/10/25 at 0900, Last dose on Thu06/14/25 at 2100, Routine Given 06/13/2025 8:18 AM EDT 1 Application Given 06/12/2025 9:32 PM EDT 1 Application Given 06/12/2025 8:07 AM EDT 1 Application ondansetron (Zofran) injection 4 mg 4 mg, Intravenous, Every 6 hours PRN, Starting on Thu06/10/25 at 0429, Until Thu06/13/25 at 2031, Routine, vomiting, nausea ondansetron ODT (Zofran-ODT) disintegrating tablet 4 mg 4 mg, Oral, Every 6 hours PRN, Starting on 06/10/25 at 0429, Until Thu06/13/25 at 2030, Routine, nausea, vomiting oxyCODONE (Roxicodone) immediate release tablet 10 mg 10 mg, Oral, Every 4 hours PRN, Starting on Thu06/12/25 at 0500, Until Thu06/13/25 at 2030, Routine, moderate pain, severe pain Given 06/13/2025 8:19 AM EDT 10 mg Given 06/13/2025 1:21 AM EDT 10 mg Given 06/12/2025 9:31 PM EDT 10 mg oxyCODONE (Roxicodone) immediate release tablet 5 mg 5 mg, Oral, Every 4 hours PRN, Starting on 06/10/25 at 0429, Until 06/11/25 at 0433, Routine, severe pain Given 06/11/2025 1:16 AM EDT 5 mg Given 06/10/2025 3:49 PM EDT 5 mg Given 06/10/2025 10:26 AM EDT 5 mg oxyCODONE (Roxicodone) immediate release tablet 5 mg 5 mg, Oral, Every 4 hours PRN, Starting on 06/11/25 at 0433, Until Thu06/11/25 at 1037, Routine, moderate pain Given 06/11/2025 8:28 AM EDT 5 mg oxyCODONE (Roxicodone) immediate release tablet 5 mg 5 mg, Oral, Every 4 hours PRN, Starting on Thu06/11/25 at 1037, Until Thu06/12/25 at 0242, Routine, moderate pain, severe pain Given 06/11/2025 11:07 PM EDT 5 mg Given 06/11/2025 5:15 PM EDT 5 mg Given 06/11/2025 12:28 PM EDT 5 mg polyethylene glycol (Miralax) packet 17 g 17 g, Oral, Daily, First dose on 06/10/25 at 1130, Until Discontinued, Routine Given 06/13/2025 8:17 AM EDT 17 g Given 06/12/2025 8:06 AM EDT 17 g Given 06/11/2025 8:29 AM EDT 17 g pregabalin (Lyrica) capsule 25 mg 25 mg, Oral, 2 times daily, First dose on Thu06/10/25 at 1515, Until Discontinued, Routine Given 06/12/2025 8:05 AM EDT 25 mg Given 06/11/2025 8:19 PM EDT 25 mg Given 06/11/2025 8:28 AM EDT 25 mg pregabalin (Lyrica) capsule 25 mg 25 mg, Oral, Every 6 hours scheduled, First dose (after last modification) on Thu06/12/25 at 1500, Until Discontinued, Routine Given 06/13/2025 6:00 PM EDT 25 mg Given 06/13/2025 11:00 AM EDT 25 mg Given 06/13/2025 6:04 AM EDT 25 mg propafenone (Rythmol) tablet 150 mg 150 mg, Oral, 2 times daily, First dose on Thu06/13/25 at 1045, Until Discontinued, Routine Given 06/13/2025 2:42 PM EDT 150 mg senna-docusate (Patience-Colace) 8.6-50 MG per tablet 1 tablet 1 tablet, Oral, Nightly, First dose on Thu06/12/25 at 2100, Until Discontinued, Routine Given 06/12/2025 9:31 PM EDT 1 tablet sodium chloride 0.9 % flush 10 mL 10 mL, Intravenous, Every 12 hours, First dose on Thu06/10/25 at 0430, Until Discontinued, Routine Given 06/13/2025 4:23 AM EDT 10 mL Given 06/12/2025 5:42 AM EDT 10 mL Given 06/11/2025 4:11 AM EDT 10 mL sodium chloride 0.9 % flush 10 mL 10 mL, Intravenous, As needed, Starting on Thu06/10/25 at 0427, Until Thu06/13/25 at 203, Routine, line care sodium zirconium cyclosilicate (Lokelma) packet 5 g 5 g, Oral, Once, 1 dose, On Thu06/13/25 at 1500, Routine Given 06/13/2025 4:57 PM EDT 5 g tamsulosin (Flomax) 24 hr capsule 0.4 mg 0.4 mg, Oral, Nightly, First dose on 06/10/25 at 1515, Until Discontinued, Routine Given 06/12/2025 9:31 PM EDT 0.4 mg Given 06/11/2025 8:19 PM EDT 0.4 mg Given 06/10/2025 8:20 PM EDT 0.4 mg terazosin (Hytrin) capsule 2 mg 2 mg, Oral, Nightly, First dose on 06/12/25 at 2100, Until Discontinued, Routine Given 06/12/2025 9:32 PM EDT 2 mg documented in this encounter Active and Recently Administered Medications Times are shown in EDT. Scheduled Medication Order 06/11/2025 06/12/2025 06/13/2025 acetaminophen (Tylenol) tablet 1,000 mg 1,000 mg, Oral, Every 6 hours scheduled, First dose (after last modification) on 06/10/25 at 0600, Until Discontinued, Routine 0020 (Not Given - Provider: Addie Hair RN - Reason: Patient/family refused)0427 (Given - Provider: Addie Hair RN)1007 (Given - Provider: Gila Garcia RN)1628 (Given - Provider: Diana Jaimes) 0000 (Given - Provider: Giovanni Brice RN)0542 (Given - Provider: Giovanni Brice RN)1151 (Given - Provider: Diana Jaimes)1706 (Given - Provider: Diana Jaimes)2357 (Given - Provider: Giovanni Brice RN) 0604 (Given - Provider: Giovanni Brice RN)1100 (Given - Provider: Diana Jaimes)1800 (Given - Provider: Diana Jaimes) aspirin chewable tablet 81 mg 81 mg, Oral, Daily, First dose on 06/12/25 at 1230, Until Discontinued, Routine 1151 (Given - Provider: Diana Jaimes) 0818 (Given - Provider: Diana Jaimes) atorvastatin (Lipitor) tablet 40 mg 40 mg, Oral, Nightly, First dose on 06/10/25 at 2100, Until Discontinued, Routine 2019 (Given - Provider: Giovanni Brice RN) 2134 (Given - Provider: Giovanni Brice RN) bisacodyl (Dulcolax) suppository 10 mg (COMPLETED) 10 mg, Rectal, Once, 1 dose, On Thu06/13/25 at 1445, Routine 1414 (Given - Provider: Diana Jaimes) clopidogrel (Plavix) tablet 75 mg 75 mg, Oral, Daily, First dose on Thu06/12/25 at 1230, Until Discontinued, Routine 1151 (Given - Provider: Diana Jaimes) 0818 (Given - Provider: Diana Jaimes) docusate sodium (Colace) capsule 100 mg (CANCELED) 100 mg, Oral, 2 times daily, First dose on Thu06/10/25 at 1130, Until Discontinued, Routine 0829 (Given - Provider: Gila Garcia RN)2019 (Given - Provider: Giovanni Brice RN) 0805 (Given - Provider: Diana Jaimes) heparin (porcine) injection 5,000 Units (CANCELED) 5,000 Units, Subcutaneous, Every 8 hours scheduled, First dose on Thu06/10/25 at 0600, Until Discontinued, Routine 0518 (Given - Provider: Addie Hair RN) heparin (porcine) injection 7,500 Units 7,500 Units, Subcutaneous, Every 8 hours scheduled, First dose (after last modification) on Thu06/11/25 at 1400, Until Discontinued, Routine 1456 (Given - Provider: Diana Jaimes)2200 (Given - Provider: Giovanni Brice RN) 0542 (Given - Provider: Giovanni Brice RN)1409 (Given - Provider: Diana Jaimes)2132 (Given - Provider: Giovanni Brice RN) 0604 (Given - Provider: Giovanni Brice RN)1612 (Given - Provider: Diana Jaimes) HYDROmorphone (Dilaudid) injection 0.5 mg (COMPLETED) 0.5 mg, Intravenous, Once, 1 dose, On Thu06/12/25 at 0330, Routine 0248 (Given - Provider: Giovanni Brice RN) ipratropium-albuterol (Duo-Neb) 0.5-2.5 mg/3 mL nebulizer solution 3 mL 3 mL, Nebulization, Every 6 hours RT, First dose (after last modification) on Thu06/10/25 at 0900, Until Discontinued, Routine 0349 (Given - Provider: Liban Cárdenas)0826 (Given - Provider: Loy Anand)1630 (Given - Provider: Gonsalo Conn)1937 (Given - Provider: Chelsea Espinoza)2100 (Canceled Entry - Provider: Chelsea Espinoza - Comment: given at b1937) 0226 (Given - Provider: Chelsea Espinoza)0904 (Given - Provider: Leslie Ibarra)1500 (Given - Provider: Leslie Ibarra - Comment: Cord on scanner too short to reach patient in chair.)2159 (Given - Provider: Ale Clements) 0410 (Given - Provider: Ale Clements)0817 (Given - Provider: Criss Head)1405 (Given - Provider: Criss Head) lidocaine (Lidoderm) 5 % patch 2 patch 2 patch, Apply externally, Daily, First dose on Thu06/10/25 at 0435, Until Discontinued, Administer over 12 Hours 0829 (Medication Applied - Provider: Gila Garcia RN)203 (Medication Removed - Provider: Giovanni Brice RN) 08 (Medication Applied - Provider: Diana Jaimes)213 (Medication Removed - Provider: Giovanni Brice RN) 0817 (Medication Applied - Provider: Diana Jaimes)183 (Due: Medication Removed - Provider: Automatic Discharge Provider - Comment: Time automatically adjusted from order being discontinued) magnesium hydroxide (Milk of Magnesia) 400 MG/5ML suspension 30 mL (COMPLETED) 30 mL, Oral, Once, 1 dose, On Thu06/13/25 at 1015, Routine 1058 (Given - Provider: Diana Jaimes) melatonin tablet 6 mg 6 mg, Oral, Nightly, First dose on Thu06/12/25 at 2100, Until Discontinued, Routine 213 (Given - Provider: Giovanni Brice RN) methocarbamol (Robaxin) tablet 1,000 mg (CANCELED) 1,000 mg, Oral, Every 8 hours, First dose (after last modification) on Thu06/11/25 at 1230, Until Discontinued, Routine 1229 (Given - Provider: Gila Garcia RN)2019 (Given - Provider: Giovanni Brice RN) 0500 (Given - Provider: Giovanni Brice RN) methocarbamol (Robaxin) tablet 1,000 mg 1,000 mg, Oral, Every 6 hours scheduled, First dose (after last modification) on Thu06/12/25 at 1230, Until Discontinued, Routine 1151 (Given - Provider: Diana Jaimes)1706 (Given - Provider: Diana Jaimes)2358 (Given - Provider: Giovanni Brice RN) 0603 (Given - Provider: Giovanni Brice RN)1100 (Given - Provider: Diana Jaimes)1800 (Given - Provider: Diana Jaimes) methocarbamol (Robaxin) tablet 500 mg (CANCELED) 500 mg, Oral, Every 8 hours, First dose on 06/10/25 at 0430, Until Discontinued, Routine 0427 (Given - Provider: Addie Hair RN) mupirocin (Bactroban) 2 % ointment 1 Application Each Nostril, 2 times daily, 10 doses, First dose on 06/10/25 at 0900, Last dose on Thu06/14/25 at 2100, Routine 0829 (Given - Provider: Gila Garcia RN)2019 (Given - Provider: Giovanni Brice RN) 0807 (Given - Provider: Diana Jaimes)2132 (Given - Provider: Giovanni Brice RN) 0818 (Given - Provider: Diana Jaimes) polyethylene glycol (Miralax) packet 17 g 17 g, Oral, Daily, First dose on 06/10/25 at 1130, Until Discontinued, Routine 0829 (Given - Provider: Gila Garcia RN) 0806 (Given - Provider: Diana Jaimes) 0817 (Given - Provider: Diana Jaimes) pregabalin (Lyrica) capsule 25 mg (CANCELED) 25 mg, Oral, 2 times daily, First dose on 06/10/25 at 1515, Until Discontinued, Routine 0828 (Given - Provider: Gila Garcia RN)2019 (Given - Provider: Giovanni Brice RN) 0805 (Given - Provider: Diana Jaimes) pregabalin (Lyrica) capsule 25 mg 25 mg, Oral, Every 6 hours scheduled, First dose (after last modification) on Thu06/12/25 at 1500, Until Discontinued, Routine 1410 (Given - Provider: Diana Jaimes)2358 (Given - Provider: Giovanni Brice RN) 0604 (Given - Provider: Giovanni Brice RN)1100 (Given - Provider: Diana Jaimes)1800 (Given - Provider: Diana Jaimes) propafenone (Rythmol) tablet 150 mg 150 mg, Oral, 2 times daily, First dose on Thu06/13/25 at 1045, Until Discontinued, Routine 1442 (Given - Provider: Ginna Florez RN) senna-docusate (Patience-Colace) 8.6-50 MG per tablet 1 tablet 1 tablet, Oral, Nightly, First dose on Thu06/12/25 at 2100, Until Discontinued, Routine 213 (Given - Provider: Giovanni Brice RN) sodium chloride 0.9 % flush 10 mL(Linked Group 1) 10 mL, Intravenous, Every 12 hours, First dose on Thu06/10/25 at 0430, Until Discontinued, Routine 0411 (Given - Provider: Addie Hair RN)1535 (Canceled Entry - Provider: Diana Jaimes) 0542 (Given - Provider: Giovanni Brice RN)1541 (Canceled Entry - Provider: Diana Jaimes) 0423 (Given - Provider: Giovanni Brice RN)1637 (Canceled Entry - Provider: Diana Jaimes) sodium zirconium cyclosilicate (Lokelma) packet 5 g (COMPLETED) 5 g, Oral, Once, 1 dose, On Thu06/13/25 at 1500, Routine 1657 (Given - Provider: Diana Jaimes) tamsulosin (Flomax) 24 hr capsule 0.4 mg 0.4 mg, Oral, Nightly, First dose on Thu06/10/25 at 1515, Until Discontinued, Routine 2018 (Given - Provider: Giovanni Brice RN) 213 (Given - Provider: Giovanni Brice RN) terazosin (Hytrin) capsule 2 mg 2 mg, Oral, Nightly, First dose on Thu06/12/25 at 2100, Until Discontinued, Routine 213 (Given - Provider: Giovanni Brice RN) PRN Medication Order 06/11/2025 06/12/2025 06/13/2025 HYDROmorphone (Dilaudid) injection 0.5 mg (CANCELED)(Linked Group 2) 0.5 mg, Intravenous, Every 2 hour PRN, Starting on 06/11/25 at 0506, Until Thu06/11/25 at 1036, Routine, severe pain 0517 (Given - Provider: Addie Hair, VONDA) ondansetron (Zofran) injection 4 mg(Linked Group 3) 4 mg, Intravenous, Every 6 hours PRN, Starting on 06/10/25 at 0429, Until Thu06/13/25 at 2031, Routine, vomiting, nausea ondansetron ODT (Zofran-ODT) disintegrating tablet 4 mg(Linked Group 3) 4 mg, Oral, Every 6 hours PRN, Starting on 06/10/25 at 0429, Until Thu06/13/25 at 203, Routine, nausea, vomiting oxyCODONE (Roxicodone) immediate release tablet 10 mg(Linked Group 4) 10 mg, Oral, Every 4 hours PRN, Starting on Thu06/12/25 at 0500, Until Thu06/13/25 at 2031, Routine, moderate pain, severe pain 0805 (Given - Provider: Diana Jaimes)1706 (Given - Provider: Diana Jaimes)2131 (Given - Provider: Giovanni Brice RN) 0121 (Given - Provider: Giovanni Brice RN)0819 (Given - Provider: Diana Jaimes) oxyCODONE (Roxicodone) immediate release tablet 5 mg (CANCELED) 5 mg, Oral, Every 4 hours PRN, Starting on 06/10/25 at 0429, Until Thu06/11/25 at 0433, Routine, severe pain 0116 (Given - Provider: Addie Hair, VONDA) oxyCODONE (Roxicodone) immediate release tablet 5 mg (CANCELED) 5 mg, Oral, Every 4 hours PRN, Starting on 06/11/25 at 0433, Until Thu06/11/25 at 1037, Routine, moderate pain 0828 (Given - Provider: Gila Garcia RN) oxyCODONE (Roxicodone) immediate release tablet 5 mg (CANCELED) 5 mg, Oral, Every 4 hours PRN, Starting on 06/11/25 at 1037, Until Thu06/12/25 at 0242, Routine, moderate pain, severe pain 1228 (Given - Provider: Gila Garcia, VONDA)1715 (Given - Provider: Diana Jaimes)2307 (Given - Provider: Giovanni Brice RN) sodium chloride 0.9 % flush 10 mL(Linked Group 1) 10 mL, Intravenous, As needed, Starting on 06/10/25 at 0427, Until Thu06/13/25 at 203, Routine, line care Linked Groups Order Group 1: Insert peripheral IV (COMPLETED) Once, On 06/10/25 at 0428, For 1 occurrence And Saline lock IV (COMPLETED) Once, On Thu06/10/25 at 042, For 1 occurrence And sodium chloride 0.9 % flush 10 mLJump to med 10 mL, Intravenous, Every 12 hours, First dose on Thu06/10/25 at 0430, Until Discontinued, Routine And sodium chloride 0.9 % flush 10 mLJump to med 10 mL, Intravenous, As needed, Starting on Thu06/10/25 at 0427, Until Thu06/13/25 at 2030, Routine, line care Group 2: HYDROmorphone (Dilaudid) injection 0.25 mg (CANCELED) 0.25 mg, Intravenous, Every 2 hour PRN, Starting on Thu06/11/25 at 0506, Until Thu06/11/25 at 1036, Routine, mild - moderate pain Or HYDROmorphone (Dilaudid) injection 0.5 mg (CANCELED)Jump to med 0.5 mg, Intravenous, Every 2 hour PRN, Starting on Thu06/11/25 at 0506, Until Thu06/11/25 at 1036, Routine, severe pain Group 3: ondansetron ODT (Zofran-ODT) disintegrating tablet 4 mgJump to med 4 mg, Oral, Every 6 hours PRN, Starting on 06/10/25 at 0429, Until Thu06/13/25 at 2030, Routine, nausea, vomiting Or ondansetron (Zofran) injection 4 mgJump to med 4 mg, Intravenous, Every 6 hours PRN, Starting on Thu06/10/25 at 0429, Until Thu06/13/25 at 2030, Routine, vomiting, nausea Group 4: oxyCODONE (Roxicodone) immediate release tablet 10 mgJump to med 10 mg, Oral, Every 4 hours PRN, Starting on Thu06/12/25 at 0500, Until Thu06/13/25 at 2030, Routine, moderate pain, severe pain documented in this encounter Additional Health Concerns Assessment Noted Time A Body Mass Index follow-up plan has been documented for the patient 06/13/2025 6:05 PM EDT documented as of this encounter Care Teams Digital Forensics Investigator Relationship Specialty Start Date End Date Stephen Velasquez MD [address] [place] [address] #1 [address] ALYSSA De Los Santos [id number] PCP - General 03/01/21 documented as of this encounter
[2025-06-24 02:18] VITALS: BP 161/90; PULSE 91; RESP 24; TEMP 36.6; O2SAT 100; BMI 36.2
--- NOTE | 2025-06-24 02:20 | XR_ITS ---
PROCEDURE INFORMATION: Exam: XR Right Tibia and Fibula Exam date and time: 06/24/2025 3:12 AM Age: 85 years old Clinical indication: Injury or trauma; Fall; Laceration; Lower leg; Right; Foreign body involvement not specified TECHNIQUE: Imaging protocol: Radiologic exam of the right tibia and fibula. Views: 2 views. COMPARISON: CR XR KNEE RT 2V 09/04/2022 11:38 AM FINDINGS: Bones/joints: Normal. Soft tissues: Air is or other lucency is seen in the soft tissues in the mid leg which may represent the patient's laceration.. IMPRESSION: No bony fracture or foreign body, lateral soft tissue changes suggestive of a laceration..
[2025-06-24] MEDS: OXYCODONE 5MG IMMEDIATE RELEASE TABLET 5 MG PO (02:30)
[2025-06-24] MEDS: LIDOCAINE 1% W/EPI 1:100,000 20ML VIAL 20 ML IM (02:32)
[2025-06-24 02:34] VITALS: BP 138/85; PULSE 94; RESP 17; TEMP 36.9; O2SAT 96
--- OUTSIDE RECORDS SUMMARY | 2025-06-24 02:50 | XMS_ITS | Clinical Summary ---
Author Organization Healthcare Address [address] [place] [address] Care Team Providers Care Van Loader Name Role Phone Stephen Velasquez MD Primary Care Provider [phone] Allergies Active Allergy Reactions Criticality Noted Date Comments Amlodipine Other - please docum ent in the comment field Low 07/27/2019 BLE edema Medications azithromycin (Zithromax) 250 MG tablet Take 1 tablet by mouth daily. TAKE ONE TABLET BY MOUTH EVERY THURSDAY, THURSDAY AND THURSDAY Active bumetanide (Bumex) 1 MG tablet Take 1 tablet by mouth daily. Active clopidogrel (Plavix) 75 MG tablet Take 1 tablet by mouth daily. Active levalbuterol (Xopenex) 45 MCG/ACT inhaler Inhale 2 puffs every 6 hours as needed for wheezing or shortness of breath. Active terazosin (Hytrin) 2 MG capsule Take 1 capsule by mouth nightly. Active zolpidem (Ambien) 10 MG tablet Take 1 tablet by mouth nightly. Active Multiple Vitamins-Minerals (CENTRUM SILVER PO) Take by mouth. Active Polysaccharide Iron Complex (ProFe) 391.3 (180 Fe) MG capsule Take 180 mg by mouth 3 times a week. Active diazePAM (Valium) 5 MG tablet Take 1 tablet by mouth every 6 hours as needed for anxiety. Active tamsulosin (Flomax) 0.4 MG 24 hr capsule Take 1 capsule by mouth nightly. 06/13/20 25 Active aspirin 81 MG chewable tablet Chew 1 tablet daily. 06/14/20 25 Active atorvastatin (Lipitor) 40 MG tablet Take 1 tablet by mouth nightly. 06/13/20 25 Active propafenone (Rythmol) 150 MG tablet Take 1 tablet by mouth 2 times a day. 06/13/20 25 Active acetaminophen (Tylenol) 500 MG tablet Take 2 tablets by mouth every 6 hours. 06/13/20 Active lidocaine (Lidoderm) 5 % patch Apply 2 patches topically daily over 12 hours. Remove & discard patch within 12 hours or as directed by . 06/14/20 Active melatonin tablet Take 2 tablets by mouth nightly. 06/13/20 Active methocarbamol (Robaxin) 500 MG tablet Take 2 tablets by mouth every 6 hours. 06/13/20 Active ondansetron ODT (Zofran-ODT) 4 MG disintegrating tablet Dissolve 1 tablet on the tongue every 6 hours as needed for nausea or vomiting. 06/13/20 Active polyethylene glycol (Miralax) 17 g packet Take 17 g by mouth daily. 06/14/20 Active senna-docusate (Patience-Colace) 8.6-50 MG tablet Take 1 tablet by mouth nightly. 06/13/20 Active pregabalin (Lyrica) 25 MG capsule Take 1 capsule by mouth every 6 hours for 3 days. 12 capsule 06/13/20 Active naloxone (Narcan) 4 mg/0.1 mL nasal spray 1. Give 1 spray in nostril for no/slow breathing or cannot wake after opioid use 2. Call 911 3. Repeat in other nostril if symptoms continue 1 each 06/13/20 Active atorvastatin (Lipitor) 40 MG tablet Take 1 tablet by mouth daily. Discontinu ed(Stop Taking at Discharge) pregabalin (Lyrica) 25 MG capsule Take 1 capsule by mouth 4 times a day. Discontinu ed(Stop Taking at Discharge) propafenone (Rythmol) 150 MG tablet Take 1 tablet by mouth every 12 hours. Discontinu ed(Stop Taking at Discharge) sulfamethoxazole-t rimethoprim (Bactrim DS) 800-160 MG tablet Take 1 tablet by mouth 2 times a day. Discontinu ed(Stop Taking at Discharge) tamsulosin (Flomax) 0.4 MG 24 hr capsule Take 1 capsule by mouth 2 times a day. Discontinu ed(Stop Taking at Discharge) aspirin 81 MG EC tablet Take 1 tablet by mouth daily. Discontinu ed(Stop Taking at Discharge) sodium zirconium cyclosilicate (Lokelma) 5 g packet Take 1 packet by mouth 1 time for 1 dose. 06/13/20 25 025 oxyCODONE (Roxicodone) 10 MG immediate release tablet Take 1 tablet by mouth every 4 hours as needed for moderate pain or severe pain for up to 3 days. 18 tablet 06/13/20 25 025 Discontinu ed(Stop Taking at Discharge) oxyCODONE (Roxicodone) 5 MG immediate release tablet Take 1 tablet by mouth every 4 hours as needed for severe pain for up to 3 days. 18 tablet 06/13/20 25 025 Active Problems Problem Noted Date Diagnosed Date Delirium 06/12/2025 Assessment & Plan (06/12/2025 10:31 AM EDT): Reorientation Early recurrent mobilization Minimize psychoactive medications Promote normal sleep-wake cycles (lights on during the day, blinds up, T.V on. Lights/T.V off at night) Providing easy access to adaptive equipment for sensory impairment (glasses/hearing aids) Encourage oral hydration Ensuring functional clocks and/or calendars are easily visualized 06/12: Added nightly melatonin Urinary retention 06/11/2025 Assessment & Plan (06/12/2025 10:31 AM EDT): History of BPH, continue flomax Self straight caths at homet -Remove rae 06/11 In/out cath PRN Assessment & Plan (06/11/2025 1:24 PM EDT): History of BPH Self straight caths at home Rae insert overnight [id number] kidney injury 06/11/2025 Assessment & Plan (06/12/2025 10:31 AM EDT): Cr ~1.67 08/2019 2.47 on arrival, now 2.57 FeNa prerenal, encourage PO hydration Improving Assessment & Plan (06/11/2025 1:24 PM EDT): Cr ~1.67 08/2019 2.47 on arrival, now 2.57 Urine lytes pending to work up etiology Lung nodule 06/11/2025 Assessment & Plan (06/12/2025 10:31 AM EDT): Incidental finding on outside imaging, 8mm nodule CORY, 4mm nodule LLL Recommend outpatient follow up with multidisciplinary thoracic oncology clinic for surveillance Assessment & Plan (06/11/2025 2:19 PM EDT): Incidental finding on outside imaging, 8mm nodule CORY, 4mm nodule LLL Recommend outpatient follow up with multidisciplinary thoracic oncology clinic for surveillance Pneumothorax 06/11/2025 Assessment & Plan (06/12/2025 10:31 AM EDT): Small L pnx, no chest tube warranted at this time Assessment & Plan (06/11/2025 2:19 PM EDT): Small L pnx, no chest tube warranted at this time Cholelithiasis 06/11/2025 Assessment & Plan (06/12/2025 10:31 AM EDT): Incidental finding on outside imaging, tbili normal, NTD Assessment & Plan (06/11/2025 2:19 PM EDT): Incidental finding on outside imaging, tbili normal, NTD Cirrhosis of liver with ascites 06/11/2025 Assessment & Plan (06/12/2025 10:31 AM EDT): Cirrhotic morphology of liver Assessment & Plan (06/11/2025 2:19 PM EDT): Cirrhotic morphology of liver ABLA (acute blood loss anemia) 06/11/2025 Assessment & Plan (06/12/2025 10:31 AM EDT): Recheck hemogram and transfuse as necessary Assessment & Plan (06/11/2025 2:19 PM EDT): Recheck hemogram and transfuse as necessary Hyperglycemia 06/11/2025 Assessment & Plan (06/12/2025 10:31 AM EDT): Likely reactive to trauma, recheck and treat as necessary Assessment & Plan (06/11/2025 2:19 PM EDT): Likely reactive to trauma, recheck and treat as necessary Hyperlipidemia 06/11/2025 Assessment & Plan (06/12/2025 10:31 AM EDT): Resume home meds as appropriate Assessment & Plan (06/11/2025 2:19 PM EDT): Resume home meds as appropriate Electrolyte abnormality 06/11/2025 Assessment & Plan (06/12/2025 10:31 AM EDT): Hyperkalemia (POA) Replace/treat and recheck as necessary Assessment & Plan (06/11/2025 2:19 PM EDT): Hyperkalemia (POA) Replace/treat and recheck as necessary Chronic pain 06/11/2025 Assessment & Plan (06/12/2025 10:31 AM EDT): Resume home meds as appropriate Assessment & Plan (06/11/2025 2:19 PM EDT): Resume home meds as appropriate Fall from height of less than 3 feet 06/10/2025 Assessment & Plan (06/12/2025 10:31 AM EDT): Admit SGT ICU [x] Tertiary and Audit-C 06/11 Assessment & Plan (06/11/2025 1:24 PM EDT): Admit to SGT Assessment & Plan (06/10/2025 5:28 PM EDT): Admit to SGT Assessment & Plan (06/10/2025 7:33 AM EDT): Admit to SGT Multiple closed fractures of ribs of left side 0 06/10/2025 Overview (06/11/2025): L 3-8 rib fx with small PTX MMPC IS/Pulm toilet - Duonebs Supplemental O2 PRN Assessment & Plan (06/12/2025 10:31 AM EDT): L 3-8 rib fx RIG 10 on admission Pulmonary hygiene/IS Assessment & Plan (06/11/2025 1:24 PM EDT): L 3-8 MMPC RIG 10 on admission Assessment & Plan (06/10/2025 5:28 PM EDT): L 3-8 MMPC RIG 10 on admission Assessment & Plan (06/10/2025 7:33 AM EDT): L 3-8 MMPC RIG 10 on admission COPD (chronic obstructive pulmonary disease) Overview (06/10/2025): Known Hx Wears 3L O2 baseline Sat goal >88% Assessment & Plan (06/12/2025 10:31 AM EDT): 3L NC baseline, on Venti mask here due to mouth breathing Restart home medications Assessment & Plan (06/11/2025 1:24 PM EDT): 3L NC baseline Restart home medications Assessment & Plan (06/10/2025 5:28 PM EDT): 3L NC baseline Restart home medications Assessment & Plan (06/10/2025 7:33 AM EDT): 3L NC baseline Restart home medications CAD (coronary artery disease) 06/10/2025 Overview (06/10/2025): DAPT Will resume when able Assessment & Plan (06/12/2025 10:31 AM EDT): Restart home medications Assessment & Plan (06/11/2025 1:24 PM EDT): Restart home medications Assessment & Plan (06/10/2025 5:28 PM EDT): Restart home medications Assessment & Plan (06/10/2025 7:33 AM EDT): Restart home medications Obesity 06/09/2025 Assessment & Plan (06/12/2025 10:31 AM EDT): Could complicate hospitalization and mobility Resolved Problems Problem Noted Date Diagnosed Date Resolved Date UTI (urinary tract infection) 06/10/2025 06/11/2025 Overview (06/10/2025): Abx started Assessment & Plan (06/10/2025 5:28 PM EDT): Concern on admission with keflex started, dc'd, no sx and patient I&O caths at home Assessment & Plan (06/10/2025 7:33 AM EDT): Start Keflex Obesity (BMI 35.0-39.9 without comorbidity) 06/09/2025 06/10/2025 Encounters Date Type Department Care Team Description 06/11/2025 Travel 06/09/2025 10:47 PM EDT - 06/13/2025 6:31 PM EDT Hospital Encounter [facility] [address] [place] [address] Azael Edmond MD Chapman, Steven B, Emiliano Hurtado, Criss Fair MD Closed fracture of multiple ribs of left side, initial encounter (Primary Dx); Cirrhosis of liver with ascites, unspecified hepatic cirrhosis type (CMS/HCC) Discharge Disposition: Jail Facility 06/09/2025 Travel 06/09/2025 Orders Only External Location [address] [place] [address] Franky Logan PA 06/09/2025 Orders Only External Location [address] [place] [id number] Franky Logan PA 06/09/2025 Orders Only External Location [address] [place] [id number] Franky Logan PA 06/09/2025 Orders Only External Location [address] [place] [address] Franky Logan PA 06/09/2025 Orders Only External Location [address] [place] [id number] Franky Logan PA 06/09/2025 Orders Only External Location [address] [place] [id number] Franky Logan PA from Last 3 Months Family History Medical History Relation Name Comments Diabetes Father Diabetes Mother Relation Name Status Comments Father Mother [...] and Family Not on file 06/12/2025 Attends [employer] Services Not on file 06/12 Active Member [...] any time in the past 12 [facility], were you homeless or living in a jail (including now)? No 06/12/2025 Utilities Answer Date [...] Mass Index 39.03 06/09/2025 11:06 PM EDT Plan of Treatment Health Maintenance Due Date Last Done Comments [facility]-Depression Screening 1940 [facility]-Medicare Annual Wellness (AWV) 1940 [facility]-Infant/Child/Adol SDOH Screenings 1940 [facility]-Hepatitis A Vaccines (1 of 2 - Risk 2-dose series) 1960 [facility]-Pneumococcal Vaccine: 50+ Years (2 of 2 - PPSV23) 10/16/2014 08/21/2014, 10/19/2010 [facility]-RSV Vaccine: 60+ Years or (1 - 1-dose 75+ series) 2016 [id number] Vaccine (2 - season) 2024 11/21/2020 [facility]-Influenza Vaccine (#1) 06/19/202508/06, 07/02/2020, 07/28/2019, Additional history exists [facility]- SDOH Screenings 12/13/2025 [facility]-Adult SDOH Screenings 12/13/2025 06/12/2025 [facility]-DTaP,Tdap,and Td Vaccines (5 - Td or Tdap) 12/07/2032 12/07/2022, 06/05/2014, 05/26/2014, Additional history exists [facility]-Zoster Vaccines Completed 07/19/2019, 9 [facility]-Obesity Intervention Completed 06/09/2025 HPV Vaccines Aged Out No longer eligi ble based on patient's age to complete this topic [facility]-HIB Vaccines Aged Out No longer e ligible based on patient's age to complete this topic [facility]-IPV Vaccines Aged Out No longer e ligible based on patient's age to complete this topic [facility]-Rotavirus Vaccines Aged Out No lo nger eligible based on patient's age to complete this topic Procedures Procedure Name Priority Date/Time Associated Diagnosis Comments BASIC METABOLIC PANEL, PLASMA Routine 06/13/2025 1:39 AM EDT WOUND OSTOMY EVAL AND TREAT Routine 06/12/2025 5:40 PM EDT ECG ADULT Routine 06/12/2025 11:57 AM EDT OXYGEN THERAPY STAT 06/12/2025 8:00 AM EDT MAGNESIUM, PLASMA Routine 06/12/2025 2:4 5 AM EDT PHOSPHORUS, PLASMA Routine 06/12/2025 2: 45 AM EDT BASIC METABOLIC PANEL, PLASMA Routine 06/12/2025 2:45 AM EDT OXYGEN THERAPY STAT 06/11/2025 8:00 PM EDT CREATININE, RANDOM URINE Routine 06/11/2025 12:33 PM EDT SODIUM, URINE, RANDOM Routine 06/11/2025 12:33 PM EDT OXYGEN THERAPY STAT 06/11/2025 8:00 AM EDT XR CHEST 1 VIEW Routine 06/11/2025 4:57 AM EDT PHOSPHORUS, PLASMA Routine 06/11/2025 1: 16 AM EDT MAGNESIUM, PLASMA Routine 06/11/2025 1:1 6 AM EDT BASIC METABOLIC PANEL, PLASMA Routine 06/11/2025 1:16 AM EDT CBC W/O DIFFERENTIAL Routine 06/11/2025 1:16 AM EDT OXYGEN THERAPY STAT 06/10/2025 8:00 PM EDT OXYGEN THERAPY STAT 06/10/2025 5:28 PM EDT OXYGEN THERAPY STAT 06/10/2025 5:28 PM EDT PEP THERAPY Routine 06/10/2025 8:32 AM EDT AMI AURIS SURVEILLANCE BY PCR Routine 06/10/2025 6:02 AM EDT MULTI DRUG RESISTANCE TEST Routine 06/10/2025 6:02 AM EDT BLOOD GAS PANEL, VENOUS STAT 06/10/2025 3:55 AM EDT BENZODIAZEPINE, URINE, QUANTITATIVE STAT 06/10/2025 1:48 AM EDT URINALYSIS MICROSCOPIC FOR UA REFLEX STAT 06/10/2025 1:48 AM EDT URINALYSIS WITH REFLEX MICROSCOPIC STAT 06/10/2025 1:48 AM EDT DRUG ABUSE SCREEN, URINE STAT 06/10/2025 1:48 AM EDT BLOOD GAS PANEL, VENOUS STAT 06/10/2025 12:03 AM EDT TYPE AND SCREEN STAT 06/09/2025 11:13 PM EDT ETHYL ALCOHOL PLASMA STAT 06/09/2025 11:13 PM EDT APTT STAT 06/09/2025 11:13 PM EDT PROTHROMBIN TIME(PT) / INR STAT 06/09/2025 11:13 PM EDT CBC W/O DIFFERENTIAL STAT 06/09/2025 11:13 PM EDT COMPREHENSIVE METABOLIC PANEL, PLASMA STAT 06/09/2025 11:13 PM EDT TRAUMA SHOCK PANEL BLOOD GAS STAT 06/09/2025 11:13 PM EDT OXYGEN THERAPY STAT 06/09/2025 11:07 PM EDT XR PELVIS 1 OR 2 VIEWS STAT 10:45 PM EDT XR CHEST 1 VIEW STAT 06/09/2025 10:45 PM EDT XR OUTSIDE IMAGES 06/09/2025 8:0 7 PM EDT XR OUTSIDE IMAGES 06/09/2025 7:1 9 PM EDT XR OUTSIDE IMAGES 06/09/2025 7:[address] OUTSIDE IMAGES 06/09/2025 7:[address] OUTSIDE IMAGES 06/09/2025 7:[address] OUTSIDE IMAGES 06/09/2025 7:1 4 PM EDT from Last 3 Months Results * (ABNORMAL) Basic metabolic panel (06/13/2025 1:39 AM EDT) Only the most recent of3 resultswithin the time period is included. Glucose, Plasma 114(H) 74 - 99 mg/dL 06/13/2025 2:30 AM EDT [facility] BUN, Plasma 36(H) 8 - 23 mg/dL 06/13/2025 2:30 AM EDT [facility] Creatinine, Plasma 2.22(H) 0.70 - 1.20 mg/dL 06/13/2025 2:30 AM EDT [facility] BUN/Creatinine Ratio 16 06/13/2025 2:30 AM EDT [facility] Sodium, Plasma 140 136 - 145 mmol/L 06/13/2025 2:30 AM EDT [facility] Potassium, Plasma 5.4(H) 3.6 - 4.9 mmol/L 06/13/2025 2:30 AM EDT [facility] Chloride, Plasma 105 97 - 107 mmol/L 06/13/2025 2:30 AM EDT [facility] CO2, Plasma 23 22 - 29 mmol/L 06/13/2025 2:30 AM EDT [facility] Anion Gap 12 6 - 16 mmol/L 06/13/2025 2:30 AM EDT [facility] Total Calcium, Plasma 8.8(L) 8.9 - 10.2 mg/dL 06/13/2025 2:30 AM EDT [facility] eGFRcr 28.5 mL/min/1.7 3m*2 06/13/2025 2:30 AM EDT [facility] Comment:Reported eGFRcr in m L/min/1.73m2 is based the CKD-EPI 2020 equation that does not use a race coefficient. Blood Venous blood specimen / Unknown Venipuncture / Unknown 06/13/2025 1:39 AM EDT 06/13/2025 1:45 AM EDT us Saadia Garcia APRN, JENIN LAB BLOOD ORDERABLES Fin al Result Performing Organization Address City/[facility]/ZIP Co de Phone Number [facility] [address] [place] [address] * ECG Adult (06/12/2025 11:57 AM EDT) EKG DIAGNOSIS CLASS Abnormal MUSE ECG Ventricular Rate 83 BPM MUSE ECG Atrial Rate 83 BPM MUSE ECG CO Interval 196 ms MUSE ECG QRSD Interval 154 ms MUSE ECG QT Interval 400 ms MUSE ECG QTC Interval 470 ms MUSE ECG P [place] 56 degrees MUSE ECG R [place] -14 degrees MUSE ECG T Wave [place] 2 degrees MUSE ECG Diagnosis Normal sinus rhythm MUSE ECG Diagnosis Right bundle branch block MUSE ECG Diagnosis Abnormal ECG MUSE ECG Diagnosis MUSE ECG Diagnosis Confirmed by Matt Sequeira ([id number]) on 06/12/2025 3:58:45 PM MUSE ECG 06/12/2025 11:5 7 AM EDT 06/12/2025 3:58 PM EDT us Saadia Garcia APRN DNP ECG ORDERABLES Final Re sult Performing Organization Address [facility] Co de Phone Number MUSE ECG * Phosphorus (06/12/2025 2:45 AM EDT) Only the most recent of2 resultswithin the time period is included. Pathologist [facility] Phosphorus, Plasma 3.0 2.5 - 4.5 mg/dL 06/12/2025 3:23 AM EDT [facility] Blood Venous blood specimen / Unknown Venipuncture / Unknown 06/12/2025 2:45 AM EDT 06/12/2025 2:54 AM EDT us Criss Cruz MD LAB BLOOD ORDERABLES Lyn l Result Performing Organization Address City/[facility]/ZIP Co de Phone Number [facility] [address] [place] [address] * Magnesium (06/12/2025 2:45 AM EDT) Only the most recent of2 resultswithin the time period is included. Magnesium, Plasma 2.3 1.9 - 2.4 mg/dL 06/12/2025 3:23 AM EDT [facility] Blood Venous blood specimen / Unknown Venipuncture / Unknown 06/12/2025 2:45 AM EDT 06/12/2025 2:54 AM EDT us Criss Cruz MD LAB BLOOD ORDERABLES Lyn l Result [facility] [address] [place] [address] * Sodium, urine, random (06/11/2025 12:33 PM EDT) Sodium, Urine 22 mmol/L 06/11/2025 1:33 PM EDT [facility] Urine Urine specimen obtained by clean catch procedure / Unknown Non-blood Collection / Unknown 06/11/2025 12:33 PM EDT 06/11/2025 12:49 PM EDT us Criss Crzu MD LAB URINE ORDERABLES Lyn l Result Performing Organization Address [facility]/ZIP Co de Phone Number [facility] [address] [place] [address] * Creatinine, urine, random (06/11/2025 12:33 PM EDT) Creatinine, Urine 81 mg/dL 06/11/2025 1:26 PM EDT [facility] Urine Urine specimen obtained by clean catch procedure / Unknown Non-blood Collection / Unknown 06/11/2025 12:33 PM EDT 06/11/2025 12:49 PM EDT us Criss Cruz MD LAB URINE ORDERABLES Lyn l Result Performing Organization Address City/[facility]/ZIP Co de Phone Number [facility] [address] [place] [address] * XR Chest 1 View (06/11/2025 4:57 AM EDT) Only the most recent of2 resultswithin the time period is included. Anatomical Region Laterality Modality Chest Digital Radiogra phy Impressions 06/11/2025 9:01 PM EDT No significant interval change. CRITICAL RESULT: No. COMMUNICATION: Per this written report. Drafted by Ajay Mora MD on 06/11/2025 8:59 PM Final report signed by Ajay Moar MD on 06/11/2025 9:01 PM Narrative 06/11/2025 [...] Ajay Mora MD on 06/11/2025 9:01 PM Genia MCKNIGHT IMG XR PROCEDURES Final Result * (ABNORMAL) CBC W/O Differential (06/11/2025 1:16 AM EDT) Only the most recent of2 resultswithin the time period is included. WBC Count 8.17 3.70 - 10.30 10*3/uL LAB HEMATOLOGY METHOD 06/11/2025 1:37 AM EDT [facility] RBC Count 3.56(L) 4.60 - 6.10 10*6/uL LAB HEMATOLOGY METHOD 06/11/2025 1:37 AM EDT [facility] HGB 11.3(L) 13.7 - 17.5 g/dL LAB HEMATOLOGY METHOD 06/11/2025 1:37 AM EDT [facility] HCT 34.9(L) 40.0 - 51.0 % LAB HEMATOLOGY METHOD 06/11/2025 1:37 AM EDT [facility] Platelet Count 230 155 - 369 10*3/uL LAB HEMATOLOGY METHOD 06/11/2025 1:37 AM EDT [facility] MCV 98 79 - 98 fL LAB HEMATOLOGY METHOD 06/11/2025 1:37 AM EDT [facility] MCH 31.7 26.0 - 32.0 pg LAB HEMATOLOGY METHOD 06/11/2025 1:37 AM EDT [facility] MCHC 32.4 30.7 - 35.5 g/dL LAB HEMATOLOGY METHOD 06/11/2025 1:37 AM EDT [facility] RDW 15.2(H) 11.5 - 14.5 % LAB HEMATOLOGY METHOD 06/11/2025 1:37 AM EDT [facility] MPV 11.3 8.8 - 12.5 fL LAB HEMATOLOGY METHOD 06/11/2025 1:37 AM EDT [facility] nRBC 0.0 <=0.0 per 100 WBCs LAB HEMATOLOGY METHOD 06/11/2025 1:37 AM EDT [facility] Blood Venous blood specimen / Unknown Venipuncture / Unknown 06/11/2025 1:16 AM EDT 06/11/2025 1:30 AM EDT us Genia MCKNIGHT LAB BLOOD ORDERABLES Final Resu lt [facility] [address] [place] [address] * Ami auris Surveillance by PCR (06/10/2025 6:02 AM EDT) Ami auris PCR Result Not Detected Not Detected 06/12/2025 5:22 AM EDT [facility] Swab (Axilla and Groin) Non-blood Collection / Unknown 06/10/2025 6:02 AM EDT 06/10/2025 6:35 AM EDT Narrative [facility] - 06/12/2025 5:22 AM EDT This PCR assay was developed and its performance characteristics determined by [facility] as appropriate for clinical purposes. This assay has not been cleared or approved by the FDA, but is performed in a CLIA regulated laboratory that is qualified to perform high-complexity testing. [facility] MICROBIOLOGY - GENERAL ORD ERABLES Final Result Performing Organization Address [facility] Co de Phone Number [facility] [address] [place] [address] * Multi Drug Resistance Test (06/10/2025 6:02 AM EDT) Culture No growth at day 1 06/11/2025 7:10 AM EDT [facility] Swab (Nares and Patience Rectal) Non-blood Collection / Unknown 06/10/2025 6:02 AM EDT 06/10/2025 6:35 AM EDT Narrative [facility] - 06/11/2025 7:10 AM EDT This test was developed and its performance characteristics determined by the [facility]. Although the media is FDA-approved, it is not FDA-approved for all specimen types submitted. The FDA has determined that such clearance or approval is not necessary. This test is used for surveillance purposes. It should not be regarded as investigational or for research. The [facility] is certified under the Clinical Laboratory Improvement Amendments of 1988 (CLIA-88) as qualified to perform high complexity clinical laboratory testing. [facility] MICROBIOLOGY - GENERAL ORD ERABLES Final Result Performing Organization Address [facility] Co de Phone Number [facility] [address] [place] [address] * (ABNORMAL) Blood gas, venous (06/10/2025 3:55 AM EDT) Only the most recent of2 resultswithin the time period is included. pH, Venous 7.32 7.32 - 7.43 LAB HEMATOLOGY METHOD 06/10/2025 4:02 AM EDT [facility] pCO2, Venous 55 40 - 55 mmHg LAB HEMATOLOGY METHOD 06/10/2025 4:02 AM EDT [facility] pO2, Venous 30 25 - 40 mmHg LAB HEMATOLOGY METHOD 06/10/2025 4:02 AM EDT [facility] SO2, Measured, Venous 53(L) 65 - 80 % LAB HEMATOLOGY METHOD 06/10/2025 4:02 AM EDT [facility] Base Excess, Venous 1.7 -2.0 - 3.0 mmol/L LAB HEMATOLOGY METHOD 06/10/2025 4:02 AM EDT [facility] Bicarbonate, Calculated, Venous 29(H) 22 - 26 mmol/L LAB HEMATOLOGY METHOD 06/10/2025 4:02 AM EDT [facility] Hematocrit, Whole Blood 34.7(L) 40.0 - 51.0 % LAB HEMATOLOGY METHOD 06/10/2025 4:02 AM EDT [facility] Sodium, Whole Blood 139 136 - 145 mmol/L LAB HEMATOLOGY METHOD 06/10/2025 4:02 AM EDT [facility] Potassium, Whole Blood 5.2(H) 3.6 - 4.9 mmol/L LAB HEMATOLOGY METHOD 06/10/2025 4:02 AM EDT [facility] Chloride, Whole Blood 104 97 - 107 mmol/L LAB HEMATOLOGY METHOD 06/10/2025 4:02 AM EDT [facility] Glucose, Whole Blood 147(H) 74 - 99 mg/dL LAB HEMATOLOGY METHOD 06/10/2025 4:02 AM EDT [facility] Lactate, Venous, Whole Blood 0.7 0.5 - 2.2 mmol/L LAB HEMATOLOGY METHOD 06/10/2025 4:02 AM EDT [facility] Ionized Calcium, Whole Blood 4.6 4.6 - 5.1 mg/dL LAB HEMATOLOGY METHOD 06/10/2025 4:02 AM EDT [facility] Blood Venous blood specimen / Unknown Venipuncture / Unknown 06/10/2025 3:55 AM EDT 06/10/2025 4:01 AM EDT Conner Womack DO LAB BLOOD ORDERABLES Final R esult [facility] [address] [place] [address] * Urinalysis Microscopic Examination (06/10/2025 1:48 AM EDT) Urine Urine specimen obtained by clean catch procedure / Unknown Non-blood Collection / Unknown 06/10/2025 1:48 AM EDT 06/10/2025 1:52 AM EDT us Azael Edmond MD LAB URINE ORDERABLES Fin al Result [facility] [address] [place] [address] * Drug Abuse Screen, Urine (06/10/2025 1:48 AM EDT) [facility] Amphetamine Screen Urine Negative Cutoff: 500 ng/mL 06/10/2025 2:18 AM EDT [facility] Benzodiazepines Screen Urine Presumptive positive. Confirmation by LC-MS/MS to follow. Cutoff: 200 ng/mL 06/10/2025 2:18 AM EDT [facility] Cannabinoid Screen Urine Negative Cutoff: 50 ng/mL 06/10/2025 2:18 AM EDT [facility] Cocaine Screen Urine Negative Cutoff: 300 ng/mL 06/10/2025 2:18 AM EDT [facility] Barbiturate Screen Urine Negative Cutoff: 200 ng/mL 06/10/2025 2:18 AM EDT [facility] Opiate Screen Urine Negative Cutoff: 300 ng/mL 06/10/2025 2:18 AM EDT [facility] Methadone Screen Urine Negative Cutoff: 300 ng/mL 06/10/2025 2:18 AM EDT [facility] Buprenorphine Screen Urine Negative Cutoff: 10 ng/mL 06/10/2025 2:18 AM EDT [facility] Fentanyl Screen Urine Negative Cutoff: 1 ng/mL 06/10/2025 2:18 AM EDT [facility] Oxycodone Screen Urine Negative Cutoff: 100 ng/mL 06/10/2025 2:18 AM EDT [facility] Urine Urine specimen obtained by clean catch procedure / Unknown Non-blood Collection / Unknown 06/10/2025 1:48 AM EDT 06/10/2025 1:52 AM EDT us Azael Edmond MD LAB URINE ORDERABLES Fin al Result [facility] [address] [place] [address] * (ABNORMAL) Benzodiazepine Confirm Urine (06/10/2025 1:48 AM EDT) [place] Alprazolam <20 <20 ng/mL 06/13 1:31 AM EDT [facility] Alpha [place] Midazolam <20 <20 ng/mL 2024 1:31 AM EDT [facility] [place] Triazolam <20 <20 ng/mL 2024 1:31 AM EDT [facility] Alprazolam <10 <10 ng/mL 06/13/2025 1:31 AM EDT [facility] Aminoclonazepam <20 <20 ng/mL 1:31 AM EDT [facility] Clonazepam <10 <10 ng/mL 06/13/2025 1:31 AM EDT [facility] Diazepam <10 <10 ng/mL 06/13/2025 1:31 AM EDT [facility] Lorazepam <20 <20 ng/mL 06/13/2025 1:31 AM EDT [facility] Lorazepam Glucuronide <50 <50 ng/mL 06/13/2025 1:31 AM EDT [facility] Midazolam 06/13/2025 1:31 AM EDT [facility] Nordiazepam <20 <20 ng/mL 06/13/2025 1:31 AM EDT [facility] Oxazepam <20 <20 ng/mL 06/13/2025 1:31 AM EDT [facility] Oxazepam Glucuronide 640(H) <50 ng/mL 06/13/2025 1:31 AM EDT [facility] Temazepam <20 <20 ng/mL 06/13/2025 1:31 AM EDT [facility] Temazepam Glucuronide 699(H) <50 ng/mL 06/13/2025 1:31 AM EDT [facility] Triazolam 06/13/2025 1:31 AM EDT [facility] Urine Urine specimen obtained by clean catch procedure / Unknown Non-blood Collection / Unknown 06/10/2025 1:48 AM EDT 06/10/2025 1:52 AM EDT Narrative [facility] - 06/13/2025 1:31 AM EDT Drug analysis is confirmed by LC-MS/MS (LC Tandem Mass Spectrometry) on Urine specimens. This test was developed and its performance characteristics determined by [facility]. It has not been cleared or approved by the FDA. The laboratory is regulated under CLIA as qualified to perform high-complexity testing. This test is used for clinical purposes. Testing is performed at the [facility], Special Chemistry Laboratory. us Azael Edmond MD LAB URINE ORDERABLES [facility] al Result [facility] [address] [place] [address] * (ABNORMAL) Urinalysis with reflex microscopic (Culture NOT Included) (06/10/2025 1:48 AM EDT) Color, Urine Yellow LAB URINALYSIS - AUTOMATED METHOD 06/10/2025 2:31 AM EDT [facility] Clarity, Urine Clear LAB URINALYSIS - AUTOMATED METHOD 06/10/2025 2:31 AM EDT [facility] Spec [place], Urine 1.017 1.005 - 1.030 LAB URINALYSIS - AUTOMATED METHOD 06/10/2025 2:31 AM EDT [facility] pH, Urine 5.5 5.0 - 8.0 LAB URINALYSIS - AUTOMATED METHOD 06/10/2025 2:31 AM EDT [facility] Protein, Urine Negative Negative mg/dL LAB URINALYSIS - AUTOMATED METHOD 06/10/2025 2:31 AM EDT [facility] Glucose, Urine Negative Negative mg/dL LAB URINALYSIS - AUTOMATED METHOD 06/10/2025 2:31 AM EDT [facility] Ketones, Urine Negative Negative mg/dL LAB URINALYSIS - AUTOMATED METHOD 06/10/2025 2:31 AM EDT [facility] Blood, Urine Small(A) Negative LAB URINALYSIS - AUTOMATED METHOD 06/10/2025 2:31 AM EDT [facility] Bilirubin, Urine Negative Negative LAB URINALYSIS - AUTOMATED METHOD 06/10/2025 2:31 AM EDT [facility] Urobilinogen, Urine 0.2 0.2 to 1.0 mg/dL LAB URINALYSIS - AUTOMATED METHOD 06/10/2025 2:31 AM EDT [facility] Leukocytes, Urine Small(A) Negative LAB URINALYSIS - AUTOMATED METHOD 06/10/2025 2:31 AM EDT [facility] Nitrite, Urine Positive(A) Negative LAB URINALYSIS - AUTOMATED METHOD 06/10/2025 2:31 AM EDT [facility] RBC, Urine <1 0 to 3 /HPF LAB URINALYSIS - AUTOMATED METHOD 06/10/2025 2:31 AM EDT [facility] Comment:This result was prev iously suppressed from the chart. WBC, Urine 0 - 5 0 to 5 /HPF LAB URINALYSIS - AUTOMATED METHOD 06/10/2025 2:31 AM EDT [facility] Comment:This result was prev iously suppressed from the chart. Squamous Epithelial Cells 0 - 2 0 to 5 /HPF LAB URINALYSIS - AUTOMATED METHOD 06/10/2025 2:31 AM EDT [facility] Comment:This result was prev iously suppressed from the chart. Hyaline Casts 3 - 5 0 to 5 /LPF LAB URINALYSIS - AUTOMATED METHOD 06/10/2025 2:31 AM EDT [facility] Comment:This result was prev iously suppressed from the chart. Bacteria, Urine Present Negative LAB URINALYSIS - AUTOMATED METHOD 06/10/2025 2:31 AM EDT [facility] Comment:This result was prev iously suppressed from the chart. Urine Urine specimen obtained by clean catch procedure / Unknown Non-blood Collection / Unknown 06/10/2025 1:48 AM EDT 06/10/2025 1:52 AM EDT us Azael Edmond MD LAB URINE ORDERABLES Fin al Result [facility] [address] [place] [address] * (ABNORMAL) Trauma shock panel blood gas (06/09/2025 11:13 PM EDT) pH, Venous 7.22(LL) 7.32 - 7.43 LAB HEMATOLOGY METHOD 06/09/2025 11:39 PM EDT [facility] Bicarbonate, Calculated, Venous 26 22 - 26 mmol/L LAB HEMATOLOGY METHOD 06/09/2025 11:39 PM EDT [facility] Base Excess, Venous -3.0(L) -2.0 - 3.0 mmol/L LAB HEMATOLOGY METHOD 06/09/2025 11:39 PM EDT [facility] Lactate, Venous, Whole Blood 1.2 0.5 - 2.2 mmol/L LAB HEMATOLOGY METHOD 06/09/2025 11:39 PM EDT [facility] Blood Venous blood specimen / Unknown Venipuncture / Unknown 06/09/2025 11:13 PM EDT 06/09/2025 11:26 PM EDT Azael Edmond MD LAB BLOOD ORDERABLES Fin al Result Performing Organization Address [facility] Co de Phone Number [facility] [address] [place] [address] * Ethyl Alcohol Plasma (06/09/2025 11:13 PM EDT) Pathologist [facility] Ethanol Plasma <10 <10 mg/dL 06/09/2025 11:40 PM EDT [facility] Blood Venous blood specimen / Unknown Venipuncture / Unknown 06/09/2025 11:13 PM EDT 06/09/2025 11:16 PM EDT Narrative [facility] - 06/09/2025 11:40 PM EDT Enzymatic Assay: Performed on Vladimir Mauro. Azael Edmond MD LAB BLOOD ORDERABLES Fin al Result Performing Organization Address City/[facility] Co de Phone Number [facility] [address] [place] [address] * (ABNORMAL) APTT (PTT) (06/09/2025 11:13 PM EDT) aPTT 23(L) 25 - 35 sec 06/09/2025 11:32 PM EDT [facility] Blood Venous blood specimen / Unknown Venipuncture / Unknown 06/09/2025 11:13 PM EDT 06/09/2025 11:16 PM EDT Azael Edmond MD LAB BLOOD ORDERABLES Fin al Result Performing Organization Address [facility] Co de Phone Number [facility] [address] [place] [address] * PT-INR (06/09/2025 11:13 PM EDT) Prothrombin Time 13.9 12.0 - 14.3 sec 06/09/2025 11:31 PM EDT [facility] INR 1.1 0.9 - 1.1 06/09/2025 11:31 PM EDT [facility] Blood Venous blood specimen / Unknown Venipuncture / Unknown 06/09/2025 11:13 PM EDT 06/09/2025 11:16 PM EDT Narrative [facility] - 06/09/2025 11:31 PM EDT OPTIMAL INR RANGES FOR PATIENT ON ORAL ANTICOAGULANT THERAPY Prevention of venous thromboembolism INR 2.0 to 3.0 In patients with heart disease: Atrial fibrillation INR 2.0 to 3.0 Valvular heart disease INR 2.0 to 3.0 Tissue heart valves INR 2.0 to 3.0 Mechanical prosthetic valves INR 2.5 to 3.5 Prevention of recurrent [place] INR 2.5 to 3.5 Azael Edmond MD LAB BLOOD ORDERABLES Fin al Result Performing Organization Address City/[facility]/ZIP Co de Phone Number [facility] [address] [place] [address] * Type and Screen (06/09/2025 11:13 PM EDT) ABO/Rh A Positive 06/09/2025 11:08 PM EDT [facility] Antibody Screen Negative 06/09/2025 11:08 PM EDT [facility] Specimen Expiration 06/12/2025 23:59 06/09/2025 11:08 PM EDT [facility] Blood Venous blood specimen / Unknown Venipuncture / Unknown 06/09/2025 11:13 PM EDT 06/09/2025 11:17 PM EDT us Azael Edmond MD LAB BLOOD BANK TEST AL CAR Final Result BLOOD BANK [address] [place] [address], * (ABNORMAL) CMP (06/09/2025 11:13 PM EDT) Glucose, Plasma 131(H) 74 - 99 mg/dL 06/09/2025 11:41 PM EDT [facility] BUN, Plasma 35(H) 8 - 23 mg/dL 06/09/2025 11:41 PM EDT [facility] Creatinine, Plasma 2.47(H) 0.70 - 1.20 mg/dL 06/09/2025 11:41 PM EDT [facility] BUN/Creatinine Ratio 14 06/09/2025 11:41 PM EDT [facility] Sodium, Plasma 138 136 - 145 mmol/L 06/09/2025 11:41 PM EDT [facility] Potassium, Plasma 5.2(H) 3.6 - 4.9 mmol/L 06/09/2025 11:41 PM EDT [facility] Chloride, Plasma 106 97 - 107 mmol/L 06/09/2025 11:41 PM EDT [facility] CO2, Plasma 21(L) 22 - 29 mmol/L 06/09/2025 11:41 PM EDT [facility] Anion Gap 11 6 - 16 mmol/L 06/09/2025 11:41 PM EDT [facility] Total Calcium, Plasma 8.1(L) 8.9 - 10.2 mg/dL 06/09/2025 11:41 PM EDT [facility] Total Protein 6.5 6.3 - 7.9 g/dL 06/09/2025 11:41 PM EDT [facility] Albumin, Plasma 3.8 3.5 - 5.2 g/dL 06/09/2025 11:41 PM EDT [facility] AST, Plasma 30 10 - 50 U/L 06/09/2025 11:41 PM EDT [facility] ALT, Plasma 19 10 - 50 U/L 06/09/2025 11:41 PM EDT [facility] Alkaline Phosphatase, Plasma 72 40 - 115 U/L 06/09/2025 11:41 PM EDT [facility] Total Bilirubin, Plasma 0.4 0.2 - 1.1 mg/dL 06/09/2025 11:41 PM EDT [facility] eGFRcr 25.1 mL/min/1.7 3m*2 06/09/2025 11:41 PM EDT [facility] Comment:Reported eGFRcr in m L/min/1.73m2 is based the CKD-EPI 2020 equation that does not use a race coefficient. Blood Venous blood specimen / Unknown Venipuncture / Unknown 06/09/2025 11:13 PM EDT 06/09/2025 11:16 PM EDT us Azael Edmond MD LAB BLOOD ORDERABLES Fin al Result [facility] [address] [place] [address] * XR Pelvis 1 or 2 Views [...] IMG XR PROCEDURES Final Result * XR OUTSIDE IMAGES (06/09/2025 8:07 PM EDT) Only the most recent of3 resultswithin the time period is included. Anatomical Region Laterality Modality Radiographic Inge ging 06/09/2025 8:07 PM EDT Franky MCKNIGHT IMG XR PROCEDURES Final Result * CT OUTSIDE IMAGES (06/09/2025 7:18 PM EDT) Only the most recent of3 resultswithin the time period is included. Anatomical Region Laterality Modality Computed Tomogra phy 06/09/2025 7:18 PM EDT Franky MCKNIGHT IMG CT PROCEDURES Final Result from Last 3 Months Insurance [facility] MEDIC[facility] Care Teams Van Loader Relationship Specialty Start Date End Date Stephen Velasquez MD [address] [place] [address] [address] [place] [id number] PCP - General 03/01/21
--- OUTSIDE RECORDS SUMMARY | 2025-06-24 02:51 | XMS_ITS | Encounter Summary ---
Author Organization Healthcare Address [address] [place] [address] Care Team Providers Care Airline Operations Agent Name Role Phone Stephen Velasquez MD Primary Care Provider [phone] Encounter Details Date Type Department Care Team (Latest Contact Info) Description 06/11/2025 Travel Social History Tobacco Use Types Packs/Day Years Used Date Smoking Tobacco: Former Alcohol Use Standard Drinks/Week Comments Yes 0 (1 standard drink = 0.6 oz [...] and Family Not on file 06/12/2025 Attends Anabaptism Services Not on file 06/12 Active Member [...] any time in the past 12 m [facility], were you homeless or living in a fdc (including now)? No 06/12/2025 Utilities Answer Date [...] documented as of this encounter Functional Status * Calculated C-SSRS Risk Score (Lifetime/Recent) Answer Date of Assessment Author No Risk Indicated 06/11/2025 7:48 PM EDT Giovanni Brice, RN * Question Answer Date of Assessment Author 1. Wish to be (Past 1 Month) No 025 7:48 PM EDT Giovanni Brice, RN 2. Non-Specific Active Suici tray Thoughts (Past 1 Month) No 06/11/2025 7:48 PM EDT Jorge Brice, RN 6. Suicidal Behavior (Lifetime) No 7:48 PM EDT Giovanni Brice, VONDA documented as of this encounter Plan of Treatment Not on file documented as of this encounter Visit Diagnoses Not on filedocumented in this encounter Additional Health Concerns Assessment Noted Time A Body Mass Index follow-up plan has been documented for the patient 06/13/2025 6:05 PM EDT documented as of this encounter Care Teams Airline Operations Agent Relationship Specialty Start Date End Date Stephen Velasquez MD [address] [place] [address] [address]1 [place] [id number] PCP - General 03/01/21 documented as of this encounter
--- OUTSIDE RECORDS SUMMARY | 2025-06-24 02:51 | XMS_ITS | Encounter Summary ---
Author Organization Healthcare Address [address] [place] [id number] Care Team Providers Care Field Sales Manager Name Role Phone Stephen Velasquez MD Primary Care Provider [phone] Encounter Details Date Type Department Care Team (Late st Contact Info) Description 06/09/2025 Orders Only External Location [address] [place] [id number] Franky Logan PA [address] [place] [address] Social History Tobacco Use Types Packs/Day Years [...] and Family Not on file 06/12/2025 Attends Jew Services Not on file 06/12 Active Member [...] any time in the past 12 m [facility], were you homeless or living in a care home (including now)? No 06/12/2025 Utilities Answer Date Recorded In the past 12 months has th e [employer], gas, oil, or water company threatened to shut off services in your home? No 06/12/2025 Sex and Gender Information Value Date Recorded Sex Assigned at Not on file Legal Sex Male 6:06 PM EDT Gender Identity Not on file Sexual Orientation Not on file documented as of this encounter Functional Status * AUDIT-C Score [...] Brice RN documented as of this encounter Plan of Treatment Not on file documented as of this encounter Procedures Procedure Name Priority Date/Time Associated Diagnosis Comments CT OUTSIDE IMAGES 06/09/2025 7:18 PM EDT documented in this encounter Results * CT OUTSIDE IMAGES (06/09/2025 7:18 PM EDT) Anatomical Region Laterality Modality Computed Tomogra phy 06/09/2025 7:18 PM EDT Franky MCKNIGHT IMG CT PROCEDURES Final Result documented in this encounter Visit Diagnoses Not on filedocumented in this encounter Additional Health Concerns Assessment Noted Time A Body Mass Index follow-up plan has been documented for the patient 06/13/2025 6:05 PM EDT documented as of this encounter Care Teams Field Sales Manager Relationship Specialty Start Date End Date Stephen Velasquez MD [address] [place] [address] [address] [place] [id number] PCP - General 03/01/21 documented as of this encounter
--- OUTSIDE RECORDS SUMMARY | 2025-06-24 02:51 | XMS_ITS | Encounter Summary ---
Author Organization Healthcare Address [address] [place] [place] [id number] Care Team Providers Care Security Systems Engineer Name Role Phone Stephen Velasquez MD Primary Care Provider [phone] Encounter Details Date Type Department Care Team (Late st Contact Info) Description 06/09/2025 Orders Only External Location [address] [place] [phone] Franky Logan PA [address] [place] [address] Social History Tobacco Use Types Packs/Day [...] and Family Not on file 06/12/2025 Attends Buddhist Services Not on file 06/12 Active Member [...] any time in the past 12 m [facility], were you homeless or living in a halfway (including now)? No 06/12/2025 Utilities Answer Date Recorded In the past 12 months has th e [employer], gas, oil, or water company threatened to [...] Name Priority Date/Time Associated Diagnosis Comments XR OUTSIDE IMAGES 06/09/2025 7:19 PM EDT documented in this encounter Results * XR OUTSIDE IMAGES (06/09/2025 7:19 PM EDT) Anatomical Region Laterality Modality Radiographic Inge ging 06/09/2025 7:19 PM EDT Franky MCKNIGHT IMG XR PROCEDURES Final Result documented in this encounter Visit Diagnoses Not on filedocumented in this encounter Additional Health Concerns Assessment Noted Time A Body Mass Index follow-up plan has been documented for the patient 06/13/2025 6:05 PM EDT documented as of this encounter Care Teams Security Systems Engineer Relationship Specialty Start Date End Date Stephen Velasquez MD [address] [place] [address] [address]1 [address]1 [place] [id number] PCP - General 03/01/21 documented as of this encounter
--- OUTSIDE RECORDS SUMMARY | 2025-06-24 02:51 | XMS_ITS | Encounter Summary ---
Author Organization Healthcare Address [address] [place] [id number] Care Team Providers Care Employment Interviewer Name Role Phone Stephen Velasquez MD Primary Care Provider Encounter Details Date Type Department Care Team (Late st Contact Info) Description 06/09/2025 Orders Only External Location [address] [place] [phone] Franky Logan PA [address] [place] [address] Social History Tobacco Use Types Packs/Day [...] and Family Not on file 06/12/2025 Attends Anabaptist Services Not on file 06/12 Active Member [...] any time in the past 12 m [facility], were you homeless or living in a correction (including now)? No 06/12/2025 Utilities Answer Date Recorded In the past 12 months has th e [email or web address], gas, oil, or water company threatened to [...] Associated Diagnosis Comments CT OUTSIDE IMAGES 06/09/2025 7:14 PM EDT documented in this encounter Results * CT OUTSIDE IMAGES (06/09/2025 7:14 PM EDT) Anatomical Region Laterality Modality Computed Tomogra phy 06/09/2025 7:14 PM EDT Franky MCKNIGHT IMG CT PROCEDURES Final Result documented in this encounter Visit Diagnoses Not on filedocumented in this encounter Additional Health Concerns Assessment Noted Time A Body Mass Index follow-up plan has been documented for the patient 06/13/2025 6:05 PM EDT documented as of this encounter Care Teams Employment Interviewer Relationship Specialty Start Date End Date Stephen Velasquez MD [address] [place] [address] #1 [address]1 [place] [id number] PCP - General 03/01/21 documented as of this encounter
--- OUTSIDE RECORDS SUMMARY | 2025-06-24 02:51 | XMS_ITS | Encounter Summary ---
Author Organization Healthcare Address [address] [place] [place] [id number] Care Team Providers Care Cloth Grader Supervisor Name Role Phone Stephen Velasquez MD Primary Care Provider [phone] Encounter Details Date Type Department Care Team (Late st Contact Info) Description 06/09/2025 Orders Only External Location [address] [place] [phone] Franky Logan PA [address] [place] [address] Social History Tobacco Use Types Packs/Day [...] and Family Not on file 06/12/2025 Attends Bahai Services Not on file 06/12 Active Member [...] any time in the past 12 m [facility], were you homeless or living in a senior living (including now)? No 06/12/2025 Utilities Answer Date Recorded In the past 12 months has th e [employer], gas, oil, or water company threatened to [...] Associated Diagnosis Comments CT OUTSIDE IMAGES 06/09/2025 7:16 PM EDT documented in this encounter Results * CT OUTSIDE IMAGES (06/09/2025 7:16 PM EDT) Anatomical Region Laterality Modality Computed Tomogra phy 06/09/2025 7:16 PM EDT Franky MCKNIGHT IMG CT PROCEDURES Final Result documented in this encounter Visit Diagnoses Not on filedocumented in this encounter Additional Health Concerns Assessment Noted Time A Body Mass Index follow-up plan has been documented for the patient 06/13/2025 6:05 PM EDT documented as of this encounter Care Teams Cloth Grader Supervisor Relationship Specialty Start Date End Date Stephen Velasquez MD [address] [place] [address] #1 [address]1 [place] [id number] PCP - General 03/01/21 documented as of this encounter
--- OUTSIDE RECORDS SUMMARY | 2025-06-24 02:51 | XMS_ITS | Encounter Summary ---
Author Organization Healthcare Address [address] [place] [phone] Care Team Providers Care Microsoft Bi Developer Name Role Phone Stephen Velasquez MD Primary Care Provider [phone] Encounter Details Date Type Department Care Team (Late st Contact Info) Description 06/09/2025 Orders Only External Location [address] [place] [phone] Franky Logna PA [address] [place] [address] Social History Tobacco Use Types Packs/Day [...] and Family Not on file 06/12/2025 Attends Lutheran Services Not on file 06/12 Active Member [...] any time in the past 12 m [facility], were you homeless or living in a retirement (including now)? No 06/12/2025 Utilities Answer Date Recorded In the past 12 months has th e [employer], gas, oil, or water company threatened to [...] documented as of this encounter Care Teams Microsoft Bi Developer Relationship Specialty Start Date End Date Stephne Velasquez MD [address] [place] [address] #1 #1 [place] [id number] PCP - General 03/01/21 documented as of this encounter
--- OUTSIDE RECORDS SUMMARY | 2025-06-24 02:51 | XMS_ITS | Encounter Summary ---
Author Organization Healthcare Address [address] [place] [address] Care Team Providers Care Fudge Candy Maker Name Role Phone Stephen Velasquez MD Primary Care Provider [phone] Encounter Details Date Type Department Care Team (Latest Contact Info) Description 06/09/2025 Travel Social History Tobacco Use Types Packs/Day Years Used Date Smoking Tobacco: Former Alcohol Use Standard Drinks/Week Comments Yes 0 (1 standard drink = 0.6 oz pur e alcohol) Sex and Gender Information Value Date Recorded [...] documented as of this encounter Care Teams Fudge Candy Maker Relationship Specialty Start Date End Date Stephen Velasquez MD [address] [place] [address] #1 #1 [place] [id number] PCP - General 03/01/21 documented as of this encounter
--- OUTSIDE RECORDS SUMMARY | 2025-06-24 02:51 | XMS_ITS | Encounter Summary ---
Author Organization Healthcare Address [address] [id number] Care Team Providers Care Reports Analysis Manager Name Role Phone Stephen Velasquez MD Primary Care Provider [phone] Encounter Details Date Type Department Care Team (Late st Contact Info) Description 06/09/2025 Orders Only External Location [address] [place] [phone] Franky Logan PA [address] [place] [address] Social History Tobacco Use Types Packs/Day [...] and Family Not on file 06/12/2025 Attends [employer] Not on file 06/12 Active Member [...] [facility] in the [facility] were you homeless or living in a [place] facility (including now)? No 06/12/2025 Utilities Answer Date Recorded In the past 12 months has th e [employer], gas, oil, or water company threatened to [...] Associated Diagnosis Comments XR OUTSIDE IMAGES 06/09/2025 8:07 PM EDT documented in this encounter Results * XR OUTSIDE IMAGES (06/09/2025 8:07 PM EDT) Anatomical Region Laterality Modality Radiographic Inge ging 06/09/2025 8:07 PM EDT Frnaky MCKNIGHT IMG XR PROCEDURES Final Result documented in this encounter Visit Diagnoses Not on filedocumented in this encounter Additional Health Concerns Assessment Noted Time A Body Mass Index follow-up plan has been documented for the patient 06/13/2025 6:05 PM EDT documented as of this encounter Care Teams Reports Analysis Manager Relationship Specialty Start Date End Date Stephen Velasquez MD [address] [place] [address] #1 [address]1 Magali ALYSSA [id number] PCP - General 03/01/21 documented as of this encounter
--- OUTSIDE RECORDS SUMMARY | 2025-06-24 02:51 | XMS_ITS ---
Author Organization Unknown Allergies, Adverse Reactions and Alerts Date IsAllergic OnsetDate Allergen Reaction Type Severity Pravin rgyCode Legacyallergictoid ReactionCode ReactionCodeSystemID Custom 04/25 00:00 :00 1 dye used in heart cath 1999 turned red & swollen 04/14 00:00 :00 1 dye used in heart cath 1998 turned red & swollen 04/03 00:00 :00 1 dye used in heart cath 1998 turned red & swollen 02/21 00:00 :00 1 dye used in heart cath 1998 turned red & swollen 02/10 00:00 :00 1 dye used in heart cath 1998 turned red & swollen 01/17 00:00 :00 1 dye used in heart cath 1998 turned red & swollen 01/16 00:00 :00 1 dye used in heart cath 1998 turned red & swollen 11/21 00:00 :00 1 dye used in heart cath 1998 turned red & swollen 11/17 00:00 :00 1 dye used in heart cath 1998 turned red & swollen 10/31 00:00 :00 1 dye used in heart cath 1998 turned red & swollen 10/31 00:00 :00 1 dye used in heart cath 1998 turned red & swollen 10/28 00:00 :00 1 dye used in heart cath 1998 turned red & swollen 10/17 00:00 :00 1 dye used in heart cath 1998 turned red & swollen 08/30 00:00 :00 1 dye used in heart cath 1998 turned red & swollen 07/28 00:00 :00 1 dye used in heart cath 1998 turned red & swollen 07/21 00:00 :00 1 dye used in heart cath 1998 turned red & swollen 07/07 00:00 :00 1 dye used in heart cath 1998 turned red & swollen 07/06 00:00 :00 1 dye used in heart cath 1998 turned red & swollen 07/05 00:00 :00 1 dye used in heart cath 1998 turned red & swollen 07/01 00:00 :00 1 dye used in heart cath 1998 turned red & swollen 07/01 00:00 :00 1 dye used in heart cath 1998 turned red & swollen 05/31 00:00 :00 1 dye used in heart cath 1998 turned red & swollen 05/19 00:00 :00 1 dye used in heart cath 1998 turned red & swollen 05/17 00:00 :00 1 dye used in heart cath 1998 turned red & swollen
--- OUTSIDE RECORDS SUMMARY | 2025-06-24 02:53 | XMS_ITS | Clinical Summary ---
Author Organization [facility] Address [address] [place] [id number] Care Team Providers Care Line Repairer Name Role Phone Stephen Velasquez MD Primary Care Provider [phone] Allergies Active Allergy Reactions Criticality Noted Date [...] ease) 10/14/2019 Coronary artery disease invo lving suquamish coronary artery of suquam[place] heart without angina pectoris 09/02/2019 Overview (09/02/2019): Added automatically from request for surgery [id number] [facility] 09/02/2019 Overview (09/02/2019): Added automatically from request for surgery [id number] PVC's (premature ventricular contractions) 09/01 Former smoker 08/18/2019 Chronic diastolic heart failure 08/18/2019 Dyspnea on exertion 10/06/2018 Essential hypertension 10/06/2018 Mixed hyperlipidemia 10/06/2018 Palpitations 10/06/2018 Coronary artery disease invo lving [place] heart without angina pectoris 10/05/2018 Encounters Date Type Department Care Team Description 05/23/2025 Telephone [facility] CARDIOLOG[facility] [address] [place] [phone] Janiya Reyna MD 05/04/2025 Refill [facility] [address] [facility] [address] [place] [address] Janiya Reyna MD Med Refill 04/17/2025 Telephone [facility] [address] [place] [address] Janiya Reyna MD 2025 Telephone [facility] [address] [facility] [address] [place] [address]-CALL BACK 04/03/2025 Refill [facility] [address] [facility] [address] [place] [address] Janiya Reyna MD Med Refill 04/02/2025 Refill [facility] [address] [facility] [address] [place] [address] Janiya Reyna MD Med Refill 03/29/2025 2:00 PM EDT Office Visit [facility] [address] [facility] [address] [place] [address] Janiya Reyna MD Coronary artery disease involving suquam[place] coronary artery of suquamish heart without angina pectoris (Primary Dx); Essential [...] Description 08/15/2025 1:00 PM EDT Office Visit [facility] [address] [facility] [address] [place] [phone] Joseph Espitia W, NATURAL SCIENCE CURATOR [address] [place] [address] 05/30/2026 2:00 PM EDT Office Visit [facility] [address] [facility] [address] [place] [phone] Janiya Reyna MD [address] [facility] [address] [facility] [address] [place] [address] Scheduled Procedures Name Priority Associated Diagnoses Date/Ti me RIGHT AND LEFT HEART CATH Coronary artery disease involving [place] coronary artery of suqu[place] heart without angina pectoris Health Maintenance Due Date Last Done Comments Pneumococcal Vaccine 50+ (1 of 2 - PCV) 1960 Hepatitis B (1 of 3 - Risk 3 -dose series) 2001 RSV Vaccine - Adults (1 - 1- dose 75+ series) 2016 ANNUAL WELLNESS VISIT 10/04/2018 LIPID PANEL 09/13/2020 09/13/2019, 10/21, 11/18/2018 COVID-19 Vaccine (2 - season) 06/19/202512/2020 INFLUENZA VACCINE 07/19/2025 07/02/2020, , 07/02/2016 TDAP/TD VACCINES (4 - Td or Tdap) 12/07/2032 12/07/2022, 05/26/2014, 12/22/1996 ZOSTER VACCINE Completed 07/19/2019, 04/18/2019 Procedures Procedure Name Priority Date/Time Associated Diagnosis Comments ECG 12-LEAD Routine 03/29/2025 Coronary artery disease involving su[place] coronary artery of suquamish heart without angina pectoris LIPID PANEL STAT [...] Reyna MD - 03/29/2025 2:00 PM EDT [facility] Cardiology Patient ID: Puma Weber is a 84 y.o. male. : 1940 Contact: Encounter date: 03/29/2025 PCP: Stephen Velasquez MD Chief complaint: Chief Complaint Patient presents with Coronary artery disease involving su[place]am[place] coronary artery of Pt says that he feels SOA because of COPD Problem List: Coronary artery disease: Kelli, 01/18/2018, Magali: Prior nontransmural FL of inferior andpostero- basal wall with segmental wall motion abnormality. [facility], 02/09/2018, Octavio: 70% Prox-mid LAD (3 x 22 resolute Nicolas HEBER),70-80% prox circ (3.5 x 22 resolute Nicolas HEBER), and 80% prox eccentric PDA(2.5 x 26 resolute Nicolas HEBER). Preserved LV function. May be mild inferiorhypokinesis but pigtail catheter was not used and opacification of the LVis suboptimal. [facility], 08/24/2018: Persistent reduction in flow inferiorly. Mild SOAand stomach discomfort with exercise, but no CP. Occasional isolatedPVC's. Nonspecific ST changes. [facility] and [facility], 09/13/2019, for dyspnea: Patent LAD and circumflex [...] ICD-10-CM ICD-9-CM 1. Coronary artery disease involving suquamish coronary artery of nativeheart without angina pectoris [...] both accurate and complete. Janiya Reyna MD, [facility] Janiya Reyna MD ECG ORDERABLES Final R esult * Lipid Panel (09/13/2019 7:36 AM EST) Total Cholesterol 122 0 - 200 mg/dL 09/13/2019 8:21 AM EST [facility] Triglycerides 114 0 - 150 mg/dL 09/13/2019 8:21 AM EST [facility] HDL Cholesterol 54 40 - 60 mg/dL 09/13/2019 8:21 AM EST [facility] LDL Cholesterol 45 0 - 100 mg/dL 09/13/2019 8:21 AM [facility] VLDL Cholesterol 22.8 mg/dL 09/13/20 19 8:21 AM [facility] LDL/HDL Ratio 0.84 09/13/2019 8:21 AM EST [facility] Blood Line / Unknown 09/13/2019 7: 36 AM EST 09/13/2019 7:58 AM EST [facility] - 09/13/2019 8:21 AM EST Cholesterol [...] Yoni MCKNIGHT LAB BLOOD ORDERABLES Final Result [facility]
[address] [phone] from Last 3 Months or Most Recently Relevant to Health Maintenance Insurance [employer] PPO Advance Directives Documents on File Type Date Recorded Patient Straightener Hand Expl anation POWER OF ROUTE CARRIER - SCAN 09/13/2019 7:04 AM POA 02-24-2012 Care Teams Line Repairer Relationship Specialty Start Date End Date Stephen Velasquez MD [address] [place] [address] PCP - General Family Medicine 09/16/18
--- OUTSIDE RECORDS SUMMARY | 2025-06-24 02:53 | XMS_ITS | Encounter Summary ---
Author Organization [facility] Address [address] [place] [address] Care Team Providers Care Police Clerk Name Role Phone Stephen Velasquez MD Primary Care Provider [phone] Encounter Details Date Type Department Care Team (Late st Contact Info) Description 05/23/2025 Telephone [facility] [address] [facility] [address] [place] [phone] Janiya Reyna MD [address] [facility] [address] [address] [place] [address] Social History Tobacco Use Types Packs/Day Years [...] 08/15/2025 1:00 PM EDT Office Visit [facility] [address] [facility] [address] [place] [phone] Joseph Espitia, WAFFLE MACHINE OPERATOR [address] [place] [address] 05/30/2026 2:00 PM EDT Office Visit [facility] [address] [facility] [address] [place] [phone] Janiya Reyna MD [address] [facility] [address] [address] Scheduled Procedures Name Priority Associated Diagnoses Date/Ti me RIGHT AND LEFT HEART CATH Coronary artery disease involving [place] coronary artery of [place] heart without angina pectoris documented as of this encounter Visit Diagnoses Not on filedocumented in this encounter Care Teams Police Clerk Relationship Specialty Start Date End Date Stephen Velasquez MD [address] [place] [address] PCP - General Family Medicine 09/16/18 documented as of this encounter
--- OUTSIDE RECORDS SUMMARY | 2025-06-24 02:53 | XMS_ITS | Encounter Summary ---
Author Organization [facility] Address [address] [place] [address] Care Team Providers Care Director Corporate Communications Name Role Phone Stephen Velasquez MD Primary Care Provider Reason for Visit * Reason Onset Date Comments Med Refill 05/04/2025 Encounter Details Date Type Department Care Team (Late st Contact Info) Description 05/04/2025 Refill [facility] [address] [facility] [address] [place] [address] Janiya Reyna MD [address] [facility] [address] [place] [address] Med Refill Social History Tobacco Use Types [...] Description 08/15/2025 1:00 PM EDT Office Visit [facility] SLEEP MEDICINE [address] [facility] [address] [place] [phone] Joseph Espitia, ROTARY DRIER OPERATOR [address] [place] [address] 05/30/2026 2:00 PM EDT Office Visit [facility] [address] [facility] [address] [place] [address] Janiya Reyna MD [address] [facility] [address] [place], [place] [phone] Scheduled Procedures Name Priority Associated Diagnoses Date/Ti me RIGHT AND LEFT HEART CATH Coronary artery disease involving teller coronary artery of teller heart without angina pectoris documented as of this encounter Visit Diagnoses Not on filedocumented in this encounter Care Teams Director Corporate Communications Relationship Specialty Start Date End Date Stephen Velasquez MD [address] [place], [place] [phone] PCP - General Family Medicine 09/16/18 documented as of this encounter
[2025-06-24 03:01] VITALS: BP 143/84; PULSE 85; O2SAT 98
[2025-06-24 03:04] LABS: Hematocrit 33.0 % (42.0-52.0); Hemoglobin 10.6 g/dL (14.1-18.0); Immature Granulocytes % 0.5 %; Mean Corpuscular HGB Conc 32.1 g/dL (31.8-35.4); Mean Corpuscular Hemoglobin 32.2 pg (27.0-31.2); Mean Corpuscular Volume 100.3 fl (80-94); Nucleated Red Blood Cells % 0 %; Platelet Count 366 K/mm3 (142-424); Red Blood Count 3.29 M/mm3 (4.60-6.20); Red Cell Distribution Width-SD 62.5 fL; White Blood Count 9.4 K/mm3 (4.8-10.8)
[2025-06-24 03:12] LABS: Activated Partial Thrombo Time 27.8 seconds (22.8-30.6); INR 1.04 (0.9-1.1); Prothrombin Time 11.5 seconds (10.1-12.5)
[2025-06-24] MEDS: TRANEXAMIC ACID 1,000 MG/10 ML VIAL 1000 MG TP ×2 (03:15→04:07)
--- NOTE | 2025-06-24 03:20 | HMH.EDGENADL ---
Discharge Plan Disposition Patient Disposition: Xfer SNF Condition: Good Prescriptions Prescriptions: New cephalexin 500 mg capsule 500 mg PO Q6H 5 Days Qty: 20 0RF No Action spironolactone 50 mg tablet 50 mg PO DAILY Pro Fe 180 mg iron capsule 180 mg PO DAILY Trelegy Ellipta 200-62.5-25 mcg blister with device 1 inh inhalation DAILY 90 Days Qty: 90 3RF ammonium lactate 12 % cream 1 applic topical BID 30 Days Qty: 385 2RF [id number] [Centrum Silver Men] 300-600-300 mcg tablet 1 tab PO DAILY pregabalin [Lyrica] 25 mg capsule 25 mg PO QID PRN (Reason: NEUROPATHY) bumetanide 1 mg tablet 1 mg PO DAILY propafenone 150 mg tablet 150 mg PO BID Rx Instructions: space evenly during waking hours aspirin [Adult Low Dose Aspirin] 81 mg tablet,delayed release (DR/EC) 81 mg PO DAILY Hyper-Tan 3.5 % solution for nebulization 4 ml IH DAILY 90 Days Qty: 270 3RF Rx Instructions: 4 mL of 3% hypertonic saline nebulization every 12 hours every day to use with chest percussion therapy. This nebulization should be preceded by albuterol nebulization to avoid any bronchospasm. azithromycin 250 mg tablet 250 mg PO QMWF clopidogrel 75 mg tablet 75 mg PO DAILY Qty: 30 3RF levalbuterol HCl 0.63 mg/3 mL solution for nebulization See Rx Instructions .ROUTE .COMPLEX Qty: 810 0RF Dose Instruction: INHALE CONTENTS OF 1 VIAL (3 ML) VIA NEBULIZER 3 TIMES A DAY NEEDED FOR SHORTNESS OF BREATH OR WHEEZING Rx Instructions: INHALE CONTENTS OF 1 VIAL (3 ML) VIA NEBULIZER 3 TIMES A DAY NEEDED FOR SHORTNESS OF BREATH OR WHEEZING levalbuterol tartrate [Xopenex HFA] 45 mcg/actuation HFA aerosol inhaler 2 inh INHALATION Q6H PRN (Reason: shortness of breath or wheezing) 90 Days Qty: 15 4RF terazosin 2 MG capsule 2 mg PO DAILY tamsulosin 0.4 MG capsule 0.4 mg PO HS zolpidem 10 MG tablet 10 mg PO HS atorvastatin 40 MG tablet 40 mg PO HS diazepam 5 mg tablet 2.5 mg PO HS Referrals Follow up/Referrals: Provider,Referral, MD [Primary Care Provider, Medical] - See instructions Activity Restrictions/Add. Instructions Additional Instructions/Restrictions: You were evaluated in the ER and are believed to be appropriate for discharge at this time. The dressing that is currently in place should remain in place for 24 hours. After this, the wound can be gently washed with warm soapy water twice a day and bacitracin applied twice a day. Use the provided bacitracin ointment for this. Take the prescribed cephalexin antibiotic as directed. Do not skip doses, do not stop taking early. Keep the right leg elevated is much as possible especially for the first 24 hours to reduce swelling and bleeding. Follow-up with your primary care doctor for reevaluation in a few days. The sutures should be removed from the wound in 7 to 10 days. Return to the ER with any new, worsening, or otherwise concerning symptoms as discussed. Clinical Impressions Clinical Impression: Laceration of right lower leg Instructions Patient Instructions: DI for Laceration Repair Print Language Print Language: Citizen Of [place] Discharge ED Provider: Vivi Duran General Adult HPI General Chief complaint: Wound/Laceration Stated complaint: Skin Tear Time Seen by Provider: 06/24/25 02:06 Mode of Arrival: EMS Source of Information: Patient and EMS Description of Symptoms (Recalled from ER Triage Doc. by RN): Pt presents via ems from [facility] for evaluation of wound to right lower leg that will not clot. Pt reports to getting up to turn light off in his room and striking his leg on the lever of a reclinning chair resulting to skin tear/laceration to lateral right lower leg. Pt presents with pressure dressing placed per group home that is saturdated. Pt does take Plavix and aspirin daily. History of Present Illness HPI narrative: 85-year-old male presents to the ER with EMS from [place] [facility] for right lower leg wound. Patient takes aspirin and Plavix. Reportedly he got up to turn off a light in his room and struck his leg on the lever of reclining chair causing a large wound. Injury occurred more than 4 hours prior to arrival. group home reports they have applied pressure dressings and that it continues to saturate. Patient reports I told them that dressing was not going to be enough . Patient states he has been able to walk on the leg since the incident. He had a recent fall a few weeks ago with multiple broken ribs and therefore is at [place] [facility] until he recovers. He states he did not fall or injure anything else, no strike to the head, no loss of consciousness. He was simply an injury to the right lower leg only. Patient reports he walks with a cane. He has no dizziness headache, chest pain, difficulty breathing, abdominal complaints, or any other associated symptoms. Most recent tetanus within the last year according to the patient. Related Data Home Medications ?Medication ?Instructions ?Recorded ?Confirmed [id number] 300 mcg-K 60 1 tab PO DAILY Supplement 01/12/18 06/01/25 mcg-lycop 600 mcg-lutein 300 mcg tablet (Centrum Silver Men) terazosin 2 mg capsule 2 mg PO DAILY prostate 08/29/19 06/01/25 tamsulosin 0.4 mg capsule 0.4 mg PO HS PROSTATE 10/15/20 06/01/25 zolpidem 10 mg tablet 10 mg PO HS SLEEP 10/15/20 06/01/25 atorvastatin 40 mg tablet 40 mg PO HS Cholesterol 10/16/20 06/01/25 bumetanide 1 mg tablet 1 mg PO DAILY 10/21/21 06/01/25 diazepam 5 mg tablet 2.5 mg PO HS Anxiety 10/21/21 06/01/25 propafenone 150 mg tablet 150 mg PO BID 10/21/21 06/01/25 pregabalin 25 mg capsule (Lyrica) 25 mg PO QID PRN NEUROPATHY 12/30/21 06/01/25 aspirin 81 mg tablet,delayed 81 mg PO DAILY 09/04/22 06/01/25 release (Adult Low Dose Aspirin) polysaccharide iron complex 180 mg 180 mg PO DAILY 10/06/24 06/01/25 iron capsule (Pro Fe) spironolactone 50 mg tablet 50 mg PO DAILY 10/06/24 06/01/25 azithromycin 250 mg tablet 250 mg PO QMWF 06/01/25 06/01/25 Previous Rx's ?Medication ?Instructions ?Recorded clopidogrel 75 mg tablet 75 mg PO DAILY PLATELET INHIBITOR 12/28/20 #30 tabs sodium chloride 3.5 % for 4 ml inhalation DAILY 90 days #270 09/04/22 nebulization (Hyper-Tan) mL fluticasone fur. 200 mcg-umeclid 1 inh inhalation DAILY 90 days #90 01/04/25 62.5 mcg-vilant 25 mcg ea inhalat.powder (Trelegy Ellipta) ammonium lactate 12 % topical cream 1 applic topical BID dry skin, 03/01/25 callus care 30 days #385 grams levalbuterol HCl 0.63 mg/3 mL See Rx Instructions .Route 03/16/25 solution for nebulization .COMPLEX #810 mL levalbuterol tartrate 45 2 inh inhalation Q6H PRN shortness 04/04/25 mcg/actuation aerosol inhaler of breath or wheezing 90 days #15 (Xopenex HFA) grams cephalexin 500 mg capsule 500 mg PO Q6H 5 days #20 caps 06/24/25 Allergies Allergy/AdvReac Type Severity Reaction Status Date / Time No Known Drug Allergies Allergy Verified 06/01/25 13:29 [facility] Disclaimer: The information contained in this section may have been updated after the patient was seen, as this information can be updated by other users. Medical History Abnormal cardiovascular stress test Acute on chronic respiratory failure Angina, class IV Arteriosclerotic cardiovascular disease Cardiomyopathy Chronic obstructive pulmonary disease Coronary artery disease Diastolic dysfunction Dizziness Dyspnea Dyspnea on minimal exertion Edema Fatigue Former smoker Hyperlipidemia Hypertension Obesity Palpitations Pulmonary hypertension COPD exacerbation Bronchiectasis Dyspnea on exertion Chronic respiratory failure with hypoxia and hypercapnia COPD (chronic obstructive pulmonary disease) Bronchiectasis without complication Chronic bronchitis Abnormal computerized axial tomography of chest Dyspnea on exertion History of 2019 novel coronavirus disease (COVID-19) Shortness of breath Acute and chronic respiratory failure COPD (chronic obstructive pulmonary disease) Pulmonary HTN Surgical History No significant past surgical history Family History Other Heart attack Hypertension Social History Smoking Status: Never smoker second hand exposure: No alcohol intake: never counseling provided: none substance use type: denies use current occupational status: retired Travel in the last 8 weeks?: None household members: spouse housing: house current occupational exposures/hazards: No caffeine: Yes Other Medical History Have you received the Flu Vaccine for this season: No Have you received the Pneumonia Vaccine: Yes ROS Obtained: Yes Systems reviewed as appropriate & no additional complaints except as documented Per HPI Physical Exam General General appearance: alert and in no apparent distress Head Head exam: atraumatic and normocephalic Eye Eye exam: Present PERRL and EOMI ENT ENT exam: Present mucous membranes moist Neck Neck exam: Present normal inspection and full ROM Chest Chest inspection: Present symmetric chest wall rise Respiratory Respiratory exam: Present normal lung sounds bilaterally; Absent respiratory distress, wheezes or stridor Cardiovascular Cardiovascular exam: Present regular rate and normal rhythm Abdominal Exam Abdominal exam: Present soft; Absent distention or tenderness Extremities Exam Extremities exam: Present full ROM and edema (+2 bilateral lower extremities) Expanded Lower Extremity Exam Right: Leg image:  1. Lateral aspect of right lower extremity with gaping wound that has a linear component and a C-shaped flap component. Associated hematoma. Slow venous oozing. Neurovascularly intact distally. No bony deformity. Neurological Exam Neurological exam: Present alert and oriented X3; Absent motor sensory deficit Psychiatric Psychiatric exam: Present normal affect and normal mood Skin Skin exam: Present warm and dry Medical Decision Making Medical Records Medical records reviewed: Yes I reviewed the patient's medical records. Screening: Per USPSTF and CDC recommendations, given the prevalence of disease in our region, it is our hospital?s policy to screen for HIV and viral Hepatitis for all patients aged 18 and over and those with ongoing risk factors. Silvestre Inquiry Pt receiving controlled substance: No Vital Signs: 06/24/25 02:18 06/24/25 02:34 06/24/25 03:01 Temperature 98 F 98.5 F Temperature Source Oral Oral Pulse Rate 94 H 85 Pulse Rate [Radial] 91 H Respiratory Rate 24 17 Blood Pressure 138/85 143/84 H Blood Pressure [Right Arm] 161/90 H Blood Pressure Mean 106 Blood Pressure Mean [Right Arm] 113 Blood Pressure Position [Right Arm] Sitting 02 Sat by Pulse Oximetry 100 96 98 Oxygen Delivery Method Nasal Cannula Room Air Nasal Cannula Oxygen Flow Rate (LPM) 3 3 06/24/25 03:30 06/24/25 04:00 Temperature Temperature Source Pulse Rate Pulse Rate [Radial] Respiratory Rate Blood Pressure 146/78 H 126/86 Blood Pressure [Right Arm] Blood Pressure Mean 104 98 Blood Pressure Mean [Right Arm] Blood Pressure Position [Right Arm] 02 Sat by Pulse Oximetry Oxygen Delivery Method Oxygen Flow Rate (LPM) Lab Data Lab Results 06/24/25 02:24: WBC 9.4, RBC 3.29 L, Hgb 10.6 L, Hct 33.0 L, MCV 100.3 H, MCH 32.2 H, MCHC 32.1, RDW 17.0, Plt Count 366, MPV 10.3, Neut % (Auto) 70.0, Lymph % (Auto) 18.8, [place] % (Auto) 7.6, Eos % (Auto) 2.5, Baso % (Auto) 0.6, Neut # (Auto) 6.6, Lymph # (Auto) 1.8, [place] # (Auto) 0.7, Eos # (Auto) 0.2, Baso # (Auto) 0.1, PT 11.5, INR 1.04, APTT 27.8 06/24/25 02:24 Orders (Tests/Meds): ED MEDICATIONS Generic Name Dose Route Start Last Admin Trade Name Freq PRN Reason Stop Dose Admin Cephalexin HCl 500 mg 06/24/25 04:25 Cephalexin 500mg Capsule PO 06/24/25 04:26 ONCE ONE Discontinued Medications Generic Name Dose Route Start Last Admin Trade Name Freq PRN Reason Stop Dose Admin Bacitracin 1 gm 06/24/25 04:02 06/24/25 04:04 Bacitracin Zinc Oint 30gm Tube TP 06/24/25 04:03 1 gm ONCE ONE Administration Tranexamic Acid 1,000 mg/ 260 mls @ 520 mls/hr 06/24/25 03:09 06/24/25 04:07 Sodium Chloride TP 06/24/25 03:10 Not Given ONCE ONE Lidocaine/Epinephrine 20 ml 06/24/25 02:31 06/24/25 02:32 Lidocaine 1% W/Epi 1:100,000 20ml Vial IM 06/24/25 02:32 20 ml ONCE ONE Administration Oxycodone HCl 5 mg 06/24/25 02:26 06/24/25 02:30 Oxycodone 5mg Immediate Release Tablet PO 06/24/25 02:27 5 mg ONCE ONE Administration Tranexamic Acid 1,000 mg 06/24/25 04:05 06/24/25 04:07 Tranexamic Acid 1,000 Mg/10 Ml Vial TP 06/24/25 04:06 1,000 mg ONCE ONE Administration Tranexamic Acid 1,000 mg 06/24/25 03:15 06/24/25 03:15 Tranexamic Acid 1,000 Mg/10 Ml Vial TP 06/24/25 03:16 1,000 mg ONCE ONE Administration ORDERS Category Date Time Status XR tibia fibula RT 2V Stat Exams 06/24/25 02:20 Taken Activated Partial Thrombo Time Stat Lab 06/24/25 02:24 Completed Complete Blood Count Auto Diff Stat Lab 06/24/25 02:24 Completed PT INR [Prothrombin Time INR] Stat Lab 06/24/25 02:24 Completed Medical Decision Narrative: In summary, this 85-year-old male with history of multiple recent rib fractures, COPD, ERIC, pulmonary hypertension, CAD,, hyperlipidemia presents to the emergency department today with wound to the distal right lower extremity. On initial evaluation patient is hemodynamically stable, afebrile, physical exam is notable for distal right lower extremity wound on the lateral aspect approximately 10 cm total in length with both a linear and C-shaped flap component with associated hematoma but no evidence of bony injury, neurovascularly intact. Differential diagnosis includes but is not limited to coagulopathy, anemia, I considered the possibility of underlying fracture but have very low suspicion for this. Based on these concerns, I ordered x-ray right lower extremity, CBC, coags. Suction was used to evacuate hematoma from the wound. Bovie was used to help achieve hemostasis as well as a few [id number] sutures in the deep tissue. I also applied TXA soaked gauze within the wound with compressive dressing to achieve complete hemostasis before full closure. Lidocaine with epinephrine was used and wound was closed, see procedure note for details. Labs personally reviewed demonstrate anemia with hemoglobin 10.6 down from 11.5 previously, PT/INR normal, APTT normal. X-ray right lower extremity personally interpreted does not demonstrate acute osseous injury, see radiology read for final interpretation. Patient stated his ribs were uncomfortable and he was due for his next pain medications so home dose of oxycodone was administered. And after wound was cleaned and sutured it remained hemostatic. Bacitracin applied. Dressing applied. Patient was given Keflex for wound infection prophylaxis due to the depth of the wound and patient's multiple comorbidities that could increase his risk for infection as well as currently living in a long-term care facility. Keflex prescribed. Patient was given instructions on symptomatic monitoring and management, wound care, antibiotic use, follow-up instructions, and strict return precautions for the ER. They indicated understanding and the patient was discharged in stable condition. Procedures Risk/Benefits of Procedure(s) Were Explained: Yes Laceration Laceration 1: Site: lower extremity Side (If applicable): right Size (cm): 10 Description: flap and irregular Depth: involves subcutaneous layer Local Anesthetic: lidocaine 1% and with epi Amount of anesthesia used (mL): 20 Pre-repair: wound explored, irrigated extensively, deep structures intact and extensive debridement (And evacuation of hematoma) Skin layer closed with: nylon Size (cm): 3-0 Number of sutures: 18 Technique: simple, interrupted Subcutaneous layer closed with: vicryl Size: 5-0 Number of sutures: 2 Technique: other (Figure of 8 to create hemostasis of a small bleeding vessel) Critical Care Critical Care Time Critical Care Time: No
[2025-06-24 03:30] VITALS: BP 146/78
[2025-06-24 04:00] VITALS: BP 126/86
[2025-06-24] MEDS: BACITRACIN ZINC OINT 30GM TUBE TP (04:04)
--- NOTE | 2025-06-24 04:27 | PC.NURSE ---
Snacks given to patient upon request. Pt aox4, nad noted, rr even and non labored, skin slightly pale, warm, and dry.
--- NOTE | 2025-06-24 04:47 | PC.NURSE ---
spoke with Veronika at [facility] regarding discharge instructions.
[2025-06-24 05:05] VITALS: BP 125/71; PULSE 91; RESP 16; TEMP 36.6; O2SAT 96
== END 2025-06-24 05:05 ==
PROVIDERS: Emergency Provider Emergency Medicine
DX: S81.811A Laceration without foreign body, right lower leg, initial encounter (principal); I10 Essential (primary) hypertension; E78.5 Hyperlipidemia, unspecified
CPT/HCPCS: 73590; 85025; 85610; 85730; 99284; J2004

== ENCOUNTER 2025-08-14 12:20 | Outpatient (CLI) | payer MEDICARE, SELFPAY ==
--- OUTSIDE RECORDS SUMMARY | 2020-08-20 13:38 | XMS_ITS | Encounter Summary ---
[facility] Address [address] [place] [id number] Care Team Providers Care Inspector Salvage Name Role Phone Stephen Velasquez MD Primary Care Provider [phone] Encounter Details Date Type Department Care Team (Late st Contact Info) Description 08/20/2020 12:38 PM EST Hospital Encounter [facility] PULMONARY & CRITICAL CARE MEDICINE [address] [place] [address] Social History Tobacco Use Types [...] Description 05/30/2026 2:00 PM EDT Office Visit [facility] CARDIOLOGY [address] [facility] [address] [place] [address] Janiya Reyna MD [address] [facility] [address] [place], [place] [id number] Scheduled Procedures Name Priority Associated Diagnoses Date/Ti me RIGHT AND LEFT HEART CATH Coronary artery disease involving lum[place] coronary artery of lummi heart without angina pectoris documented as of [...] by Dr. Jocelyn Yeung MD. Leela Farr BACK OFFICE MEDICAL ASSISTANT IMG DIAGNOSTIC IMAGING ORD ERABLES Final Result documented in this encounter Visit Diagnoses Not on filedocumented in this encounter Additional Health Concerns Infection Onset Date Last Indicated Resolved Time COVID (rule out) 08/14/2020 08/14/2020 08/21/2020 9:10 PM EST documented as of this encounter Care Teams Inspector Salvage Relationship Specialty Start Date End Date Stephen Velasquez MD [address] [place] [address] PCP - General Family Medicine 09/16/18 documented as of this encounter
--- OUTSIDE RECORDS SUMMARY | 2025-08-03 20:00 | XMS_ITS | Clinical Summary ---
Author Organization Unknown Care Team Providers Care Scientific Informatics Project Leader Name Role Phone BEST WRIGHT, MARCELLE Unavailable Unavailable SMOOTH RN, CAM Unavailable Unavailable ELODIA PT, MELQUIADES Unavailable Unavailable MOE AITCHBONE BREAKER, KELLEY Unavailable Unavailable DAYANNA OT, SHASTA Unavailable Unavailable Payers Payer Name Policy Type Policy Number Effective Date Expira tion Date [employer].LILIAM.PPO.C.AUTH [id number] Problems Condition Name Condition Details Condition Category Status Onset Date Resolution Date Last Treatment Date Treating Clinician Comments MULTIPLE FX OF RIBS, LEFT SIDE, SUBS FOR FX W ROUTN HEAL Active 06-13 00:00: 00 URINARY TRACT INFECTION, SITE NOT SPECIFIED Active 06-13 00:00: 00 UNSPECIFIED CIRRHOSIS OF LIVER Active 10-19 00:00: 00 OTHER ASCITES Active 10-19 00:00: 00 CHRONIC OBSTRUCTIVE PULMONARY DISEASE, UNSPECIFIED Active 10-19 00:00: 00 ATHSCL HEART DISEASE OF [place] CORONARY ARTERY W/O ANG PCTRS Active 10-19 00:00: 00 HYP HRT AND CHR KDNY DIS W HRT FAIL AND STG 1-4/UNSP CHR KDNY Active 10-19 00:00: 00 HEART FAILURE, UNSPECIFIED Active 10-19 00:00: 00 CHRONIC KIDNEY DISEASE, UNSPECIFIED Active 10-19 00:00: 00 PULMONARY HYPERTENSION , UNSPECIFIED Active 10-19 00:00: 00 HYPERGLYCEMI A, UNSPECIFIED Active 10-19 00:00: 00 HYPERLIPIDEM IA, UNSPECIFIED Active 10-19 00:00: 00 POLYNEUROPAT HY, UNSPECIFIED Active 10-19 00:00: 00 OBSTRUCTIVE SLEEP APNEA (ADULT) (PEDIATRIC) Active 10-19 00:00: 00 RETENTION OF URINE, UNSPECIFIED Active 10-19 00:00: 00 SOLITARY PULMONARY NODULE Active 10-19 00:00: 00 UNSPECIFIED MACULAR DEGENERATION Active 10-19 00:00: 00 MORBID (SEVERE) OBESITY DUE TO EXCESS CALORIES Active 10-19 00:00: 00 BODY MASS INDEX [BMI] 35.0-35.9, ADULT Active 10-19 00:00: 00 DEPENDENCE ON SUPPLEMENTAL OXYGEN Active 10-19 00:00: 00 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 Ordering Clinician Indication Dosage Frequency Signature (SIG) Comments Components Pro Fe 180 mg iron capsule 06-09 00:00: 00 06-27 00:00 :00 No [id number] Per instruc tions 3 TIMES PER WEEK Per instructio ns 3 TIMES PER WEEK (route: oral) Med Classific ation: Electroly te Balance-N utritiona l Products sulfamethox azole 800 mg-trimetho prim 160 mg tablet 06-06 00:00: 00 06-27 00:00 :00 No [id number] Per instruc tions 2 TIMES A DAY Per instructio ns 2 TIMES A DAY (route: oral) Med Classific ation: Anti-Infe ctive Agents albuterol sulfate 0.63 mg/3 mL solution for nebulizatio n 06-27 00:00: 00 Yes [id number] COPD 3 mL NEEDED 3 mL NEEDED (route: inhalation ) Med Classific ation: Respirato ry Therapy Agents aspirin 81 mg tablet,marilee yed release 06-27 00:00: 00 Yes [id number] HEART 1 tablet DAILY 1 tablet DAILY (route: oral) Med Classific ation: Hematolog ical Agents atorvastati n 40 mg tablet 06-27 00:00: 00 Yes [id number] CHOLESTEROL 1 tablet BEDTIME 1 tablet BEDTIME (route: oral) Med Classific ation: Cardiovas cular Therapy Agents bumetanide 1 mg tablet 06-27 00:00: 00 Yes [id number] FLUID 1 tablet DIRECTED 1 tablet DIRECTED (route: oral) Med Classific ation: Cardiovas cular Therapy Agents clopidogrel 75 mg tablet 06-27 00:00: 00 Yes [id number] BLOOD THINNER 1 tablet DAILY 1 tablet DAILY (route: oral) Med Classific ation: Hematolog ical Agents diazepam 5 mg tablet 06-27 00:00: 00 Yes [id number] SLEEP/ANXIE TY 1 tablet BEDTIME 1 tablet BEDTIME (route: oral) Med Classific ation: Central Nervous System Agents Lyrica 25 mg capsule 06-27 00:00: 00 Yes [id number] NEUROPATHY 1 capsule 4 TIMES DAILY 1 capsule 4 TIMES DAILY (route: oral) Med Classific ation: Central Nervous System Agents oxygen gas for inhalation 06-27 00:00: 00 Yes [id number] COPD 3 Liter NEEDED 3 Liter A S NEEDED (route: inhalation ) Med Classific ation: Medical Supplies and Durable Medical Equipment (DME) spironolact one 25 mg tablet 06-27 00:00: 00 Yes [id number] CHF 1 tablet DAILY 1 tablet DAILY (route: oral) Med Classific ation: Cardiovas cular Therapy Agents tamsulosin 0.4 mg capsule 06-27 00:00: 00 Yes [id number] BPH 1 capsule DAILY 1 capsule DAILY (route: oral) Med Classific ation: Genitouri nary Therapy terazosin 2 mg capsule 06-27 00:00: 00 Yes [id number] HTN 1 capsule BEDTIME 1 capsule BEDTIME (route: oral) Med Classific ation: Cardiovas cular Therapy Agents Trelegy Ellipta 100 mcg-62.5 mcg-25 mcg powder for inhalation 06-27 00:00: 00 Yes [id number] COPD 1 inhalat ion DAILY 1 inhalation DAILY (route: inhalation ) Med Classific ation: Respirato ry Therapy Agents Ventolin HFA 90 mcg/actuati on aerosol inhaler 06-27 00:00: 00 Yes [id number] SOB 2 puff EVERY 4 HOURS 2 puff EVERY 4 HOURS (route: inhalation ) Med Classific ation: Respirato ry Therapy Agents zolpidem 10 mg tablet 06-27 00:00: 00 Yes [id number] SLEEP 1 tablet BEDTIME 1 tablet BEDTIME (route: oral) Med Classific ation: Central Nervous System Agents oxycodone 5 mg tablet 06-27 00:00: 00 Yes [id number] PAIN 1 tablet EVERY 4 HOURS 1 tablet EVERY 4 HOURS (route: oral) Med Classific ation: Analgesic , Anti-infl ammatory or Antipyret ic Vital Signs Vital Name Observation Time Observation Value Commen ts Temperature 2025-08-04 17:45:00.000 97.8 [degF] Temperature 2025-07-26 14:49:00.000 98.6 [degF] Temperature 2025-07-25 13:36:00.000 98.2 [degF] Temperature 2025-07-21 14:03:00.000 97.6 [degF] Temperature 2025-07-12 13:13:00.000 98.6 [degF] Temperature 2025-07-10 15:30:00.000 98.4 [degF] Temperature 2025-07-07 12:16:00.000 97.6 [degF] Temperature 2025-07-04 14:11:00.000 98.1 [degF] Temperature 2025-06-30 13:37:00.000 97.3 [degF] Temperature 2025-06-27 16:18:00.000 97.8 [degF] BMI (%) 2025-06-27 15:26:27.000 36 kg/m2 Height 2025-06-27 15:26:20.000 71 [in_us] Pulse 2025-08-04 17:45:00.000 77 /min Pulse 2025-07-26 14:49:00.000 60 /min Pulse 2025-07-25 13:36:00.000 76 /min Pulse 2025-07-21 14:03:00.000 61 /min Pulse 2025-07-17 15:26:00.000 84 /min Pulse 2025-07-12 13:13:00.000 75 /min Pulse 2025-07-10 15:30:00.000 60 /min Pulse 2025-07-07 12:16:00.000 78 /min Pulse 2025-07-05 15:50:00.000 60 /min Pulse 2025-07-04 14:11:00.000 67 /min Pulse 2025-06-30 13:37:00.000 60 /min Pulse 2025-06-27 16:18:00.000 62 /min O2 Saturation (%) 2025-07-26 14:51:00.000 94 % O2 Saturation (%) 2025-07-25 13:36:00.000 96 % O2 Saturation (%) 2025-07-21 14:03:00.000 97 % O2 Saturation (%) 2025-07-17 15:26:00.000 92 % O2 Saturation (%) 2025-07-12 13:13:00.000 97 % O2 Saturation (%) 2025-07-10 15:32:00.000 92 % O2 Saturation (%) 2025-07-05 15:50:00.000 95 % O2 Saturation (%) 2025-06-30 13:37:00.000 92 % O2 Saturation (%) 2025-06-27 16:18:00.000 94 % Respirations 2025-08-04 17:45:00.000 18 /min Respirations 2025-07-26 14:49:00.000 18 /min Respirations 2025-07-25 13:36:00.000 18 /min Respirations 2025-07-21 14:03:00.000 18 /min Respirations 2025-07-17 15:26:00.000 18 /min Respirations 2025-07-12 13:13:00.000 18 /min Respirations 2025-07-10 15:30:00.000 18 /min Respirations 2025-07-07 12:16:00.000 18 /min Respirations 2025-07-05 15:50:00.000 18 /min Respirations 2025-07-04 14:11:00.000 18 /min Respirations 2025-06-30 13:37:00.000 18 /min Respirations 2025-06-27 16:18:00.000 18 /min Weight (lbs) 2025-07-10 15:31:00.000 252 [lb_av] Weight (lbs) 2025-06-27 15:26:27.000 265 [lb_av] Systolic Blood Pressure 2025-08-04 17:45:00.000 132 mm [Hg] Systolic Blood Pressure 2025-07-26 14:49:00.000 120 mm [Hg] Systolic Blood Pressure 2025-07-25 13:36:00.000 162 mm [Hg] Systolic Blood Pressure 2025-07-21 14:03:00.000 146 mm [Hg] Systolic Blood Pressure 2025-07-17 15:26:00.000 135 mm [Hg] Systolic Blood Pressure 2025-07-12 13:13:00.000 134 mm [Hg] Systolic Blood Pressure 2025-07-10 15:30:00.000 113 mm [Hg] Systolic Blood Pressure 2025-07-07 12:16:00.000 130 mm [Hg] Systolic Blood Pressure 2025-07-05 15:50:00.000 140 mm [Hg] Systolic Blood Pressure 2025-07-04 14:11:00.000 120 mm [Hg] Systolic Blood Pressure 2025-06-30 13:37:00.000 130 mm [Hg] Systolic Blood Pressure 2025-06-27 16:18:00.000 158 mm [Hg] Diastolic Blood Pressure 2025-08-04 17:45:00.000 70 mm [Hg] Diastolic Blood Pressure 2025-07-26 14:49:00.000 60 mm [Hg] Diastolic Blood Pressure 2025-07-25 13:36:00.000 84 mm [Hg] Diastolic Blood Pressure 2025-07-21 14:03:00.000 84 mm [Hg] Diastolic Blood Pressure 2025-07-17 15:26:00.000 70 mm [Hg] Diastolic Blood Pressure 2025-07-12 13:13:00.000 69 mm [Hg] Diastolic Blood Pressure 2025-07-10 15:30:00.000 60 mm [Hg] Diastolic Blood Pressure 2025-07-07 12:16:00.000 65 mm [Hg] Diastolic Blood Pressure 2025-07-05 15:50:00.000 60 mm [Hg] Diastolic Blood Pressure 2025-07-04 14:11:00.000 55 mm [Hg] Diastolic Blood Pressure 2025-06-30 13:37:00.000 68 mm [Hg] Diastolic Blood Pressure 2025-06-27 16:18:00.000 74 mm [Hg] Plan of Treatment Planned Activity Planned Date Details Comments Future Scheduled Test RN TO OBSE RVE, ASSESS, EVALUATE, AND DEVELOP AN INDIVIDUALIZED PLAN OF CARE. AGENCY MAY ACCEPT ORDERS FROM CONSULTING PHYSICIANS DR ALMANZAR (REHAB), DR JEWELL (PCP), DR CARDENAS (PULMONOLOGY) RN TO OBSERVE AND ASSESS, IT SECURITY ANALYST/ENVIRONMENTAL COMPLIANCE TECHNICIAN TO OBSERVE FOR RISK FOR FALLS AND INSTRUCT IN FALL PREVENTION, HOME SAFETY, MEDICATION MANAGEMENT, INFECTION PREVENTION, AND NUTRITION MANAGEMENT. RN/IT SECURITY ANALYST/ENVIRONMENTAL COMPLIANCE TECHNICIAN NURSE MAY PERFORM O2 SATURATION LEVEL ON ADMISSION AND PRN FOR SOBFOR RN TO ASSESS/IT SECURITY ANALYST TO OBSERVE PATIENT, WITH NOTIFICATION TO THE PHYSICIAN IF SATURATION IS 90% IN THE ABSENCE OF MORE SPECIFIC PARAMETERS FROM THE PHYSICIAN. AGENCY MAY PERFORM A RESUMPTION OF CARE VISIT FOLLOWING ANY HOSPITAL ADMISSION. RN/IT SECURITY ANALYST/ENVIRONMENTAL COMPLIANCE TECHNICIAN TO MONITOR CO-MORBID CONDITIONS LISTED ON THE PLAN OF CARE AND ANY NEW CONDITIONS THAT PRESENT THEMSELVES DURING THIS EPISODE TO IDENTIFY CHANGES AND INTERVENE TO MINIMIZE COMPLICATIONS. [code = RN TO OBSERVE, ASSESS, EVALUATE, AND DEVELOP AN INDIVIDUALIZED PLAN OF CARE. AGENCY MAY ACCEPT ORDERS FROM CONSULTING PHYSICIANS DR ALMANZAR (REHAB), DR JEWELL (PCP), DR CARDENAS (PULMONOLOGY) RN TO OBSERVE AND ASSESS, IT SECURITY ANALYST/ENVIRONMENTAL COMPLIANCE TECHNICIAN TO OBSERVE FOR RISK FOR FALLS AND INSTRUCT IN FALL PREVENTION, HOME SAFETY, MEDICATION MANAGEMENT, INFECTION PREVENTION, AND NUTRITION MANAGEMENT. RN/IT SECURITY ANALYST/ENVIRONMENTAL COMPLIANCE TECHNICIAN NURSE MAY PERFORM O2 SATURATION LEVEL ON ADMISSION AND PRN FOR SOBFOR RN TO ASSESS/IT SECURITY ANALYST TO OBSERVE PATIENT, WITH NOTIFICATION TO THE PHYSICIAN IF SATURATION IS 90% IN THE ABSENCE OF MORE SPECIFIC PARAMETERS FROM THE PHYSICIAN. AGENCY MAY PERFORM A RESUMPTION OF CARE VISIT FOLLOWING ANY HOSPITAL ADMISSION. RN/IT SECURITY ANALYST/ENVIRONMENTAL COMPLIANCE TECHNICIAN TO MONITOR CO-MORBID CONDITIONS LISTED ON THE PLAN OF CARE AND ANY NEW CONDITIONS THAT PRESENT THEMSELVES DURING THIS EPISODE TO IDENTIFY CHANGES AND INTERVENE TO MINIMIZE COMPLICATIONS.] Future Scheduled Test MEDICATION MANAGEMENT; RN/IT SECURITY ANALYST/ENVIRONMENTAL COMPLIANCE TECHNICIAN TO REVIEW MEDICATIONS FOR INTERACTIONS, EFFECTIVENESS OF DRUG THERAPY, AND SIGNS/SYMPTOMS OF ADVERSE REACTIONS. MAY INSTRUCT AND REINFORCE MEDICATION TEACHING RELATED TO THE USE OF MEDICATIONS, DOSAGE, FREQUENCY, PURPOSE, SIDE EFFECTS, AND TO REPORT COMPLICATIONS. [code = MEDICATION MANAGEMENT; RN/IT SECURITY ANALYST/ENVIRONMENTAL COMPLIANCE TECHNICIAN TO REVIEW MEDICATIONS FOR INTERACTIONS, EFFECTIVENESS OF DRUG THERAPY, AND SIGNS/SYMPTOMS OF ADVERSE REACTIONS. MAY INSTRUCT AND REINFORCE MEDICATION TEACHING RELATED TO THE USE OF MEDICATIONS, DOSAGE, FREQUENCY, PURPOSE, SIDE EFFECTS, AND TO REPORT COMPLICATIONS.] Future Scheduled Test RISK FOR H OSPITALIZATION; RN TO ASSESS/TEACH, ENVIRONMENTAL COMPLIANCE TECHNICIAN/IT SECURITY ANALYST TO OBSERVE/TEACH PATIENT/CAREGIVER ON RISK FOR HOSPITALIZATION/EMERGENCY ROOM VISITS, TEACH SIGNS AND SYMPTOMS THAT PUT PATIENT AT RISK, WHEN TO NOTIFY NURSE/PHYSICIAN OF COMPLICATIONS/DECLINE, AND WHEN TO CALL 911. [code = RISK FOR HOSPITALIZATION; RN TO ASSESS/TEACH, ENVIRONMENTAL COMPLIANCE TECHNICIAN/IT SECURITY ANALYST TO OBSERVE/TEACH PATIENT/CAREGIVER ON RISK FOR HOSPITALIZATION/EMERGENCY ROOM VISITS, TEACH SIGNS AND SYMPTOMS THAT PUT PATIENT AT RISK, WHEN TO NOTIFY NURSE/PHYSICIAN OF COMPLICATIONS/DECLINE, AND WHEN TO CALL 911.] Future Scheduled Test CARDIOVASC ULAR SYSTEM; RN TO ASSESS/TEACH, IT SECURITY ANALYST/ENVIRONMENTAL COMPLIANCE TECHNICIAN TO OBSERVE/TEACH RELATED TO ALTERED CARDIOVASCULAR STATUS TO MINIMIZE COMPLICATIONS AND REDUCE HOSPITALIZATION. [code = CARDIOVASCULAR SYSTEM; RN TO ASSESS/TEACH, IT SECURITY ANALYST/ENVIRONMENTAL COMPLIANCE TECHNICIAN TO OBSERVE/TEACH RELATED TO ALTERED CARDIOVASCULAR STATUS TO MINIMIZE COMPLICATIONS AND REDUCE HOSPITALIZATION.] Future Scheduled Test HEART FAIL URE; RN TO ASSESS/TEACH, IT SECURITY ANALYST/ENVIRONMENTAL COMPLIANCE TECHNICIAN TO OBSERVE/TEACH CARDIOPULMONARY SYSTEM TO IDENTIFY SIGNS OF DECOMPENSATION AND INTERVENE TO MINIMIZE THE SEVERITY OF FLUID OVERLOAD. OBSERVE PATIENT ABILITY TO MONITOR AND RECORD DAILY WEIGHTS AND VITAL SIGNS, INCLUDING PULSE AND BLOOD PRESSURE; RECORD PATIENT REPORTED WEIGHT, OR WEIGH PATIENT NEEDED. REPORT INCREASED EDEMA OR WEIGHT GAIN OF >2 LBS IN 1 DAY OR >5 LBS IN 1 WEEK OR 5LBS OR MORE OVER TARGET WEIGHT. MAY MEASURE ABDOMINAL GIRTH IF UNABLE TO WEIGH. SCALES AND BP MONITOR TO BE PROVIDED IF NEEDED. [code = HEART FAILURE; RN TO ASSESS/TEACH, IT SECURITY ANALYST/ENVIRONMENTAL COMPLIANCE TECHNICIAN TO OBSERVE/TEACH CARDIOPULMONARY SYSTEM TO IDENTIFY SIGNS OF DECOMPENSATION AND INTERVENE TO MINIMIZE THE SEVERITY OF FLUID OVERLOAD. OBSERVE PATIENT ABILITY TO MONITOR AND RECORD DAILY WEIGHTS AND VITAL SIGNS, INCLUDING PULSE AND BLOOD PRESSURE; RECORD PATIENT REPORTED WEIGHT, OR WEIGH PATIENT NEEDED. REPORT INCREASED EDEMA OR WEIGHT GAIN OF >2 LBS IN 1 DAY OR >5 LBS IN 1 WEEK OR 5LBS OR MORE OVER TARGET WEIGHT. MAY MEASURE ABDOMINAL GIRTH IF UNABLE TO WEIGH. SCALES AND BP MONITOR TO BE PROVIDED IF NEEDED.] Future Scheduled Test HYPERTENSI ON MANAGEMENT; RN TO ASSESS AND TEACH, IT SECURITY ANALYST/ENVIRONMENTAL COMPLIANCE TECHNICIAN TO OBSERVE AND TEACH WARNING SIGNS AND SYMPTOMS TO AVOID HOSPITALIZATION. [code = HYPERTENSION MANAGEMENT; RN TO ASSESS AND TEACH, IT SECURITY ANALYST/ENVIRONMENTAL COMPLIANCE TECHNICIAN TO OBSERVE AND TEACH WARNING SIGNS AND SYMPTOMS TO AVOID HOSPITALIZATION.] Future Scheduled Test RESPIRATOR Y SYSTEM MANAGEMENT; RN TO ASSESS AND TEACH, IT SECURITY ANALYST/ENVIRONMENTAL COMPLIANCE TECHNICIAN TO OBSERVE AND TEACH RELATED TO ALTERED RESPIRATORY STATUS TO MINIMIZE COMPLICATIONS AND REDUCE HOSPITALIZATION. [code = RESPIRATORY SYSTEM MANAGEMENT; RN TO ASSESS AND TEACH, IT SECURITY ANALYST/ENVIRONMENTAL COMPLIANCE TECHNICIAN TO OBSERVE AND TEACH RELATED TO ALTERED RESPIRATORY STATUS TO MINIMIZE COMPLICATIONS AND REDUCE HOSPITALIZATION.] Future Scheduled Test COPD MANAG EMENT; RN TO ASSESS AND TEACH, IT SECURITY ANALYST/ENVIRONMENTAL COMPLIANCE TECHNICIAN TO OBSERVE AND TEACH SIGNS/SYMPTOMS OF COPD EXACERBATION AND PROVIDE EARLY INTERVENTIONS TO MINIMIZE RISK OF HOSPITALIZATION. RN/IT SECURITY ANALYST/ENVIRONMENTAL COMPLIANCE TECHNICIAN TO INSTRUCT ON SELF-CARE MANAGEMENT INCLUDING BREATHING TECHNIQUES, AIRWAY CLEARANCE, AND PROPER USE OF COPD MEDICATIONS. RN TO ASSESS AND TEACH, IT SECURITY ANALYST/ENVIRONMENTAL COMPLIANCE TECHNICIAN TO OBSERVE AND TEACH PATIENT/CAREGIVER ABILITY TO MONITOR AND RECORD VITAL SIGNS INCLUDING PULSE OXIMETRY AND BLOOD PRESSURE. PULSE OXIMETER AND BP MONITOR TO BE PROVIDED IF NEEDED . [code = COPD MANAGEMENT; RN TO ASSESS AND TEACH, IT SECURITY ANALYST/ENVIRONMENTAL COMPLIANCE TECHNICIAN TO OBSERVE AND TEACH SIGNS/SYMPTOMS OF COPD EXACERBATION AND PROVIDE EARLY INTERVENTIONS TO MINIMIZE RISK OF HOSPITALIZATION. RN/IT SECURITY ANALYST/ENVIRONMENTAL COMPLIANCE TECHNICIAN TO INSTRUCT ON SELF-CARE MANAGEMENT INCLUDING BREATHING TECHNIQUES, AIRWAY CLEARANCE, AND PROPER USE OF COPD MEDICATIONS. RN TO ASSESS AND TEACH, IT SECURITY ANALYST/ENVIRONMENTAL COMPLIANCE TECHNICIAN TO OBSERVE AND TEACH PATIENT/CAREGIVER ABILITY TO MONITOR AND RECORD VITAL SIGNS INCLUDING PULSE OXIMETRY AND BLOOD PRESSURE. PULSE OXIMETER AND BP MONITOR TO BE PROVIDED IF NEEDED .] Future Scheduled Test OXYGEN THE RAPY; RN/IT SECURITY ANALYST/ENVIRONMENTAL COMPLIANCE TECHNICIAN TO INSTRUCT ON OXYGEN MANAGEMENT INCLUDING: ADMINISTRATION AT 3 L/MIN VIA NC QHS/PRN FOR SOB, CARE OF EQUIPMENT AND SAFETY. [code = OXYGEN THERAPY; RN/IT SECURITY ANALYST/ENVIRONMENTAL COMPLIANCE TECHNICIAN TO INSTRUCT ON OXYGEN MANAGEMENT INCLUDING: ADMINISTRATION AT 3 L/MIN VIA NC QHS/PRN FOR SOB, CARE OF EQUIPMENT AND SAFETY.] Future Scheduled Test SKIN INTEG RITY RN TO ASSESS AND TEACH, IT SECURITY ANALYST/ENVIRONMENTAL COMPLIANCE TECHNICIAN TO OBSERVE AND TEACH INTEGUMENTARY STATUS TO IDENTIFY CHANGES AND INTERVENE TO MINIMIZE COMPLICATIONS. PROVIDE SKILLED TEACHING OF GENERAL WOUND AND SKIN CARE AND PREVENTION RELATED TO POTENTIAL FOR OR ACTUAL ALTERED SKIN INTEGRITY [code = SKIN INTEGRITY RN TO ASSESS AND TEACH, IT SECURITY ANALYST/ENVIRONMENTAL COMPLIANCE TECHNICIAN TO OBSERVE AND TEACH INTEGUMENTARY STATUS TO IDENTIFY CHANGES AND INTERVENE TO MINIMIZE COMPLICATIONS. PROVIDE SKILLED TEACHING OF GENERAL WOUND AND SKIN CARE AND PREVENTION RELATED TO POTENTIAL FOR OR ACTUAL ALTERED SKIN INTEGRITY] Future Scheduled Test WOUND MOLE CULAR TESTING PROTOCOL UP TO 2 PRN RN/IT SECURITY ANALYST/ENVIRONMENTAL COMPLIANCE TECHNICIAN VISITS MAY BE PERFORMED FOR S/S OF WOUND INFECTION/DETERIORATION/STAGNATION. RN TO ASSESS, IT SECURITY ANALYST/ENVIRONMENTAL COMPLIANCE TECHNICIAN TO OBSERVE AND INITIATE PROTOCOL. RN/IT SECURITY ANALYST/ENVIRONMENTAL COMPLIANCE TECHNICIAN TO INSTRUCT PATIENT AND/OR CAREGIVER ON S/S OF WOUND INFECTION/DETERIORATION/STAGNATION TO REPORT TO NURSE IF NEW OR WORSENING SYMPTOMS. RN/IT SECURITY ANALYST/ENVIRONMENTAL COMPLIANCE TECHNICIAN TO OBTAIN WOUND SPECIMEN FOR MOLECULAR WOUND TESTING VIA SWAB COLLECTION PER POLICY. INCLUDE ANTIBIOTIC/ANTIFUNGAL RESISTANCE TESTING NOTIFY PROVIDER OF RESULTS AND OBTAIN FURTHER ORDERS. [code = WOUND MOLECULAR TESTING PROTOCOL UP TO 2 PRN RN/IT SECURITY ANALYST/ENVIRONMENTAL COMPLIANCE TECHNICIAN VISITS MAY BE PERFORMED FOR S/S OF WOUND INFECTION/DETERIORATION/STAGNATION. RN TO ASSESS, IT SECURITY ANALYST/ENVIRONMENTAL COMPLIANCE TECHNICIAN TO OBSERVE AND INITIATE PROTOCOL. RN/IT SECURITY ANALYST/ENVIRONMENTAL COMPLIANCE TECHNICIAN TO INSTRUCT PATIENT AND/OR CAREGIVER ON S/S OF WOUND INFECTION/DETERIORATION/STAGNATION TO REPORT TO NURSE IF NEW OR WORSENING SYMPTOMS. RN/IT SECURITY ANALYST/ENVIRONMENTAL COMPLIANCE TECHNICIAN TO OBTAIN WOUND SPECIMEN FOR MOLECULAR WOUND TESTING VIA SWAB COLLECTION PER POLICY. INCLUDE ANTIBIOTIC/ANTIFUNGAL RESISTANCE TESTING NOTIFY PROVIDER OF RESULTS AND OBTAIN FURTHER ORDERS.] Future Scheduled Test WOUND CULT URE TESTING PROTOCOL UP TO 2 PRN RN/IT SECURITY ANALYST VISITS MAY BE PERFORMED FOR S/S OF WOUND INFECTION/DETERIORATION/STAGNATION. RN TO ASSESS, IT SECURITY ANALYST/ENVIRONMENTAL COMPLIANCE TECHNICIAN TO OBSERVE AND INITIATE PROTOCOL. RN/IT SECURITY ANALYST/ENVIRONMENTAL COMPLIANCE TECHNICIAN TO INSTRUCT PATIENT AND/OR CAREGIVER ON S/S OF WOUND INFECTION/DETERIORATION/STAGNATION TO REPORT TO NURSE IF NEW OR WORSENING SYMPTOMS. RN/IT SECURITY ANALYST/ENVIRONMENTAL COMPLIANCE TECHNICIAN TO OBTAIN WOUND SPECIMEN FOR CULTURE VIA SWAB COLLECTION INCLUDE ANTIBIOTIC/ANTIFUNGAL RESISTANCE TESTING NOTIFY PROVIDER OF RESULTS AND OBTAIN FURTHER ORDERS. [code = WOUND CULTURE TESTING PROTOCOL UP TO 2 PRN RN/IT SECURITY ANALYST VISITS MAY BE PERFORMED FOR S/S OF WOUND INFECTION/DETERIORATION/STAGNATION. RN TO ASSESS, IT SECURITY ANALYST/ENVIRONMENTAL COMPLIANCE TECHNICIAN TO OBSERVE AND INITIATE PROTOCOL. RN/IT SECURITY ANALYST/ENVIRONMENTAL COMPLIANCE TECHNICIAN TO INSTRUCT PATIENT AND/OR CAREGIVER ON S/S OF WOUND INFECTION/DETERIORATION/STAGNATION TO REPORT TO NURSE IF NEW OR WORSENING SYMPTOMS. RN/IT SECURITY ANALYST/ENVIRONMENTAL COMPLIANCE TECHNICIAN TO OBTAIN WOUND SPECIMEN FOR CULTURE VIA SWAB COLLECTION INCLUDE ANTIBIOTIC/ANTIFUNGAL RESISTANCE TESTING NOTIFY PROVIDER OF RESULTS AND OBTAIN FURTHER ORDERS.] Future Scheduled Test RN/IT SECURITY ANALYST/ENVIRONMENTAL COMPLIANCE TECHNICIAN TO PERFORM/TEACH PATIENT/CAREGIVER WOUND CARE RLE: CLEANSE WITH WOUND CLEANSER, APPLY NONADHERENT PAD, WRAP WITH KERLEX, SECURE WITH TAPE. CHANGE DRESSING EVERY DAY AND PRN FOR SOILING [code = RN/IT SECURITY ANALYST/ENVIRONMENTAL COMPLIANCE TECHNICIAN TO PERFORM/TEACH PATIENT/CAREGIVER WOUND CARE RLE: CLEANSE WITH WOUND CLEANSER, APPLY NONADHERENT PAD, WRAP WITH KERLEX, SECURE WITH TAPE. CHANGE DRESSING EVERY DAY AND PRN FOR SOILING] Future Scheduled Test PAIN MANAG EMENT; RN TO ASSESS AND TEACH, ENVIRONMENTAL COMPLIANCE TECHNICIAN/IT SECURITY ANALYST TO OBSERVE AND TEACH AND PROVIDE EDUCATION ON PAIN MANAGEMENT TECHNIQUES. [code = PAIN MANAGEMENT; RN TO ASSESS AND TEACH, ENVIRONMENTAL COMPLIANCE TECHNICIAN/IT SECURITY ANALYST TO OBSERVE AND TEACH AND PROVIDE EDUCATION ON PAIN MANAGEMENT TECHNIQUES.] Future Scheduled Test GENITOURIN ADAM MANAGEMENT; RN TO ASSESS AND TEACH, IT SECURITY ANALYST/ENVIRONMENTAL COMPLIANCE TECHNICIAN TO OBSERVE AND TEACH RELATED TO ALTERED GENITOURINARY STATUS TO MINIMIZE COMPLICATIONS AND REDUCE HOSPITALIZATION. [code = GENITOURINARY MANAGEMENT; RN TO ASSESS AND TEACH, IT SECURITY ANALYST/ENVIRONMENTAL COMPLIANCE TECHNICIAN TO OBSERVE AND TEACH RELATED TO ALTERED GENITOURINARY STATUS TO MINIMIZE COMPLICATIONS AND REDUCE HOSPITALIZATION.] Future Scheduled Test URINARY CU LTURE AND SENSITIVITY PROTOCOL UP TO 2 PRN RN/IT SECURITY ANALYST/ENVIRONMENTAL COMPLIANCE TECHNICIAN VISITS MAY BE PERFORMED FOR S/S OF UTI. RN TO ASSESS, IT SECURITY ANALYST/ENVIRONMENTAL COMPLIANCE TECHNICIAN TO OBSERVE INITIATION OF UTI PROTOCOL. RN/ENVIRONMENTAL COMPLIANCE TECHNICIAN/IT SECURITY ANALYST TO INSTRUCT PATIENT AND/OR CAREGIVER ON S/S OF UTI TO REPORT TO RN/IT SECURITY ANALYST/ENVIRONMENTAL COMPLIANCE TECHNICIAN IF NEW OR WORSENING SYMPTOMS. DRINK PLENTY OF WATER THROUGHOUT THE DAY TO MAINTAIN HYDRATION (UNLESS CONTRAINDICATED.) URINATE WHEN THE URGE IS FELT, DO NOT WAIT. WASH GENITALS DAILY. WIPE FROM FRONT TO BACK AFTER HAVING A BOWEL MOVEMENT. RN/ENVIRONMENTAL COMPLIANCE TECHNICIAN/IT SECURITY ANALYST TO OBTAIN URINE SPECIMEN FOR UA WITH C/S VIA CLEAN CATCH URINE AND IF UNABLE TO OBTAIN MAY PERFORM AN IN AND OUT CATH. IF PATIENT HAS INDWELLING CATHETER MAY OBTAIN FROM SAMPLING PORT. NOTIFY PROVIDER OF RESULTS AND OBTAIN FURTHER ORDERS. [code = URINARY CULTURE AND SENSITIVITY PROTOCOL UP TO 2 PRN RN/IT SECURITY ANALYST/ENVIRONMENTAL COMPLIANCE TECHNICIAN VISITS MAY BE PERFORMED FOR S/S OF UTI. RN TO ASSESS, IT SECURITY ANALYST/ENVIRONMENTAL COMPLIANCE TECHNICIAN TO OBSERVE INITIATION OF UTI PROTOCOL. RN/ENVIRONMENTAL COMPLIANCE TECHNICIAN/IT SECURITY ANALYST TO INSTRUCT PATIENT AND/OR CAREGIVER ON S/S OF UTI TO REPORT TO RN/IT SECURITY ANALYST/ENVIRONMENTAL COMPLIANCE TECHNICIAN IF NEW OR WORSENING SYMPTOMS. DRINK PLENTY OF WATER THROUGHOUT THE DAY TO MAINTAIN HYDRATION (UNLESS CONTRAINDICATED.) URINATE WHEN THE URGE IS FELT, DO NOT WAIT. WASH GENITALS DAILY. WIPE FROM FRONT TO BACK AFTER HAVING A BOWEL MOVEMENT. RN/ENVIRONMENTAL COMPLIANCE TECHNICIAN/IT SECURITY ANALYST TO OBTAIN URINE SPECIMEN FOR UA WITH C/S VIA CLEAN CATCH URINE AND IF UNABLE TO OBTAIN MAY PERFORM AN IN AND OUT CATH. IF PATIENT HAS INDWELLING CATHETER MAY OBTAIN FROM SAMPLING PORT. NOTIFY PROVIDER OF RESULTS AND OBTAIN FURTHER ORDERS.] Future Scheduled Test URINARY MO LECULAR TESTING PROTOCOL UP TO 2 PRN RN/IT SECURITY ANALYST/ENVIRONMENTAL COMPLIANCE TECHNICIAN VISITS MAY BE PERFORMED FOR S/S OF UTI. RN TO ASSESS, IT SECURITY ANALYST/ENVIRONMENTAL COMPLIANCE TECHNICIAN TO OBSERVE INITIATION OF UTI PROTOCOL. RN/ENVIRONMENTAL COMPLIANCE TECHNICIAN/IT SECURITY ANALYST TO INSTRUCT PATIENT AND/OR CAREGIVER ON S/S OF UTI TO REPORT TO RN/ENVIRONMENTAL COMPLIANCE TECHNICIAN/IT SECURITY ANALYST IF NEW OR WORSENING SYMPTOMS. DRINK PLENTY OF WATER THROUGHOUT THE DAY TO MAINTAIN HYDRATION (UNLESS CONTRAINDICATED.) URINATE WHEN THE URGE IS FELT, DO NOT WAIT. WASH GENITALS DAILY. WIPE FROM FRONT TO BACK AFTER HAVING A BOWEL MOVEMENT. RN/ENVIRONMENTAL COMPLIANCE TECHNICIAN/IT SECURITY ANALYST TO OBTAIN URINE SPECIMEN FOR MOLECULAR URINE TESTING BY OPTION 1 OR OPTION 2 RN/ENVIRONMENTAL COMPLIANCE TECHNICIAN/IT SECURITY ANALYST TO OBTAIN URINE SPECIMEN FOR U/A WITH REFLEX TO UTI PANEL (MOLECULAR) VIA CLEAN CATCH URINE AND IF UNABLE TO OBTAIN MAY PERFORM AN IN AND OUT CATH. IF PATIENT HAS INDWELLING CATHETER MAY OBTAIN FROM SAMPLING PORT. INCLUDE ANTIBIOTIC/ANTIFUNGAL RESISTANCE TESTING INCLUDE URINALYSIS (ONLY FOR CLEAN CATCH/ IN AND OUT CATH) NOTIFY PROVIDER OF RESULTS AND OBTAIN FURTHER ORDERS. [code = URINARY MOLECULAR TESTING PROTOCOL UP TO 2 PRN RN/IT SECURITY ANALYST/ENVIRONMENTAL COMPLIANCE TECHNICIAN VISITS MAY BE PERFORMED FOR S/S OF UTI. RN TO ASSESS, IT SECURITY ANALYST/ENVIRONMENTAL COMPLIANCE TECHNICIAN TO OBSERVE INITIATION OF UTI PROTOCOL. RN/ENVIRONMENTAL COMPLIANCE TECHNICIAN/IT SECURITY ANALYST TO INSTRUCT PATIENT AND/OR CAREGIVER ON S/S OF UTI TO REPORT TO RN/ENVIRONMENTAL COMPLIANCE TECHNICIAN/IT SECURITY ANALYST IF NEW OR WORSENING SYMPTOMS. DRINK PLENTY OF WATER THROUGHOUT THE DAY TO MAINTAIN HYDRATION (UNLESS CONTRAINDICATED.) URINATE WHEN THE URGE IS FELT, DO NOT WAIT. WASH GENITALS DAILY. WIPE FROM FRONT TO BACK AFTER HAVING A BOWEL MOVEMENT. RN/ENVIRONMENTAL COMPLIANCE TECHNICIAN/IT SECURITY ANALYST TO OBTAIN URINE SPECIMEN FOR MOLECULAR URINE TESTING BY OPTION 1 OR OPTION 2 RN/ENVIRONMENTAL COMPLIANCE TECHNICIAN/IT SECURITY ANALYST TO OBTAIN URINE SPECIMEN FOR U/A WITH REFLEX TO UTI PANEL (MOLECULAR) VIA CLEAN CATCH URINE AND IF UNABLE TO OBTAIN MAY PERFORM AN IN AND OUT CATH. IF PATIENT HAS INDWELLING CATHETER MAY OBTAIN FROM SAMPLING PORT. INCLUDE ANTIBIOTIC/ANTIFUNGAL RESISTANCE TESTING INCLUDE URINALYSIS (ONLY FOR CLEAN CATCH/ IN AND OUT CATH) NOTIFY PROVIDER OF RESULTS AND OBTAIN FURTHER ORDERS.] Future Scheduled Test URINARY TR ACT INFECTION MANAGEMENT; RN/ENVIRONMENTAL COMPLIANCE TECHNICIAN/IT SECURITY ANALYST TO PROVIDE SKILLED TEACHING AND SELF- CARE MANAGEMENT RELATED TO UTI TO MINIMIZE COMPLICATIONS AND REDUCE THE RISK OF HOSPITALIZATION. [code = URINARY TRACT INFECTION MANAGEMENT; RN/ENVIRONMENTAL COMPLIANCE TECHNICIAN/IT SECURITY ANALYST TO PROVIDE SKILLED TEACHING AND SELF- CARE MANAGEMENT RELATED TO UTI TO MINIMIZE COMPLICATIONS AND REDUCE THE RISK OF HOSPITALIZATION.] Future Scheduled Test FALL REDUC TION MANAGEMENT; RN TO ASSESS AND OBSERVE, IT SECURITY ANALYST/ENVIRONMENTAL COMPLIANCE TECHNICIAN TO OBSERVE FALL RISK FACTORS AND EDUCATE PATIENT/CAREGIVER ON STRATEGIES TO MINIMIZE THE RISK OF FALLING. [code = FALL REDUCTION MANAGEMENT; RN TO ASSESS AND OBSERVE, IT SECURITY ANALYST/ENVIRONMENTAL COMPLIANCE TECHNICIAN TO OBSERVE FALL RISK FACTORS AND EDUCATE PATIENT/CAREGIVER ON STRATEGIES TO MINIMIZE THE RISK OF FALLING.] Future Scheduled Test MEDICAL [employer] SERVICES FOR EVALUATION TO ASSESS SOCIAL AND EMOTIONAL FACTORS RELATED TO THE PATIENT'S ILLNESS, NEED FOR CARE, RESPONSE TO TREATMENT AND ADJUSTMENT TO CARE. [code = [employer] SHELLER OPERATOR FOR EVALUATION TO ASSESS SOCIAL AND EMOTIONAL FACTORS RELATED TO THE PATIENT'S ILLNESS, NEED FOR CARE, RESPONSE TO TREATMENT AND ADJUSTMENT TO CARE.] Future Scheduled Test AGENCY MAY PERFORM A RESUMPTION OF CARE VISIT FOLLOWING ANY HOSPITAL ADMISSION. PT TO EVALUATE, OBSERVE / ASSESS, AND MONITOR, AITCHBONE BREAKER TO OBSERVE AND MONITOR, PROVIDE SKILLED THERAPEUTIC INTERVENTION, ACTIVITY, EDUCATION, AND TRAINING TO ADDRESS; PT/AITCHBONE BREAKER TO PROVIDE GAIT TRAINING FOR IMPROVED MOBILITY AND /OR TO NORMALIZE GAIT PATTERN THERAPEUTIC EXERCISES AND ESTABLISHING A HOME EXERCISE PROGRAM (PT/AITCHBONE BREAKER) SIT TO/FROM STAND TRANSFERS (PT/AITCHBONE BREAKER) PT / AITCHBONE BREAKER TO MONITOR AND EDUCATE ON OXYGEN SATURATION DURING ADLS/IADLS, NOTIFY PHYSICIAN AND/OR THE RN CLINICAL CASING TESTER FOR PHYSICIAN NOTIFICATION AND IF O2 SATS BELOW PHYSICIAN ORDERED PARAMETERS AFTER 10 MIN OF REST PT / AITCHBONE BREAKER TO INSTRUCT PATIENT/CAREGIVER ON RISK FOR HOSPITALIZATION/EMERGENCY ROOM VISITS, TEACH SIGNS AND SYMPTOMS THAT PUT PATIENT AT RISK, WHEN TO NOTIFY NURSE/PHYSICIAN OF COMPLICATIONS/DECLINE, AND WHEN TO CALL 911. PT/AITCHBONE BREAKER TO IDENTIFY FALL RISK FACTORS; EDUCATE THE PATIENT/CAREGIVER ON WAYS TO REDUCE FALL RISK FACTORS AND ESTABLISH HOME EXERCISE PROGRAM TO MINIMIZE FALL RISK. MAY TEACH THE PATIENT FLOOR RECOVERY WHEN CLINICALLY APPROPRIATE [code = AGENCY MAY PERFORM A RESUMPTION OF CARE VISIT FOLLOWING ANY HOSPITAL ADMISSION. PT TO EVALUATE, OBSERVE / ASSESS, AND MONITOR, AITCHBONE BREAKER TO OBSERVE AND MONITOR, PROVIDE SKILLED THERAPEUTIC INTERVENTION, ACTIVITY, EDUCATION, AND TRAINING TO ADDRESS; PT/AITCHBONE BREAKER TO PROVIDE GAIT TRAINING FOR IMPROVED MOBILITY AND /OR TO NORMALIZE GAIT PATTERN THERAPEUTIC EXERCISES AND ESTABLISHING A HOME EXERCISE PROGRAM (PT/AITCHBONE BREAKER) SIT TO/FROM STAND TRANSFERS (PT/AITCHBONE BREAKER) PT / AITCHBONE BREAKER TO MONITOR AND EDUCATE ON OXYGEN SATURATION DURING ADLS/IADLS, NOTIFY PHYSICIAN AND/OR THE RN CLINICAL CASING TESTER FOR PHYSICIAN NOTIFICATION AND IF O2 SATS BELOW PHYSICIAN ORDERED PARAMETERS AFTER 10 MIN OF REST PT / AITCHBONE BREAKER TO INSTRUCT PATIENT/CAREGIVER ON RISK FOR HOSPITALIZATION/EMERGENCY ROOM VISITS, TEACH SIGNS AND SYMPTOMS THAT PUT PATIENT AT RISK, WHEN TO NOTIFY NURSE/PHYSICIAN OF COMPLICATIONS/DECLINE, AND WHEN TO CALL 911. PT/AITCHBONE BREAKER TO IDENTIFY FALL RISK FACTORS; EDUCATE THE PATIENT/CAREGIVER ON WAYS TO REDUCE FALL RISK FACTORS AND ESTABLISH HOME EXERCISE PROGRAM TO MINIMIZE FALL RISK. MAY TEACH THE PATIENT FLOOR RECOVERY WHEN CLINICALLY APPROPRIATE] Future Scheduled Test ATHLETICS TEACHER EVALUA TION PERFORMED. NO ADDITIONAL VISITS REQUIRED. [code = ATHLETICS TEACHER EVALUATION PERFORMED. NO ADDITIONAL VISITS REQUIRED.] Future Scheduled Test AGENCY MAY PERFORM A RESUMPTION OF CARE VISIT FOLLOWING ANY HOSPITAL ADMISSION. OT TO EVALUATE, OBSERVE / ASSESS, AND MONITOR, REVENUE FIELD AGENT TO OBSERVE AND MONITOR, PROVIDE SKILLED THERAPEUTIC INTERVENTION, ACTIVITY, EDUCATION, AND TRAINING TO ADDRESS;SELF CARE PERFORMANCE, FUNCTIONAL TRANSFERS, BALANCE DURING FUNCTIONAL ACTIVITIES, HOME SAFETY RECOMMENDATIONS BATHING/SHOWERING (OT/CARLENE) TOILETING HYGIENE (OT/CARLENE) DRESSING (OT/CARLENE) ACTIVITIES OF DAILY LIVING (OT/REVENUE FIELD AGENT) BED MOBILITY (OT/REVENUE FIELD AGENT) TOILET TRANSFER (OT/CARLENE) BATH/SHOWER TRANSFER (OT/REVENUE FIELD AGENT) POSTURAL CONTROL/BALANCE (OT/REVENUE FIELD AGENT) OT/CARLENE TO MONITOR AND EDUCATE ON OXYGEN SATURATION DURING ADLS/IADLS, NOTIFY PHYSICIAN AND/OR THE RN CLINICAL CASING TESTER FOR PHYSICIAN NOTIFICATION AND IF O2 SATS BELOW 90% AFTER 10 MIN OF REST. OT/CARLENE MAY EDUCATE ON PAIN MANAGEMENT CLINICALLY INDICATED, INCLUDING NON-PHARMACOLOGICAL PAIN REDUCTION TECHNIQUES AND USE OF CRYOTHERAPY OR HEAT UP TO 20 MIN AT A TIME FOR PAIN MANAGEMENT OT / REVENUE FIELD AGENT TO IDENTIFY FALL RISK FACTORS; EDUCATE THE PATIENT/CAREGIVER ON WAYS TO REDUCE FALL RISK FACTORS AND ESTABLISH HOME EXERCISE PROGRAM TO MINIMIZE FALL RISK. MAY TEACH THE PATIENT FLOOR RECOVERY WHEN CLINICALLY APPROPRIATE. [code = AGENCY MAY PERFORM A RESUMPTION OF CARE VISIT FOLLOWING ANY HOSPITAL ADMISSION. OT TO EVALUATE, OBSERVE / ASSESS, AND MONITOR, CARLENE TO OBSERVE AND MONITOR, PROVIDE SKILLED THERAPEUTIC INTERVENTION, ACTIVITY, EDUCATION, AND TRAINING TO ADDRESS;SELF CARE PERFORMANCE, FUNCTIONAL TRANSFERS, BALANCE DURING FUNCTIONAL ACTIVITIES, HOME SAFETY RECOMMENDATIONS BATHING/SHOWERING (OT/REVENUE FIELD AGENT) TOILETING HYGIENE (OT/REVENUE FIELD AGENT) DRESSING (OT/REVENUE FIELD AGENT) ACTIVITIES OF DAILY LIVING (OT/CARLENE) BED MOBILITY (OT/CARLENE) TOILET TRANSFER (OT/CARLENE) BATH/SHOWER TRANSFER (OT/CARLENE) POSTURAL CONTROL/BALANCE (OT/CARLENE) OT/CARLENE TO MONITOR AND EDUCATE ON OXYGEN SATURATION DURING ADLS/IADLS, NOTIFY PHYSICIAN AND/OR THE RN CLINICAL CASING TESTER FOR PHYSICIAN NOTIFICATION AND IF O2 SATS BELOW 90% AFTER 10 MIN OF REST. OT/REVENUE FIELD AGENT MAY EDUCATE ON PAIN MANAGEMENT CLINICALLY INDICATED, INCLUDING NON-PHARMACOLOGICAL PAIN REDUCTION TECHNIQUES AND USE OF CRYOTHERAPY OR HEAT UP TO 20 MIN AT A TIME FOR PAIN MANAGEMENT OT / REVENUE FIELD AGENT TO IDENTIFY FALL RISK FACTORS; EDUCATE THE PATIENT/CAREGIVER ON WAYS TO REDUCE FALL RISK FACTORS AND ESTABLISH HOME EXERCISE PROGRAM TO MINIMIZE FALL RISK. MAY TEACH THE PATIENT FLOOR RECOVERY WHEN CLINICALLY APPROPRIATE.] Goal 2025-08-04 Patient Goal - GET OUT OF TH E HOUSE Goal Provider Goal - A PLAN OF CARE WILL BE ESTABLISHED THAT MEETS THE PATIENT S NEEDS. PATIENT WILL DEMONSTRATE OXYGEN SATURATION WITHIN NORMAL LIMITS OR PATIENT S OPTIMAL LEVEL ESTABLISHED BY THE PHYSICIAN THROUGHOUT CARE. CHANGES TO CO-MORBID CONDITIONS AND ANY NEW CONDITIONS WILL BE IDENTIFIED AND REPORTED TO THE PHYSICIAN. Goal Provider Goal - PATIENT/CAREGIVER TO VERBALIZE, AND CONSISTENTLY DEMONSTRATE EFFECTIVE, SAFE MANAGEMENT OF MEDICATION INCLUDING KNOWLEDGE OF EFFECTIVENESS, POTENTIAL SIDE EFFECTS AND DRUG REACTIONS AND WHEN TO CONTACT THE APPROPRIATE CARE PROVIDER. PATIENT/CAREGIVER WILL BE ABLE TO VERBALIZE UNDERSTANDING OF MEDICATION REGIMEN AND ACCURATELY TAKE MEDICATIONS PRESCRIBED WITHOUT ADVERSE EFFECTS BY END OF EPISODE Goal Provider Goal - PATIENT/CAREGIVER WILL VERBALIZE UNDERSTANDING OF SIGNS AND SYMPTOMS THAT PUT THE PATIENT AT RISK FOR HOSPITALIZATION /EMERGENCY ROOM VISITS, WHEN TO NOTIFY NURSE/PHYSICIAN OF COMPLICATIONS/DECLINE AND WHEN TO CALL 911. Goal Provider Goal - PATIENT / CAREGIVER WILL VERBALIZE/DEMONSTRATE UNDERSTANDING OF MEASURES TO MANAGE ALTERED CARDIOVASCULAR STATUS BY END OF EPISODE Goal Provider Goal - PATIENT / CAREGIVER WILL VERBALIZE/DEMONSTRATE AN ABILITY TO ADHERE TO SELF-MANAGEMENT OF HF TO MINIMIZE COMPLICATIONS AND AVOID HOSPITALIZATION BY END OF EPISODE. Goal Provider Goal - PATIENT / CAREGIVER WILL VERBALIZE/DEMONSTRATE AN ABILITY TO ADHERE TO SELF-MANAGEMENT OF HTN TO MINIMIZE COMPLICATIONS AND AVOID HOSPITALIZATION BY END OF EPISODE. Goal Provider Goal - PATIENT / CAREGIVER WILL VERBALIZE/DEMONSTRATE UNDERSTANDING OF MEASURES TO MANAGE ALTERED RESPIRATORY STATUS BY END OF EPISODE. Goal Provider Goal - PATIENT / CAREGIVER WILL VERBALIZE/DEMONSTRATE AN ABILITY TO ADHERE TO SELF-MANAGEMENT OF COPD TO MINIMIZE COMPLICATIONS AND AVOID HOSPITALIZATION BY END OF EPISODE. Goal Provider Goal - PATIENT/CAREGIVER WILL VERBALIZE/DEMONSTRATE UNDERSTANDING OF CARE AND MANAGEMENT OF OXYGEN THERAPY BY END OF EPISODE Goal Provider Goal - CHANGES IN SKIN INTEGRITY STATUS WILL BE IDENTIFIED AND REPORTED TO THE PHYSICIAN FOR PROMPT INTERVENTION. PATIENT / CAREGIVER WILL VERBALIZE/DEMONSTRATE ADEQUATE KNOWLEDGE OF INTEGUMENTARY STATUS AND APPROPRIATE MEASURES TO PROMOTE SKIN INTEGRITY AND PREVENT INJURY BY END OF EPISODE Goal Provider Goal - PATIENT WILL DEMONSTRATE IMPROVEMENT IN S/S OF WOUND INFECTION/DETERIORATION/STAGNATION TO AVOID HOSPITALIZATION. Goal Provider Goal - PATIENT WILL DEMONSTRATE IMPROVEMENT IN S/S OF WOUND INFECTION/DETERIORATION/STAGNATION TO AVOID HOSPITALIZATION. Goal Provider Goal - PATIENT / CAREGIVER WILL VERBALIZE/DEMONSTRATE ABILITY TO PERFORM WOUND CARE. WOUND STATUS WILL IMPROVE EVIDENCED BY A DECREASE IN SIZE, DRAINAGE, ABSENCE OF INFECTION, AND DECREASED PAIN BY END OF EPISODE Goal Provider Goal - PATIENT / CAREGIVER WILL VERBALIZE / DEMONSTRATE UNDERSTANDING OF PAIN CONTROL MEASURES BY END OF EPISODE Goal Provider Goal - PATIENT / CAREGIVER WILL VERBALIZE/DEMONSTRATE UNDERSTANDING OF MEASURES TO MANAGE ALTERED GENITOURINARY STATUS BY END OF EPISODE. Goal Provider Goal - PATIENT WILL DEMONSTRATE IMPROVEMENT IN S/S OF UTI TO AVOID HOSPITALIZATION. Goal Provider Goal - PATIENT WILL DEMONSTRATE IMPROVEMENT IN S/S OF UTI TO AVOID HOSPITALIZATION. Goal Provider Goal - PATIENT/CAREGIVER WILL VERBALIZE/DEMONSTRATE UNDERSTANDING OF CARE AND MANAGEMENT OF URINARY TRACT INFECTION BY END OF EPISODE Goal Provider Goal - PATIENT/CAREGIVER WILL VERBALIZE/DEMONSTRATE UNDERSTANDING OF FALL RISK FACTORS AND IMPLEMENT STRATEGIES TO MINIMIZE FALL RISK. PATIENT/CAREGIVER WILL VERBALIZE/DEMONSTRATE AN ABILITY TO ADHERE TO FALL REDUCTION SELF-MANAGEMENT AND LIFE-STYLE CHANGES BY END OF EPISODE Goal Provider Goal - Goal Provider Goal - PT STG: PATIENT WILL DEMONSTRATE IMPROVED 6 MINUTE WALK TEST AMBULATION FROM 50 FT CGA TO 100 FT SBA WITH APPROPRIATE AD WITHIN 4 WEEKS. PT LTG: PATIENT WILL DEMONSTRATE IMPROVED 6 MINUTE WALK TEST AMBULATION FROM 50 FT CGA TO 300 FT IND WITH APPROPRIATE AD WITHIN 8 WEEKS. PT STG: PATIENT WILL DEMONSTRATE IMPROVED FUNCTIONAL STRENGTH EVIDENCED BY FIVE TIMES SIT TO STAND TEST (CUT SCORE >12 SECONDS INDICATES AN INCREASED FALL RISK) IMPROVING FROM 38 SECONDS TO LESS THAN OR EQUAL TO 32 SECONDS WITHIN 4 WEEKS IN ORDER TO DECREASE FALL RISK PT LTG: PATIENT WILL DEMONSTRATE IMPROVED FUNCTIONAL STRENGTH EVIDENCED BY FIVE TIMES SIT TO STAND TEST (CUT SCORE >12 SECONDS INDICATES AN INCREASED FALL RISK) IMPROVING FROM 38 SECONDS TO LESS THAN OR EQUAL TO 12 SECONDS WITHIN 8 WEEKS IN ORDER TO DECREASE FALL RISK PT LTG: PATIENT WILL DEMONSTRATE INDEPENDENCE AND COMPLIANCE WITH HEP WITHIN 4 WEEKS PT STG: PATIENT WILL DEMONSTRATE IMPROVED ABILITY TO PERFORM SIT TO/FROM STAND TRANSFERS TO REDUCE THE RISK OF SKIN BREAKDOWN AND REDUCE FALL RISK FROM CGA TO IND WITHIN 8 WEEKS PT LTG: PATIENT WILL MAINTAIN OXYGEN SATURATION WITHIN PHYSICIAN ORDERED PARAMETERS THROUGHOUT EPISODE OF CARE. PT GOAL: PATIENT/CAREGIVER WILL VERBALIZE UNDERSTANDING OF SIGNS AND SYMPTOMS THAT PUT THE PATIENT AT RISK FOR HOSPITALIZATION /EMERGENCY ROOM VISITS, WHEN TO NOTIFY NURSE/PHYSICIAN OF COMPLICATIONS/DECLINE AND WHEN TO CALL 911. PT LTG: PATIENT/CAREGIVER WILL DEMONSTRATE ADHERENCE TO FALL REDUCTION SELF-MANAGEMENT AND REDUCING FALL RISK FACTORS TO MINIMIZE FALL RISK BY END OF EPISODE. Goal Provider Goal - Goal Provider Goal - OT STG: PATIENT WILL DEMONSTRATE IMPROVED ABILITY TO PERFORM BATHING/SHOWERING AND REDUCE CAREGIVER BURDEN FROM MINIMAL A TO CGA WITHIN 4 WEEKS LTG: PATIENT WILL DEMONSTRATE IMPROVED ABILITY TO PERFORM BATHING/SHOWERING AND REDUCE CAREGIVER BURDEN FROM MINIMAL A TO SBA WITHIN 6 WEEKS OT STG: PATIENT WILL DEMONSTRATE IMPROVED ABILITY TO PERFORM TOILET HYGIENE AND CLOTHING ADJUSTMENT, REDUCE THE RISK OF DEVELOPING A UTI FROM MINIMAL A TO CGA WITHIN 3 WEEKS OT LTG: PATIENT WILL DEMONSTRATE IMPROVED ABILITY TO PERFORM TOILET HYGIENE AND CLOTHING ADJUSTMENT, REDUCE THE RISK OF DEVELOPING A UTI FROM MINIMAL A TO INDEPENDENT WITHIN 5 WEEKS OT STG: PATIENT WILL DEMONSTRATE IMPROVED ABILITY TO PERFORM LOWER BODY DRESSING TO REDUCE CAREGIVER BURDEN FROM MINIMAL A TO CGA WITHIN 4 WEEKS OT LTG: PATIENT WILL DEMONSTRATE IMPROVED ABILITY TO PERFORM LOWER BODY DRESSING TO REDUCE CAREGIVER BURDEN FROM MINIMAL A TO INDEPENDENT WITHIN 6 WEEKS OT LTG: PATIENT WILL DEMONSTRATE IMPROVEMENT IN MODIFIED GIRISH INDEX SCORE FROM 82 TO 96 INDICATING DECREASED DEPENDENCY ON CAREGIVER ASSISTANCE WITH ACTIVITIES OF DAILY LIVING WITHIN 8 WEEKS OT STG PATIENT WILL BE ABLE TO SAFELY POSITION SELF IN BED TO REDUCE THE RISK OF SKIN BREAKDOWN AND FOR IMPROVED PARTICIPATION IN ADLS FROM MAXIMAL A TO CGA WITHIN 5 WEEKS OT LTG: PATIENT WILL BE ABLE TO SAFELY POSITION SELF IN BED TO REDUCE THE RISK OF SKIN BREAKDOWN AND FOR IMPROVED PARTICIPATION IN ADLS FROM MAXIMAL A TO INDEPENDENT WITHIN 7 WEEKS OT STG: PATIENT WILL DEMONSTRATE IMPROVED ABILITY TO PERFORM TOILET TRANSFERS TO REDUCE FALL RISK AND RISK OF INCONTINENCE AND UTI DEVELOPMENT FROM CGA TO SBA WITHIN 4 WEEKS OT LTG: PATIENT WILL DEMONSTRATE IMPROVED ABILITY TO PERFORM TOILET TRANSFERS TO REDUCE FALL RISK AND RISK OF INCONTINENCE AND UTI DEVELOPMENT FROM CGA TO INDEPENDENT WITHIN 6 WEEKS OT STG: PATIENT WILL DEMONSTRATE IMPROVED ABILITY AND SAFETY TO PERFORM SHOWER TRANSFER FROM MODERATE A TO SBA WITHIN 3 WEEKS OT LTG: PATIENT WILL DEMONSTRATE IMPROVED ABILITY AND SAFETY TO PERFORM SHOWER TRANSFER FROM MODERATE A TO INDEPENDENT WITHIN 6 WEEKS OT STG: PATIENT WILL DEMONSTRATE IMPROVED POSTURAL CONTROL AND DECREASED FALL RISK EVIDENCED BY AN IMPROVEMENT IN FUNCTIONAL REACH SCORE FROM 8 IN TO 9 IN WITHIN 6 WEEKS IN ORDER TO PERFORM SELF CARE TASKS OT LTG: PATIENT WILL DEMONSTRATE IMPROVED POSTURAL CONTROL AND DECREASED FALL RISK EVIDENCED BY AN IMPROVEMENT IN FUNCTIONAL REACH SCORE FROM 8 IN TO 11 IN WITHIN 8 WEEKS IN ORDER TO PERFORM SELF CARE TASKS OT LTG: PATIENT WILL MAINTAIN OXYGEN SATURATION WITHIN PHYSICIAN ORDERED PARAMETERS THROUGHOUT THE EPISODE OF CARE. OT LTG: PATIENT WILL DEMONSTRATE UNDERSTANDING OF PAIN MANAGEMENT TECHNIQUES EVIDENCED BY REDUCED PAIN IN LEFT RIBS TO 10/28 OT LTG: PATIENT/CAREGIVER WILL BE ABLE TO IMPLEMENT RECOMMENDATIONS SPECIFIC TO FALL REDUCTION FOR IMPROVED ADL/IADL COMPLETION AND HOME SAFETY BY END OF EPISODE. Reason for Visit INDEPENDENT IN THE HOME Encounters Start Date/Time End Date/Time Encounter Type Admission Type Attending Clinicians Care Facility Care Department Encounter ID Discharge Date Discharge Status Discharge Condition Discharge Reason Percent Goals Met 2025-06-27 00:00:00 2025-08-04 00:00:00 Outpatient NEW ADMISSION [facility] [id number] 2025-08-04 00:00:00 DISCHARGE TO HOME OR SELF CARE INDEPENDEN T IN THE HOME HH - GOALS MET 66.04
--- OUTSIDE RECORDS SUMMARY | 2025-08-03 20:00 | XMS_ITS | Clinical Summary ---
Author Organization Unknown Care Team Providers Care Piper Installer Name Role Phone BEST WRIGHT, MARCELLE Unavailable Unavailable SMOOTH RN, CAM Unavailable Unavailable ELODIA PT, MELQUIADES Unavailable Unavailable MOE MOTOR TRANSPORT INSPECTOR, KELLEY Unavailable Unavailable DAYANNA OT, SHASTA Unavailable Unavailable Payers Payer Name Policy Type Policy Number Effective Date Expira tion Date HUMANA.LILIAM.PPO.C.AUTH [id number] Problems Condition Name Condition Details Condition Category [...] 10-19 00:00: 00 ATHSCL HEART DISEASE OF [place] CORONARY ARTERY W/O ANG PCTRS Active 10-19 [...] ON SUPPLEMENTAL OXYGEN Active 10-19 00:00: 00 OTC CLERK (CURRENT) USE OF ANTITHROMBOT ICS/ANTIPLAT ELETS Active 10-19 00:00: 00 OTC CLERK (CURRENT) USE OF INHALED STEROIDS Active 10-19 [...] 06-09 00:00: 00 06-27 00:00 :00 No [id number] Per instruc tions 3 TIMES PER WEEK Per instructio ns 3 TIMES PER WEEK (route: oral) Med Classific ation: Electroly te Balance-N utritiona l Products sulfamethox azole 800 mg-trimetho prim 160 mg tablet 06-06 00:00: 00 06-27 00:00 :00 No [id number] Per instruc tions 2 TIMES A DAY Per instructio ns 2 TIMES A DAY (route: oral) Med Classific ation: Anti-Infe ctive Agents albuterol sulfate 0.63 mg/3 mL solution for nebulizatio n 06-27 00:00: 00 Yes [id number] COPD 3 mL NEEDED 3 mL NEEDED (route: inhalation ) Med Classific ation: Respirato ry Therapy Agents aspirin 81 mg tablet,marilee yed release 06-27 00:00: 00 Yes [id number] HEART 1 tablet DAILY 1 tablet DAILY (route: oral) Med Classific ation: Hematolog ical Agents atorvastati n 40 mg tablet 06-27 00:00: 00 Yes [id number] CHOLESTEROL 1 tablet BEDTIME 1 tablet BEDTIME (route: oral) Med Classific ation: Cardiovas cular Therapy Agents bumetanide 1 mg tablet 06-27 00:00: 00 Yes [id number] FLUID 1 tablet DIRECTED 1 tablet DIRECTED (route: oral) Med Classific ation: Cardiovas cular Therapy Agents clopidogrel 75 mg tablet 06-27 00:00: 00 Yes [id number] BLOOD THINNER 1 tablet DAILY 1 tablet DAILY (route: oral) Med Classific ation: Hematolog ical Agents diazepam 5 mg tablet 06-27 00:00: 00 Yes [id number] SLEEP/ANXIE TY 1 tablet BEDTIME 1 tablet BEDTIME (route: oral) Med Classific ation: Central Nervous System Agents Lyrica 25 mg capsule 06-27 00:00: 00 Yes [id number] NEUROPATHY 1 capsule 4 TIMES DAILY 1 capsule 4 TIMES DAILY (route: oral) Med Classific ation: Central Nervous System Agents oxygen gas for inhalation 06-27 00:00: 00 Yes [id number] COPD 3 Liter NEEDED 3 Liter A S NEEDED (route: inhalation ) Med Classific ation: Medical Supplies and Durable Medical Equipment (DME) spironolact one 25 mg tablet 06-27 00:00: 00 Yes [id number] CHF 1 tablet DAILY 1 tablet DAILY (route: oral) Med Classific ation: Cardiovas cular Therapy Agents tamsulosin 0.4 mg capsule 06-27 00:00: 00 Yes [id number] BPH 1 capsule DAILY 1 capsule DAILY (route: oral) Med Classific ation: Genitouri nary Therapy terazosin 2 mg capsule 06-27 00:00: 00 Yes [id number] HTN 1 capsule BEDTIME 1 capsule BEDTIME (route: oral) Med Classific ation: Cardiovas cular Therapy Agents Trelegy Ellipta 100 mcg-62.5 mcg-25 mcg powder for inhalation 06-27 00:00: 00 Yes [id number] COPD 1 inhalat ion DAILY 1 inhalation DAILY (route: inhalation ) Med Classific ation: Respirato ry Therapy Agents Ventolin HFA 90 mcg/actuati on aerosol inhaler 06-27 00:00: 00 Yes [id number] SOB 2 puff EVERY 4 HOURS 2 puff EVERY 4 HOURS (route: inhalation ) Med Classific ation: Respirato ry Therapy Agents zolpidem 10 mg tablet 06-27 00:00: 00 Yes [id number] SLEEP 1 tablet BEDTIME 1 tablet BEDTIME (route: oral) Med Classific ation: Central Nervous System Agents oxycodone 5 mg tablet 06-27 00:00: 00 Yes [id number] PAIN 1 tablet EVERY 4 HOURS 1 [...] CARDENAS (PULMONOLOGY) RN TO OBSERVE AND ASSESS, SPONGE PACKER/OFFAL ROLLER TO OBSERVE FOR RISK FOR FALLS AND INSTRUCT IN FALL PREVENTION, HOME SAFETY, MEDICATION MANAGEMENT, INFECTION PREVENTION, AND NUTRITION MANAGEMENT. RN/SPONGE PACKER/OFFAL ROLLER NURSE MAY PERFORM O2 SATURATION LEVEL ON ADMISSION AND PRN FOR SOBFOR RN TO ASSESS/SPONGE PACKER TO OBSERVE PATIENT, WITH NOTIFICATION TO THE PHYSICIAN IF SATURATION IS 90% IN THE ABSENCE OF MORE SPECIFIC PARAMETERS FROM THE PHYSICIAN. AGENCY MAY PERFORM A RESUMPTION OF CARE VISIT FOLLOWING ANY HOSPITAL ADMISSION. RN/SPONGE PACKER/OFFAL ROLLER TO MONITOR CO-MORBID CONDITIONS LISTED ON THE PLAN OF CARE AND ANY NEW CONDITIONS THAT PRESENT THEMSELVES DURING THIS EPISODE TO IDENTIFY CHANGES AND INTERVENE TO MINIMIZE COMPLICATIONS. [code = RN TO OBSERVE, ASSESS, EVALUATE, AND DEVELOP AN INDIVIDUALIZED PLAN OF CARE. AGENCY MAY ACCEPT ORDERS FROM CONSULTING PHYSICIANS DR ALMANZAR (REHAB), DR JEWELL (PCP), DR CARDENAS (PULMONOLOGY) RN TO OBSERVE AND ASSESS, SPONGE PACKER/OFFAL ROLLER TO OBSERVE FOR RISK FOR FALLS AND INSTRUCT IN FALL PREVENTION, HOME SAFETY, MEDICATION MANAGEMENT, INFECTION PREVENTION, AND NUTRITION MANAGEMENT. RN/SPONGE PACKER/OFFAL ROLLER NURSE MAY PERFORM O2 SATURATION LEVEL ON ADMISSION AND PRN FOR SOBFOR RN TO ASSESS/SPONGE PACKER TO OBSERVE PATIENT, WITH NOTIFICATION TO THE PHYSICIAN IF SATURATION IS 90% IN THE ABSENCE OF MORE SPECIFIC PARAMETERS FROM THE PHYSICIAN. AGENCY MAY PERFORM A RESUMPTION OF CARE VISIT FOLLOWING ANY HOSPITAL ADMISSION. RN/SPONGE PACKER/OFFAL ROLLER TO MONITOR CO-MORBID CONDITIONS LISTED ON THE PLAN OF CARE AND ANY NEW CONDITIONS THAT PRESENT THEMSELVES DURING THIS EPISODE TO IDENTIFY CHANGES AND INTERVENE TO MINIMIZE COMPLICATIONS.] Future Scheduled Test MEDICATION MANAGEMENT; RN/SPONGE PACKER/OFFAL ROLLER TO REVIEW MEDICATIONS FOR INTERACTIONS, EFFECTIVENESS OF DRUG THERAPY, AND SIGNS/SYMPTOMS OF ADVERSE REACTIONS. MAY INSTRUCT AND REINFORCE MEDICATION TEACHING RELATED TO THE USE OF MEDICATIONS, DOSAGE, FREQUENCY, PURPOSE, SIDE EFFECTS, AND TO REPORT COMPLICATIONS. [code = MEDICATION MANAGEMENT; RN/SPONGE PACKER/OFFAL ROLLER TO REVIEW MEDICATIONS FOR INTERACTIONS, EFFECTIVENESS OF DRUG THERAPY, AND SIGNS/SYMPTOMS OF ADVERSE REACTIONS. MAY INSTRUCT AND REINFORCE MEDICATION TEACHING RELATED TO THE USE OF MEDICATIONS, DOSAGE, FREQUENCY, PURPOSE, SIDE EFFECTS, AND TO REPORT COMPLICATIONS.] Future Scheduled Test RISK FOR H OSPITALIZATION; RN TO ASSESS/TEACH, OFFAL ROLLER/SPONGE PACKER TO OBSERVE/TEACH PATIENT/CAREGIVER ON RISK FOR HOSPITALIZATION/EMERGENCY ROOM VISITS, TEACH SIGNS AND SYMPTOMS THAT PUT PATIENT AT RISK, WHEN TO NOTIFY NURSE/PHYSICIAN OF COMPLICATIONS/DECLINE, AND WHEN TO CALL 911. [code = RISK FOR HOSPITALIZATION; RN TO ASSESS/TEACH, OFFAL ROLLER/SPONGE PACKER TO OBSERVE/TEACH PATIENT/CAREGIVER ON RISK FOR HOSPITALIZATION/EMERGENCY ROOM VISITS, TEACH SIGNS AND SYMPTOMS THAT PUT PATIENT AT RISK, WHEN TO NOTIFY NURSE/PHYSICIAN OF COMPLICATIONS/DECLINE, AND WHEN TO CALL 911.] Future Scheduled Test CARDIOVASC ULAR SYSTEM; RN TO ASSESS/TEACH, SPONGE PACKER/OFFAL ROLLER TO OBSERVE/TEACH RELATED TO ALTERED CARDIOVASCULAR STATUS TO MINIMIZE COMPLICATIONS AND REDUCE HOSPITALIZATION. [code = CARDIOVASCULAR SYSTEM; RN TO ASSESS/TEACH, SPONGE PACKER/OFFAL ROLLER TO OBSERVE/TEACH RELATED TO ALTERED CARDIOVASCULAR STATUS TO MINIMIZE COMPLICATIONS AND REDUCE HOSPITALIZATION.] Future Scheduled Test HEART FAIL URE; RN TO ASSESS/TEACH, SPONGE PACKER/OFFAL ROLLER TO OBSERVE/TEACH CARDIOPULMONARY SYSTEM TO IDENTIFY SIGNS [...] [code = HEART FAILURE; RN TO ASSESS/TEACH, SPONGE PACKER/OFFAL ROLLER TO OBSERVE/TEACH CARDIOPULMONARY SYSTEM TO IDENTIFY SIGNS [...] ON MANAGEMENT; RN TO ASSESS AND TEACH, SPONGE PACKER/OFFAL ROLLER TO OBSERVE AND TEACH WARNING SIGNS AND SYMPTOMS TO AVOID HOSPITALIZATION. [code = HYPERTENSION MANAGEMENT; RN TO ASSESS AND TEACH, SPONGE PACKER/OFFAL ROLLER TO OBSERVE AND TEACH WARNING SIGNS AND SYMPTOMS TO AVOID HOSPITALIZATION.] Future Scheduled Test RESPIRATOR Y SYSTEM MANAGEMENT; RN TO ASSESS AND TEACH, SPONGE PACKER/OFFAL ROLLER TO OBSERVE AND TEACH RELATED TO ALTERED RESPIRATORY STATUS TO MINIMIZE COMPLICATIONS AND REDUCE HOSPITALIZATION. [code = RESPIRATORY SYSTEM MANAGEMENT; RN TO ASSESS AND TEACH, SPONGE PACKER/OFFAL ROLLER TO OBSERVE AND TEACH RELATED TO ALTERED RESPIRATORY STATUS TO MINIMIZE COMPLICATIONS AND REDUCE HOSPITALIZATION.] Future Scheduled Test COPD MANAG EMENT; RN TO ASSESS AND TEACH, SPONGE PACKER/OFFAL ROLLER TO OBSERVE AND TEACH SIGNS/SYMPTOMS OF COPD EXACERBATION AND PROVIDE EARLY INTERVENTIONS TO MINIMIZE RISK OF HOSPITALIZATION. RN/SPONGE PACKER/OFFAL ROLLER TO INSTRUCT ON SELF-CARE MANAGEMENT INCLUDING BREATHING TECHNIQUES, AIRWAY CLEARANCE, AND PROPER USE OF COPD MEDICATIONS. RN TO ASSESS AND TEACH, SPONGE PACKER/OFFAL ROLLER TO OBSERVE AND TEACH PATIENT/CAREGIVER ABILITY TO MONITOR AND RECORD VITAL SIGNS INCLUDING PULSE OXIMETRY AND BLOOD PRESSURE. PULSE OXIMETER AND BP MONITOR TO BE PROVIDED IF NEEDED . [code = COPD MANAGEMENT; RN TO ASSESS AND TEACH, SPONGE PACKER/OFFAL ROLLER TO OBSERVE AND TEACH SIGNS/SYMPTOMS OF COPD EXACERBATION AND PROVIDE EARLY INTERVENTIONS TO MINIMIZE RISK OF HOSPITALIZATION. RN/SPONGE PACKER/OFFAL ROLLER TO INSTRUCT ON SELF-CARE MANAGEMENT INCLUDING BREATHING TECHNIQUES, AIRWAY CLEARANCE, AND PROPER USE OF COPD MEDICATIONS. RN TO ASSESS AND TEACH, SPONGE PACKER/OFFAL ROLLER TO OBSERVE AND TEACH PATIENT/CAREGIVER ABILITY TO MONITOR AND RECORD VITAL SIGNS INCLUDING PULSE OXIMETRY AND BLOOD PRESSURE. PULSE OXIMETER AND BP MONITOR TO BE PROVIDED IF NEEDED .] Future Scheduled Test OXYGEN THE RAPY; RN/SPONGE PACKER/OFFAL ROLLER TO INSTRUCT ON OXYGEN MANAGEMENT INCLUDING: ADMINISTRATION AT 3 L/MIN VIA NC QHS/PRN FOR SOB, CARE OF EQUIPMENT AND SAFETY. [code = OXYGEN THERAPY; RN/SPONGE PACKER/OFFAL ROLLER TO INSTRUCT ON OXYGEN MANAGEMENT INCLUDING: ADMINISTRATION AT 3 L/MIN VIA NC QHS/PRN FOR SOB, CARE OF EQUIPMENT AND SAFETY.] Future Scheduled Test SKIN INTEG RITY RN TO ASSESS AND TEACH, SPONGE PACKER/OFFAL ROLLER TO OBSERVE AND TEACH INTEGUMENTARY STATUS TO IDENTIFY CHANGES AND INTERVENE TO MINIMIZE COMPLICATIONS. PROVIDE SKILLED TEACHING OF GENERAL WOUND AND SKIN CARE AND PREVENTION RELATED TO POTENTIAL FOR OR ACTUAL ALTERED SKIN INTEGRITY [code = SKIN INTEGRITY RN TO ASSESS AND TEACH, SPONGE PACKER/OFFAL ROLLER TO OBSERVE AND TEACH INTEGUMENTARY STATUS TO IDENTIFY CHANGES AND INTERVENE TO MINIMIZE COMPLICATIONS. PROVIDE SKILLED TEACHING OF GENERAL WOUND AND SKIN CARE AND PREVENTION RELATED TO POTENTIAL FOR OR ACTUAL ALTERED SKIN INTEGRITY] Future Scheduled Test WOUND MOLE CULAR TESTING PROTOCOL UP TO 2 PRN RN/SPONGE PACKER/OFFAL ROLLER VISITS MAY BE PERFORMED FOR S/S OF WOUND INFECTION/DETERIORATION/STAGNATION. RN TO ASSESS, SPONGE PACKER/OFFAL ROLLER TO OBSERVE AND INITIATE PROTOCOL. RN/SPONGE PACKER/OFFAL ROLLER TO INSTRUCT PATIENT AND/OR CAREGIVER ON S/S OF WOUND INFECTION/DETERIORATION/STAGNATION TO REPORT TO NURSE IF NEW OR WORSENING SYMPTOMS. RN/SPONGE PACKER/OFFAL ROLLER TO OBTAIN WOUND SPECIMEN FOR MOLECULAR WOUND TESTING VIA SWAB COLLECTION PER POLICY. INCLUDE ANTIBIOTIC/ANTIFUNGAL RESISTANCE TESTING NOTIFY PROVIDER OF RESULTS AND OBTAIN FURTHER ORDERS. [code = WOUND MOLECULAR TESTING PROTOCOL UP TO 2 PRN RN/SPONGE PACKER/OFFAL ROLLER VISITS MAY BE PERFORMED FOR S/S OF WOUND INFECTION/DETERIORATION/STAGNATION. RN TO ASSESS, SPONGE PACKER/OFFAL ROLLER TO OBSERVE AND INITIATE PROTOCOL. RN/SPONGE PACKER/OFFAL ROLLER TO INSTRUCT PATIENT AND/OR CAREGIVER ON S/S OF WOUND INFECTION/DETERIORATION/STAGNATION TO REPORT TO NURSE IF NEW OR WORSENING SYMPTOMS. RN/SPONGE PACKER/OFFAL ROLLER TO OBTAIN WOUND SPECIMEN FOR MOLECULAR WOUND TESTING VIA SWAB COLLECTION PER POLICY. INCLUDE ANTIBIOTIC/ANTIFUNGAL RESISTANCE TESTING NOTIFY PROVIDER OF RESULTS AND OBTAIN FURTHER ORDERS.] Future Scheduled Test WOUND CULT URE TESTING PROTOCOL UP TO 2 PRN RN/SPONGE PACKER VISITS MAY BE PERFORMED FOR S/S OF WOUND INFECTION/DETERIORATION/STAGNATION. RN TO ASSESS, SPONGE PACKER/OFFAL ROLLER TO OBSERVE AND INITIATE PROTOCOL. RN/SPONGE PACKER/OFFAL ROLLER TO INSTRUCT PATIENT AND/OR CAREGIVER ON S/S OF WOUND INFECTION/DETERIORATION/STAGNATION TO REPORT TO NURSE IF NEW OR WORSENING SYMPTOMS. RN/SPONGE PACKER/OFFAL ROLLER TO OBTAIN WOUND SPECIMEN FOR CULTURE VIA SWAB COLLECTION INCLUDE ANTIBIOTIC/ANTIFUNGAL RESISTANCE TESTING NOTIFY PROVIDER OF RESULTS AND OBTAIN FURTHER ORDERS. [code = WOUND CULTURE TESTING PROTOCOL UP TO 2 PRN RN/SPONGE PACKER VISITS MAY BE PERFORMED FOR S/S OF WOUND INFECTION/DETERIORATION/STAGNATION. RN TO ASSESS, SPONGE PACKER/OFFAL ROLLER TO OBSERVE AND INITIATE PROTOCOL. RN/SPONGE PACKER/OFFAL ROLLER TO INSTRUCT PATIENT AND/OR CAREGIVER ON S/S OF WOUND INFECTION/DETERIORATION/STAGNATION TO REPORT TO NURSE IF NEW OR WORSENING SYMPTOMS. RN/SPONGE PACKER/OFFAL ROLLER TO OBTAIN WOUND SPECIMEN FOR CULTURE VIA SWAB COLLECTION INCLUDE ANTIBIOTIC/ANTIFUNGAL RESISTANCE TESTING NOTIFY PROVIDER OF RESULTS AND OBTAIN FURTHER ORDERS.] Future Scheduled Test RN/SPONGE PACKER/OFFAL ROLLER TO PERFORM/TEACH PATIENT/CAREGIVER WOUND CARE RLE: CLEANSE WITH WOUND CLEANSER, APPLY NONADHERENT PAD, WRAP WITH KERLEX, SECURE WITH TAPE. CHANGE DRESSING EVERY DAY AND PRN FOR SOILING [code = RN/SPONGE PACKER/OFFAL ROLLER TO PERFORM/TEACH PATIENT/CAREGIVER WOUND CARE RLE: CLEANSE WITH WOUND CLEANSER, APPLY NONADHERENT PAD, WRAP WITH KERLEX, SECURE WITH TAPE. CHANGE DRESSING EVERY DAY AND PRN FOR SOILING] Future Scheduled Test PAIN MANAG EMENT; RN TO ASSESS AND TEACH, OFFAL ROLLER/SPONGE PACKER TO OBSERVE AND TEACH AND PROVIDE EDUCATION ON PAIN MANAGEMENT TECHNIQUES. [code = PAIN MANAGEMENT; RN TO ASSESS AND TEACH, OFFAL ROLLER/SPONGE PACKER TO OBSERVE AND TEACH AND PROVIDE EDUCATION ON PAIN MANAGEMENT TECHNIQUES.] Future Scheduled Test GENITOURIN ADAM MANAGEMENT; RN TO ASSESS AND TEACH, SPONGE PACKER/OFFAL ROLLER TO OBSERVE AND TEACH RELATED TO ALTERED GENITOURINARY STATUS TO MINIMIZE COMPLICATIONS AND REDUCE HOSPITALIZATION. [code = GENITOURINARY MANAGEMENT; RN TO ASSESS AND TEACH, SPONGE PACKER/OFFAL ROLLER TO OBSERVE AND TEACH RELATED TO ALTERED GENITOURINARY STATUS TO MINIMIZE COMPLICATIONS AND REDUCE HOSPITALIZATION.] Future Scheduled Test URINARY CU LTURE AND SENSITIVITY PROTOCOL UP TO 2 PRN RN/SPONGE PACKER/OFFAL ROLLER VISITS MAY BE PERFORMED FOR S/S OF UTI. RN TO ASSESS, SPONGE PACKER/OFFAL ROLLER TO OBSERVE INITIATION OF UTI PROTOCOL. RN/OFFAL ROLLER/SPONGE PACKER TO INSTRUCT PATIENT AND/OR CAREGIVER ON S/S OF UTI TO REPORT TO RN/SPONGE PACKER/OFFAL ROLLER IF NEW OR WORSENING SYMPTOMS. DRINK PLENTY OF WATER THROUGHOUT THE DAY TO MAINTAIN HYDRATION (UNLESS CONTRAINDICATED.) URINATE WHEN THE URGE IS FELT, DO NOT WAIT. WASH GENITALS DAILY. WIPE FROM FRONT TO BACK AFTER HAVING A BOWEL MOVEMENT. RN/OFFAL ROLLER/SPONGE PACKER TO OBTAIN URINE SPECIMEN FOR UA WITH C/S VIA CLEAN CATCH URINE AND IF UNABLE TO OBTAIN MAY PERFORM AN IN AND OUT CATH. IF PATIENT HAS INDWELLING CATHETER MAY OBTAIN FROM SAMPLING PORT. NOTIFY PROVIDER OF RESULTS AND OBTAIN FURTHER ORDERS. [code = URINARY CULTURE AND SENSITIVITY PROTOCOL UP TO 2 PRN RN/SPONGE PACKER/OFFAL ROLLER VISITS MAY BE PERFORMED FOR S/S OF UTI. RN TO ASSESS, SPONGE PACKER/OFFAL ROLLER TO OBSERVE INITIATION OF UTI PROTOCOL. RN/OFFAL ROLLER/SPONGE PACKER TO INSTRUCT PATIENT AND/OR CAREGIVER ON S/S OF UTI TO REPORT TO RN/SPONGE PACKER/OFFAL ROLLER IF NEW OR WORSENING SYMPTOMS. DRINK PLENTY OF WATER THROUGHOUT THE DAY TO MAINTAIN HYDRATION (UNLESS CONTRAINDICATED.) URINATE WHEN THE URGE IS FELT, DO NOT WAIT. WASH GENITALS DAILY. WIPE FROM FRONT TO BACK AFTER HAVING A BOWEL MOVEMENT. RN/OFFAL ROLLER/SPONGE PACKER TO OBTAIN URINE SPECIMEN FOR UA WITH C/S VIA CLEAN CATCH URINE AND IF UNABLE TO OBTAIN MAY PERFORM AN IN AND OUT CATH. IF PATIENT HAS INDWELLING CATHETER MAY OBTAIN FROM SAMPLING PORT. NOTIFY PROVIDER OF RESULTS AND OBTAIN FURTHER ORDERS.] Future Scheduled Test URINARY MO LECULAR TESTING PROTOCOL UP TO 2 PRN RN/SPONGE PACKER/OFFAL ROLLER VISITS MAY BE PERFORMED FOR S/S OF UTI. RN TO ASSESS, SPONGE PACKER/OFFAL ROLLER TO OBSERVE INITIATION OF UTI PROTOCOL. RN/OFFAL ROLLER/SPONGE PACKER TO INSTRUCT PATIENT AND/OR CAREGIVER ON S/S OF UTI TO REPORT TO RN/OFFAL ROLLER/SPONGE PACKER IF NEW OR WORSENING SYMPTOMS. DRINK PLENTY OF WATER THROUGHOUT THE DAY TO MAINTAIN HYDRATION (UNLESS CONTRAINDICATED.) URINATE WHEN THE URGE IS FELT, DO NOT WAIT. WASH GENITALS DAILY. WIPE FROM FRONT TO BACK AFTER HAVING A BOWEL MOVEMENT. RN/OFFAL ROLLER/SPONGE PACKER TO OBTAIN URINE SPECIMEN FOR MOLECULAR URINE TESTING BY OPTION 1 OR OPTION 2 RN/OFFAL ROLLER/SPONGE PACKER TO OBTAIN URINE SPECIMEN FOR U/A WITH [...] MOLECULAR TESTING PROTOCOL UP TO 2 PRN RN/SPONGE PACKER/OFFAL ROLLER VISITS MAY BE PERFORMED FOR S/S OF UTI. RN TO ASSESS, SPONGE PACKER/OFFAL ROLLER TO OBSERVE INITIATION OF UTI PROTOCOL. RN/OFFAL ROLLER/SPONGE PACKER TO INSTRUCT PATIENT AND/OR CAREGIVER ON S/S OF UTI TO REPORT TO RN/OFFAL ROLLER/SPONGE PACKER IF NEW OR WORSENING SYMPTOMS. DRINK PLENTY OF WATER THROUGHOUT THE DAY TO MAINTAIN HYDRATION (UNLESS CONTRAINDICATED.) URINATE WHEN THE URGE IS FELT, DO NOT WAIT. WASH GENITALS DAILY. WIPE FROM FRONT TO BACK AFTER HAVING A BOWEL MOVEMENT. RN/OFFAL ROLLER/SPONGE PACKER TO OBTAIN URINE SPECIMEN FOR MOLECULAR URINE TESTING BY OPTION 1 OR OPTION 2 RN/OFFAL ROLLER/SPONGE PACKER TO OBTAIN URINE SPECIMEN FOR U/A WITH [...] Scheduled Test URINARY TR ACT INFECTION MANAGEMENT; RN/OFFAL ROLLER/SPONGE PACKER TO PROVIDE SKILLED TEACHING AND SELF- CARE MANAGEMENT RELATED TO UTI TO MINIMIZE COMPLICATIONS AND REDUCE THE RISK OF HOSPITALIZATION. [code = URINARY TRACT INFECTION MANAGEMENT; RN/OFFAL ROLLER/SPONGE PACKER TO PROVIDE SKILLED TEACHING AND SELF- CARE MANAGEMENT RELATED TO UTI TO MINIMIZE COMPLICATIONS AND REDUCE THE RISK OF HOSPITALIZATION.] Future Scheduled Test FALL REDUC TION MANAGEMENT; RN TO ASSESS AND OBSERVE, SPONGE PACKER/OFFAL ROLLER TO OBSERVE FALL RISK FACTORS AND EDUCATE PATIENT/CAREGIVER ON STRATEGIES TO MINIMIZE THE RISK OF FALLING. [code = FALL REDUCTION MANAGEMENT; RN TO ASSESS AND OBSERVE, SPONGE PACKER/OFFAL ROLLER TO OBSERVE FALL RISK FACTORS AND EDUCATE PATIENT/CAREGIVER ON STRATEGIES TO MINIMIZE THE RISK OF FALLING.] Future Scheduled Test MEDICAL SO CIAL SERVICES FOR EVALUATION TO ASSESS SOCIAL AND EMOTIONAL FACTORS RELATED TO THE PATIENT'S ILLNESS, NEED FOR CARE, RESPONSE TO TREATMENT AND ADJUSTMENT TO CARE. [code = MEDICAL WARP HAULER FOR EVALUATION TO ASSESS SOCIAL AND EMOTIONAL FACTORS RELATED TO THE PATIENT'S ILLNESS, NEED FOR CARE, RESPONSE TO TREATMENT AND ADJUSTMENT TO CARE.] Future Scheduled Test AGENCY MAY PERFORM A RESUMPTION OF CARE VISIT FOLLOWING ANY HOSPITAL ADMISSION. PT TO EVALUATE, OBSERVE / ASSESS, AND MONITOR, MOTOR TRANSPORT INSPECTOR TO OBSERVE AND MONITOR, PROVIDE SKILLED THERAPEUTIC INTERVENTION, ACTIVITY, EDUCATION, AND TRAINING TO ADDRESS; PT/MOTOR TRANSPORT INSPECTOR TO PROVIDE GAIT TRAINING FOR IMPROVED MOBILITY AND /OR TO NORMALIZE GAIT PATTERN THERAPEUTIC EXERCISES AND ESTABLISHING A HOME EXERCISE PROGRAM (PT/MOTOR TRANSPORT INSPECTOR) SIT TO/FROM STAND TRANSFERS (PT/MOTOR TRANSPORT INSPECTOR) PT / MOTOR TRANSPORT INSPECTOR TO MONITOR AND EDUCATE ON OXYGEN SATURATION DURING ADLS/IADLS, NOTIFY PHYSICIAN AND/OR THE RN CLINICAL STEREOPTICIAN FOR PHYSICIAN NOTIFICATION AND IF O2 SATS BELOW PHYSICIAN ORDERED PARAMETERS AFTER 10 MIN OF REST PT / MOTOR TRANSPORT INSPECTOR TO INSTRUCT PATIENT/CAREGIVER ON RISK FOR HOSPITALIZATION/EMERGENCY ROOM VISITS, TEACH SIGNS AND SYMPTOMS THAT PUT PATIENT AT RISK, WHEN TO NOTIFY NURSE/PHYSICIAN OF COMPLICATIONS/DECLINE, AND WHEN TO CALL 911. PT/MOTOR TRANSPORT INSPECTOR TO IDENTIFY FALL RISK FACTORS; EDUCATE THE PATIENT/CAREGIVER ON WAYS TO REDUCE FALL RISK FACTORS AND ESTABLISH HOME EXERCISE PROGRAM TO MINIMIZE FALL RISK. MAY TEACH THE PATIENT FLOOR RECOVERY WHEN CLINICALLY APPROPRIATE [code = AGENCY MAY PERFORM A RESUMPTION OF CARE VISIT FOLLOWING ANY HOSPITAL ADMISSION. PT TO EVALUATE, OBSERVE / ASSESS, AND MONITOR, MOTOR TRANSPORT INSPECTOR TO OBSERVE AND MONITOR, PROVIDE SKILLED THERAPEUTIC INTERVENTION, ACTIVITY, EDUCATION, AND TRAINING TO ADDRESS; PT/MOTOR TRANSPORT INSPECTOR TO PROVIDE GAIT TRAINING FOR IMPROVED MOBILITY AND /OR TO NORMALIZE GAIT PATTERN THERAPEUTIC EXERCISES AND ESTABLISHING A HOME EXERCISE PROGRAM (PT/MOTOR TRANSPORT INSPECTOR) SIT TO/FROM STAND TRANSFERS (PT/MOTOR TRANSPORT INSPECTOR) PT / MOTOR TRANSPORT INSPECTOR TO MONITOR AND EDUCATE ON OXYGEN SATURATION DURING ADLS/IADLS, NOTIFY PHYSICIAN AND/OR THE RN CLINICAL STEREOPTICIAN FOR PHYSICIAN NOTIFICATION AND IF O2 SATS BELOW PHYSICIAN ORDERED PARAMETERS AFTER 10 MIN OF REST PT / MOTOR TRANSPORT INSPECTOR TO INSTRUCT PATIENT/CAREGIVER ON RISK FOR HOSPITALIZATION/EMERGENCY ROOM VISITS, TEACH SIGNS AND SYMPTOMS THAT PUT PATIENT AT RISK, WHEN TO NOTIFY NURSE/PHYSICIAN OF COMPLICATIONS/DECLINE, AND WHEN TO CALL 911. PT/MOTOR TRANSPORT INSPECTOR TO IDENTIFY FALL RISK FACTORS; EDUCATE THE PATIENT/CAREGIVER ON WAYS TO REDUCE FALL RISK FACTORS AND ESTABLISH HOME EXERCISE PROGRAM TO MINIMIZE FALL RISK. MAY TEACH THE PATIENT FLOOR RECOVERY WHEN CLINICALLY APPROPRIATE] Future Scheduled Test INTERNATIONAL GUEST COORDINATOR EVALUA TION PERFORMED. NO ADDITIONAL VISITS REQUIRED. [code = INTERNATIONAL GUEST COORDINATOR EVALUATION PERFORMED. NO ADDITIONAL VISITS REQUIRED.] Future Scheduled Test AGENCY MAY PERFORM A RESUMPTION OF CARE VISIT FOLLOWING ANY HOSPITAL ADMISSION. OT TO EVALUATE, OBSERVE / ASSESS, AND MONITOR, PHOTOGRAPHIC PLATE MAKER TO OBSERVE AND MONITOR, PROVIDE SKILLED THERAPEUTIC INTERVENTION, ACTIVITY, EDUCATION, AND TRAINING TO ADDRESS;SELF CARE PERFORMANCE, FUNCTIONAL TRANSFERS, BALANCE DURING FUNCTIONAL ACTIVITIES, HOME SAFETY RECOMMENDATIONS BATHING/SHOWERING (OT/CARLENE) TOILETING HYGIENE (OT/CARLENE) DRESSING (OT/CARLENE) ACTIVITIES OF DAILY LIVING (OT/PHOTOGRAPHIC PLATE MAKER) BED MOBILITY (OT/PHOTOGRAPHIC PLATE MAKER) TOILET TRANSFER (OT/CARLENE) BATH/SHOWER TRANSFER (OT/PHOTOGRAPHIC PLATE MAKER) POSTURAL CONTROL/BALANCE (OT/PHOTOGRAPHIC PLATE MAKER) OT/CARLENE TO MONITOR AND EDUCATE ON OXYGEN SATURATION DURING ADLS/IADLS, NOTIFY PHYSICIAN AND/OR THE RN CLINICAL STEREOPTICIAN FOR PHYSICIAN NOTIFICATION AND IF O2 SATS BELOW 90% AFTER 10 MIN OF REST. OT/CARLENE MAY EDUCATE ON PAIN MANAGEMENT CLINICALLY INDICATED, INCLUDING NON-PHARMACOLOGICAL PAIN REDUCTION TECHNIQUES AND USE OF CRYOTHERAPY OR HEAT UP TO 20 MIN AT A TIME FOR PAIN MANAGEMENT OT / PHOTOGRAPHIC PLATE MAKER TO IDENTIFY FALL RISK FACTORS; EDUCATE THE [...] DURING FUNCTIONAL ACTIVITIES, HOME SAFETY RECOMMENDATIONS BATHING/SHOWERING (OT/PHOTOGRAPHIC PLATE MAKER) TOILETING HYGIENE (OT/PHOTOGRAPHIC PLATE MAKER) DRESSING (OT/PHOTOGRAPHIC PLATE MAKER) ACTIVITIES OF DAILY LIVING (OT/CARLENE) BED MOBILITY (OT/CARLENE) TOILET TRANSFER (OT/CARLENE) BATH/SHOWER TRANSFER (OT/CARLENE) POSTURAL CONTROL/BALANCE (OT/CARLENE) OT/CARLENE TO MONITOR AND EDUCATE ON OXYGEN SATURATION DURING ADLS/IADLS, NOTIFY PHYSICIAN AND/OR THE RN CLINICAL STEREOPTICIAN FOR PHYSICIAN NOTIFICATION AND IF O2 SATS BELOW 90% AFTER 10 MIN OF REST. OT/PHOTOGRAPHIC PLATE MAKER MAY EDUCATE ON PAIN MANAGEMENT CLINICALLY INDICATED, INCLUDING NON-PHARMACOLOGICAL PAIN REDUCTION TECHNIQUES AND USE OF CRYOTHERAPY OR HEAT UP TO 20 MIN AT A TIME FOR PAIN MANAGEMENT OT / PHOTOGRAPHIC PLATE MAKER TO IDENTIFY FALL RISK FACTORS; EDUCATE THE [...] 2025-08-04 00:00:00 Outpatient NEW ADMISSION [facility] [id number] 2025-08-04 00:00:00 DISCHARGE TO HOME OR SELF CARE INDEPENDEN T IN THE HOME HH - GOALS MET 66.04
--- NOTE | 2025-08-14 12:23 | XR_ITS ---
FINAL REPORT TECHNIQUE: Chest PA & Lateral CLINICAL HISTORY: sob, new onset COMPARISON: 09/19/2017 FINDINGS: 2 views of the chest were performed. The heart size is normal. The mediastinum is within normal limits. There are chronic bilateral changes in the lung hartmann bilaterally, with biapical pleural and parenchymal scar. There are no pleural effusions. There is no pneumothorax. The bony thorax appears intact. IMPRESSION: Chronic bilateral changes with biapical pleural and parenchymal scar. No areas of consolidation are identified. Reviewed, Interpreted and Dictated by Jeferson Jimenes MD Transcribed by Claire Keane Authenticated and . [facility]
--- OUTSIDE RECORDS SUMMARY | 2025-08-14 12:23 | XMS_ITS | Clinical Summary ---
Author Organization Healthcare Address [address] [place] [address] Care Team Providers Care Tire Repairer Name Role Phone Stephen Velasquez MD Primary Care Provider [phone] Allergies Active Allergy Reactions Criticality Noted Date [...] capsule Take 1 capsule by mouth nightly. 5 Active aspirin 81 MG chewable tablet Chew 1 tablet daily. Active atorvastatin (Lipitor) 40 MG tablet Take 1 tablet by mouth nightly. Active propafenone (Rythmol) 150 MG tablet Take 1 tablet by mouth 2 times a day. Active acetaminophen (Tylenol) 500 MG tablet Take 2 tablets by mouth every 6 hours. Active lidocaine (Lidoderm) 5 % patch Apply 2 patches topically daily over 12 hours. Remove & discard patch within 12 hours or as directed by . Active melatonin tablet Take 2 tablets by mouth nightly. Active methocarbamol (Robaxin) 500 MG tablet Take 2 tablets by mouth every 6 hours. Active ondansetron ODT (Zofran-ODT) 4 MG disintegrating tablet Dissolve 1 tablet on the tongue every 6 hours as needed for nausea or vomiting. Active polyethylene glycol (Miralax) 17 g packet Take 17 g by mouth daily. Active senna-docusate (Patience-Colace) 8.6-50 MG tablet Take 1 tablet by mouth nightly. Active pregabalin (Lyrica) 25 MG capsule Take 1 capsule by mouth every 6 hours for 3 days. 12 capsule 5 Active naloxone (Narcan) 4 mg/0.1 mL nasal spray 1. Give 1 spray in nostril for no/slow breathing or cannot wake after opioid use 2. Call 911 3. Repeat in other nostril if symptoms continue 1 each 5 Active Active Problems Problem Noted Date [...] straight caths at home Rae insert overnight [id number] kidney injury 06/11/2025 Assessment & Plan (06/12/2025 [...] Encounter [facility] PAVA 9 T2 UNI [address] [place] [id number] Azael Edmond MD Chapman, Steven B, Emiliano Hurtado, Criss Fair MD Closed fracture of multiple ribs of left side, initial encounter (Primary Dx); Cirrhosis of liver with ascites, unspecified hepatic cirrhosis type (CMS/HCC) Discharge Disposition: Halfway Facility 06/09/2025 Travel 06/09/2025 Orders Only External Location [address] Franky Logan PA 06/09/2025 Orders Only External Location [address] Franky Logan PA 06/09/2025 Orders Only External Location [address] Franky Logan PA 06/09/2025 Orders Only External Location [address] Franky Logan PA 06/09/2025 Orders Only External Location [address] [place] [address] Franky Logan PA 06/09/2025 Orders Only External Location [address] Franky Logan PA from Last 3 Months [...] and Family Not on file 06/12/2025 Attends [employer] Not on file 06/12 Active Member [...] the past 12 m [facility], were you homeless or living in [...] Vaccine: 50+ Years (2 of 2 - PPSV23, PCV20, or PCV21) 10/16/2014 08/21/2014, 10/19/2010 [facility]-RSV Vaccine: 60+ Years or (1 - 1-dose 75+ series) 2016 [id number] Vaccine (2 - season) 2025 11/21/2020 [facility]-Influenza Vaccine (#1) 06/19/202508/06, 07/02/2020, 07/28/2019, Additional history exists [facility]- SDOH Screenings 12/13/2025 [facility]-Adult SDOH Screenings 12/13/2025 06/12/2025 [facility]-DTaP,Tdap,and Td Vaccines (5 - Td or Tdap) 12/07/2032 12/07/2022, 06/05/2014, 05/26/2014, Additional history exists [facility]-Zoster Vaccines Completed 07/19/2019, 07/01/201 9 [facility]-Obesity Intervention Completed 06/09/2025 HPV Vaccines [...] - 99 mg/dL 06/13/2025 2:30 AM EDT [facility] BUN, Plasma 36(H) 8 - 23 mg/dL 06/13/2025 2:30 AM EDT [facility] Creatinine, Plasma 2.22(H) 0.70 - 1.20 mg/dL 06/13/2025 2:30 AM EDT [facility] BUN/Creatinine Ratio 16 06/13/2025 2:30 AM EDT [facility] Sodium, Plasma 140 136 - 145 mmol/L 06/13/2025 2:30 AM EDT [facility] Potassium, Plasma 5.4(H) 3.6 - 4.9 mmol/L 06/13/2025 2:30 AM EDT [facility] Chloride, Plasma 105 97 - 107 mmol/L 06/13/2025 2:30 AM EDT [facility] CO2, Plasma 23 22 - 29 mmol/L 06/13/2025 2:30 AM EDT [facility] Anion Gap 12 6 - 16 mmol/L 06/13/2025 2:30 AM EDT [facility] Total Calcium, Plasma 8.8(L) 8.9 - 10.2 mg/dL 06/13/2025 2:30 AM EDT [facility] eGFRcr 28.5 mL/min/1.7 3m*2 06/13/2025 2:30 AM EDT [facility] Comment:Reported eGFRcr in m L/min/1.73m2 is based the CKD-EPI 2020 equation that does not use a race coefficient. Blood Venous blood specimen / Unknown Venipuncture / Unknown 06/13/2025 1:39 AM EDT 06/13/2025 1:45 AM EDT Saadia Garcia APRN, DNP LAB BLOOD ORDERABLES Fin al Result Performing Organization Address City/[facility] Co de Phone Number [facility] [address] [place] [address] * ECG Adult (06/12/2025 11:57 AM EDT) EKG DIAGNOSIS CLASS Abnormal MUSE ECG Ventricular Rate 83 BPM MUSE ECG Atrial Rate 83 BPM MUSE ECG UT Interval 196 ms MUSE ECG QRSD Interval 154 ms MUSE ECG QT Interval 400 ms MUSE ECG QTC Interval 470 ms MUSE ECG P [place] 56 degrees MUSE ECG R [place] -14 degrees MUSE ECG T Wave [place] 2 degrees MUSE ECG Diagnosis Normal sinus rhythm MUSE ECG Diagnosis Right bundle branch block MUSE ECG Diagnosis Abnormal ECG MUSE ECG Diagnosis MUSE ECG Diagnosis Confirmed by Matt Sequeira ([id number]) on 06/12/2025 3:58:45 PM MUSE ECG 06/12/2025 11:5 7 AM EDT 06/12/2025 3:58 PM EDT Saadia Garcia APRN, DNP ECG ORDERABLES Final Re sult Performing Organization Address City/[facility] Co de Phone Number MUSE ECG * Phosphorus (06/12/2025 2:45 AM EDT) Only the most recent of2 resultswithin the time period is included. Phosphorus, Plasma 3.0 2.5 - 4.5 mg/dL 06/12/2025 3:23 AM EDT [facility] Blood Venous blood specimen / Unknown Venipuncture / Unknown 06/12/2025 2:45 AM EDT 06/12/2025 2:54 AM EDT us Criss Cruz MD LAB BLOOD ORDERABLES Lyn l Result Performing Organization Address City/[facility]/ZIP Co de Phone Number [facility] [address] [place] [address] * Magnesium (06/12/2025 2:45 AM EDT) Only the most recent of2 resultswithin the time period is included. Magnesium, Plasma 2.3 1.9 - 2.4 mg/dL 06/12/2025 3:23 AM EDT [facility] Blood Venous blood specimen / Unknown Venipuncture / Unknown 06/12/2025 2:45 AM EDT 06/12/2025 2:54 AM EDT us Criss Cruz MD LAB BLOOD ORDERABLES Lyn l Result Performing Organization Address City/[facility]/ZIP Co de Phone Number [facility] [address] [place] [address] * Sodium, urine, random (06/11/2025 12:33 PM EDT) Sodium, Urine 22 mmol/L 06/11/2025 1:33 PM EDT [facility] Urine Urine specimen obtained by clean catch procedure / Unknown Non-blood Collection / Unknown 06/11/2025 12:33 PM EDT 06/11/2025 12:49 PM EDT us Criss Cruz MD LAB URINE ORDERABLES Lyn l Result [facility] [address] [place] [address] * Creatinine, urine, random (06/11/2025 12:33 PM EDT) Creatinine, Urine 81 mg/dL 06/11/2025 1:26 PM EDT [facility] Urine Urine specimen obtained by clean catch procedure / Unknown Non-blood Collection / Unknown 06/11/2025 12:33 PM EDT 06/11/2025 12:49 PM EDT us Criss Cruz MD LAB URINE ORDERABLES Lyn l Result [facility] [address] [place] [address] * XR Chest 1 View (06/11/2025 4:57 [...] LAB HEMATOLOGY METHOD 06/11/2025 1:37 AM EDT [facility] RBC Count 3.56(L) 4.60 - 6.10 10*6/uL LAB HEMATOLOGY METHOD 06/11/2025 1:37 AM EDT [facility] HGB 11.3(L) 13.7 - 17.5 g/dL LAB HEMATOLOGY METHOD 06/11/2025 1:37 AM EDT [facility] HCT 34.9(L) 40.0 - 51.0 % LAB HEMATOLOGY METHOD 06/11/2025 1:37 AM EDT [facility] Platelet Count 230 155 - 369 10*3/uL LAB HEMATOLOGY METHOD 06/11/2025 1:37 AM EDT [facility] MCV 98 79 - 98 fL LAB HEMATOLOGY METHOD 06/11/2025 1:37 AM EDT [facility] MCH 31.7 26.0 - 32.0 pg LAB HEMATOLOGY METHOD 06/11/2025 1:37 AM EDT [facility] MCHC 32.4 30.7 - 35.5 g/dL LAB HEMATOLOGY METHOD 06/11/2025 1:37 AM EDT [facility] RDW 15.2(H) 11.5 - 14.5 % LAB HEMATOLOGY METHOD 06/11/2025 1:37 AM EDT [facility] MPV 11.3 8.8 - 12.5 fL LAB HEMATOLOGY METHOD 06/11/2025 1:37 AM EDT [facility] nRBC 0.0 <=0.0 per 100 WBCs LAB HEMATOLOGY METHOD 06/11/2025 1:37 AM EDT [facility] Blood Venous blood specimen / Unknown Venipuncture / Unknown 06/11/2025 1:16 AM EDT 06/11/2025 1:30 AM EDT us Genia MCKNIGHT LAB BLOOD ORDERABLES [place] [address] * Ami auris Surveillance by PCR (06/10/2025 6:02 AM EDT) Ami auris PCR Result Not Detected Not Detected 06/12/2025 5:22 AM EDT [facility] Swab (Axilla and Groin) Non-blood Collection / Unknown 06/10/2025 6:02 AM EDT 06/10/2025 6:35 AM EDT Narrative [facility] - 06/12/2025 5:22 AM EDT This PCR assay was developed and its performance characteristics determined by [facility] as appropriate for clinical purposes. This assay has not been cleared or approved by the FDA, but is performed in a CLIA regulated laboratory that is qualified to perform high-complexity testing. [employer] [facility] MICROBIOLOGY - GENERAL [place] [address] * Multi Drug Resistance Test (06/10/2025 6:02 AM EDT) Culture No growth at day 1 06/11/2025 7:10 AM EDT [facility] Swab (Nares and Patience Rectal) Non-blood Collection / Unknown 06/10/2025 6:02 AM EDT 06/10/2025 6:35 AM EDT Narrative [facility] - 06/11/2025 7:10 AM EDT This test was developed and its performance characteristics determined by the [facility]. Although the media is FDA-approved, it is not FDA-approved for all specimen types submitted. The FDA has determined that such clearance or approval is not necessary. This test is used for surveillance purposes. It should not be regarded as investigational or for research. The [facility] is certified under the Clinical Laboratory Improvement Amendments of 1988 (CLIA-88) as qualified to perform high complexity clinical laboratory testing. [employer] [facility] LAB MICROBIOLOGY - GENERAL ORD ERABLES Final Result [facility] [address] [place] [address] * (ABNORMAL) Blood gas, venous (06/10/2025 3:55 AM EDT) Only the most recent of2 resultswithin the time period is included. pH, Venous 7.32 7.32 - 7.43 LAB HEMATOLOGY METHOD 06/10/2025 4:02 AM EDT [facility] pCO2, Venous 55 40 - 55 mmHg LAB HEMATOLOGY METHOD 06/10/2025 4:02 AM EDT [facility] pO2, Venous 30 25 - 40 mmHg LAB HEMATOLOGY METHOD 06/10/2025 4:02 AM EDT [facility] SO2, Measured, Venous 53(L) 65 - 80 % LAB HEMATOLOGY METHOD 06/10/2025 4:02 AM EDT [facility] Base Excess, Venous 1.7 -2.0 - 3.0 mmol/L LAB HEMATOLOGY METHOD 06/10/2025 4:02 AM EDT [facility] Bicarbonate, Calculated, Venous 29(H) 22 - 26 mmol/L LAB HEMATOLOGY METHOD 06/10/2025 4:02 AM EDT [facility] Hematocrit, Whole Blood 34.7(L) 40.0 - 51.0 % LAB HEMATOLOGY METHOD 06/10/2025 4:02 AM EDT [facility] Sodium, Whole Blood 139 136 - 145 mmol/L LAB HEMATOLOGY METHOD 06/10/2025 4:02 AM EDT [facility] Potassium, Whole Blood 5.2(H) 3.6 - 4.9 mmol/L LAB HEMATOLOGY METHOD 06/10/2025 4:02 AM EDT [facility] Chloride, Whole Blood 104 97 - 107 mmol/L LAB HEMATOLOGY METHOD 06/10/2025 4:02 AM EDT [facility] Glucose, Whole Blood 147(H) 74 - 99 mg/dL LAB HEMATOLOGY METHOD 06/10/2025 4:02 AM EDT [facility] Lactate, Venous, Whole Blood 0.7 0.5 - 2.2 mmol/L LAB HEMATOLOGY METHOD 06/10/2025 4:02 AM EDT [facility] Ionized Calcium, Whole Blood 4.6 4.6 - 5.1 mg/dL LAB HEMATOLOGY METHOD 06/10/2025 4:02 AM EDT [facility] Blood Venous blood specimen / Unknown Venipuncture / Unknown 06/10/2025 3:55 AM EDT 06/10/2025 4:01 AM EDT us Conner Womack DO LAB BLOOD ORDERABLES Final R esult Performing Organization Address [facility] Co de Phone Number [facility] [address] [place] [address] * Urinalysis Microscopic Examination (06/10/2025 1:48 AM EDT) Urine Urine specimen obtained by clean catch procedure / Unknown Non-blood Collection / Unknown 06/10/2025 1:48 AM EDT 06/10/2025 1:52 AM EDT us Azael Edmond MD LAB URINE ORDERABLES Fin al Result Performing Organization Address [facility] de Phone Number [facility] [address] [place] [address] * Drug Abuse Screen, Urine (06/10/2025 1:48 AM EDT) Amphetamine Screen Urine Negative Cutoff: 500 ng/mL 06/10/2025 2:18 AM EDT [facility] Benzodiazepines Screen Urine Presumptive positive. Confirmation by LC-MS/MS to follow. Cutoff: 200 ng/mL 06/10/2025 2:18 AM EDT [facility] Cannabinoid Screen Urine Negative Cutoff: 50 ng/mL 06/10/2025 2:18 AM EDT [facility] Cocaine Screen Urine Negative Cutoff: 300 ng/mL 06/10/2025 2:18 AM EDT [facility] Barbiturate Screen Urine Negative Cutoff: 200 ng/mL 06/10/2025 2:18 AM EDT [facility] Opiate Screen Urine Negative Cutoff: 300 ng/mL 06/10/2025 2:18 AM EDT [facility] Methadone Screen Urine Negative Cutoff: 300 ng/mL 06/10/2025 2:18 AM EDT [facility] Buprenorphine Screen Urine Negative Cutoff: 10 ng/mL 06/10/2025 2:18 AM EDT [facility] Fentanyl Screen Urine Negative Cutoff: 1 ng/mL 06/10/2025 2:18 AM EDT [facility] Oxycodone Screen Urine Negative Cutoff: 100 ng/mL 06/10/2025 2:18 AM EDT [facility] Urine Urine specimen obtained by clean catch procedure / Unknown Non-blood Collection / Unknown 06/10/2025 1:48 AM EDT 06/10/2025 1:52 AM EDT us Azael Edmond MD LAB URINE ORDERABLES Fin al Result [facility] [address] [place] [address] * (ABNORMAL) Benzodiazepine Confirm Urine (06/10/2025 1:48 AM EDT) Alpha [place] Alprazolam <20 <20 ng/mL 06/13 1:31 AM EDT [facility] Alpha [place] Midazolam <20 <20 ng/mL 2024 1:31 AM EDT [facility] Alpha [place] Triazolam <20 <20 ng/mL 2024 1:31 AM EDT [facility] Alprazolam <10 <10 ng/mL 06/13/2025 1:31 AM EDT [facility] Aminoclonazepam <20 <20 ng/mL 1:31 AM EDT [facility] Clonazepam <10 <10 ng/mL 06/13/2025 1:31 AM EDT [facility] Diazepam <10 <10 ng/mL 06/13/2025 1:31 AM EDT [facility] Lorazepam <20 <20 ng/mL 06/13/2025 1:31 AM EDT [facility] Lorazepam Glucuronide <50 <50 ng/mL 06/13/2025 1:31 AM EDT [facility] Midazolam 06/13/2025 1:31 AM EDT [facility] Nordiazepam <20 <20 ng/mL 06/13/2025 1:31 AM EDT [facility] Oxazepam <20 <20 ng/mL 06/13/2025 1:31 AM EDT [facility] Oxazepam Glucuronide 640(H) <50 ng/mL 06/13/2025 1:31 AM EDT [facility] Temazepam <20 <20 ng/mL 06/13/2025 1:31 AM EDT [facility] Temazepam Glucuronide 699(H) <50 ng/mL 06/13/2025 1:31 AM EDT [facility] Triazolam 06/13/2025 1:31 AM EDT [facility] Urine Urine specimen obtained by clean catch procedure / Unknown Non-blood Collection / Unknown 06/10/2025 1:48 AM EDT 06/10/2025 1:52 AM EDT Narrative [facility] - 06/13/2025 1:31 AM EDT Drug analysis is confirmed by LC-MS/MS (LC Tandem Mass Spectrometry) on Urine specimens. This test was developed and its performance characteristics determined by [facility]. It has not been cleared or approved by the FDA. The laboratory is regulated under CLIA as qualified to perform high-complexity testing. This test is used for clinical purposes. Testing is performed at the [facility]. us Azael Edmond MD LAB URINE ORDERABLES [facility] al Result [facility] [address] [place] [address] * (ABNORMAL) Urinalysis with reflex microscopic (Culture NOT Included) (06/10/2025 1:48 AM EDT) Color, Urine Yellow LAB URINALYSIS - AUTOMATED METHOD 06/10/2025 2:31 AM EDT [facility] Clarity, Urine Clear LAB URINALYSIS - AUTOMATED METHOD 06/10/2025 2:31 AM EDT [facility] Spec Joanna, Urine 1.017 1.005 - 1.030 LAB URINALYSIS - AUTOMATED METHOD 06/10/2025 2:31 AM EDT [facility] pH, Urine 5.5 5.0 - 8.0 LAB URINALYSIS - AUTOMATED METHOD 06/10/2025 2:31 AM EDT [facility] Protein, Urine Negative Negative mg/dL LAB URINALYSIS - AUTOMATED METHOD 06/10/2025 2:31 AM EDT [facility] Glucose, Urine Negative Negative mg/dL LAB URINALYSIS - AUTOMATED METHOD 06/10/2025 2:31 AM EDT [facility] Ketones, Urine Negative Negative mg/dL LAB URINALYSIS - AUTOMATED METHOD 06/10/2025 2:31 AM EDT [facility] Blood, Urine Small(A) Negative LAB URINALYSIS - AUTOMATED METHOD 06/10/2025 2:31 AM EDT [facility] Bilirubin, Urine Negative Negative LAB URINALYSIS - AUTOMATED METHOD 06/10/2025 2:31 AM EDT [facility] Urobilinogen, Urine 0.2 0.2 to 1.0 mg/dL LAB URINALYSIS - AUTOMATED METHOD 06/10/2025 2:31 AM EDT [facility] Leukocytes, Urine Small(A) Negative LAB URINALYSIS - AUTOMATED METHOD 06/10/2025 2:31 AM EDT [facility] Nitrite, Urine Positive(A) Negative LAB URINALYSIS - AUTOMATED METHOD 06/10/2025 2:31 AM EDT [facility] RBC, Urine <1 0 to 3 /HPF LAB URINALYSIS - AUTOMATED METHOD 06/10/2025 2:31 AM EDT [facility] Comment:This result was prev iously suppressed from the chart. WBC, Urine 0 - 5 0 to 5 /HPF LAB URINALYSIS - AUTOMATED METHOD 06/10/2025 2:31 AM EDT [facility] Comment:This result was prev iously suppressed from the chart. Squamous Epithelial Cells 0 - 2 0 to 5 /HPF LAB URINALYSIS - AUTOMATED METHOD 06/10/2025 2:31 AM EDT [facility] Comment:This result was prev iously suppressed from the chart. Hyaline Casts 3 - 5 0 to 5 /LPF LAB URINALYSIS - AUTOMATED METHOD 06/10/2025 2:31 AM EDT [facility] Comment:This result was prev iously suppressed from the chart. Bacteria, Urine Present Negative LAB URINALYSIS - AUTOMATED METHOD 06/10/2025 2:31 AM EDT [facility] Comment:This result was prev iously suppressed from the chart. Urine Urine specimen obtained by clean catch procedure / Unknown Non-blood Collection / Unknown 06/10/2025 1:48 AM EDT 06/10/2025 1:52 AM EDT Azael Edmond MD LAB URINE ORDERABLES Fin al Result Performing Organization Address [facility] Co de Phone Number [facility] [address] [place] [address] * (ABNORMAL) Trauma shock panel blood gas (06/09/2025 11:13 PM EDT) pH, Venous 7.22(LL) 7.32 - 7.43 LAB HEMATOLOGY METHOD 06/09/2025 11:39 PM EDT [facility] Bicarbonate, Calculated, Venous 26 22 - 26 mmol/L LAB HEMATOLOGY METHOD 06/09/2025 11:39 PM EDT [facility] Base Excess, Venous -3.0(L) -2.0 - 3.0 mmol/L LAB HEMATOLOGY METHOD 06/09/2025 11:39 PM EDT [facility] Lactate, Venous, Whole Blood 1.2 0.5 - 2.2 mmol/L LAB HEMATOLOGY METHOD 06/09/2025 11:39 PM EDT [facility] Blood Venous blood specimen / Unknown Venipuncture / Unknown 06/09/2025 11:13 PM EDT 06/09/2025 11:26 PM EDT Azael Edmond MD LAB BLOOD ORDERABLES Fin al Result Performing Organization Address City/[facility]/ZIP Co de Phone Number [facility] [address] [place] [address] * Ethyl Alcohol Plasma (06/09/2025 11:13 PM EDT) Ethanol Plasma <10 <10 mg/dL 06/09/2025 11:40 PM EDT [facility] Blood Venous blood specimen / Unknown Venipuncture / Unknown 06/09/2025 11:13 PM EDT 06/09/2025 11:16 PM EDT Narrative [facility] - 06/09/2025 11:40 PM EDT Enzymatic Assay: Performed on Vladimir Mauro. us Azael Edmond MD LAB BLOOD ORDERABLES Fin al Result Performing Organization Address City/[facility]/ZIP Co de Phone Number [facility] [address] [place] [address] * (ABNORMAL) APTT (PTT) (06/09/2025 11:13 PM EDT) aPTT 23(L) 25 - 35 sec 06/09/2025 11:32 PM EDT [facility] Blood Venous blood specimen / Unknown Venipuncture / Unknown 06/09/2025 11:13 PM EDT 06/09/2025 11:16 PM EDT us Azael Edmond MD LAB BLOOD ORDERABLES Fin nasir Result Performing Organization Address [facility]/ZIP Co de Phone Number [facility] [address] [place] [address] * PT-INR (06/09/2025 11:13 PM EDT) Prothrombin Time 13.9 12.0 - 14.3 sec 06/09/2025 11:31 PM EDT [facility] INR 1.1 0.9 - 1.1 06/09/2025 11:31 PM EDT [facility] Blood Venous blood specimen / Unknown Venipuncture / Unknown 06/09/2025 11:13 PM EDT 06/09/2025 11:16 PM EDT Narrative [facility] - 06/09/2025 11:31 PM EDT OPTIMAL INR RANGES FOR PATIENT ON ORAL ANTICOAGULANT THERAPY Prevention of venous thromboembolism INR 2.0 to 3.0 In patients with heart disease: Atrial fibrillation INR 2.0 to 3.0 Valvular heart disease INR 2.0 to 3.0 Tissue heart valves INR 2.0 to 3.0 Mechanical prosthetic valves INR 2.5 to 3.5 Prevention of recurrent [place] INR 2.5 to 3.5 us Azael Edmond MD LAB BLOOD ORDERABLES Fin al Result [facility] [address] [place] [address] * Type and Screen (06/09/2025 11:13 PM EDT) ABO/Rh A Positive 06/09/2025 11:08 PM EDT [facility] Antibody Screen Negative 06/09/2025 11:08 PM EDT [facility] Specimen Expiration 06/12/2025 23:59 06/09/2025 11:08 PM EDT [facility] Blood Venous blood specimen / Unknown Venipuncture / Unknown 06/09/2025 11:13 PM EDT 06/09/2025 11:17 PM EDT Azael Edmond MD LAB BLOOD BANK TEST ORDE RABLES Final Result Performing Organization Address [facility] Co de Phone Number BLOOD BANK [address] [place] [address], * (ABNORMAL) CMP (06/09/2025 11:13 PM EDT) Glucose, Plasma 131(H) 74 - 99 mg/dL 06/09/2025 11:41 PM EDT [facility] BUN, Plasma 35(H) 8 - 23 mg/dL 06/09/2025 11:41 PM EDT [facility] Creatinine, Plasma 2.47(H) 0.70 - 1.20 mg/dL 06/09/2025 11:41 PM EDT [facility] BUN/Creatinine Ratio 14 06/09/2025 11:41 PM EDT [facility] Sodium, Plasma 138 136 - 145 mmol/L 06/09/2025 11:41 PM EDT [facility] Potassium, Plasma 5.2(H) 3.6 - 4.9 mmol/L 06/09/2025 11:41 PM EDT [facility] Chloride, Plasma 106 97 - 107 mmol/L 06/09/2025 11:41 PM EDT [facility] CO2, Plasma 21(L) 22 - 29 mmol/L 06/09/2025 11:41 PM EDT [facility] Anion Gap 11 6 - 16 mmol/L 06/09/2025 11:41 PM EDT [facility] Total Calcium, Plasma 8.1(L) 8.9 - 10.2 mg/dL 06/09/2025 11:41 PM EDT [facility] Total Protein 6.5 6.3 - 7.9 g/dL 06/09/2025 11:41 PM EDT [facility] Albumin, Plasma 3.8 3.5 - 5.2 g/dL 06/09/2025 11:41 PM EDT [facility] AST, Plasma 30 10 - 50 U/L 06/09/2025 11:41 PM EDT [facility] ALT, Plasma 19 10 - 50 U/L 06/09/2025 11:41 PM EDT [facility] Alkaline Phosphatase, Plasma 72 40 - 115 U/L 06/09/2025 11:41 PM EDT [facility] [facility] Total Bilirubin, Plasma 0.4 0.2 - 1.1 mg/dL 06/09/2025 11:41 PM EDT [facility] eGFRcr 25.1 mL/min/1.7 3m*2 06/09/2025 11:41 PM EDT [facility] Comment:Reported eGFRcr in m L/min/1.73m2 is based the CKD-EPI 2020 equation that does not use a race coefficient. Blood Venous blood specimen / Unknown Venipuncture / Unknown 06/09/2025 11:13 PM EDT 06/09/2025 11:16 PM EDT us Azael Edmond MD LAB BLOOD ORDERABLES Fin al Result [facility] [address] [place] [address] * XR Pelvis 1 or 2 Views [...] Final Result from Last 3 Months Insurance [facility] MEDICARE Care Teams Tire Repairer Relationship Specialty Start Date End Date Stephen Velasquez MD [address] [place] [address] #1 #1 ALYSSA De Los Santos [address] PCP - General 03/01/21
--- OUTSIDE RECORDS SUMMARY | 2025-08-14 12:24 | XMS_ITS | Encounter Summary ---
[facility] Address [address] [place] [address] Care Team Providers Care Freelance Recruiter Name Role Phone Stephen Velasquez MD Primary Care Provider [phone] Reason for Visit * Reason Comments Med Refill Encounter Details Date Type Department Care Team (Late st Contact Info) Description 06/27/2025 Refill [facility] [address] [facility] [address] [place] [address] Janiya Reyna MD [address] [facility] [address] [place] [id number] Med Refill Social History Tobacco Use Types [...] Telephone Encounter - Skyler Kebede RN - 06/27/2025 1:19 PM EDT 3/31/25 WBC 8.2 RBC 4.15 Hg 13.0 Hct 41.6 Plat 243 documented in this encounter Plan of Treatment Upcoming Encounters Date Type Department Care Team (Late st Contact Info) Description 05/30/2026 2:00 PM EDT Office Visit [facility] [address] [facility] [address] [place] [address] Janiya Reyna MD [address] [facility] [address] [address] [place] [address] Scheduled Procedures Name Priority Associated Diagnoses Date/Ti me RIGHT AND LEFT HEART CATH 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
--- OUTSIDE RECORDS SUMMARY | 2025-08-14 12:24 | XMS_ITS | Encounter Summary ---
[facility] [address] [place] [address] Care Team Providers Care Deployment Specialist Name Role Phone Stephen Velasquez MD Primary Care Provider [phone] Reason for Visit * Reason Comments Med Refill Encounter Details Date Type Department Care Team (Late st Contact Info) Description 08/11/2025 Refill [facility] [address] [facility] [address] [place] [address] Janiya Reyna MD [address] [facility] [address] [place] [phone] Med Refill Social History Tobacco Use Types [...] Telephone Encounter - Skyler Kebede RN - 08/11/2025 12:16 PM EDT 8/26/25 Glu 114 BUN 36 Creat 2.22 Na 140 K+ 5.4 Cl 105 CO2 23 Anion Gap 12 Calcium 8.8 GFR 28.5 Discussed with KARYNA Mcbride. Decrease bumetanide to 0.5mg QD and make sure the patient has a segregator. If he does not, please make a referral. Spoke with patient and . They are instructed of above. They report patient had a fall on 06/09/25. He fractured 7 ribs and punctured a lung. He was in trauma ICU at . He does not believe he has had lab work since being discharged. And he does not have a segregator. They both state it would be easier for the patient to go to [facility] to see someone. I will investigate if there is a segregator or if someone comes to that facility. They verbalize understanding. Spoke with [facility]. A Dr. Gongora comes to that facility. Phone number given. Information received from [place] [facility] office. I will fax referral. documented in this encounter Plan of Treatment Upcoming Encounters Date Type Department Care Team (Late st Contact Info) Description 05/30/2026 2:00 PM EDT Office Visit [facility] [address] [address] Janiya Reyna MD [address] [facility] [address] [address] Scheduled Procedures Name Priority Associated Diagnoses Date/Ti me RIGHT AND LEFT HEART CATH Coronary artery disease involving [place] coronary artery of [place] heart without angina pectoris documented as of this encounter Visit Diagnoses Not on filedocumented in this encounter Care Teams Deployment Specialist Relationship Specialty Start Date End Date Stephen Velasquez MD [address] [place] [address] PCP - General Family Medicine 09/16/18 documented as of this encounter
--- OUTSIDE RECORDS SUMMARY | 2025-08-14 12:24 | XMS_ITS | Encounter Summary ---
[facility] [address] [place] [address] Care Team Providers Care Chemical Radiation Technician Name Role Phone Stephen Velasquez MD Primary Care Provider [phone] Reason for Visit * Reason Onset Date Comments DR. REYNA - QUESTIONS ABOUT BLOOD THINNE R 06/28/2025 Encounter Details Date Type Department Care Team (Late st Contact Info) Description 06/28/2025 Telephone [facility] [address] [facility] [address] [place] [address] Janiya Reyna MD [address] [facility] [address] [place] [address] DR. REYNA - QUESTIONS ABOUT BLOOD THINNER Social History Tobacco Use Types Packs/Day Years [...] Telephone Encounter - Skyler Kebede RN - 06/28/2025 10:54 AM EDT Spoke with patients . Patient can not stop plavix d/t his CAD and stents. She verbalizes understanding. * Telephone Encounter - Echo Calabrese RegSched Rep - 06/28/2025 9:36 AM EDT Caller: BARBI KERR Relationship: Emergency Contact Best call back number: [phone] What is the best time to reach you: ANYTIME Who are you requesting to speak with (clinical staff, provider, specific staff member): CLINICAL What was the call regarding: PATIENT HAD AN ACCIDENT AND FELL OFF OF THE CONCRETE PATIO ON 06/09/25. PATIENT ENDED UP WITH 7 BROKEN RIBS AND A PUNCTURED LOWER LUNG AND WAS IN ICU FOR 5 DAYS BEFORE BEING MOVED TO A GROUP HOME. PATIENTS STATED THAT AT THE GROUP HOME THAT PATIENT GASHED HIS LEG ON THE SIDE OF A RECLINER AND AFTER HOURS OF TRYING TO GET THE GASH TO STOP BLEEDING THE NURSING ROOM TOOK HIM TO THE EMERGENCY ROOM BY EMS. PATIENT RECEIVED 18 STITCHES AND WAS SENT HOME AT NIGHT.PATIENTS WOULD LIKE TO KNOW IF DR. REYNA THINKS THAT MAYBE HIS BLOOD THINNER NEEDS TO BE CHANGED/LOWERED DUE TO THIS, OR IF HE SHOULD CONTINUE TAKING NORMAL. PATIENTS ASKED THAT THIS BE SENT HIGH PRIORITY documented in this encounter Plan of Treatment Upcoming Encounters Date Type Department Care Team (Late st Contact Info) Description 05/30/2026 2:00 PM EDT Office Visit [facility] [address] [place] [address] Janiya Reyna MD [address] [place] [address] Scheduled Procedures Name Priority Associated Diagnoses Date/Ti me RIGHT AND LEFT HEART CATH Coronary artery disease involving enterprise coronary artery of enterprise heart without angina pectoris documented as of this encounter Visit Diagnoses Not on filedocumented in this encounter Care Teams Chemical Radiation Technician Relationship Specialty Start Date End Date Stephen Velasquez MD [facility] [place] [address] PCP - General Family Medicine 09/16/18 documented as of this encounter
--- OUTSIDE RECORDS SUMMARY | 2025-08-14 12:24 | XMS_ITS | Encounter Summary ---
[facility] Address [address] [place] [address] Care Team Providers Care Gold Leaf Layer Name Role Phone Stephen Velasquez MD Primary Care Provider [phone] Reason for Visit * Reason Onset Date Comments - MEDICAL CONCERN 08/11/2025 Encounter Details Date Type Department Care Team (Late st Contact Info) Description 08/11/2025 Telephone [facility] [address] [facility] [address] [place] [address] Janiya Reyna MD [address] [facility] [address] [address] [place] [address] - MEDICAL CONCERN Social History Tobacco Use Types Packs/Day Years [...] encounter Miscellaneous Notes * Telephone Encounter - Madie Evans RN - 08/11/2025 11:41 AM EDT Spoke with patient about sleep medicine referral. * Telephone Encounter - Jaelyn Hodge RegSched Rep - 08/11/2025 11:00 AM EDT Caller: BARBI KERR Relationship: SELF Best call back number: [phone] What is your medical concern? PT CALLED IN TODAY TO SPEAK TO CLINICAL STAFF. SHE HAS SOME QUESTIONS ABOUT THE PT SLEEP APPOINTMENT ON 08.15.25. SHE WOULD LIKE TO KNOW WHY REFERRED HIM FOR THIS. PLEASE REACH OUT TO HER. documented in this encounter Plan of Treatment Upcoming Encounters Date Type Department Care Team (Late st Contact Info) Description 05/30/2026 2:00 PM EDT Office Visit [facility] [address] [address] Janiya Reyna MD [address] [facility] [address] [address] [address] Scheduled Procedures Name Priority Associated Diagnoses Date/Ti me RIGHT AND LEFT HEART CATH Coronary artery disease involving [place] coronary artery of [place] heart without angina pectoris documented as of this encounter Visit Diagnoses Not on filedocumented in this encounter Care Teams Gold Leaf Layer Relationship Specialty Start Date End Date Stephen Velasquez MD [address] [place] [address] PCP - General Family Medicine 09/16/18 documented as of this encounter
--- OUTSIDE RECORDS SUMMARY | 2025-08-14 12:24 | XMS_ITS | Encounter Summary ---
[facility] Address [address] [place] [address] Care Team Providers Care Professional System Administrator Name Role Phone Stephen Velasquez MD Primary Care Provider [phone] Reason for Visit * Reason Comments Med Refill Encounter Details Date Type Department Care Team (Late st Contact Info) Description 07/26/2025 Refill [facility] [address] [facility] [address] [place] [address] Janiya Reyna MD [address] [facility] [address] [place] [phone] Med Refill Social History Tobacco Use Types [...] Telephone Encounter - Skyler Kebede RN - 07/26/2025 9:33 AM EDT 8/26/25 Glu 114 BUN 36 Creat 2.22 Na 140 K+ 5.4 Cl 105 CO2 23 Anion Gap 12 Calcium 8.8 GFR 28.5 documented in this encounter Plan of Treatment Upcoming Encounters Date Type Department Care Team (Late st Contact Info) Description 05/30/2026 2:00 PM EDT Office Visit [facility] [address] [facility] [address] [place] [address] Janiya Reyna MD [address] [facility] [address] [facility] [address] [place] [address] Scheduled Procedures Name Priority Associated Diagnoses Date/Ti me RIGHT AND LEFT HEART CATH Coronary artery disease involving [place] coronary artery of [place] heart without angina pectoris documented as of this encounter Visit Diagnoses Not on filedocumented in this encounter Care Teams Professional System Administrator Relationship Specialty Start Date End Date Stephen Velasquez MD [address] [place] [address] PCP - General Family Medicine 09/16/18 documented as of this encounter
--- OUTSIDE RECORDS SUMMARY | 2025-08-14 12:25 | XMS_ITS | Clinical Summary ---
Author Organization [facility] Address [address] [place] [id number] Care Team Providers Care Mechanical Engineering Specialist Name Role Phone Stephen Velasquez MD Primary Care Provider [phone] Allergies Active Allergy Reactions Criticality Noted Date [...] Day As Needed for Anxiety. Active Multiple Vitamins-Zebulon als (CENTRUM ADULTS PO) Take by mouth Daily. Active aspirin 81 MG EC tablet Take 1 tablet by mouth Daily. Active potassium chloride (K-DUR,KLOR-CO N) 20 MEQ CR tablet TAKE 1 TO 2 TABLETS BY MOUTH ONCE A DAY DIRECTED 60 tablet 08/27/20 Active Additional Information Patient not taking.Reported on 03/29/2025 O2 (OXYGEN) Inhale 3 L/min As Needed. Active naproxen (NAPROSYN) 500 MG tablet Take 1 tablet by mouth 2 (Two) Times a Day. 04/22/20 22 Active azithromycin (ZITHROMAX) 250 MG tablet 1 (One) Time Per Week. M, W, F 02/25/20 23 Active albuterol (PROVENTIL) (2.5 MG/3ML) 0.083% nebulizer solution 12/30/19 24 Active levalbuterol (XOPENEX) 0.63 MG/3ML nebulizer solution 1 ampule. 11/04/19 24 Active Trelegy Ellipta 200-62.5-25 MCG/ACT inhaler 03/03/20 24 Active spironolactone (ALDACTONE) 50 MG tablet 03/03/20 24 Active atorvastatin (LIPITOR) 40 MG tablet Take 1 tablet by mouth Daily. 90 tablet 3 03/23/20 24 Active propafenone (RYTHMOL) 150 MG tablet Take 1 tablet by mouth Every 12 (Twelve) Hours. 180 tablet 1 05/04/20 25 Active clopidogrel (PLAVIX) 75 MG tablet TAKE 1 TABLET BY MOUTH ONCE A DAY 90 tablet 1 06/27/20 25 Active terazosin (HYTRIN) 2 MG capsule TAKE ONE CAPSULE BY MOUTH EVERY NIGHT 30 capsule 1 07/26/20 25 Active bumetanide (BUMEX) 1 MG tablet Take 0.5 tablets by mouth Daily. 45 tablet 08/11/20 25 Active terazosin (HYTRIN) 2 MG capsule TAKE ONE CAPSULE BY MOUTH EVERY NIGHT 90 capsule 3 05/17/20 24 025 Discontinued bumetanide (BUMEX) 1 MG tablet TAKE ONE TABLET BY MOUTH ONCE A DAY 90 tablet 04/03/20 25 025 Discontinued Active Problems Problem Noted Date Diagnosed Date Moderate COPD (chronic obstructive pulmonary dis ease) 10/14/2019 Coronary artery disease invo [place]ving [place] coronary artery of [place] heart without angina pectoris 09/02/2019 Overview (09/02/2019): Added automatically from request for surgery [id number] Hypoxemia 09/02/2019 Overview (09/02/2019): Added automatically from request for surgery [id number] PVC's (premature ventricular contractions) 09/01 Former smoker 08/18/2019 Chronic diastolic heart failure 08/18/2019 Dyspnea on exertion 10/06/2018 Essential hypertension 10/06/2018 Mixed hyperlipidemia 10/06/2018 Palpitations 10/06/2018 Coronary artery disease invo lving [place] heart without angina pectoris 10/05/2018 Encounters Date Type Department Care Team Description 08/11/2025 Telephone [facility] [address] [facility] [address] [place] [address]HOLLINGSWORTH- MEDICAL CONCERN 08/11/2025 Refill [facility] [address] [place] [address] Janiya Reyna MD Med Refill 07/26/2025 Refill [facility] [address] [facility] [address] [place] [address] Janiya Reyna MD Med Refill 06/28/2025 Telephone [facility] [address] [facility] [address] [place] [address] HOLL[place]TH - QUESTIONS ABOUT BLOOD THINNER 06/27/2025 Refill [facility] [address] [facility] [address] [place] [address] Janiya Reyna MD Med Refill 05/23/2025 Telephone [facility] [address] [facility] [address] [place] [address] Janiya Reyna MD from Last 3 Months Immunizations Immunization Administration [...] Visit [facility] [address] [address] Janiya Reyna MD [address] [facility] [address] [address] Scheduled Procedures Name Priority Associated Diagnoses Date/Ti me RIGHT AND LEFT HEART CATH Coronary artery disease involving [place] coronary artery of [place] heart without angina pectoris Health Maintenance Due Date Last Done Comments Pneumococcal Vaccine 50+ (1 of 2 - PCV) 1960 Hepatitis B (1 of 3 - Risk 3 -dose series) 2001 RSV Vaccine - Adults (1 - 1- dose 75+ series) 2016 ANNUAL WELLNESS VISIT 10/04/2018 LIPID PANEL 09/13/2020 09/13/2019, 10/21, 11/18/2018 COVID-19 Vaccine (2 - Modern a risk series) 12/19/2020 11/21/2020 INFLUENZA VACCINE 05/19/2025 07/02/2020, , 07/02/2016 TDAP/TD VACCINES (4 - Td or Tdap) 12/07/2032 12/07/2022, 05/26/2014, 12/22/1996 ZOSTER VACCINE Completed 07/19/2019, 04/18/2019 Procedures Procedure Name Priority Date/Time Associated Diagnosis Comments LIPID PANEL STAT 09/13/2019 7:36 AM EST from Last 3 Months or Most Recently Relevant to Health Maintenance Results * Lipid Panel (09/13/2019 7:36 AM EST) Total Cholesterol 122 0 - 200 mg/dL 09/13/2019 8:21 AM EST [facility] Triglycerides 114 0 - 150 mg/dL 09/13/2019 8:21 AM EST [facility] HDL Cholesterol 54 40 - 60 mg/dL 09/13/2019 8:21 AM EST [facility] LDL Cholesterol 45 0 - 100 mg/dL 09/13/2019 8:21 AM EST [facility] VLDL Cholesterol 22.8 mg/dL 09/13/20 19 8:21 AM EST [facility] LDL/HDL Ratio 0.84 09/13/2019 8:21 AM EST [facility] Blood Line / Unknown 09/13/2019 7: 36 AM EST 09/13/2019 7:58 AM EST [facility] - 09/13/2019 8:21 AM [...] High 160-189 mg/dL Very High >189 mg/dL us Yoni MCKNIGHT [facility] BLOOD ORDERABLES Final Result [facility]
[address] [place] [address], from Last 3 Months or Most Recently Relevant to Health Maintenance Insurance [employer] PPO Advance Directives Documents on File Type Date Recorded Patient Vehicle Safety Inspector Expl anation POWER OF FAMILY NURSE - SCAN 09/13/2019 7:04 AM POA 02-24-2012 Care Teams Mechanical Engineering Specialist Relationship Specialty Start Date End Date Stephen Velasquez MD [address] [place] [address] PCP - General Family Medicine 09/16/18
== END 2025-08-14 23:59 | disposition home or self-care (01) ==
LOC: RAD 12:21
PROVIDERS: PCP Family Medicine; Visit Provider Internal Medicine Pulmonary Disease
DX: J98.4 Other disorders of lung (principal)
CPT/HCPCS: 71046

== ENCOUNTER 2025-08-18 10:00 | Outpatient (RCR) | payer MEDICARE, SELFPAY | END 2025-08-18 23:59 | disposition home or self-care (01) | LOC: PT 10:00 | PROVIDERS: Visit Provider Nurse Practitioner | DX: L03.90 Cellulitis, unspecified (principal) | CPT/HCPCS: 97163; 97597 ==

== ENCOUNTER 2025-08-24 08:54 | Outpatient (CLI) | payer MEDICARE, SELFPAY ==
--- OUTSIDE RECORDS SUMMARY | 2020-08-20 12:38 | XMS_ITS | Encounter Summary ---
[facility] Address [address] [place] [id number] Care Team Providers Care Personalized Living Manager Nurse Name Role Phone Stephen Velasquez MD Primary Care Provider [phone] Encounter Details Date Type Department Care Team (Late st Contact Info) Description 08/20/2020 12:38 PM EST Hospital Encounter [facility] PULMONARY & CRITICAL CARE MEDICINE [address] [place] [address] Social History Tobacco Use Types [...] on file documented as of this encounter Functional Status documented as of this encounter Plan of Treatment Upcoming Encounters Date Type Department Care Team (Late st Contact Info) Description 05/30/2026 2:00 PM EDT Office Visit [facility] CARDIOLOGY [address] [facility] [address] [place] [address] Janiya Reyna MD [address] [facility] [address] [place], [place] [id number] Scheduled Procedures Name Priority Associated Diagnoses Date/Ti me RIGHT AND LEFT HEART CATH Coronary artery disease involving [place]ahu[place] coronary artery of cahu[place] heart without angina pectoris documented as of [...] by Dr. Jocelyn Yeung MD. Leela Farr CHEMICAL ENGRAVER IMG DIAGNOSTIC IMAGING ORD ERABLES Final Result documented in this encounter Visit Diagnoses Not on filedocumented in this encounter Additional Health Concerns Infection Onset Date Last Indicated Resolved Time COVID (rule out) 08/14/2020 08/14/2020 08/21/2020 9:10 PM EST documented as of this encounter Care Teams Personalized Living Manager Nurse Relationship Specialty Start Date End Date Stephen Velasquez MD [address] [place] [address] PCP - General Family Medicine 09/16/18 documented as of this encounter
--- OUTSIDE RECORDS SUMMARY | 2025-08-24 09:07 | XMS_ITS ---
Author Organization Unknown ENCOUNTERS Encounter Performer Location Date Diagnosis Diagnosis Status Emergency [facility] [address] [facility] [address] [place] [address] [id number] Pre Admit [facility] [address] [facility] [address] [place] [address] [id number] Emergency [facility] [address] [facility] [address] [place] [address] [id number] XOTH Pre Admit [facility] [address] [facility] [address] [place] [address] [id number] Pre Admit [facility] [address] [facility] [address] [place] [address] [id number] Emergency [facility] [address] [facility] [address] [place] [address] [id number] GUDELIA Emergency Momo Acosta [facility] [address] [facility] [address] [place] [address] [id number] [place] Emergency Paco Abraham [facility] [address] [facility] [address] [place] [address] [id number] [place] Outpatient Joel Vee [facility] [address] [facility] [address] [place] [address] [id number] GUDELIA Pre Admit [facility] [address] [facility] [address] [place] [address] [id number] *Note: Encounters from your own facility or health system may be excluded. Allergies, Adverse Reactions, Alerts Allergen Type Severity Identification Date CONTRAST DYE propensity to adverse reactions 0 [id number] Medications Name Date Quantity Days Supplied GPI Number
--- OUTSIDE RECORDS SUMMARY | 2025-08-24 09:08 | XMS_ITS | Encounter Summary ---
[facility] Address [address] [place] [address] Care Team Providers Care Log Chain Feeder Name Role Phone Stephen Velasquez MD Primary Care Provider [phone] Reason for Visit * Reason Onset Date Comments DR. REYNA - QUESTIONS ABOUT BLOOD THINNE R 06/28/2025 Encounter Details Date Type Department Care Team (Late st Contact Info) Description 06/28/2025 Telephone [facility] [address] [facility] [address] [place] [address] Janiya Reyna MD [address] [facility] [address] [place] [address] DR. REYNA - QUESTIONS ABOUT BLOOD THINNER [...] Relationship: Emergency Contact Best call back number: [phone] What is the best time to reach [...] 5 DAYS BEFORE BEING MOVED TO A ALF. PATIENTS STATED THAT AT THE ALF THAT PATIENT GASHED HIS LEG ON THE [...] Visit [facility] [address] [place] [address] Janiya Reyna MD [address] [place] [address] Scheduled Procedures Name Priority Associated Diagnoses Date/Ti me RIGHT AND LEFT HEART CATH Coronary artery disease involving [place] coronary artery of [place] heart without angina pectoris documented as of this encounter Visit Diagnoses Not on filedocumented in this encounter Care Teams Log Chain Feeder Relationship Specialty Start Date End Date Stephen Velasquez MD [facility] [place] [address] PCP - General Family Medicine 09/16/18 documented as of this encounter
--- OUTSIDE RECORDS SUMMARY | 2025-08-24 09:08 | XMS_ITS | Clinical Summary ---
Author Organization [facility] Address [address] [place] [id number] Care Team Providers Care [employer] Name Role Phone Stephen Velasquez MD Primary Care Provider [phone] Allergies Active Allergy Reactions Criticality Noted Date [...] Day As Needed for Anxiety. Active Multiple Vitamins-Tetlin als (CENTRUM ADULTS PO) Take by mouth [...] ease) 10/14/2019 Coronary artery disease invo lving pauma coronary artery of pauma heart without angina pectoris 09/02/2019 Overview (09/02/2019): Added automatically from request for surgery [id number] Hypoxemia 09/02/2019 Overview (09/02/2019): Added automatically from request for surgery [id number] PVC's (premature ventricular contractions) 09/01 Former smoker 08/18/2019 Chronic diastolic heart failure 08/18/2019 Dyspnea on exertion 10/06/2018 Essential hypertension 10/06/2018 Mixed hyperlipidemia 10/06/2018 Palpitations 10/06/2018 Coronary artery disease invo lving pauma heart without angina pectoris 10/05/2018 Encounters Date Type Department Care Team Description 08/11/2025 Telephone [facility] [address] [place] [phone]- MEDICAL CONCERN 08/11/2025 Refill [facility] [address] [place] [address] Janiya Reyna MD Med Refill 07/26/2025 Refill [facility] [address] [facility] [address] [place] [address] Janiya Reyna MD Med Refill 06/28/2025 Telephone [facility] [address] [address] [place] - QUESTIONS ABOUT BLOOD THINNER 06/27/2025 Refill [facility] [address] [address] Janiya Reyna MD Med Refill from Last 3 Months Immunizations Immunization Administration [...] Description 05/30/2026 2:00 PM EDT Office Visit [facility] [address] [address] Janiya Reyna MD [address] [facility] [place] [address] Scheduled Procedures Name Priority Associated Diagnoses Date/Ti me RIGHT AND LEFT HEART CATH Coronary artery disease involving pauma coronary artery of pauma heart without angina pectoris Health Maintenance Due [...] - 200 mg/dL 09/13/2019 8:21 AM EST [facility] Triglycerides 114 0 - 150 mg/dL 09/13/2019 8:21 AM EST [facility] HDL Cholesterol 54 40 - 60 mg/dL 09/13/2019 8:21 AM EST [facility] LDL Cholesterol 45 0 - 100 mg/dL 09/13/2019 8:21 AM EST [facility] VLDL Cholesterol 22.8 mg/dL 09/13/20 19 8:21 AM EST [facility] LDL/HDL Ratio 0.84 09/13/2019 8:21 AM EST [facility] Blood Line / Unknown 09/13/2019 7: 36 AM EST 09/13/2019 7:58 AM EST [facility] - 09/13/2019 8:21 AM EST Cholesterol [...] Yoni MCKNIGHT LAB BLOOD ORDERABLES Final Result [facility]
[address] [place] [address], from Last 3 Months or Most Recently Relevant to Health Maintenance Insurance [employer] PPO Advance Directives Documents on File Type Date Recorded Patient Photogrammetric Tech Expl anation POWER OF BILLBOARD [employer]ER - SCAN 09/13/2019 7:04 AM POA 02-24-2012 Care Teams [employer] Relationship Specialty Start Date End Date Stephen Velasquez MD [address] [place] [address] PCP - General Family Medicine 09/16/18
--- OUTSIDE RECORDS SUMMARY | 2025-08-24 09:08 | XMS_ITS | Clinical Summary ---
Author Organization Healthcare Address [address] [place] [address] Care Team Providers Care Chief Creative Officer Name Role Phone Stephen Velasquez MD Primary Care Provider [phone] Allergies Active Allergy Reactions Criticality Noted Date [...] MG chewable tablet Chew 1 tablet daily. 5 Active atorvastatin (Lipitor) 40 MG tablet Take [...] straight caths at home Rae insert overnight [id number] kidney injury 06/11/2025 Assessment & Plan (06/12/2025 [...] Encounters Date Type Department Care Team Description 08/21/2025 Orders Only [facility] Nephrology, Bone & Mineral Metabolism [address] [facility] [address], [address] [place] [address] Felicity Enciso CKD (chronic kidney disease) stage 4, GFR 15-29 ml/min (CMS/HCC) (Primary Dx); Vitamin D insufficiency 06/11/2025 Travel 06/09/2025 10:47 PM EDT - 06/13/2025 6:31 PM EDT Hospital Encounter [facility] [facility] [address] [place] [id number] Azael Edmond MD Chapman, Steven B, Emiliano Hurtado, Criss Fair MD Closed fracture of multiple ribs of left side, initial encounter (Primary Dx); Cirrhosis of liver with ascites, unspecified hepatic cirrhosis type (CMS/HCC) Discharge Disposition: Residential Facility 06/09/2025 Travel 06/09/2025 Orders Only External Location [address] [place] [phone] Franky Logan PA 06/09/2025 Orders Only External Location [address] [place] [address] Franky Logan PA 06/09/2025 Orders Only External Location [address] [place] [phone] Franky Logan PA 06/09/2025 Orders Only External Location [address] [place] [address] Franky Logan PA 06/09/2025 Orders Only External Location [address] [place] [phone] Franky Logan PA 06/09/2025 Orders Only External Location [address] [place] [phone] Franky Logan PA from Last 3 Months [...] and Family Not on file 06/12/2025 Attends Church Services Not on file 06/12 Active Member [...] any time in the past 12 m [facility], were you homeless or living in a penitentiary (including now)? No 06/12/2025 Utilities Answer Date Recorded In the past 12 months has e electric, gas, oil, or water company [...] 06/09/2025 11:06 PM EDT Plan of Treatment Upcoming Encounters Date Type Department Care Team (Late st Contact Info) Description 09/13/2025 3:00 PM EST Office Visit Professional [facility] Nephrology, Bone & Mineral Metabolism [address] [facility], [address] [place] [address] Mannie Gongora MD [address] [place] [phone] Health Maintenance Due Date Last Done Comments [facility]-Depression Screening 1940 [facility]-Medicare Annual Wellness (AWV) 1941 [facility]-/Child/Adol SDOH Screenings 1940 [facility]-Hepatitis A Vaccines (1 of 2 - Risk 2-dose series) 1960 [facility]-Pneumococcal Vaccine: 50+ Years (2 of 2 - PPSV23, PCV20, or PCV21) 10/16/2014 08/21/2014, 10/19/2010 [facility]-RSV Vaccine: 60+ Years or (1 - 1-dose 75+ series) 2016 [id number] Vaccine (2 - season) 2025 11/21/2020 [facility]-Influenza [...] - 99 mg/dL 06/13/2025 2:30 AM EDT [facility] BUN, Plasma 36(H) 8 - 23 mg/dL 06/13/2025 2:30 AM EDT [facility] Creatinine, Plasma 2.22(H) 0.70 - 1.20 mg/dL 06/13/2025 2:30 AM EDT [facility] BUN/Creatinine Ratio 16 06/13/2025 2:30 AM EDT [facility] Sodium, Plasma 140 136 - 145 mmol/L 06/13/2025 2:30 AM EDT [facility] Potassium, Plasma 5.4(H) 3.6 - 4.9 mmol/L 06/13/2025 2:30 AM EDT [facility] Chloride, Plasma 105 97 - 107 mmol/L 06/13/2025 2:30 AM EDT [facility] CO2, Plasma 23 22 - 29 mmol/L 06/13/2025 2:30 AM EDT [facility] Anion Gap 12 6 - 16 mmol/L 06/13/2025 2:30 AM EDT [facility] Total Calcium, Plasma 8.8(L) 8.9 - 10.2 mg/dL 06/13/2025 2:30 AM EDT [facility] eGFRcr 28.5 mL/min/1.7 3m*2 06/13/2025 2:30 AM EDT [facility] Comment:Reported eGFRcr in m L/min/1.73m2 is based the CKD-EPI 2020 equation that does not use a race coefficient. Blood Venous blood specimen / Unknown Venipuncture / Unknown 06/13/2025 1:39 AM EDT 06/13/2025 1:45 AM EDT us Saadia Garcia APRN, DNP LAB BLOOD ORDERABLES Fin al Result [facility] [address] [place] [address] * ECG Adult (06/12/2025 11:57 AM EDT) EKG DIAGNOSIS CLASS Abnormal MUSE ECG Ventricular Rate 83 BPM MUSE ECG Atrial Rate 83 BPM MUSE ECG ID Interval 196 ms MUSE ECG QRSD Interval 154 ms MUSE ECG QT Interval 400 ms MUSE ECG QTC Interval 470 ms MUSE ECG P Allen 56 degrees MUSE ECG R Allen -14 degrees MUSE ECG T Wave Allen 2 degrees MUSE ECG Diagnosis Normal sinus rhythm MUSE ECG Diagnosis Right bundle branch block MUSE ECG Diagnosis Abnormal ECG MUSE ECG Diagnosis MUSE ECG Diagnosis Confirmed by Matt Sequeira ([id number]) on 06/12/2025 3:58:45 PM MUSE ECG 06/12/2025 11:5 7 AM EDT 06/12/2025 3:58 PM EDT Saadia Garcia CHECKERING MACHINE ADJUSTER, DNP ECG ORDERABLES Final Re sult MUSE ECG * Phosphorus (06/12/2025 2:45 AM EDT) Only the most recent of2 resultswithin the time period is included. Phosphorus, Plasma 3.0 2.5 - 4.5 mg/dL 06/12/2025 3:23 AM EDT [facility] Blood Venous blood specimen / Unknown Venipuncture / Unknown 06/12/2025 2:45 AM EDT 06/12/2025 2:54 AM EDT Criss Cruz MD LAB BLOOD ORDERABLES Lyn l Result Performing Organization Address [facility] Co de Phone Number [facility] [address] [place] [address] * Magnesium (06/12/2025 2:45 AM EDT) Only the most recent of2 resultswithin the time period is included. Magnesium, Plasma 2.3 1.9 - 2.4 mg/dL 06/12/2025 3:23 AM EDT [facility] Blood Venous blood specimen / Unknown Venipuncture / Unknown 06/12/2025 2:45 AM EDT 06/12/2025 2:54 AM EDT Criss Cruz MD LAB BLOOD ORDERABLES Lyn l Result Performing Organization Address [facility] Co de Phone Number [facility] [address] [place] [address] * Sodium, urine, random (06/11/2025 12:33 PM EDT) Sodium, Urine 22 mmol/L 06/11/2025 1:33 PM EDT [facility] Urine Urine specimen obtained by clean catch procedure / Unknown Non-blood Collection / Unknown 06/11/2025 12:33 PM EDT 06/11/2025 12:49 PM EDT Criss Cruz MD LAB URINE ORDERABLES Lyn l Result Performing Organization Address [facility] Co de Phone Number [facility] [address] [place] [address] * Creatinine, urine, random (06/11/2025 12:33 PM EDT) Creatinine, Urine 81 mg/dL 06/11/2025 1:26 PM EDT [facility] Urine Urine specimen obtained by clean catch procedure / Unknown Non-blood Collection / Unknown 06/11/2025 12:33 PM EDT 06/11/2025 12:49 PM EDT us Criss Cruz MD LAB URINE ORDERABLES Lyn l Result Performing Organization Address [facility] [place] [address] * XR Chest 1 View (06/11/2025 4:57 [...] LAB HEMATOLOGY METHOD 06/11/2025 1:37 AM EDT [facility] RBC Count 3.56(L) 4.60 - 6.10 10*6/uL LAB HEMATOLOGY METHOD 06/11/2025 1:37 AM EDT [facility] HGB 11.3(L) 13.7 - 17.5 g/dL LAB HEMATOLOGY METHOD 06/11/2025 1:37 AM EDT [facility] HCT 34.9(L) 40.0 - 51.0 % LAB HEMATOLOGY METHOD 06/11/2025 1:37 AM EDT [facility] Platelet Count 230 155 - 369 10*3/uL LAB HEMATOLOGY METHOD 06/11/2025 1:37 AM EDT [facility] MCV 98 79 - 98 fL LAB HEMATOLOGY METHOD 06/11/2025 1:37 AM EDT [facility] MCH 31.7 26.0 - 32.0 pg LAB HEMATOLOGY METHOD 06/11/2025 1:37 AM EDT [facility] MCHC 32.4 30.7 - 35.5 g/dL LAB HEMATOLOGY METHOD 06/11/2025 1:37 AM EDT [facility] RDW 15.2(H) 11.5 - 14.5 % LAB HEMATOLOGY METHOD 06/11/2025 1:37 AM EDT [facility] MPV 11.3 8.8 - 12.5 fL LAB HEMATOLOGY METHOD 06/11/2025 1:37 AM EDT [facility] nRBC 0.0 <=0.0 per 100 WBCs LAB HEMATOLOGY METHOD 06/11/2025 1:37 AM EDT [facility] Blood Venous blood specimen / Unknown Venipuncture / Unknown 06/11/2025 1:16 AM EDT 06/11/2025 1:30 AM EDT us Genia MCKNIGHT LAB BLOOD ORDERABLES Final Resu lt Performing Organization Address City/[facility]/ZIP Co de Phone Number [facility] [address] [place] [address] * Ami auris Surveillance by PCR (06/10/2025 6:02 AM EDT) Ami auris PCR Result Not Detected Not Detected 06/12/2025 5:22 AM EDT [facility] Swab (Axilla and Groin) Non-blood Collection / Unknown 06/10/2025 6:02 AM EDT 06/10/2025 6:35 AM EDT Narrative [facility] - 06/12/2025 5:22 AM EDT This PCR assay was developed and its performance characteristics determined by [facility] as appropriate for clinical purposes. This assay has not been cleared or approved by the FDA, but is performed in a CLIA regulated laboratory that is qualified to perform high-complexity testing. us Emiliano Graham DO LAB MICROBIOLOGY - GENERAL ORD ERABLES Final Result Performing Organization Address City/[facility]/ZIP Co de Phone Number [facility] [address] [place] [address] * Multi Drug Resistance Test (06/10/2025 6:02 AM EDT) Culture No growth at day 1 06/11/2025 7:10 AM EDT [facility] Swab (Nares and Patience Rectal) Non-blood Collection / Unknown 06/10/2025 6:02 AM EDT 06/10/2025 6:35 AM EDT Narrative [facility] - 06/11/2025 7:10 AM EDT This test was developed and its performance characteristics determined by the [facility]. Although the media is FDA-approved, it is not FDA-approved for all specimen types submitted. The FDA has determined that such clearance or approval is not necessary. This test is used for surveillance purposes. It should not be regarded as investigational or for research. The [facility] is certified under the Clinical Laboratory Improvement Amendments of 1988 (CLIA-88) as qualified to perform high complexity clinical laboratory testing. us Emiliano Graham DO LAB MICROBIOLOGY - GENERAL ORD ERABLES Final Result [facility] [address] [place] [address] * (ABNORMAL) Blood gas, venous (06/10/2025 3:55 AM EDT) Only the most recent of2 resultswithin the time period is included. pH, Venous 7.32 7.32 - 7.43 LAB HEMATOLOGY METHOD 06/10/2025 4:02 AM EDT [facility] pCO2, Venous 55 40 - 55 mmHg LAB HEMATOLOGY METHOD 06/10/2025 4:02 AM EDT [facility] pO2, Venous 30 25 - 40 mmHg LAB HEMATOLOGY METHOD 06/10/2025 4:02 AM EDT [facility] SO2, Measured, Venous 53(L) 65 - 80 % LAB HEMATOLOGY METHOD 06/10/2025 4:02 AM EDT [facility] Base Excess, Venous 1.7 -2.0 - 3.0 mmol/L LAB HEMATOLOGY METHOD 06/10/2025 4:02 AM EDT [facility] Bicarbonate, Calculated, Venous 29(H) 22 - 26 mmol/L LAB HEMATOLOGY METHOD 06/10/2025 4:02 AM EDT [facility] Hematocrit, Whole Blood 34.7(L) 40.0 - 51.0 % LAB HEMATOLOGY METHOD 06/10/2025 4:02 AM EDT [facility] Sodium, Whole Blood 139 136 - 145 mmol/L LAB HEMATOLOGY METHOD 06/10/2025 4:02 AM EDT [facility] Potassium, Whole Blood 5.2(H) 3.6 - 4.9 mmol/L LAB HEMATOLOGY METHOD 06/10/2025 4:02 AM EDT [facility] Chloride, Whole Blood 104 97 - 107 mmol/L LAB HEMATOLOGY METHOD 06/10/2025 4:02 AM EDT [facility] Glucose, Whole Blood 147(H) 74 - 99 mg/dL LAB HEMATOLOGY METHOD 06/10/2025 4:02 AM EDT [facility] Lactate, Venous, Whole Blood 0.7 0.5 - 2.2 mmol/L LAB HEMATOLOGY METHOD 06/10/2025 4:02 AM EDT [facility] Ionized Calcium, Whole Blood 4.6 4.6 - 5.1 mg/dL LAB HEMATOLOGY METHOD 06/10/2025 4:02 AM EDT [facility] Blood Venous blood specimen / Unknown Venipuncture / Unknown 06/10/2025 3:55 AM EDT 06/10/2025 4:01 AM EDT us Conner Womack DO LAB BLOOD ORDERABLES Final R esult Performing Organization Address City/[facility]/ZIP Co de Phone Number [facility] [address] [place] [address] * Urinalysis Microscopic Examination (06/10/2025 1:48 AM EDT) Urine Urine specimen obtained by clean catch procedure / Unknown Non-blood Collection / Unknown 06/10/2025 1:48 AM EDT 06/10/2025 1:52 AM EDT us Azael Edmond MD LAB URINE ORDERABLES Fin al Result Performing Organization Address City/[facility]/ZIP Co de Phone Number [facility] [address] [place] [address] * Drug Abuse Screen, Urine (06/10/2025 1:48 AM EDT) Amphetamine Screen Urine Negative Cutoff: 500 ng/mL 06/10/2025 2:18 AM EDT [facility] Benzodiazepines Screen Urine Presumptive positive. Confirmation by LC-MS/MS to follow. Cutoff: 200 ng/mL 06/10/2025 2:18 AM EDT [facility] Cannabinoid Screen Urine Negative Cutoff: 50 ng/mL 06/10/2025 2:18 AM EDT [facility] Cocaine Screen Urine Negative Cutoff: 300 ng/mL 06/10/2025 2:18 AM EDT [facility] Barbiturate Screen Urine Negative Cutoff: 200 ng/mL 06/10/2025 2:18 AM EDT [facility] Opiate Screen Urine Negative Cutoff: 300 ng/mL 06/10/2025 2:18 AM EDT [facility] Methadone Screen Urine Negative Cutoff: 300 ng/mL 06/10/2025 2:18 AM EDT [facility] Buprenorphine Screen Urine Negative Cutoff: 10 ng/mL 06/10/2025 2:18 AM EDT [facility] Fentanyl Screen Urine Negative Cutoff: 1 ng/mL 06/10/2025 2:18 AM EDT [facility] Oxycodone Screen Urine Negative Cutoff: 100 ng/mL 06/10/2025 2:18 AM EDT [facility] Urine Urine specimen obtained by clean catch procedure / Unknown Non-blood Collection / Unknown 06/10/2025 1:48 AM EDT 06/10/2025 1:52 AM EDT us Azael Edmond MD LAB URINE ORDERABLES Fin al Result [facility] [address] [place] [address] * (ABNORMAL) Benzodiazepine Confirm Urine (06/10/2025 1:48 AM EDT) Alpha [place] Alprazolam <20 <20 ng/mL 06/13 1:31 AM EDT [facility] Alpha OH Midazolam <20 <20 ng/mL 2024 1:31 AM EDT [facility] Alpha OH Triazolam <20 <20 ng/mL 2024 1:31 AM EDT [facility] Alprazolam <10 <10 ng/mL 06/13/2025 1:31 AM EDT [facility] Aminoclonazepam <20 <20 ng/mL 1:31 AM EDT [facility] Clonazepam <10 <10 ng/mL 06/13/2025 1:31 AM EDT [facility] Diazepam <10 <10 ng/mL 06/13/2025 1:31 AM EDT [facility] Lorazepam <20 <20 ng/mL 06/13/2025 1:31 AM EDT [facility] Lorazepam Glucuronide <50 <50 ng/mL 06/13/2025 1:31 AM EDT [facility] Midazolam 06/13/2025 1:31 AM EDT [facility] Nordiazepam <20 <20 ng/mL 06/13/2025 1:31 AM EDT [facility] Oxazepam <20 <20 ng/mL 06/13/2025 1:31 AM EDT [facility] Oxazepam Glucuronide 640(H) <50 ng/mL 06/13/2025 1:31 AM EDT [facility] Temazepam <20 <20 ng/mL 06/13/2025 1:31 AM EDT [facility] Temazepam Glucuronide 699(H) <50 ng/mL 06/13/2025 1:31 AM EDT [facility] Triazolam 06/13/2025 1:31 AM EDT [facility] Urine Urine specimen obtained by clean catch procedure / Unknown Non-blood Collection / Unknown 06/10/2025 1:48 AM EDT 06/10/2025 1:52 AM EDT Narrative [facility] - 06/13/2025 1:31 AM EDT Drug analysis is confirmed by LC-MS/MS (LC Tandem Mass Spectrometry) on Urine specimens. This test was developed and its performance characteristics determined by [facility]. It has not been cleared or approved by the FDA. The laboratory is regulated under CLIA as qualified to perform high-complexity testing. This test is used for clinical purposes. Testing is performed at the [facility] Special [facility] Laboratory. us Azael Edmond MD LAB URINE ORDERABLES Fin al Result [facility] [address] [place] [address] * (ABNORMAL) Urinalysis with reflex microscopic (Culture NOT Included) (06/10/2025 1:48 AM EDT) Color, Urine Yellow LAB URINALYSIS - AUTOMATED METHOD 06/10/2025 2:31 AM EDT [facility] Clarity, Urine Clear LAB URINALYSIS - AUTOMATED METHOD 06/10/2025 2:31 AM EDT [facility] Spec [place], Urine 1.017 1.005 - 1.030 LAB URINALYSIS - AUTOMATED METHOD 06/10/2025 2:31 AM EDT [facility] pH, Urine 5.5 5.0 - 8.0 LAB URINALYSIS - AUTOMATED METHOD 06/10/2025 2:31 AM EDT [facility] Protein, Urine Negative Negative mg/dL LAB URINALYSIS - AUTOMATED METHOD 06/10/2025 2:31 AM EDT [facility] Glucose, Urine Negative Negative mg/dL LAB URINALYSIS - AUTOMATED METHOD 06/10/2025 2:31 AM EDT [facility] Ketones, Urine Negative Negative mg/dL LAB URINALYSIS - AUTOMATED METHOD 06/10/2025 2:31 AM EDT [facility] Blood, Urine Small(A) Negative LAB URINALYSIS - AUTOMATED METHOD 06/10/2025 2:31 AM EDT [facility] Bilirubin, Urine Negative Negative LAB URINALYSIS - AUTOMATED METHOD 06/10/2025 2:31 AM EDT [facility] Urobilinogen, Urine 0.2 0.2 to 1.0 mg/dL LAB URINALYSIS - AUTOMATED METHOD 06/10/2025 2:31 AM EDT [facility] Leukocytes, Urine Small(A) Negative LAB URINALYSIS - AUTOMATED METHOD 06/10/2025 2:31 AM EDT [facility] Nitrite, Urine Positive(A) Negative LAB URINALYSIS - AUTOMATED METHOD 06/10/2025 2:31 AM EDT [facility] RBC, Urine <1 0 to 3 /HPF LAB URINALYSIS - AUTOMATED METHOD 06/10/2025 2:31 AM EDT [facility] Comment:This result was prev iously suppressed from the chart. WBC, Urine 0 - 5 0 to 5 /HPF LAB URINALYSIS - AUTOMATED METHOD 06/10/2025 2:31 AM EDT [facility] Comment:This result was prev iously suppressed from the chart. Squamous Epithelial Cells 0 - 2 0 to 5 /HPF LAB URINALYSIS - AUTOMATED METHOD 06/10/2025 2:31 AM EDT [facility] Comment:This result was prev iously suppressed from the chart. Hyaline Casts 3 - 5 0 to 5 /LPF LAB URINALYSIS - AUTOMATED METHOD 06/10/2025 2:31 AM EDT [facility] Comment:This result was prev iously suppressed from the chart. Bacteria, Urine Present Negative LAB URINALYSIS - AUTOMATED METHOD 06/10/2025 2:31 AM EDT [facility] Comment:This result was prev iously suppressed from the chart. Urine Urine specimen obtained by clean catch procedure / Unknown Non-blood Collection / Unknown 06/10/2025 1:48 AM EDT 06/10/2025 1:52 AM EDT us Azael Edmond MD LAB URINE ORDERABLES Fin al Result [facility] [address] [place] [address] * (ABNORMAL) Trauma shock panel blood gas (06/09/2025 11:13 PM EDT) pH, Venous 7.22(LL) 7.32 - 7.43 LAB HEMATOLOGY METHOD 06/09/2025 11:39 PM EDT [facility] Bicarbonate, Calculated, Venous 26 22 - 26 mmol/L LAB HEMATOLOGY METHOD 06/09/2025 11:39 PM EDT [facility] Base Excess, Venous -3.0(L) -2.0 - 3.0 mmol/L LAB HEMATOLOGY METHOD 06/09/2025 11:39 PM EDT [facility] Lactate, Venous, Whole Blood 1.2 0.5 - 2.2 mmol/L LAB HEMATOLOGY METHOD 06/09/2025 11:39 PM EDT [facility] Blood Venous blood specimen / Unknown Venipuncture / Unknown 06/09/2025 11:13 PM EDT 06/09/2025 11:26 PM EDT Azael Edmond MD LAB BLOOD ORDERABLES Fin al Result Performing Organization Address City/[facility]/ZIP Co de Phone Number [facility] [address] [place] [address] * Ethyl Alcohol Plasma (06/09/2025 11:13 PM EDT) Ethanol Plasma <10 <10 mg/dL 06/09/2025 11:40 PM EDT [facility] Blood Venous blood specimen / Unknown Venipuncture / Unknown 06/09/2025 11:13 PM EDT 06/09/2025 11:16 PM EDT Narrative [facility] - 06/09/2025 11:40 PM EDT Enzymatic Assay: Performed on Vladimir Mauro. Azael Edmond MD LAB BLOOD ORDERABLES Fin al Result Performing Organization Address [facility] Co de Phone Number [facility] [address] [place] [address] * (ABNORMAL) APTT (PTT) (06/09/2025 11:13 PM EDT) aPTT 23(L) 25 - 35 sec 06/09/2025 11:32 PM EDT [facility] Blood Venous blood specimen / Unknown Venipuncture / Unknown 06/09/2025 11:13 PM EDT 06/09/2025 11:16 PM EDT Azael Edmond MD LAB BLOOD ORDERABLES Fin al Result Performing Organization Address City/[facility]/ZIP Co de Phone Number [facility] [address] [place] [address] * PT-INR (06/09/2025 11:13 PM EDT) Prothrombin Time 13.9 12.0 - 14.3 sec 06/09/2025 11:31 PM EDT [facility] INR 1.1 0.9 - 1.1 06/09/2025 11:31 PM EDT [facility] Blood Venous blood specimen / Unknown Venipuncture / Unknown 06/09/2025 11:13 PM EDT 06/09/2025 11:16 PM EDT Narrative [facility] - 06/09/2025 11:31 PM EDT OPTIMAL INR RANGES FOR PATIENT ON ORAL ANTICOAGULANT THERAPY Prevention of venous thromboembolism INR 2.0 to 3.0 In patients with heart disease: Atrial fibrillation INR 2.0 to 3.0 Valvular heart disease INR 2.0 to 3.0 Tissue heart valves INR 2.0 to 3.0 Mechanical prosthetic valves INR 2.5 to 3.5 Prevention of recurrent MN INR 2.5 to 3.5 Azael Edmond MD LAB BLOOD ORDERABLES Fin al Result Performing Organization Address City/[facility]/ZIP Co de Phone Number [facility] [address] [place] [address] * Type and Screen (06/09/2025 11:13 PM EDT) ABO/Rh A Positive 06/09/2025 11:08 PM EDT [facility] Antibody Screen Negative 06/09/2025 11:08 PM EDT [facility] Specimen Expiration 06/12/2025 23:59 06/09/2025 11:08 PM EDT [facility] Blood Venous blood specimen / Unknown Venipuncture / Unknown 06/09/2025 11:13 PM EDT 06/09/2025 11:17 PM EDT Aazel Edmond MD LAB BLOOD BANK TEST ORDE RABLES Final Result Performing Organization Address City/[facility]/ZIP Co de Phone Number BLOOD BANK [address] [place] [address], * (ABNORMAL) CMP (06/09/2025 11:13 PM EDT) Glucose, Plasma 131(H) 74 - 99 mg/dL 06/09/2025 11:41 PM EDT [facility] BUN, Plasma 35(H) 8 - 23 mg/dL 06/09/2025 11:41 PM EDT [facility] Creatinine, Plasma 2.47(H) 0.70 - 1.20 mg/dL 06/09/2025 11:41 PM EDT [facility] BUN/Creatinine Ratio 14 06/09/2025 11:41 PM EDT [facility] Sodium, Plasma 138 136 - 145 mmol/L 06/09/2025 11:41 PM EDT [facility] Potassium, Plasma 5.2(H) 3.6 - 4.9 mmol/L 06/09/2025 11:41 PM EDT [facility] Chloride, Plasma 106 97 - 107 mmol/L 06/09/2025 11:41 PM EDT [facility] CO2, Plasma 21(L) 22 - 29 mmol/L 06/09/2025 11:41 PM EDT [facility] Anion Gap 11 6 - 16 mmol/L 06/09/2025 11:41 PM EDT [facility] Total Calcium, Plasma 8.1(L) 8.9 - 10.2 mg/dL 06/09/2025 11:41 PM EDT [facility] Total Protein 6.5 6.3 - 7.9 g/dL 06/09/2025 11:41 PM EDT [facility] Albumin, Plasma 3.8 3.5 - 5.2 g/dL 06/09/2025 11:41 PM EDT [facility] AST, Plasma 30 10 - 50 U/L 06/09/2025 11:41 PM EDT [facility] ALT, Plasma 19 10 - 50 U/L 06/09/2025 11:41 PM EDT [facility] Alkaline Phosphatase, Plasma 72 40 - 115 U/L 06/09/2025 11:41 PM EDT [facility] Total Bilirubin, Plasma 0.4 0.2 - 1.1 mg/dL 06/09/2025 11:41 PM EDT [facility] eGFRcr 25.1 mL/min/1.7 3m*2 06/09/2025 11:41 PM EDT [facility] Comment:Reported eGFRcr in m L/min/1.73m2 is based the CKD-EPI 2020 equation that does not use a race coefficient. Blood Venous blood specimen / Unknown Venipuncture / Unknown 06/09/2025 11:13 PM EDT 06/09/2025 11:16 PM EDT Azael Edmond MD LAB BLOOD ORDERABLES Fin al Result [facility] [address] [place] [address] * XR Pelvis 1 or 2 Views [...] Final Result from Last 3 Months Insurance ALYSSA MASTERS [id number] [facility] MEDICARE Care Teams Chief Creative Officer Relationship Specialty Start Date End Date Stephen Velasquez MD [address] [place] [address] [address] [place], [place]SS[place] [id number] PCP - General 03/01/21
--- OUTSIDE RECORDS SUMMARY | 2025-08-24 09:08 | XMS_ITS | Encounter Summary ---
Author Organization [facility] Address [address] [place] [address] Care Team Providers Care Delivery Driver Assistant Name Role Phone Stephen Velasquez MD Primary Care Provider [phone] Encounter Details Date Type Department Care Team (Late st Contact Info) Description 08/21/2025 Orders Only [facility] Nephrology, Bone & Mineral Metabolism [address] [facility], [address] [place] [address] Felicity Enciso CKD (chronic kidney disease) stage 4, GFR 15-29 ml/min (CMS/HCC) (Primary Dx); Vitamin D insufficiency Social History Tobacco Use Types Packs/Day Years [...] and Family Not on file 06/12/2025 Attends Baptism Services Not on file 06/12 Active Member [...] any time in the past 12 m [facility], were you homeless or living in a long-term (including now)? No 06/12/2025 Utilities Answer Date [...] Upcoming Encounters Date Type Department Care Team (Tracy lópez Contact Info) Description 09/13/2025 3:00 PM EST Office Visit [facility] Nephrology, Bone & Mineral Metabolism [address] [facility], [address] [place] [phone] Mannie Gongora MD [address] [place] [phone] Scheduled Orders Name Type Priority Associated Diagnoses Orde r Schedule Renal Function Panel, Plasma Lab Routine CKD (chronic kidney disease) stage 4, GFR 15-29 ml/min (CMS/HCC) Expected: 08/21/2025 (Approximate), Expires: 02/18/2027 CBC and Differential Lab Routine CKD (chronic kidney disease) stage 4, GFR 15-29 ml/min (CMS/HCC) Expected: 08/21/2025 (Approximate), Expires: 02/18/2027 Creatinine, Random, Urine Lab Routine CKD (chronic kidney disease) stage 4, GFR 15-29 ml/min (CMS/HCC) Expected: 08/21/2025 (Approximate), Expires: 02/18/2027 Protein, Random, Urine with Creatinine Lab Routine CKD (chronic kidney disease) stage 4, GFR 15-29 ml/min (CMS/HCC) Expected: 08/21/2025 (Approximate), Expires: 02/18/2027 Urinalysis with reflex microscopic (Culture NOT Included) Lab Routine CKD (chronic kidney disease) stage 4, GFR 15-29 ml/min (CMS/HCC) Expected: 08/21/2025 (Approximate), Expires: 02/18/2027 PTH Intact Total Lab Routine CKD (chronic kidney disease) stage 4, GFR 15-29 ml/min (CMS/HCC) Vitamin D insufficiency Expected: 08/21/2025 (Approximate), Expires: 02/18/2027 Vitamin D 25 Hydroxy Lab Routine CKD (chronic kidney disease) stage 4, GFR 15-29 ml/min (CMS/HCC) Vitamin D insufficiency Expected: 08/21/2025 (Approximate), Expires: 02/18/2027 documented as of this encounter Visit Diagnoses Diagnosis CKD (chronic kidney disease) stage 4, GFR 15-29 ml/min (CMS/HCC)- Primary Chronic kidney disease, Stage IV (severe) Vitamin D insufficiency documented in this encounter Additional Health Concerns Assessment Noted Time A Body Mass Index follow-up plan has been documented for the patient 06/13/2025 6:05 PM EDT documented as of this encounter Care Teams Delivery Driver Assistant Relationship Specialty Start Date End Date Velasquez, Stephen C, MD [address] [place] [address] [address] [place] [address] PCP - General 03/01/21 documented as of this encounter
--- OUTSIDE RECORDS SUMMARY | 2025-08-24 09:08 | XMS_ITS | Encounter Summary ---
Author Organization [facility] Address [address] [place] [address] Care Team Providers Care Aerial Gunner Name Role Phone Stephen Velasquez MD Primary Care Provider [phone] Reason for Visit * Reason Comments Med Refill Encounter Details Date Type Department Care Team (Late st Contact Info) Description 08/11/2025 Refill [facility] C[facility]IOLOG[facility] [address] [facility] [address] [place] [address] Janiya Reyna MD [address] [facility] [address] [place] [phone] Med Refill Social History Tobacco Use Types [...] and make sure the patient has a pole incisor operator. If he does not, please make a referral. Spoke with patient and . They are instructed of above. They report patient had a fall on 06/09/25. He fractured 7 ribs and punctured a lung. He was in trauma ICU at . He does not believe he has had lab work since being discharged. And he does not have a pole incisor operator. They both state it would be easier for the patient to go to [facility] to see someone. I will investigate if there is a pole incisor operator or if someone comes to that facility. They verbalize understanding. Spoke with [facility]. A Dr. Gongora comes to that facility. Phone number given. Information received from [place] [facility] office. I will fax referral. documented in this encounter Plan of Treatment Upcoming Encounters Date Type Department Care Team (Late st Contact Info) Description 05/30/2026 2:00 PM EDT Office Visit [facility] [address] [address] Janiya Reyna MD [address] [facility] [address] [address] Scheduled Procedures Name Priority Associated Diagnoses Date/Ti me RIGHT AND LEFT HEART CATH Coronary artery disease involving [place] coronary artery of [place] heart without angina pectoris documented as of this encounter Visit Diagnoses Not on filedocumented in this encounter Care Teams Aerial Gunner Relationship Specialty Start Date End Date Stephen Velasquez MD [address] [place] [address] PCP - General Family Medicine 09/16/18 documented as of this encounter
--- OUTSIDE RECORDS SUMMARY | 2025-08-24 09:08 | XMS_ITS | Encounter Summary ---
[facility] Address [address] [place] [address] Care Team Providers Care Test Center Administrator Name Role Phone Stephen Velasquez MD Primary Care Provider [phone] Reason for Visit * Reason Onset Date Comments - MEDICAL CONCERN 08/11/2025 Encounter Details Date Type Department Care Team (Late st Contact Info) Description 08/11/2025 Telephone [facility] [address] [facility] [address] [place] [address] Janiya Reyna MD [address] [facility] [address] [place] [address] - MEDICAL CONCERN Social History Tobacco Use [...] KERR Relationship: SELF Best call back number: [phone] What is your medical concern? PT CALLED [...] Description 05/30/2026 2:00 PM EDT Office Visit [facility] [address] [address] Janiya Reyna MD [address] [facility] [address] [address] Scheduled Procedures Name Priority Associated Diagnoses Date/Ti me RIGHT AND LEFT HEART CATH Coronary artery disease involving [place] coronary artery of [place] heart without angina pectoris documented as of this encounter Visit Diagnoses Not on filedocumented in this encounter Care Teams Test Center Administrator Relationship Specialty Start Date End Date Stephen Velasquez MD [address] [place] [address] PCP - General Family Medicine 09/16/18 documented as of this encounter
--- OUTSIDE RECORDS SUMMARY | 2025-08-24 09:08 | XMS_ITS | Encounter Summary ---
Author Organization [facility] Address [address] [place] [address] Care Team Providers Care Manager Environmental Health And Safety Name Role Phone Stephen Velasquez MD Primary Care Provider [phone] Reason for Visit * Reason Comments Med Refill Encounter Details Date Type Department Care Team (Late st Contact Info) Description 06/27/2025 Refill [facility] [address] [facility] [address] [place] [address] Janiya Reyna MD [address] [facility] [address] [place] [phone] Med Refill Social History Tobacco Use Types [...] Description 05/30/2026 2:00 PM EDT Office Visit [facility] C[facility] [address] [facility] [address] [place] [phone] Janiya Reyna MD [address] [facility] [address] [place] [address] Scheduled Procedures Name Priority Associated Diagnoses Date/Ti me RIGHT AND LEFT HEART CATH Coronary artery disease involving [place] coronary artery of [place] heart without angina pectoris documented as of this encounter Visit Diagnoses Not on filedocumented in this encounter Care Teams Manager Environmental Health And Safety Relationship Specialty Start Date End Date Stephen Velasquez MD [address] [place] [address] PCP - General Family Medicine 09/16/18 documented as of this encounter
--- OUTSIDE RECORDS SUMMARY | 2025-08-24 09:08 | XMS_ITS | Encounter Summary ---
[facility] Address [address] [place] [address] Care Team Providers Care Ophthalmic Aide Name Role Phone Stephen Velasquez MD Primary Care Provider [phone] Reason for Visit * Reason Comments Med Refill Encounter Details Date Type Department Care Team (Late st Contact Info) Description 07/26/2025 Refill [facility] [address] [facility] [address] [place] [address] Janiya Reyna MD [address] [facility] [address] [address] [place] [phone] Med Refill Social History Tobacco Use Types [...] Description 05/30/2026 2:00 PM EDT Office Visit [facility] [address] [facility] [address] [place] [address] Janiya Reyna MD [address] [facility] [address] [facility] [address] [place] [address] Scheduled Procedures Name Priority Associated Diagnoses Date/Ti me RIGHT AND LEFT HEART CATH Coronary artery disease involving [place] coronary artery of [place] heart without angina pectoris documented as of this encounter Visit Diagnoses Not on filedocumented in this encounter Care Teams Ophthalmic Aide Relationship Specialty Start Date End Date Stephen Velasquez MD [address] [place] [address] PCP - General Family Medicine 09/16/18 documented as of this encounter
[2025-08-24 09:26] LABS: Hematocrit 38.8 % (42.0-52.0); Hemoglobin 12.4 g/dL (14.1-18.0); Immature Granulocytes % 0.4 %; Mean Corpuscular HGB Conc 32.0 g/dL (31.8-35.4); Mean Corpuscular Hemoglobin 31.6 pg (27.0-31.2); Mean Corpuscular Volume 98.7 fl (80-94); Nucleated Red Blood Cells % 0 %; Platelet Count 279 K/mm3 (142-424); Red Blood Count 3.93 M/mm3 (4.60-6.20); Red Cell Distribution Width-SD 53.5 fL; White Blood Count 7.9 K/mm3 (4.8-10.8)
[2025-08-24 09:34] LABS: Ammonia 10 umol/L (9-30)
[2025-08-24 09:36] LABS: INR 1.01 (0.9-1.1); Prothrombin Time 11.2 seconds (10.1-12.5)
[2025-08-24 09:47] LABS: Albumin Level 4.9 g/dl (3.5-5.0); Chloride 103 mmol/L (98-107); Potassium 4.7 mmoL/L (3.5-5.1); Sodium 145 mmol/L (136-145)
[2025-08-24 09:49] LABS: Alanine Aminotransferase 26 U/L (12-78); Aspartate Amino Transferase 33 U/L (17-59); Blood Urea Nitrogen 28 mg/dl (9-20); Creatinine,Serum 1.70 mg/dl (0.66-1.25); Estimated Glomerular Filt Rate 39 ml/min (>60); GFR (African American) 47 ML/MIN (>60)
[2025-08-24 09:50] LABS: Albumin/Globulin Ratio 2.5 (1.1-1.8); Alkaline Phosphatase 107 U/L (38-126); Anion Gap 14.7 mEq/L (5-15); Bilirubin,Total 0.7 mg/dl (0.2-1.3); Calcium 8.9 mg/dl (8.4-10.2); Carbon Dioxide 32 mmol/L (22.0-30.0); Globulin 2.0 g/dL (1.3-3.2); Glucose 119 mg/dl (74-100); Iron 107 ug/dL (49-181); Total Protein,Serum 6.9 g/dl (6.3-8.2)
[2025-08-24 10:00] LABS: Total Iron Binding Capacity 282 ug/dL (261-462)
--- NOTE | 2025-08-24 10:00 | US_ITS ---
FINAL REPORT TECHNIQUE: Multiple transverse and longitudinal scans were performed of the right upper quadrant of the abdomen. CLINICAL HISTORY: Cirrhosis COMPARISON: None FINDINGS: The pancreas is obscured. The liver margins are irregular consistent with cirrhosis. There is increased echogenicity of the liver consistent with fatty infiltration. The liver is heterogeneous. There is no focal abnormality in the liver. The portal vein is patent with normal hepatopetal flow. The gallbladder is partially contracted. There are shadowing echogenic foci near the gallbladder neck suggesting stones. The largest of these measures 1.2 cm. There is no intrahepatic ductal dilation. The common duct measures 4.5 mm, which is normal. IMPRESSION: Cirrhosis. Patent portal vein. No ascites. Gallstones with no ductal dilation. Reviewed, Interpreted and Dictated by Omar Mattson MD Transcribed by Henrietta Guallpa Authenticated and [facility]
[2025-08-24 10:27] LABS: Ferritin 65.2 ng/ml (17.9-464)
[2025-08-25 08:35] LABS: Immunoglobulin A, Qn 194 mg/dL (61-437); Immunoglobulin G, Qn 933 mg/dL (603-1613); Immunoglobulin M, Qn 40 mg/dL (15-143)
[2025-08-25 15:15] LABS: Deamidated Gliadin Abs, IgA 3 units (0-19); Deamidated Gliadin Abs, IgG 2 units (0-19)
== END 2025-08-24 23:59 | disposition home or self-care (01) ==
LOC: RAD 08:55
PROVIDERS: PCP Family Medicine; Visit Provider Nurse Practitioner Family
DX: K74.60 Unspecified cirrhosis of liver (principal); K80.20 Calculus of gallbladder without cholecystitis without obstruction
CPT/HCPCS: 36415; 76705; 80053; 80074; 81256; 82103; 82104; 82105; 82140; 82164; 82172; 82247; 82390; 82465; 82728; 82784; 82947; 82977; 83010; 83521; 83540; 83550; 84450; 84460; 84478; 85025; 85610; 86015; 86231; 86258; 86364; 86381

== ENCOUNTER 2025-08-31 16:00 | Outpatient (RCR) | payer MEDICARE, SELFPAY | END 2025-08-31 23:59 | disposition home or self-care (01) | LOC: PT 16:00 | PROVIDERS: PCP Family Medicine; Visit Provider Nurse Practitioner | DX: L03.90 Cellulitis, unspecified (principal) | CPT/HCPCS: 97597 ==

== ENCOUNTER 2025-10-13 12:55 | Outpatient (CLI) | payer MEDICARE, SELFPAY ==
--- OUTSIDE RECORDS SUMMARY | 2020-08-20 12:38 | XMS_ITS | Encounter Summary ---
[facility] [address] [place] [id number] Care Team Providers Care Used Car Sales Supervisor Name Role Phone Stephen Velasquez MD Primary Care Provider Encounter Details Date Type Department Care Team (Late st Contact Info) Description 08/20/2020 12:38 PM EST Hospital Encounter [facility] [address] [place] [address] Social History Tobacco Use Types Packs/Day Years Used Date Smoking Tobacco: Former Cigarettes 2 40 1 - 08/02/2011 Electronic Cigarette Quit : 2014 Smokeless Tobacco: Never Alcohol Use Standard Drinks/Week Comments No 0 (1 standard drink = 0.6 oz pur e alcohol) AUDIT-C Answer Date Recorded Q1: How often do you have a drink containing alc ohol? Never 05/27/2021 Average Number of Drinks Not on file 021 Frequency of Binge Drinking Not on file 06/2021 Sex and Gender Information Value Date Recorded Sex Assigned at Not on file Legal Sex Male 11:33 AM EDT Gender Identity Not on file Sexual Orientation Not on file documented as of this encounter Plan of Treatment Upcoming Encounters Date Type Department Care Team (Late st Contact Info) Description 05/30/2026 2:00 PM EDT Office Visit [facility] [address] [facility] [address] [place] [id number] Janiya Reyna MD [address] [facility] [address] [place] [id number] Scheduled Procedures Name Priority Associated Diagnoses Date/Ti me RIGHT AND LEFT HEART CATH Coronary artery disease involving big sandy coronary artery of big sandy heart without angina pectoris documented as of this encounter Procedures Procedure Name Priority Date/Time Associated Diagnosis Comments XR CHEST PA AND LATERAL Routine 08/20/2020 12:46 PM EST Moderate COPD (chronic obstructive pulmonary disease) documented in this encounter Results * XR Chest PA & Lateral (08/20/2020 12:46 PM EST) Anatomical Region Laterality Modality Body, Chest N/A Radiographic Inge ging 08/20/2020 12:5 0 PM EST Impressions 08/20/2020 3:04 PM EST Scarring in the right upper lobe. Chronic changes seen throughout the lung hartmann. No focal parenchymal opacification present. E: 08/20/2020 This report was finalized on 08/20/2020 3:[address] Jocelyn Yeung MD. Narrative 08/20/2020 3:04 PM EST EXAMINATION: XR CHEST PA AND LATERAL- 08/20/2020 INDICATION: SEE DIAGNOSIS; J44.9-Chronic obstructive pulmonary disease, unspecified COMPARISON: NONE FINDINGS: PA and lateral views of the chest reveal cardiac and mediastinal silhouettes within normal limits. There is scarring and linear markings identified of the right upper lobe. There is apical pleural thickening and scarring at the lung apices. No definite pleural effusion or pneumothorax. Procedure Note Jocelyn Yeung MD - 08/20/2020 EXAMINATION: XR CHEST PA AND LATERAL- 08/20/2020 INDICATION: SEE DIAGNOSIS; J44.9-Chronic obstructive pulmonary disease, unspecified COMPARISON: NONE FINDINGS: PA and lateral views of the chest reveal cardiac and mediastinal silhouettes within normal limits. There is scarring and linear markings identified of the right upper lobe. There is apical pleural thickening and scarring at the lung apices. No definite pleural effusion or pneumothorax. IMPRESSION: Scarring in the right upper lobe. Chronic changes seen throughout the lung hartmann. No focal parenchymal opacification present. E: 08/20/2020 This report was finalized on 08/20/2020 3:[address] Jocelyn Yeung MD. Leela Farr HOSIERY REPAIRER IMG DIAGNOSTIC IMAGING ORD ERABLES Final Result documented in this encounter Visit Diagnoses Not on filedocumented in this encounter Additional Health Concerns Infection Onset Date Last Indicated Resolved Time COVID (rule out) 08/14/2020 08/14/2020 08/21/2020 9:10 PM EST documented as of this encounter Care Teams Used Car Sales Supervisor Relationship Specialty Start Date End Date Stephen Velasquez MD [address] [place] [address] PCP - General Family Medicine 09/16/18 documented as of this encounter
--- OUTSIDE RECORDS SUMMARY | 2025-10-13 12:58 | XMS_ITS | Encounter Summary ---
[facility] Address [address] [place] [address] Care Team Providers Care Geosciences Associate Professor Name Role Phone Stephen Velasquez MD Primary Care Provider [phone] Reason for Visit * Reason Comments Med Refill Encounter Details Date Type Department Care Team (Late st Contact Info) Description 09/11/2025 Refill [facility] [address] [facility] [address] [place] [address] Janiya Reyna MD [address] [facility] [address] [place] [phone] Med Refill Social History Tobacco Use Types [...] Telephone Encounter - Skyler Kebede RN - 09/11/2025 8:52 AM EST 06/13/25 Glu 114 BUN 36 Creat 2.22 Na 140 K+ 5.4 Cl 105 CO2 23 Anion Gap 12 Calcium 8.8 documented in this encounter Plan of Treatment Upcoming Encounters Date Type Department Care Team (Late st Contact Info) Description 05/30/2026 2:00 PM EDT Office Visit [facility] [address] [facility] [address] [place] [phone] Janiya Reyna MD [address] [facility] [address] [place] [address] Scheduled Procedures Name Priority Associated Diagnoses Date/Ti me RIGHT AND LEFT HEART CATH Coronary artery disease involving [place] coronary artery of tejon heart without angina pectoris documented as of this encounter Visit Diagnoses Not on filedocumented in this encounter Care Teams Geosciences Associate Professor Relationship Specialty Start Date End Date Stephen Velasquez MD [address] [place] [address] PCP - General Family Medicine 09/16/18 documented as of this encounter
--- OUTSIDE RECORDS SUMMARY | 2025-10-13 12:59 | XMS_ITS | Encounter Summary ---
Author Organization [facility] Address [address] [place] [id number] Care Team Providers Care A&P Mechanic Name Role Phone Stephen Velasquez MD Primary Care Provider [phone] Encounter Details Date Type Department Care Team (Late st Contact Info) Description 09/12/2025 Telephone [facility] Nephrology, Bone & Mineral Metabolism [address] [facility], [address] [place] [address] Gudelia Monzon Social History Tobacco Use Types Packs/Day Years [...] any time in the past 12 m [facility], were you homeless or living in a snf (including now)? No 06/12/2025 Utilities Answer Date [...] documented as of this encounter Care Teams A&P Mechanic Relationship Specialty Start Date End Date Stephen Velasquez MD [address] [place] [address] [address]1 [place] [address] PCP - General 03/01/21 documented as of this encounter
--- OUTSIDE RECORDS SUMMARY | 2025-10-13 12:59 | XMS_ITS | Clinical Summary ---
Author Organization [facility] Address [address] [place] [address] Care Team Providers Care Electrician Chief Name Role Phone Stephen Velasquez MD Primary Care Provider [phone] Allergies Active Allergy Reactions Criticality Noted Date [...] straight caths at home Rae insert overnight Lung nodule 06/11/2025 Assessment & Plan (06/12/2025 [...] Problem Noted Date Diagnosed Date Resolved Date Taicp-sb-speqemj kidney injury 06/11/2025 09/17/2025 Assessment & Plan (06/12/2025 10:31 AM EDT): Cr ~1.67 08/2019 2.47 on arrival, now 2.57 FeNa prerenal, encourage PO hydration Improving Assessment & Plan (06/11/2025 1:24 PM EDT): Cr ~1.67 08/2019 2.47 on arrival, now 2.57 Urine lytes pending to work up etiology UTI (urinary tract infection) 06/10/2025 06/11/2025 Overview (06/10/2025): Abx started Assessment & Plan (06/10/2025 5:28 PM EDT): Concern on admission with keflex started, dc'd, no sx and patient I&O caths at home Assessment & Plan (06/10/2025 7:33 AM EDT): Start Keflex Obesity (BMI 35.0-39.9 without comorbidity) 06/09/2025 06/10/2025 Encounters Date Type Department Care Team Description 09/12/2025 Telephone [facility] Nephrology, Bone & Mineral Metabolism [address] [facility], [address] [place] [phone] Gudelia Monzon 08/21/2025 Orders Only [facility] Nephrology, Bone & Mineral Metabolism [address] [facility], [address] [place] [address] Felicity Enciso CKD (chronic kidney disease) stage 4, GFR 15-29 ml/min (CMS/HCC) (Primary Dx); Vitamin D insufficiency from Last 3 Months Family History Medical [...] and Family Not on file 06/12/2025 Attends [employer] Not on file 06/12 Active Member [...] any time in the past 12 m [facility], were you homeless or living in a custodial (including now)? No 06/12/2025 Utilities Answer Date [...] or (1 - 1-dose 75+ series) 2016 [id number] Vaccine (2 - 2024- season) 2025 11/21/2020 [facility]-Influenza Vaccine (#1) 06/19/202508/06, 07/02/2020, 07/28/2019, Additional history exists [facility]- SDOH Screenings 12/13/2025 [facility]-Adult SDOH Screenings 12/13/2025 06/12/2025 [facility]-DTaP,Tdap,and Td Vaccines (5 - Td or Tdap) 12/07/2032 12/07/2022, 06/05/2014, 05/26/2014, Additional history exists [facility]-Zoster Vaccines Completed 07/19/2019, 9 [facility]-Obesity Intervention Completed 06/09/2025 HPV Vaccines (No Doses Required) Completed [facility]-HIB Vaccines Aged Out No longer e ligible based on patient's age to complete this topic [facility]-IPV Vaccines Aged Out No longer e ligible based on patient's age to complete this topic [facility]-Rotavirus Vaccines Aged Out No lo nger eligible based on patient's age to complete this topic Insurance [facility] [id number] [facility] MEDICARE Care Teams Electrician Chief Relationship Specialty Start Date End Date Stephen Velasquez MD [address] [place] [address] [address] [place] [address] PCP - General 03/01/21
--- OUTSIDE RECORDS SUMMARY | 2025-10-13 12:59 | XMS_ITS | Clinical Summary ---
Author Organization [facility] Address [address] [place] [id number] Care Team Providers Care Retirement Manager Name Role Phone Stephen Velasquez MD Primary Care Provider [phone] Allergies Active Allergy Reactions Criticality Noted Date [...] Day As Needed for Anxiety. Active Multiple Vitamins-Print Cutter als (CENTRUM ADULTS PO) Take by mouth [...] mouth Daily. 90 tablet 3 4 Active propafenone (RYTHMOL) 150 MG tablet Take 1 tablet by mouth Every 12 (Twelve) Hours. 180 tablet 1 5 Active clopidogrel (PLAVIX) 75 MG tablet TAKE 1 TABLET BY MOUTH ONCE A DAY 90 tablet 1 5 Active terazosin (HYTRIN) 2 MG capsule TAKE ONE CAPSULE BY MOUTH EVERY NIGHT 30 capsule 6 5 Active bumetanide (BUMEX) 1 MG tablet Take 0.5 tablets by mouth Daily. 45 tablet 3 5 Active bumetanide (BUMEX) 1 MG tablet Take 0.5 tablets by mouth Daily. 45 tablet 5 10/09/20 25 Discontin ued(Reord er) Active Problems Problem Noted Date Diagnosed Date Moderate COPD (chronic obstructive pulmonary dis ease) 10/14/2019 Coronary artery disease invo lving tejon coronary artery of tejon heart without angina pectoris 09/02/2019 Overview (09/02/2019): Added automatically from request for surgery [id number] Hypoxemia 09/02/2019 Overview (09/02/2019): Added automatically from request for surgery [id number] PVC's (premature ventricular contractions) 09/01 Former smoker 08/18/2019 Chronic diastolic heart failure 08/18/2019 Dyspnea on exertion 10/06/2018 Essential hypertension 10/06/2018 Mixed hyperlipidemia 10/06/2018 Palpitations 10/06/2018 Coronary artery disease invo lving tejon heart without angina pectoris 10/05/2018 Encounters Date Type Department Care Team Description 10/09/2025 Telephone [facility] [address] [facility] [address] [place] [address] Janiya Reyna MD 09/11/2025 Refill [facility] [address] [place] [address] Janiya Reyna MD Med Refill 08/11/2025 Telephone [facility] [address] [place] [address] 08/11/2025 Refill [facility] [address] [place] [address] Janiya Reyna MD Med Refill 07/26/2025 Refill [facility] [address] [facility] [address] [place] [address] Janiya Reyna MD Med Refill from Last [...] Frequency of Binge Drinking Not on file 0806/2021 Sex and Gender Information Value Date Recorded [...] [facility] [address] [facility] [address] [place] [address] Janiya Reyna MD [address] [facility] [address] [address] [place] [address] Scheduled Procedures Name Priority Associated Diagnoses Date/Ti me RIGHT AND LEFT HEART CATH Coronary artery disease involving te[place] coronary artery of tejon heart without angina pectoris Health Maintenance Due [...] VACCINE 05/19/2025 07/02/2020, , 07/02/2016 TDAP/TD VACCINES (3 - Td or Tdap) 12/07/2032 12/07/2022, 05/26/2014, 12/22/1996 ZOSTER VACCINE Completed 07/19/2019, 04/18/2019 Procedures Procedure Name Priority Date/Time Associated Diagnosis Comments SCANNED - LABS 08/24/2025 LIPID PANEL STAT 09/13/2019 7:36 AM EST from Last 3 Months or Most Recently Relevant to Health Maintenance Results * LABS SCANNED (08/24/2025) Janiya Reyna MD LAB BLOOD ORDERABLES Fi nal Result * Lipid Panel (09/13/2019 7:36 AM EST) Total Cholesterol 122 0 - 200 mg/dL 09/13/2019 8:21 AM EST [facility] Triglycerides 114 0 - 150 mg/dL 09/13/2019 8:21 AM EST [facility] HDL Cholesterol 54 40 - 60 mg/dL 09/13/2019 8:21 AM EST [facility] LDL Cholesterol 45 0 - 100 mg/dL 09/13/2019 8:21 AM EST [facility] VLDL Cholesterol 22.8 mg/dL 09/13/20 19 8:21 AM EST [facility] LDL/HDL Ratio 0.84 09/13/2019 8:21 AM EST [facility] Blood Line / Unknown 09/13/2019 7: 36 AM EST 09/13/2019 7:58 AM EST [facility] - 09/13/2019 8:21 AM EST [...] Yoni MCKNIGHT LAB BLOOD ORDERABLES Final Result [facility]
[address] [place] [address], from Last 3 Months or Most Recently Relevant to Health Maintenance Insurance [facility] Medicare [employer] PPO Advance Directives Documents on File Type Date Recorded Patient Radio Artist Expl anation POWER OF LEGAL SUPPORT ANALYST - SCAN 09/13/2019 7:04 AM POA 02-24-2012 Care Teams Retirement Manager Relationship Specialty Start Date End Date Stephen Velasquez MD [address] [place] [id number] PCP - General Family Medicine 09/16/18
--- OUTSIDE RECORDS SUMMARY | 2025-10-13 12:59 | XMS_ITS | Encounter Summary ---
Author Organization [facility] Address [address] [place] [address] Care Team Providers Care Production Assembly Supervisor Name Role Phone Stephen Velasquez MD Primary Care Provider [phone] Encounter Details Date Type Department Care Team (Late st Contact Info) Description 08/21/2025 Orders Only [facility], Bone [facility] Mineral Metabolism [address] [place], [address] [place] [address] Felicity Enciso CKD (chronic kidney [...] and Family Not on file 06/12/2025 Attends [employer] Not on file 06/12 Active Member [...] time in the past 12 m [facility], were you homeless or living in a [facility] (including now)? No 06/12/2025 Utilities Answer Date Recorded In the past 12 months has th e [employer], gas, oil, or water company threatened to shut off services in your home? No 06/12/2025 Sex and Gender Information Value Date Recorded Sex Assigned at Not on file Legal Sex Male 6:06 PM EDT Gender Identity Not on file Sexual Orientation Not on file documented as of this encounter Plan of Treatment Scheduled Orders Name Type Priority Associated Diagnoses Orde r Schedule Renal Function Panel, Plasma Lab Routine CKD (chronic kidney disease) stage 4, GFR 15-29 ml/min (CMS/HCC) Expected: 08/21/2025 (Approximate), Expires: 02/18/2027 CBC and Differential Lab Routine CKD (chronic kidney disease) stage 4, GFR 15-29 ml/min ([facility]) Expected: 08/21/2025 (Approximate), Expires: 02/18/2027 Creatinine, Random, Urine Lab Routine CKD (chronic kidney disease) stage 4, GFR 15-29 ml/min ([facility]) Expected: 08/21/2025 (Approximate), Expires: 02/18/2027 Protein, Random, Urine with Creatinine Lab Routine CKD (chronic kidney disease) stage 4, GFR 15-29 ml/min (CMS/HCC) Expected: 08/21/2025 (Approximate), Expires: 02/18/2027 Urinalysis with reflex microscopic (Culture NOT Included) Lab Routine CKD (chronic kidney disease) stage 4, GFR 15-29 ml/min ([facility]) Expected: 08/21/2025 (Approximate), Expires: 02/18/2027 PTH Intact Total Lab Routine CKD (chronic kidney disease) stage 4, GFR 15-29 ml/min ([facility]) Vitamin D insufficiency Expected: 08/21/2025 (Approximate), Expires: 02/18/2027 Vitamin D 25 Hydroxy Lab Routine CKD (chronic kidney disease) stage 4, GFR 15-29 ml/min ([facility]) Vitamin D insufficiency Expected: 08/21/2025 (Approximate), Expires: 02/18/2027 documented as of this encounter Visit Diagnoses Diagnosis CKD (chronic kidney disease) stage 4, GFR 15-29 ml/min ([facility])- Primary Chronic kidney disease, Stage IV (severe) Vitamin D insufficiency documented in this encounter Additional Health Concerns Assessment Noted Time A Body Mass Index follow-up plan has been documented for the patient 06/13/2025 6:05 PM EDT documented as of this encounter Care Teams Production Assembly Supervisor Relationship Specialty Start Date End Date Stephen Velasquez MD [address] [place] [address] [address] ALYSSA De Los Santos [id number] PCP - General 03/01/21 documented as of this encounter
--- OUTSIDE RECORDS SUMMARY | 2025-10-13 12:59 | XMS_ITS | Encounter Summary ---
Author Organization [facility] Address [address] [place] [address] Care Team Providers Care Forest Management Teacher Name Role Phone Stephen Velasquez MD Primary Care Provider [phone] Encounter Details Date Type Department Care Team (Late st Contact Info) Description 10/09/2025 Telephone [facility] [address] [facility] [place] [id number] Janiya Reyna MD [address] [place] [address] Social History Tobacco Use Types Packs/Day Years [...] on file documented as of this encounter Progress Notes * Jacquie Cortez RN - 10/09/2025 4:09 PM ESTAddended by: JACQUIE CORTEZ on: 10/09/2025 04:09 PM Modules accepted: Orders documented in this encounter Miscellaneous Notes * Telephone Encounter - Jacquie Cortez RN - 10/09/2025 4:06 PM EST Per [facility] - patient to continue bumetanide 0.5mg QD. He will need a BMP in two weeks. All orders placed as requested. Spoke with patients . She is instructed of above. I will mail them the labslips as they prefer to have lab work in [place]. She verbalizes understanding. * Telephone Encounter - Jacquie Cortez RN - 10/09/2025 10:59 AM EST Patients left voice mail message. She reports patient needs a refill of his bumetanide. He thought he was supposed to continue bumetanide 1mg PO QD, so he is out. She requests a 90 day refill. Upon reviewing the chart: On 08/11/25, bumetanide was decreased to 1/2 tab QD due to elevated creat. The last labs we have onthe patient are dated 06/13/25. Last office visit 03/29/25. Spoke with patients . She reports patient had lab work recently at in [place]. I will request lab work and discuss dosage of bumetanide with [facility] and call her back. She verbalizes Spoke with Ray Hayes MD office. They will send most recent CMP drawn 08/23/25. documented in this encounter Plan of Treatment Upcoming Encounters Date Type Department Care Team (Late st Contact Info) Description 05/30/2026 2:00 PM EDT Office Visit [facility] [address] [place] [address] Janiya Reyna MD [address] [place] [address] Scheduled Orders Name Type Priority Associated Diagnoses Orde r Schedule Basic Metabolic Panel Lab Routine Chronic diastolic heart failure Expected: 10/14/2025 (Approximate), Expires: 01/07/2027 Scheduled Procedures Name Priority Associated Diagnoses Date/Ti me RIGHT AND LEFT HEART CATH Coronary artery disease involving [place] coronary artery of [place] heart without angina pectoris documented as of this encounter Visit Diagnoses Diagnosis Chronic diastolic heart failure- Primary documented in this encounter Care Teams Forest Management Teacher Relationship Specialty Start Date End Date Stephen Velasquez MD [address] [place] [address] PCP - General Family Medicine 09/16/18 documented as of this encounter
--- NOTE | 2025-10-13 13:01 | XR_ITS ---
FINAL REPORT TECHNIQUE: Left shoulder 3 views CLINICAL HISTORY: LT SHOULDER PAIN COMPARISON: None FINDINGS: 3 views of the left shoulder show no evidence of acute displaced fracture or dislocation of the visualized bony architecture. Mild degenerative changes of both the glenohumeral and acromioclavicular joints are noted. IMPRESSION: Mild degenerative changes, with an otherwise unremarkable exam. Reviewed, Interpreted and Dictated by Gladys Turner MD Transcribed by Claire Keane Authenticated and [facility]
== END 2025-10-13 23:59 ==
LOC: RAD 12:56
PROVIDERS: PCP Family Medicine; Visit Provider Nurse Practitioner Family
DX: M19.012 Primary osteoarthritis, left shoulder
CPT/HCPCS: 73030